=== PATIENT | female | born 1935 | race Caucasian/White ===

== ENCOUNTER → 2017-05-20 14:48 | Outpatient (CLI) | payer MEDICARE, OTHER, SELFPAY ==
--- NOTE | 2017-05-20 14:54 | VDLE_ITS ---
Reason For Study: LEG PAIN AND SWELLING RIGHT LEFT CFV is compressible, spontaneous, phasic, Acute deep vein thrombosis is noted in the competent and demonstrates normal left common femoral vein. augmentation. Acute deep vein thrombosis is noted in the Procedure left femoral vein. Exam performed in department. Acute deep vein thrombosis is noted in the A preliminary report was called and/or faxed left popliteal vein. to Esteban Potter. Acute deep vein thrombosis is noted in the left peroneal vein. Acute deep vein thrombosis is noted in the left posterior tibial vein. Acute deep vein thrombosis noted in the Gastroc veins GSV is dilated and non-compressible from SFJ to prox thigh. Interpretation Summary Acute deep vein thrombosis is noted in the left common femoral vein. Acute deep vein thrombosis is noted in the left femoral vein. Acute deep vein thrombosis is noted in the left popliteal vein. Acute deep vein thrombosis is noted in the left tibio-peroneal trunk. Acute deep vein thrombosis is noted in the left peroneal vein. Acute deep vein thrombosis is noted in the left posterior tibial vein. Acute deep vein thrombosis is noted in the left gastrocnemius vein. Acute superficial thrombophlebitis is noted in the left great saphenous vein from the left sapheno-femoral junction to the left proximal thigh. Ordering Physician: Willy Potter Referring Physician: MD Mercedes Kranthi Performed By: Denise Albarran RVT
[2017-05-20 17:00] LABS: Absolute Lymphocyte Count 1.21 X10^3/ul (0.83-4.51); Absolute Neutrophil Count 6.8 X10^3/uL (2.0-7.7); Basophil# 0.02 X10^3/uL; Basophil% 0.2 % (0-1); Eosinophil# 0.01 X10^3/uL; Eosinophils% 0.1 % (0-5); Hemoglobin 12.8 g/dl (12.0-15.0); Lymphocyte # 1.21 X10^3/ul (4.0); Lymphocyte % 13.8 % (19-41); Mean Corpuscular Hgb 29.8 pg (27.0-32.0); Mean Platelet Vol. 11.6 fl (6.2-12.0); Monocyte# 0.73 X10^3/uL; Monocyte% 8.3 % (0-10); Neutrophil # 6.77 X10^3/uL (2.7-7.7); Neutrophil % 77.5 % (47-70); Platelet Count 153 K/mm3 (150-450); RBC Distribution Width CV 13.2 % (11.6-14.6); White Blood Count 8.8 K/mm3 (4.4-11.0)
[2017-05-20 17:08] LABS: POSITIVE COUNT NO; POSITIVE DIFFERENTIAL NO; POSITIVE MORPHOLOGY NO
[2017-05-20 17:18] LABS: Erythrocyte Sedimentation Rate 16 mm/hr (0-30)
== END ==
PROVIDERS: Family Provider Family Medicine; PCP Family Medicine; Visit Provider Physician Assistant Surgical
DX: M79.662 Pain in left lower leg (principal)
CPT/HCPCS: 36415; 85025; 85652; 86140; 93971

== ENCOUNTER 2017-05-20 18:13 | Emergency (ER) | payer MEDICARE, OTHER, SELFPAY ==
[2017-05-20 18:15] VITALS: BP 157/76; PULSE 60; RESP 16; TEMP 37; O2SAT 98; BMI 28.3
[2017-05-20 20:36] LABS: International Normalized Ratio 1.2; Prothrombin Time (Protime)PT. 15.1 SECONDS (11.7-14.9)
[2017-05-20 20:51] LABS: Anion Gap 8 (5-15); BUN 48 mg/dL (7-18); Chloride 99 mmol/L (98-107); EST Glomerular Filtration Rate 46 mL/min (>60); Est Glom Filt Rate - Afr Amer 55 mL/min (>60); Estimated Creatinine Clearance 35.15 ml/min; Glucose 105 mg/dL (74-106); Potassium 4.3 mmol/L (3.5-5.1); Sodium Level 135 mmol/L (136-145)
--- NOTE | 2017-05-20 21:20 | ED.VISSUMM ---
- ER Visit Summary Date of Service: 05/20/17 Chief Complaint: DVT History of Present Illness: The patient is a 82 F who presents with extensive DVT. She has been having left leg pain and swelling for the past 4 days. She states it has become very difficult to ambulate due to pain in her thigh. She has a history of prior left total hip arthroplasty and left total knee arthroplasty so thought this may be related to her orthopedic surgeries and schedule follow-up with orthopedics. She had an ultrasound today which showed extensive DVT. She has acute DVT in the left common femoral, femoral, popliteal, peroneal, posterior tibial, gastroc veins. The GSV is also dilated and noncompressible from the SFJ to proximal thigh. She denies any chest pain or shortness of breath. No recent travel recent surgery known coagulopathies or recent hospitalization. No prior DVT or pulmonary embolism. Physical Examination: Afebrile vitals are stable Heart regular rate and rhythm Lungs are clear Abdomen soft Patient is a 2+ left dorsalis pedis pulse I was unable to palpate the right dorsalis pedis pulse but she has brisk capillary refill on the right and a strong right posterior tibial Doppler signal and brisk capillary refill in the right, patient has cyanosis of the toes on the left and discoloration of the foot there is slight discoloration of the left leg compared to the right and significant edema Test Results: CBC earlier today was normal. Chemistry notable for BUN 48 creatinine 1.20. INR 1.2. Emergency Department Course and Treatment: Patient's presentation is concerning for early signs of phlegmasia cerulea dolens. Patient was started on a heparin infusion and discussed with the [facility] transfer line and was accepted by Dr. Hernandez, vascular surgery. Treatment Plan: [] Disposition: Transfer Impression: Phlegmasia cerulea dolens This note was generated with [employer] dictation software. It may contain incorrect words, spelling, and punctuation that were not noted in review of the chart prior to signing ED Disposition - Plan for ED Patient: Chief Complaint: Lower Extremity Injury Referrals: Kranthi Long MD [Primary Care Provider] -
--- NOTE | 2017-05-20 21:24 | ED.DCSUM_ITS ---
- ER Visit Summary Date of Service: 05/20/17 Chief Complaint: DVT History of Present Illness: The patient is a 82 F who presents with extensive DVT. She has been having left leg pain and swelling for the past 4 days. She states it has become very difficult to ambulate due to pain in her thigh. She has a history of prior left total hip arthroplasty and left total knee arthroplasty so thought this may be related to her orthopedic surgeries and schedule follow-up with orthopedics. She had an ultrasound today which showed extensive DVT. She has acute DVT in the left common femoral, femoral, popliteal , peroneal, posterior tibial, gastroc veins. The GSV is also dilated and noncompressible from the SFJ to proximal thigh. She denies any chest pain or shortness of breath. No recent travel recent surgery known coagulopathies or recent hospitalization. No prior DVT or pulmonary embolism. Physical Examination: Afebrile vitals are stable Heart regular rate and rhythm Lungs are clear Abdomen soft Patient is a 2+ left dorsalis pedis pulse I was unable to palpate the right dorsalis pedis pulse but she has brisk capillary refill on the right and a strong right posterior tibial Doppler signal and brisk capillary refill in the right, patient has cyanosis of the toes on the left and discoloration of the foot there is slight discoloration of the left leg compared to the right and significant edema Test Results: CBC earlier today was normal. Chemistry notable for BUN 48 creatinine 1.20. INR 1.2. Emergency Department Course and Treatment: Patient's presentation is concerning for early signs of phlegmasia cerulea dolens. Patient was started on a heparin infusion and discussed with the [facility] transfer line and was accepted by Dr. Hernandez, vascular surgery. Treatment Plan: [] Disposition: Transfer Impression: Phlegmasia cerulea dolens This note was generated with [employer] dictation software. It may contain incorrect words, spelling, and punctuation that were not noted in review of the chart prior to signing ED Disposition - Plan for ED Patient: Chief Complaint: Lower Extremity Injury Referrals: Kranthi Long MD [Primary Care Provider] -
[2017-05-20 21:26] VITALS: BMI 28.4
[2017-05-20] MEDS: HEPARIN/D5w 25,000 UNITS 25,000 UNITS/250 ML IV.SOLN. 12 UNITS IV (21:29)
[2017-05-20 21:39] LABS: Partial Thromboplast Time 31.2 Seconds (24.1-36.2)
[2017-05-20 21:44] VITALS: BP 114/58; PULSE 76; PULSE 79; RESP 16; RESP 18; TEMP 36.9; O2SAT 100; O2SAT 99
== END 2017-05-20 21:46 | disposition short-term general hospital (02) ==
LOC: ED 21:01
PROVIDERS: Emergency Provider Emergency Medicine; Family Provider Family Medicine; PCP Family Medicine
DX: I82.412 Acute embolism and thrombosis of left femoral vein (principal); I82.432 Acute embolism and thrombosis of left popliteal vein; I82.442 Acute embolism and thrombosis of left tibial vein; I82.4Z2 Acute embolism and thrombosis of unspecified deep veins of left distal lower extremity; I10 Essential (primary) hypertension; K21.9 Gastro-esophageal reflux disease without esophagitis; Z79.899 Other long term (current) drug therapy; Z86.718 Personal history of other venous thrombosis and embolism; Z86.711 Personal history of pulmonary embolism
CPT/HCPCS: 36415; 80048; 85025; 85610; 85652; 85730; 86140; 93971; 96374; 99285; A4216

== ENCOUNTER → 2019-08-20 09:30 | Outpatient (CLI) | payer MEDICARE, OTHER, SELFPAY ==
--- NOTE | 2019-08-20 09:50 | RAD_ITS ---
STUDY: X-RAY CHEST REASON FOR EXAM: Female, 84 years old. PRE OP, NO CHEST COMPLAINTS TECHNIQUE: Frontal and lateral views of the chest COMPARISON: None. FINDINGS: The lungs are clear and expanded. There is no demonstrated pleural abnormality. Normal size heart. Normal mediastinum and jessica. Normal visualized pulmonary arteries. Normal visualized aortic arch and descending thoracic aorta. There are degenerative changes in the spine and shoulders. Mineralization is diffusely decreased. There is no demonstrated abnormality of the visualized soft tissue structures of the upper abdomen. There are cholecystectomy clips. RAD/Chest PA and Lateral IMPRESSION: Normal x-ray examination of the chest. Osteoporosis. Electronically Signed: Lauryn Hoskins, at 16:48 EDT Tel , Service support ,
--- NOTE | 2019-08-20 09:52 | EKG12_ITS ---
Test Reason : Blood Pressure : / mmHG Vent. Rate : 058 BPM Atrial Rate : 058 BPM P-R Int : 144 ms QRS Dur : 078 ms QT Int : 582 ms P-R-T Axes : 113 031 -33 degrees QTc Int : 571 ms Sinus bradycardia Nonspecific ST and T wave abnormality Abnormal ECG Confirmed by MUNA MORRIS, CESAR ([id number]), editor producer LORI NAVARRO ([id number]) on 08/24/2019 1:47:53 PM Referred By: LANDNO Confirmed By:CODY TORO MD
== END ==
PROVIDERS: PCP Family Medicine; Visit Provider Physician Assistant
DX: Z01.810 Encounter for preprocedural cardiovascular examination (principal); Z01.811 Encounter for preprocedural respiratory examination
CPT/HCPCS: 71046; 93005

== ENCOUNTER → 2019-09-23 14:16 | Outpatient (CLI) | payer MEDICARE, OTHER, SELFPAY ==
--- NOTE | 2019-09-23 14:23 | CT_ITS ---
CT of the right knee INDICATION: Pain TECHNIQUE: CT of the right knee was performed in the axial plane without contrast followed by sagittal and coronal reconstructions. FINDINGS: There is no evidence for acute fracture or dislocation. There is narrowing of the medial compartment of the joint with spurring of the medial femoral and tibial condyles. There is narrowing of the lateral compartment of the patellofemoral joint space with mild patellar spurring. There is a suprapatellar bursal effusion. There is also fluid within the pes anserine bursa. If concern for ligamentous or tendinous injury MRI recommended CT/Extremity Lower without Contra IMPRESSION: Moderate osteoarthritic changes. No evidence for acute fracture or other significant bony pathology. If concern for ligamentous or tendinous injury MRI recommended Electronically Signed: Jaime Ibanez MD at 20:19 EDT , Service support ,
== END ==
PROVIDERS: PCP Family Medicine; Referring Provider Orthopaedic Surgery; Visit Provider Orthopaedic Surgery
DX: M17.11 Unilateral primary osteoarthritis, right knee (principal); M25.561 Pain in right knee
CPT/HCPCS: 73700

== ENCOUNTER 2019-10-20 15:57 | Emergency (ER) | payer MEDICARE, OTHER, SELFPAY ==
[2019-10-20 15:59] VITALS: BP 132/84; PULSE 52; PULSE 62; RESP 17; RESP 18; TEMP 36.6; O2SAT 97; O2SAT 98; BMI 25.3
--- NOTE | 2019-10-20 16:23 | ED.DCSUM_ITS ---
History of Present Illness Chief Complaint: Lower Extremity Injury Informant: Patient, Family Narrative: Patient is an 84-year-old female with a past medical history of DVT on Eliquis, hypertension who presents to emerge department for bruise over the left lateral thigh. She fell 10 days ago. She was not seen at that time because she thought it was a minor fall. She denies any significant pain. Have minor pain whenever she is ambulating. She was concerned as she is supposed to have a right knee replacement at the end of this month. Her bruise has been getting larger so she wanted to get checked out as she did not want to miss the surgery. Bruise is on the left side. Initially started around her left buttock going down the left thigh. Now extended down not past the knee. She has been using cold and warm compresses over the area. She denies any easy bleeding or bruising elsewhere. No limited range of motion of the leg. No joint swelling. No back pain, neck pain. Denies hitting her head or losing consciousness. Past Medical History - Allergies and Home Meds Allergies/Adverse Reactions: Allergies lisinopril Allergy (Verified 10/20/19 15:58) Shortness of breath metoclopramide [From Reglan] Allergy (Verified 10/20/19 15:58) Shortness of breath etodolac Adverse Reaction (Verified 10/20/19 15:58) Diarrhea Primary Care Physician: Kranthi Long MD [Primary Care Provider] - 3-5 Days Prior records reviewed: Yes Past Medical History: - - DVT, hypertension Surgical History: hysterectomy, total hip arthroplasty Smoking Status: Former smoker Review of Systems All systems negative except as indicated General: Denies: Chills, Fever, Sweats Eyes: Denies: Visual changes - bilaterally, Diplopia ENT: Denies: Rhinorrhea, Sore throat Cardiovascular: Denies: Chest pain, Palpitations Respiratory: Denies: Dyspnea, Cough, Dyspnea on exertion Gastrointestinal: Denies: Abdominal pain, Nausea, Vomiting, Diarrhea, Melena, Hematochezia Genitourinary: Denies: Dysuria, Hematuria Musculoskeletal: Denies: Back pain, Extremity Pain Skin: Reports: - - Ecchymosis. Denies: Rash, Wounds Neurological: Denies: Headache, Weakness, Numbness Hematologic: Denies: Easy bruising, Easy bleeding Physical Exam Vital Signs/Narrative: Vital Signs Temp Pulse Resp BP Pulse Ox 08/11/20 15:59 97.8 F 62 17 132/84 H 97 Inital Vital Signs reviewed: Yes General: Well nourished, Well developed, No Acute Distress Head: Normocephalic, Atraumatic Eyes: Perrl, EOMI ENT: Moist mucous membranes, No rhinorrhea Neck: Supple, Nontender Cardiovascular: Regular rate, Regular rhythm, No murmurs Respiratory: No distress, CTA bilaterally, Chest nontender Abdomen: Soft, Nontender, Nondistended Back: Nontender, Normal Inspection Extremities: Nontender, - - Lower extremities are neurovascularly intact. No significant edema or swelling Skin: No rash, - - Patient has ecchymosis extending from left buttock down to the left knee. Does appear superficial. No underlying hematoma palpable. This is not tender to palpation. No calf tenderness. Has full range of motion of the lower extremity. Neurological: Alert, Oriented x3, Normal Strength, Normal Sensation Psychological: Normal affect, Normal Mood Diagnostic/Tx/Re-eval - Medical Decision Making Patient presents to the emergency department for concern over a left lower ex tremity ecchymosis as she is supposed to have surgery on the right leg at the end of this month. No other bleeding or bruising elsewhere. Upon arrival vital signs within normal limits. Besides the lower extremity bruising no significant abnormality on physical exam. She is nontoxic-appearing. She states that she is already had preoperative lab testing and this was a follow-up with her surgeon in the next week. Did not let her know of any significant acute abnormality. I do not feel that this bruise warrants any lab testing at this time. She is going to hold the Eliquis just prior to the surgery. I believe that if she follows up with her surgeon as scheduled for the preop meeting this would be appropriate follow-up. Patient is explained all this and she feels comfortable with this plan. Will discharge home in stable condition. Warning signs and symptoms for which to return to the emerge department are reviewed. She understands and is agreeable with this plan. ED Disposition - Plan for ED Patient: Disposition: Home or Assisted Living Diagnosis: Traumatic ecchymosis of left lower leg Instructions: ED EXTREMITY CONTUSION Lower Referrals: Kranthi Long MD [Primary Care Provider] - 3-5 Days
== END 2019-10-20 16:59 | disposition home or self-care (01) ==
LOC: ED 16:32
PROVIDERS: Emergency Provider Emergency Medicine; PCP Family Medicine
DX: S70.12XA Contusion of left thigh, initial encounter (principal); W19.XXXA Unspecified fall, initial encounter; Y93.9 Activity, unspecified; Y92.9 Unspecified place or not applicable; Z86.718 Personal history of other venous thrombosis and embolism; I10 Essential (primary) hypertension; Z79.01 Long term (current) use of anticoagulants; Z87.891 Personal history of nicotine dependence
CPT/HCPCS: 99282

== ENCOUNTER → 2019-11-04 09:40 | Outpatient (CLI) | payer MEDICARE, OTHER, SELFPAY ==
[2019-10-20 15:59] VITALS: BMI 25.3
== END ==
PROVIDERS: PCP Family Medicine; Referring Provider Physician Assistant; Visit Provider Physician Assistant
DX: Z11.59 Encounter for screening for other viral diseases (principal)
CPT/HCPCS: 87635; 94799; U0003

== ENCOUNTER 2019-11-17 17:57 | Inpatient (IN) | payer MEDICARE, OTHER, SELFPAY ==
[2019-11-17] VITALS (19 sets, daily range): BP systolic 85–138; BP diastolic 54–98; PULSE 101–167; RESP 13–26; TEMP 36.3–36.7; O2SAT 94–100; BMI 24.5; BMI 24.3; BMI 24.4
[2019-11-17] MEDS: dilTIAZem 25 MG/5 ML Vial 10 MG IV BOLUS ×2 (18:08→18:42)
--- NOTE | 2019-11-17 18:10 | EKG12_ITS ---
Test Reason : CP Blood Pressure : / mmHG Vent. Rate : 167 BPM Atrial Rate : 153 BPM P-R Int : 000 ms QRS Dur : 082 ms QT Int : 216 ms P-R-T Axes : 000 012 231 degrees QTc Int : 360 ms Atrial fibrillation with rapid ventricular response Marked ST abnormality, possible Myocardial ischemia/ injury Abnormal ECG Confirmed by GALI MORRIS, CLARA ([id number]), order editor LESLEY PEÑA ([id number]) on 11/19/2019 9:48:42 AM Referred By: JASMIN Confirmed By:CLARA TALBERT MD
[2019-11-17] MEDS: 0.9% Normal Saline 1,000 ML 1000 ML IV (18:14)
[2019-11-17 18:18] LABS: Absolute Neutrophil Count 5.7 X10^3/uL (2.0-7.7); Basophil# 0.04 X10^3/uL; Basophil% 0.5 % (0-1); Eosinophil# 0.05 X10^3/uL; Eosinophils% 0.6 % (0-5); Hematocrit 39.4 % (37-47); Hemoglobin 12.6 g/dL (12.0-15.0); Lymphocyte % 22.5 % (19-41); Mean Corpuscular Volume 93.8 fL (81-99); Mean Platelet Vol. 10.3 fl (6.2-12.0); Monocyte# 0.66 X10^3/uL; Monocyte% 7.8 % (0-10); NRBC Flagged by Analyzer 0 % (0-5); Neutrophil # 5.74 X10^3/uL (2.7-7.7); Neutrophil % 67.8 % (47-70); Platelet Count 415 K/mm3 (150-450); RBC Distribution Width CV 14.3 % (11.6-14.6); White Blood Count 8.5 K/mm3 (4.4-11.0)
--- NOTE | 2019-11-17 18:34 | ED.VISSUMM ---
- ER Visit Summary Date of Service: 11/17/19 Chief Complaint: Lightheadedness History of Present Illness: The patient is a 84 F presenting with lightheadedness and shortness of breath. She states this started around 4 PM. She denies chest pain. She has dizziness with no syncope. She had knee surgery November 08 at [facility]. She is on Eliquis. She states this was stopped prior to the surgery but she has been back on Eliquis for the past week. Physical Examination: Vitals are stable. Heart rate 160. Patient is afebrile. Alert no acute distress. HEENT exam is unremarkable. Neck is supple. Lungs are clear and equal bilaterally. Heart is irregularly irregular and tachycardic Abdomen is soft nontender nondistended. Extremities right knee incision clean dry and intact. No calf tenderness Skin is warm and dry. No focal neurologic deficit. Remainder of exam is unremarkable. Emergency Department Course and Treatment: EKG is A. fib with RVR rate of 167. Patient was given Cardizem IV x2. Repeat heart rate 105. CBC unremarkable. Patient show glucose 141, creatinine 1.32. Troponin 0.045. CTA chest was obtained and shows there are a few primarily subsegmental pulmonary emboli in both lower lobes. COPD. Probable liver mass, needs further evaluation. Patient's heart rate increased to 150s after walking to the bathroom. She was started on Cardizem drip. Discussed with the hospitalist. She was given Lovenox. Disposition: Admission Impression: A. fib with RVR, bilateral pulmonary embolism This note was generated with [employer] dictation software. It may contain incorrect words, spelling, and punctuation that were not noted in review of the chart prior to signing ED Disposition - Plan for ED Patient: Disposition: Acute Care [facility]
[2019-11-17 19:04] LABS: Anion Gap 13 (5-15); BUN 12 mg/dL (7-18); BUN/Creat Ratio 9.1 RATIO (10-20); Calcium,Total 10.1 mg/dL (8.5-10.1); Chloride 102 mmol/L (98-107); Creatinine, Serum 1.32 mg/dL (0.55-1.02); EST Glomerular Filtration Rate 41 mL/min (>60); Est Glom Filt Rate - Afr Amer 49 mL/min (>60); Glucose 141 mg/dL (74-106); Potassium 4.2 mmol/L (3.5-5.1); Sodium Level 138 mmol/L (136-145)
--- NOTE | 2019-11-17 19:20 | CT_ITS ---
We are attempting to reach an attending provider to discuss findings. An addendum with communication details will be sent when the communication is complete. STUDY: CTA CHEST REASON FOR EXAM: Female, 84 years old. PT WITH DIZZINESS, SOB, AND GENERALIZED WEAKNESS AFTER PT TODAY RADIATION DOSAGE (If Supplied By Facility): CTDIvol = ( 12.44 ) mGy, DLP = ( 384.39 ) mGycm TECHNIQUE: The examination was performed with the intravenous administration of IV 100mL Isovue-370. Post-processing of the angiographic images was performed, with multiplanar reformation and 3D reconstruction. Individualized dose optimization techniques were used for this CT. COMPARISON: None. FINDINGS: Normal enhancement of the main pulmonary artery and right and left pulmonary arteries. A few tiny filling defects consistent with pulmonary emboli are seen to bilateral segmental branches in both lower lobes. Normal thoracic aorta and visualized great vessels. There is no demonstrated aortic dissection. There is mild cardiac cardiomegaly. There are calcifications of the coronary arteries. Normal mediastinum. Normal hilar regions. Normal visualized trachea and bronchi. The lungs are hyper expanded, with flattening of the hemidiaphragms. No infiltrates. No suspicious nodules. Trace right pleural effusion versus thickening of the posterior costophrenic angle. There are degenerative changes of thoracic spine. Partial compression fracture of T12 which appears old. Limited views through the upper abdomen suggest a loculated 4 cm mass posterior segment of the right hepatic lobe, with contrast is recommended. CT/CTA Chest W/WO Contrast IMPRESSION: There are a few primarily subsegmental pulmonary emboli in both lower lobes. COPD. Probable liver mass, needs further evaluation. Electronically Signed: Gopal Shane MD at 19:46 EDT , Service support ,
--- NOTE | 2019-11-17 20:04 | HP.PCM_ITS ---
Problem List (1) Atrial fibrillation with RVR Status: Acute (2) Bilateral pulmonary embolism Status: Acute (3) Liver mass Status: Acute (4) History of venous thromboembolism Status: Chronic (5) HTN (hypertension) Status: Chronic Qualifiers: Hypertension type: essential hypertension Qualified Code(s): I10 - Essential (primary) hypertension History of Present Illness Date of Admission: 11/17/19 Chief Complaint: Dizziness, weakness, shortness of breath after PT The patient is a 84 y/o F w/ PMHx: Hx VTE on Eliquis, HTN, Chronic Back Pain, OA, CKD stage III who presents to the [facility] ED on 11/17/19 with history of TKR on 11/09/19 at [facility] with d/c of her home eliquis but noted restarting her regimen on 11/11/19 with onset of dyspnea and lightheadedness/dizziness starting at ~ 4 pm with no LOC with denied palpitations or chest pain prompting family to bring her into the ED. patient denied any palpitations or chest discomfort. She notes history of prior left lower extremity DVT approximately 2 to 3 years prior to current presentation with necessity for tertiary facility transfer at that time and from discussion intervention with ongoing treatment following. She denies ever having had hypercoagulable work-up. She notes she had been recuperating well prior to this incident onset. Work-up in the ED included T 97.3, heart rate 167, BP 112/94, respiratory rate 15, 98% on room air, CBC with WC 8.5, hemoglobin 12.6, platelet 415 without market shift, BMP with BUN/creatinine 12/1.32, glucose 141 otherwise unremarkable, troponin 0.045, recent 11/04/2019 COVID testing negative, EKG with atrial fibrillation with RVR, CTPA with few primarily subsegmental pulmonary emboli in bilateral lower lobes with chronic COPD changes and possibly a liver mass. In the ED patient administered normal saline, Cardizem bolus 20 mg IV x1 as well as initiation of Cardizem drip. Past Medical History Past Medical History (Chronic Problems): Chronic Problems (Last Updated 10/04/17 @ 16:01 by Lashon Ford) History of venous thromboembolism (Chronic) HTN (hypertension) (Chronic) Benign essential hypertension (Chronic) Medical History: Medical History (Last Updated 10/04/17 @ 16:01 by Lashon Ford) Back pain M54.9 Hemorrhoids K64.9 Hx of blood clots Z86.718 Knee pain M25.569 HTN (hypertension) I10 Allergies lisinopril Allergy (Verified 11/17/19 17:57) Shortness of breath metoclopramide [From Reglan] Allergy (Verified 11/17/19 17:57) Shortness of breath etodolac Adverse Reaction (Verified 11/17/19 17:57) Diarrhea Home Medications: Ambulatory Orders Medication Instructions Recorded AMILoride/Hydrochlorothiazide 1 tab PO DAILY 05/20/17 [MODURETIC 5-50 MG Tab] Metoprolol Succinate [Toprol Xl] 200 mg PO DAILY 05/20/17 apixaban 2.5 mg tablet 2.5 mg PO BID 10/04/17 Hydrocodone/Acetaminophen 1 - 2 tab PO Q4H PRN PRN 11/17/19 [Hydrocodon-Acetaminophen 5-325] Surgical History: Surgical History (Last Updated 10/04/17 @ 16:01 by Lashon Ford) History of hip replacement Z96.649 History of knee replacement Z96.659 Surgical History: hysterectomy, total hip arthroplasty, - - Recent right total knee replacement 11/09/2019, history of prior left total knee replacement, left total hip replacement, partial hysterectomy, cholecystectomy. Psychiatric History: No pertinent psych hx [employer]ER History: No pertinent [employer] history Lives: Spouse/ Significant Other Smoking Status: Former smoker - Patient notes smoking for approximately 3 years in her youth less than 1/2 pack/day at that time. Tobacco Use: Non-smoker Alcohol: None Drugs: None - *Family History Maternal History Items: Cancer, - - Patient notes a maternal family history of lung cancer with heavy tobacco use history. Paternal History Items: - - Patient notes a history of father with secondary to spinal meningitis with a history of TB. Review of Systems Constitutional: Reports: Malaise, Weakness, Fatigue. Denies: Anorexia, Chills, Fever, Weight Change HEENT: Reports: - - Lightheadedness, dizziness.. Denies: Head Aches, Sinus Congestion, Sinus Drainage Cardiovascular: Reports: Light Headedness. Denies: Chest Pain, Chest Pressure, Chest Tightness, Orthopnea, Palpitations, Syncope Respiratory: Reports: Shortness of Breath, Shortness of breath at rest, Shortness of breath upon exertion. Denies: Cough, Sputum production Gastrointestinal: Denies: Abdominal Pain, Nausea, Vomiting Genitourinary: Denies: Dysuria Musculoskeletal: Reports: Joint Pain, Joint stiffness, Joint swelling, Joint Tenderness Skin: Denies: Rash, Wounds Neurological: Denies: Numbness, Tingling, Focal weakness Psychiatric: Denies: Anxiety, Depression, Homicidal Ideations, Suicidal Ideations Hematologic/ Lymphatic: Reports: Easy Bruising, Easy Bleeding VTE Information - Inpt Only VTE Present on Admission: Yes VTE Mechan Device Prophylaxis: SCD's VTE Pharm Prophylaxis ordered?: Yes Patient Problems: Active and Suspected Problems (Last Updated 10/04/17 @ 16:01 by Lashon Ford) Atrial fibrillation with RVR (Acute) Bilateral pulmonary embolism (Acute) Liver mass (Acute) Subjective: Seated upright in the ED bed, mildly fatigued otherwise no acute distress. Objective: Physical Examination: General: awake, alert, oriented x 3 and cooperative, seated upright in the ED bed, fatigued otherwise no acute distress. Skin: normal color, turgor, no icterus, cyanosis, right knee dressing still in place, no recent discharge noted. HEENT: AT/NC, EOMI, PERRLA, MMM, no carotid bruits or JVD noted. Lungs: Mildly diminished breath sounds bilaterally, greater bilateral bases, no evidence of any distress, no rales, ronchi or wheezing. Heart: Irregular irregular; no gallop, rub audible. Abdomen: soft, NTTP, ND, normal BS, no HSM. Extremities: no cyanosis, clubbing, status post right total knee replacement, mild ankle edema, no tenderness to palpation of the calf region, dressing in place is noted to the right knee. Neurological: patient awake, alert, oriented x 3; cognitive function intact; pupils equally reactive to light and accomodation; cranial nerves II-XII grossly normal, moving all 4 extremities although some expected limitation right knee status post recent right total knee replacement, no focal deficits, strength moderately to severely will decrease secondary to recent surgery and acute presentation. Psychiatric: affect appears fatigued otherwise normal, no acute evidence of depressive or anxiety feelings. - Physical Exam Vitals/I&O's: Vital Signs Temp Pulse Resp BP Pulse Ox 97.3 F L 115 H 14 108/70 99 11/17/19 17:59 11/17/19 19:01 11/17/19 19:01 11/17/19 19:01 11/17/19 19:01 Oxygen Flow Rate (L/min) 2 Oxygen Delivery Method Nasal Cannula Weight: 161 lb 6.4 oz Body Mass Index (BMI) 24.5 Intake and Output for Last 24 Hours 11/15/19 11/16/19 11/17/19 23:59 23:59 23:59 Intake Total 1000 / 1000 Balance 1000 / 1000 Laboratory Results 11/17/19 18:05: WBC 8.5, RBC 4.20, Hgb 12.6, Hct 39.4, MCV 93.8, MCH 30.0, MCHC 32.0, RDW Std Deviation 47.0 H, RDW Coeff of Kin 14.3, Plt Count 415, MPV 10.3, Immature Gran % (Auto) 0.800, Neut % (Auto) 67.8, Lymph % (Auto) 22.5, Petroleum % (Auto) 7.8, Eos % (Auto) 0.6, Baso % (Auto) 0.5, Absolute Neuts (auto) 5.7, Absolute Lymphs (auto) 1.90, Nucleated RBC % 0 11/17/19 18:05: Sodium 138, Potassium 4.2, Chloride 102, Carbon Dioxide 23.0, Anion Gap 13, BUN 12, Creatinine 1.32 H, Estim Creat Clear Calc 32.00, Est GFR (MDRD) Af Amer 49 L, Est GFR (MDRD) Non-Af 41 L, BUN/Creatinine Ratio 9.1 L, Glucose 141 H, Calcium 10.1, Troponin I 0.045 Current Medications Diltiazem HCl 125 mg/ Dextrose 125 mls @ 5 mls/hr IV .Q25H DEVAN; Protocol Assessment/Plan All Active Problems (Last Updated 10/04/17 @ 16:01 by Lashon Ford) Atrial fibrillation with RVR (Acute) Bilateral pulmonary embolism (Acute) Liver mass (Acute) Acute myofascial strain of lumbosacral region (Acute) The patient is a 84 y/o F w/ PMHx: Hx VTE on Eliquis, HTN, Chronic Back Pain, OA, CKD stage III who presents to the [facility] ED on 11/17/19 with history of TKR on 11/09/19 at [facility] with d/c of her home eliquis but noted restarting her regimen on 11/11/19 with onset of dyspnea and lightheadedness/dizziness starting at ~ 4 pm with no LOC with denied palpitations or chest pain. 1. New onset, Paroxsymal atrial fibrillation suspected secondary to Acute BL PE with VTE Hx with recent transient hold on her anticoagulant therapy: EKG in ED w/ atrial fibrillation w/ RVR. Patient administered cardizem bolus and drip in ED. Will admit to PCU, maintain on telemetry, obtain cardiac enzyme serial set, obtain magnesium level, obtain ECHO, obtain TSH level. We will hold Eliquis regimen given possible mass/CA and transition pending further evaluation to therapeutic lovenox given new BL subsegmental PEs. Will continue on cardizem drip with resumption in a.m. if appropriate of patient home metoprolol regimen she noted taking dose on day of presentation. Do suspect possible necessity to increase Cardizem drip as heart rate did increase again with activity in the ED despite initial improvement with bolus. ED obtaining PT, PTT. 2. Hyperglycemia: Admission glucose 141, to be cautious will obtain hemoglobin A1c. 3. Incidental questionable liver mass: We will obtain liver ultrasound to further assess, obtain liver function studies, coag studies pending per discussion with ED, transition to therapeutic Lovenox pending further evaluation. 4. Chronic Kidney Disease Stage III: Admission BUN/Cr 12/1.32, baseline renal function appears similar, 1.2-1.3, repeat BMP in AM. 5. Hypertension: Continue home regimen including amiloride, hydrochlorothiazide, metoprolol with overlap with Cardizem drip pending response, PRN hydralazine. 6. History of VTE: Recent transient hold given right total knee replacement, resumed on her Eliquis therapy, last dose day of admission a.m. only, transition to therapeutic Lovenox as noted. 7. Recent right total knee replacement, severe OA: Encourage fall precautions, continue PT and OT assessments as well as case management intervention, PRN pain regimen. Dr. Birmingham was updated on patient's current status. Current dressing in place to the right knee supposed to remain in place for at least additional 1 week. 8. DVT prophylaxis: SCDs, transitioning to therapeutic Lovenox as noted. 9. CODE status: Patient HCPOA is her and living will is currently in place. Discussed CODE status at length including difference between FULL code, DNR-CCA and DNR-CC status. Following discussions about the differences in these status, requested DNR CCA, no intubation status. Advanced Care Planning Face to Face Time: 16 minutes. Inpatient E&M: 42714 Init Hosp L3 Procedures: 07620 Advncd Care Plan 30 Min
[2019-11-17] MEDS: Enoxaparin 80 MG/0.8 ML Syringe 70 MG SC (20:34)
[2019-11-17 20:48] LABS: International Normalized Ratio 1.3; Prothrombin Time (Protime)PT. 15.5 SECONDS (11.7-14.9)
[2019-11-17 20:49] LABS: Partial Thromboplast Time 30.3 Seconds (24.1-36.2)
--- NOTE | 2019-11-17 21:41 | ECHOD_ITS ---
Reason For Study: ARRHYTHMIA Procedure This was a 2D Doppler, Color Flow transthoracic echocardiogram. The study was technically difficult. Exam performed portable in patient room. Left Ventricle Normal LV size. Left ventricular systolic function is normal. The estimated ejection fraction is 65 %. Unable to assess diastolic dysfunction. No regional wall motion abnormalities noted. Right Ventricle Normal RV size. Normal systolic function. Atria The left atrium is moderately enlarged. Normal right atrium. No doppler evidence for ASD. Mitral Valve There is no mitral annular calcification. Normal mitral valve. Mild-Moderate (1-2+) mitral valve insufficiency. Tricuspid Valve Normal tricuspid valve. Mild to moderate (1-2+) tricuspid valve insufficiency. Right ventricular systolic pressure estimated to be 38 mmHg. Aortic Valve Trisinus/trileaflet aortic valve. Normal aortic valve. Trivial aortic valve insufficiency. Pulmonic Valve The pulmonic valve is not well visualized. Trivial pulmonic valve insufficiency. Great Vessels Normal sized aortic root. Pericardium/Pleural No pericardial effusion. MMode/2D Measurements & Calculations LVIDd: 4.2 cm IVSd: 0.90 cm LAV(MOD-bp): 115.9 ml LVIDs: 3.0 cm LVPWd: 0.95 cm LAV(MOD-bp) Indexed: 62.3 ml/m2 RVDd: 3.4 cm FS: 27.8 % LAV(MOD-sp2): 101.6 ml LAV(MOD-sp4): 103.4 ml LA dimension(2D): 4.2 cm LA A4 area: 30.8 cm2 RA A4 area: 17.6 cm2 Doppler Measurements & Calculations Ao V2 max: 106.8 cm/sec AI max marcial: 446.2 cm/sec LV V1 max: 70.1 cm/sec Ao max P.6 mmHg AI max P.6 mmHg LV V1 max P.0 mmHg AI dec slope: 319.3 cm/sec2 AI P1/2t: 409.3 msec PA V2 max: 73.6 cm/sec PI end-d marcial: 110.4 cm/sec TR max marcial: 296.2 cm/sec TR max P.1 mmHg Interpretation Summary The study was technically difficult. Left ventricular systolic function is normal. The estimated ejection fraction is 65 %. The left atrium is moderately enlarged. Mild-Moderate (1-2+) mitral valve insufficiency. Mild to moderate (1-2+) tricuspid valve insufficiency. Trivial aortic valve insufficiency. Trivial pulmonic valve insufficiency. Right ventricular systolic pressure estimated to be 38 mmHg. Unable to assess diastolic dysfunction. Ordering Physician: Cherrie العلي Referring Physician: VITOR VELASQUEZ Performed By: Alana Chandler, ELMER, RVT
[2019-11-17 22:46] LABS: AST(SGOT) 26 U/L (15-37); Alanine Aminotransfer ALT/SGPT 17 U/L (13-56); Albumin, Serum 3.7 g/dL (3.2-5.0); Alkaline Phosphatase 72 U/L (45-117); Bilirubin, Direct 0.42 mg/dL (0.00-0.30); Globulin 2.8 g/dL (2.2-4.2); Magnesium 1.5 mg/dL (1.6-2.6); Protein, Total 6.5 g/dL (6.4-8.2); Thyroid Stim Hormone (TSH) 6.51 uIU/mL (0.358-3.74)
[2019-11-17 22:50] LABS: Hemoglobin A1c 5.1 % (3.8-5.6)
[2019-11-18] VITALS (42 sets, daily range): BP systolic 84–136; BP diastolic 50–94; PULSE 75–130; RESP 11–27; TEMP 36.3–37.1; O2SAT 94–100
[2019-11-18] MEDS: Amiodarone 360 MG in Dextrose 5% Viaflo Bag 192.8 ML 33.3 MG CONT INF (02:21)
[2019-11-18] MEDS: Enoxaparin 80 MG/0.8 ML Syringe 70 MG SC ×2 (05:39→17:09)
--- NOTE | 2019-11-18 05:55 | US_ITS ---
STUDY: ABDOMINAL ULTRASOUND - RIGHT UPPER QUADRANT REASON FOR VISIT: Female, 84 years old LIVER MASS SEEN ON CT TECHNIQUE: Ultrasound evaluation of the right upper quadrant was performed with real-time and static lujan-scale imaging. TECHNICAL QUALITY: Adequate. COMPARISON: CT of the chest from yesterday.. FINDINGS: Liver: The liver measures 13.9 cm. There is normal echogenicity of the liver. The bile ducts are within normal limits. There is hepatic color flow. The direction of portal flow is hepatopetal. Confirmation of a complex multi density mass in the posterior right lobe measuring 4.4 x 3.9 x 4.0 cm. Neoplasm is a possibility. At this point, further management could be performed with biopsy or contrast CT of the liver. Gallbladder: The patient is status post cholecystectomy. Common Bile Duct (C.B.D.): The common bile duct measures 4 mm. Pancreas: Normal size of the head, body and tail of the pancreas. There is normal echogenicity of the pancreas. There is no demonstrated pancreatic mass or cyst. Right Kidney: Normal size of the right kidney. The right kidney measures 9.8 cm. Normal renal cortex. The right cortex measures 1.2 cm. There is a 1.9 cm septated cyst. There is no right hydronephrosis. US/Abdomen Limited IMPRESSION: Confirmation of 4.4 cm right hepatic lobe mass which could be neoplastic. Either biopsy or CT of the abdomen with contrast recommended. Electronically Signed: Gopal Shane MD at 16:12 EDT , Service support ,
[2019-11-18 06:37] LABS: Absolute Lymphocyte Count 1.64 X10^3/uL (0.83-4.51); Absolute Neutrophil Count 4.4 X10^3/uL (2.0-7.7); Basophil# 0.05 X10^3/uL; Basophil% 0.7 % (0-1); Eosinophil# 0.09 X10^3/uL; Eosinophils% 1.3 % (0-5); Hematocrit 34.6 % (37-47); Hemoglobin 11.1 g/dL (12.0-15.0); Lymphocyte # 1.64 X10^3/ul (4.0); Mean Corp Hgb Conc 32.1 g/dL (32-36); Mean Corpuscular Hgb 29.8 pg (27.0-32.0); Mean Platelet Vol. 9.8 fl (6.2-12.0); Monocyte# 0.63 X10^3/uL; Monocyte% 9.2 % (0-10); NRBC Flagged by Analyzer 0 % (0-5); Neutrophil # 4.39 X10^3/uL (2.7-7.7); Neutrophil % 64.2 % (47-70); Platelet Count 327 K/mm3 (150-450); RBC Distribution Width CV 14.2 % (11.6-14.6); RBC Distribution Width SD 46.2 fl (35.1-43.9); Red Blood Count 3.72 M/mm3 (4.2-5.4); White Blood Count 6.8 K/mm3 (4.4-11.0)
[2019-11-18 07:07] LABS: ALB/GLOB Ratio 1.1 RATIO (0.9-2.4); AST(SGOT) 20 U/L (15-37); Alanine Aminotransfer ALT/SGPT 14 U/L (13-56); Alkaline Phosphatase 57 U/L (45-117); Anion Gap 7 (5-15); BUN 9 mg/dL (7-18); BUN/Creat Ratio 10.8 RATIO (10-20); Calcium,Total 8.8 mg/dL (8.5-10.1); Chloride 106 mmol/L (98-107); Cholesterol 111 mg/dL (200); Creatinine, Serum 0.83 mg/dL (0.55-1.02); EST Glomerular Filtration Rate 69 mL/min (>60); Est Glom Filt Rate - Afr Amer 84 mL/min (>60); Globulin 2.8 g/dL (2.2-4.2); Glucose 101 mg/dL (74-106); High Density Lipoprotein 44 mg/dL; Potassium 3.4 mmol/L (3.5-5.1); Protein, Total 5.8 g/dL (6.4-8.2); Sodium Level 139 mmol/L (136-145); Triglycerides 102 mg/dL; Very Low Density Lipoprotein 20 mg/dL (5-40)
[2019-11-18] MEDS: Amiodarone 360 MG in Dextrose 5% Viaflo Bag 192.8 ML 16.7 MG CONT INF (09:07)
--- NOTE | 2019-11-18 09:21 | CON.PCM_ITS ---
Problem List (1) Atrial fibrillation with RVR Status: Acute (2) Bilateral pulmonary embolism Status: Acute (3) History of venous thromboembolism Status: Chronic (4) HTN (hypertension) Status: Chronic Qualifiers: Hypertension type: essential hypertension Qualified Code(s): I10 - Essential (primary) hypertension (5) Liver mass Status: Acute Reason for Consult Date of Consultation: 11/18/19 History of Present Illness: The patient is a 84 year old white female who presents for evaluation of atrial fibrillation with RVR thought secondary to pulmonary emboli superimposed upon a history of DVT-on chronic anticoagulant therapy-temporarily interrupted for recent right knee surgery, hypertension, and subsequent findings of a liver mass . She states that she has been on chronic anticoagulant therapy for history of DVT. This was temporarily interrupted for a right knee surgery. She presented to the hospital because of concerns of the sensation of increased heart rate and feeling more short of breath and dyspneic. She was found to be in atrial fibrillation with RVR and was noted to have a chest CT scan demonstrating pulmonary emboli. She was subsequently placed in the PCU for further evaluation and care. She was treated for her atrial fibrillation with RVR with IV diltiazem and IV amiodarone. Her rate has slowed. She states overall she is feeling better. She also notes her breathing has improved. During this time she does not recall any chest discomfort. There was no report of acute orthopnea or PND. There was no report of near syncope or syncope. To the best of her knowledge she does not recall ever undergoing any type of cardiovascular evaluation in the past. [] Past Medical History Allergies/Adverse Reactions: Allergies lisinopril Allergy (Verified 11/17/19 17:57) Shortness of breath metoclopramide [From Reglan] Allergy (Verified 11/17/19 17:57) Shortness of breath etodolac Adverse Reaction (Verified 11/17/19 17:57) Diarrhea Home Medications: Ambulatory Orders Medication Instructions Recorded AMILoride/Hydrochlorothiazide 1 tab PO DAILY 05/20/17 [MODURETIC 5-50 MG Tab] Metoprolol Succinate [Toprol Xl] 200 mg PO DAILY 05/20/17 apixaban 2.5 mg tablet 2.5 mg PO BID 10/04/17 Hydrocodone/Acetaminophen 1 - 2 tab PO Q4H PRN PRN 11/17/19 [Hydrocodon-Acetaminophen 5-325] Past Medical History (Chronic Problems): Chronic Problems (Last Updated 10/04/17 @ 16:01 by Lashon Ford) History of venous thromboembolism (Chronic) HTN (hypertension) (Chronic) Benign essential hypertension (Chronic) Surgical History: hysterectomy, total hip arthroplasty, - - Recent right total knee replacement 11/09/2019, history of prior left total knee replacement, left total hip replacement, partial hysterectomy, cholecystectomy. 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 Paternal History Items: - - Patient notes a history of father with secondary to spinal meningitis with a history of TB. Lives: Spouse/ Significant Other Smoking Status: Former smoker Tobacco Use: Non-smoker Alcohol: None Drugs: None Review of Systems - Review of Systems General: Denies: Fever, Night Sweats, Fatigue Cardiovascular: Reports: Shortness of Breath, Palpitations. Denies: Chest Discomfort, Orthopnea, PND, Peripheral Edema, Lightheadedness, Dizziness, Near Syncope, Syncope Respiratory: Reports: Shortness of Breath. Denies: Cough, Sputum Production, Hemoptysis Gastrointestinal: Denies: Hematemesis, Hematochezia, Melena Genitourinary: Denies: Dysuria, Hematuria Skin: Denies: Rash Subjectve: This is an 84-year-old white female appears to be resting recently comfortably at the moment in no acute distress. Objective: Vital Signs Temp Pulse Resp BP Pulse Ox 97.4 F L 118 H 27 H 107/68 100 11/18/19 07:30 11/18/19 09:07 11/18/19 09:07 11/18/19 09:07 11/18/19 09:07 Oxygen Flow Rate (L/min) 2 Oxygen Delivery Method Room Air Weight: 160 lb 4.417 oz Body Mass Index (BMI) 24.3 Intake and Output for Last 24 Hours 11/16/19 11/17/19 11/18/19 23:59 23:59 23:59 Intake Total 1266.0 / 1266.0 791.56 / 791.56 Balance 1266.0 / 1266.0 791.56 / 791.56 General: Awake, Alert, Oriented x 3, Cooperative, No Acute Distress HEENT: Atraumatic, Normocephalic, PERRL, EOMI, Sclera Non Icteric Neck: Supple, Good ROM Lungs: Clear to auscultation Cardiovascular: Irregular Rhythm, Normal S1, Normal S2 Abdomen: Bowel Sounds Present, Soft Extremities: Trace RLE Edema, Trace LLE Edema Psych/Mental Status: Appropriate 11/17/19 18:05: WBC 8.5, RBC 4.20, Hgb 12.6, Hct 39.4, MCV 93.8, MCH 30.0, MCHC 32.0, Plt Count 415, MPV 10.3, Immature Gran % (Auto) 0.800, Neut % (Auto) 67.8, Lymph % (Auto) 22.5, [place] % (Auto) 7.8, Eos % (Auto) 0.6, Baso % (Auto) 0.5, Absolute Neuts (auto) 5.7, Nucleated RBC % 0 11/17/19 18:05: Sodium 138, Potassium 4.2, Chloride 102, Carbon Dioxide 23.0, Anion Gap 13, BUN 12, Creatinine 1.32 H, Est GFR (MDRD) Af Amer 49 L, Est GFR (MDRD) Non-Af 41 L, BUN/Creatinine Ratio 9.1 L, Glucose 141 H, Calcium 10.1, Troponin I 0.045 11/17/19 18:05: PT 15.5 H, INR 1.3, APTT 30.3 11/17/19 18:05: Magnesium 1.5 L, Total Bilirubin 1.70 H, Direct Bilirubin 0.42 H 11/17/19 18:05: Hemoglobin A1c 5.1 11/17/19 22:19: Troponin I 0.049 H 11/18/19 00:07: Troponin I 0.047 H 11/18/19 05:50: WBC 6.8, RBC 3.72 L, Hgb 11.1 L, Hct 34.6 L, MCV 93.0, MCH 29.8, MCHC 32.1, Plt Count 327, MPV 9.8, Immature Gran % (Auto) 0.600, Neut % (Auto) 64.2, Lymph % (Auto) 24.0, [place] % (Auto) 9.2, Eos % (Auto) 1.3, Baso % (Auto) 0.7, Absolute Neuts (auto) 4.4, Nucleated RBC % 0 11/18/19 05:50: Sodium 139, Potassium 3.4 L, Chloride 106, Carbon Dioxide 26.0, Anion Gap 7, BUN 9, Creatinine 0.83, Est GFR (MDRD) Af Amer 84, Est GFR (MDRD) Non-Af 69, BUN/Creatinine Ratio 10.8, Glucose 101, Calcium 8.8, Total Bilirubin 1.20 H, Triglycerides 102, Cholesterol 111, LDL Cholesterol 47, VLDL Cholesterol 20, HDL Cholesterol 44 Rhythm: Atrial fibrillation EKG: Atrial fibrillation with RVR; nonspecific ST/T wave abnormality Chest CT Scan: FINDINGS: Normal enhancement of the main pulmonary artery and right and left pulmonary arteries. A few tiny filling defects consistent with pulmonary emboli are seen to bilateral segmental branches in both lower lobes. Normal thoracic aorta and visualized great vessels. There is no demonstrated aortic dissection. There is mild cardiac cardiomegaly. There are calcifications of the coronary arteries. Normal mediastinum. Normal hilar regions. Normal visualized trachea and bronchi. The lungs are hyper expanded, with flattening of the hemidiaphragms. No infiltrates. No suspicious nodules. Trace right pleural effusion versus thickening of the posterior costophrenic angle. There are degenerative changes of thoracic spine. Partial compression fracture of T12 which appears old. Limited views through the upper abdomen suggest a loculated 4 cm mass posterior segment of the right hepatic lobe, with contrast is recommended. 11/17/191945 Date cc: Dr. India Calderon MD; Dr. Kranthi Long MD ~* Signed ADDENDUM by Dr. Gopal Shane MD on 11/17/[address]/CTA Chest W/WO Contrast IMPRESSION: There are a few primarily subsegmental pulmonary emboli in both lower lobes. COPD. Probable liver mass, needs further evaluation. Assessment/Plan 1. Atrial fibrillation The patient remains in atrial fibrillation. The etiology may be multifactorial although it may be brought on by her more recent clinical course including her postoperative pulmonary emboli superimposed upon her chronic history of hypertension. She is being monitored. Her cardiac enzymes have been indeterminant which may be secondary to her atrial fibrillation with RVR as well as potentially her thromboembolic event with her pulmonary emboli. She is being treated with IV diltiazem and IV amiodarone as well as oral anticoagulant therapy. An attempt will be made to change her IV medications to oral medications. She is going to undergo further evaluation with a transthoracic echocardiogram to evaluate her atrial size as well as her left ventricular wall motion and systolic function. Over time she may need further evaluation of her cardiovascular status, based upon her atrial dysrhythmia, her troponin I levels, etc. with additional noninvasive or invasive cardiovascular testing to evaluate for any obvious evidence of underlying CAD. However, this may have to be on temporary hold, pending overall improvement in her current condition and findings. 2. Pulmonary emboli She was found to have pulmonary emboli. This may be a contributing factor her for her atrial dysrhythmia. She will continue evaluation care which is included anticoagulant therapy. 3. History of DVT She states she has a history of a DVT. She has been on anticoagulant therapy for this. It was temporarily interrupted for her recent right knee surgery. She has resumed anticoagulant therapy. 4. Hypertension She has a history of hypertension. Her blood pressures can be monitored and her medications can be adjusted as needed. 5. Liver mass She is undergoing evaluation care for a possible liver mass noted on her CT scan. Comment: The patient's case has been previously discussed with the patient as well as with Dr. العلي from the [facility] staff. This note was generated using a voice recognition system and there may be incorrect words, spelling or punctuation that were not noted when reviewing the office note prior to saving.
--- NOTE | 2019-11-18 11:00 | CASEMGMT ---
SIMON KRAMER assessment: Face to Face with patient for initial transition planning/care coordination assessment. SIMON KRAMER introduced self and role at [facility], pt voices understanding and consents to assessment at this time. Pt is lying in bed in no distress at this time. Pt is A/Ox4 at this time and answers all questions appropriately at this time. Care providers, pharmacy, and demographics verified at this time. Presentation: Pt w/ dizziness, SOB, and general weakness after physical therapy today Admitting dx: PAF w/ RVR, liver mass, bilat PE-pt had been off her Eliquis for TKR PCP: Mercedes Specialists: [facility] [place] Preferred Pharmacy: [facility] [place] Insurance: MCR A/B, [employer] Prescription Benefit: Yes Living Will/HPOA: Pt states has LW/HPOA and is aware that they are not on file at [facility] at this time. Pt states her , Dav Finley, is HPOA. LNOK: Dav Finley, Living Arrangements: Pt states lives with on main level of two story home and states no concerns at home at this time. Pt states is independent with ADL's. Transportation: Pt states drives self and states no transportation concerns at this time. DME/HHC: Pt states has the following DME: cane x3, walker, grab bars, and shower chair. Pt declines need for any further DME at this time. Pt states is current with OP therapy at [facility]. Pt states no hx of HHC or SNF in the past. Pt states no concerns with going home at time of discharge. Pt is retired. Pt states does not smoke cigarettes or drink ETOH. Pt states no further concerns/needs at this time. CM to follow for any further discharge planning/needs. Advised pt to ask for CM if any further questions/concerns/needs arise, voices understanding. Pt Goal: Home Plan[place] SIMON KRAMER
[2019-11-18] MEDS: AMILORIDE HCL 5 MG TABLET PO (12:14)
[2019-11-18] MEDS: hydroCHLOROthiazide 25 MG Tablet 50 MG PO (12:14)
[2019-11-18] MEDS: Metoprolol Tartrate 25 MG Tablet PO (12:20)
--- NOTE | 2019-11-18 12:56 | PCM.PN.HOSP ---
Patient Problems: Active and Suspected Problems (Last Updated 10/04/17 @ 16:01 by Lashon Ford) Atrial fibrillation with RVR (Acute) Bilateral pulmonary embolism (Acute) Liver mass (Acute) Reason for Visit: New onset A. fib Acute pulmonary embolism Liver mass Hypokalemia Subjective: Patient is an 84-year-old lady admitted with lightheadedness shortness of breath and generalized weakness after participating in physical therapy on the day of her admission. EKG on admission was consistent with A. fib with RVR admitted to a monitored bed for further management CT of the chest obtained demonstrated subsegmental pulmonary emboli in both lower lobes patient was also found to have a liver mass Objective: GENERAL: cooperative HEENT: Atraumatic; EYES; Anicteric, Normal Conjunctiva NECK; supple, normal thyroid, RESPIRATORY: Diminished to auscultation CARDIOVASCULAR: Irregular S1 S2, GI: soft, normoactive bowel sounds, : No Renal angle tenderness; EXTREMITIES: No edema, no clubbing, MUSCULOSKELETAL: no muscle waisting NEURO: Awake; no lateralizing signs. SKIN: No Rash PSYCH; Flat affect Vitals/I&O's: Vital Signs Temp Pulse Resp BP Pulse Ox 98.1 F 121 H 20 H 126/94 H 98 11/18/19 11:30 11/18/19 12:20 11/18/19 12:00 11/18/19 12:20 11/18/19 12:00 Oxygen Flow Rate (L/min) 2 Oxygen Delivery Method Room Air Weight: 72.7 kg Body Mass Index (BMI) 24.3 Intake and Output for Last 24 Hours 11/16/19 11/17/19 11/18/19 23:59 23:59 23:59 Intake Total 1266.0 / 1266.0 823.06 / 823.06 Balance 1266.0 / 1266.0 823.06 / 823.06 Laboratory Results 11/17/19 18:05: WBC 8.5, RBC 4.20, Hgb 12.6, Hct 39.4, MCV 93.8, MCH 30.0, MCHC 32.0, RDW Std Deviation 47.0 H, RDW Coeff of Kin 14.3, Plt Count 415, MPV 10.3, Immature Gran % (Auto) 0.800, Neut % (Auto) 67.8, Lymph % (Auto) 22.5, [place] % (Auto) 7.8, Eos % (Auto) 0.6, Baso % (Auto) 0.5, Absolute Neuts (auto) 5.7, Absolute Lymphs (auto) 1.90, Nucleated RBC % 0 11/17/19 18:05: Sodium 138, Potassium 4.2, Chloride 102, Carbon Dioxide 23.0, Anion Gap 13, BUN 12, Creatinine 1.32 H, Estim Creat Clear Calc 32.00, Est GFR (MDRD) Af Amer 49 L, Est GFR (MDRD) Non-Af 41 L, BUN/Creatinine Ratio 9.1 L, Glucose 141 H, Calcium 10.1, Troponin I 0.045 11/17/19 18:05: PT 15.5 H, INR 1.3, APTT 30.3 11/17/19 18:05: Magnesium 1.5 L, Total Bilirubin 1.70 H, Direct Bilirubin 0.42 H, AST 26, ALT 17, Alkaline Phosphatase 72, Total Protein 6.5, Albumin 3.7, Globulin 2.8, TSH 6.51 H 11/17/19 18:05: Hemoglobin A1c 5.1 11/17/19 22:19: Troponin I 0.049 H 11/18/19 00:07: Troponin I 0.047 H 11/18/19 05:50: WBC 6.8, RBC 3.72 L, Hgb 11.1 L, Hct 34.6 L, MCV 93.0, MCH 29.8, MCHC 32.1, RDW Std Deviation 46.2 H, RDW Coeff of Kin 14.2, Plt Count 327, MPV 9.8, Immature Gran % (Auto) 0.600, Neut % (Auto) 64.2, Lymph % (Auto) 24.0, [place] % (Auto) 9.2, Eos % (Auto) 1.3, Baso % (Auto) 0.7, Absolute Neuts (auto) 4.4, Absolute Lymphs (auto) 1.64, Nucleated RBC % 0 11/18/19 05:50: Sodium 139, Potassium 3.4 L, Chloride 106, Carbon Dioxide 26.0, Anion Gap 7, BUN 9, Creatinine 0.83, Estim Creat Clear Calc 50.90, Est GFR (MDRD) Af Amer 84, Est GFR (MDRD) Non-Af 69, BUN/Creatinine Ratio 10.8, Glucose 101, Calcium 8.8, Total Bilirubin 1.20 H, AST 20, ALT 14, Alkaline Phosphatase 57, Total Protein 5.8 L, Albumin 3.0 L, Globulin 2.8, Albumin/Globulin Ratio 1.1, Triglycerides 102, Cholesterol 111, LDL Cholesterol 47, VLDL Cholesterol 20, HDL Cholesterol 44 Current Medications Acetaminophen (Tylenol) 650 mg PO Q6H PRN PRN PRN Reason: Pain Score 1-10/Temp > 100.7 F Al Hydroxide/Mg Hydroxide (Mylanta Ii) 30 ml PO Q6H PRN PRN PRN Reason: Gastric Burning Albuterol Sulfate (Ventolin Aerosols) 2.5 mg INHALATION Q2H PRN PRN PRN Reason: Dyspnea, wheezing Amiloride HCl (Amiloride Hcl) 5 mg PO DAILY [facility] Last Admin: 11/18/19 12:14 Dose: 5 mg Documented by: Amiodarone HCl (Cordarone) 200 mg PO TID [facility] Enoxaparin Sodium (Lovenox) 70 mg SC Q12@0600,1800 [facility] Last Admin: 11/18/19 05:39 Dose: 70 mg Documented by: Guaifenesin (Robitussin) 20 ml PO Q4H PRN PRN PRN Reason: COUGH Hydralazine HCl (Apresoline Iv) 10 mg IV Q4H PRN PRN PRN Reason: SBP > 160 Hydrochlorothiazide (Hctz) 50 mg PO DAILY [facility] Last Admin: 11/18/19 12:14 Dose: 50 mg Documented by: Amiodarone HCl 360 mg/ (Dextrose) 200 mls @ 16.667 mls/hr CONT INF .Q12H [facility] Stop: 11/19/19 01:58 Last Admin: 11/18/19 09:07 Dose: 0.5 mg/min, 16.7 mls/hr Documented by: Magnesium Hydroxide (Milk Of Magnesia) 30 ml PO DAILY PRN PRN PRN Reason: Constipation Melatonin (Melatonin) 3 mg PO QHS PRN PRN PRN Reason: INSOMNIA Metoprolol Tartrate (Lopressor (Beta Anthony)) 25 mg PO BID [facility] Last Admin: 11/18/19 12:20 Dose: 25 mg Documented by: Morphine Sulfate () 2 mg IV Q3H PRN PRN PRN Reason: Pain Score 6-10/10 Nitroglycerin (Nitrostat) 0.4 mg SUBLINGUAL Q5M PRN PRN Reason: CARDIAC/CHEST PAIN Ondansetron HCl (Zofran) 4 mg IV Q8H PRN PRN PRN Reason: NAUSEA/VOMITING Oxycodone HCl (Oxyir) 5 mg PO Q4H PRN PRN PRN Reason: Pain Score 4-5/10 Prochlorperazine Edisylate (Compazine Iv) 5 mg IV Q4H PRN PRN PRN Reason: Breakthrough Nausea/Vomiting Psyllium Hydrophilic Mucilloid (Metamucil) 1 packet PO DAILY PRN PRN PRN Reason: Constipation Senna/Docusate Sodium (Senokot-S, Nadine-Colace) 2 tablet PO BID PRN PRN PRN Reason: Constipation Sodium Chloride () 10 - 40 ml IV UD PRN PRN Reason: SALINE FLUSH Throat Lozenges (Cepacol Sore Throat Lozenge) 1 lozenge MUCOUS MEM Q2H PRN PRN PRN Reason: SORE THROAT STROKE Vital Signs/Narrative: Vital Signs Temp Pulse Resp BP BP Pulse Ox 11/18/19 12:20 121 H 126/94 H 11/18/19 12:00 118 H 20 H 126/94 H 126/94 H 98 11/18/19 11:30 98.1 F 99 13 122/89 H 98 11/18/19 11:00 120 H 11/18/19 10:00 97 11 L 125/82 H 97 11/18/19 09:07 118 H 27 H 107/68 100 11/18/19 09:00 103 H 17 107/68 98 Medical Necessity - Tobacco Use Smoking Status: Former smoker Tobacco Use: Non-smoker Assessment/Plan All Active Problems (Last Updated 10/04/17 @ 16:01 by Lashon Ford) Atrial fibrillation with RVR (Acute) Bilateral pulmonary embolism (Acute) Liver mass (Acute) Acute myofascial strain of lumbosacral region (Acute) Patient is an 84-year-old lady admitted with lightheadedness shortness of breath and generalized weakness after participating in physical therapy on the day of her admission. EKG on admission was consistent with A. fib with RVR admitted to a monitored bed for further management CT of the chest obtained demonstrated subsegmental pulmonary emboli in both lower lobes patient was also found to have a liver mass 1. New onset A. fib with RVR ?Admitted to a monitored bed started on Cardizem drip titrated to keep heart rate less than 100. As part of patient's evaluation 2D echo TSH and cardiology consultation obtained 2. Acute pulmonary embolism ?Patient has history of previous VTE. CT obtained demonstrated subsegmental pulmonary emboli in both lower lungs. Plan is to resume patient systemic anticoagulation after biopsy 3. Lung mass ?Consult placed to interventional radiology for CT-guided biopsy 4. Elevated troponin ?Due to suspect non-STEMI type II as a result of demand ischemia 5. Recent right TKA ?PT OT as tolerated 6. Abnormal TSH ?Given her age her elevated TSH is within accepted range for her age 7. Hypertension - Blood pressure controlled, home medications continued with dose adjustment as needed 8. Chronic kidney disease stage III ruled out 9. Acute renal insufficiency ?Possibly from dehydration managed with IV fluids kidney function back to normal 10. Hypokalemia - Repleted as needed Clinical Impression(s) from Imaging Studies Chest CTA 11/17/19 19:20 IMPRESSION: There are a few primarily subsegmental pulmonary emboli in both lower lobes. COPD. Probable liver mass, needs further evaluation. Electronically Signed: Gopal Shane MD at 19:46 EDT , Service support , ADDENDUM: 11/17/192001 IMPRESSION: There are a few primarily subsegmental pulmonary emboli in both lower lobes. COPD. Probable liver mass, needs further evaluation. N.B. : The above information has been verbally conveyed by Gopal Shane MD to India Calderon MD, , on 11/17/2019 19:55:34 (ET). Electronically Signed: Gopal Shane MD at 19:46 EDT , Service support , Inpatient E&M: [id number] [facility] L[facility]
[2019-11-18] MEDS: 0.9% Saline Lock 10 ML Syringe IV ×2 (20:15→22:50)
[2019-11-18] MEDS: Amiodarone 200 MG Tablet PO (20:51)
--- NOTE | 2019-11-18 20:55 | NURSING ---
During 20:13 IV assessment, Amiodarone gtt noted to have infiltrated. Amiodarone immediately stopped attached to other IV site. Pt arm at infiltration site is reddened, warm, tender, and edematous. This RN contacted pharmacy for guidance in managing the amiodarone IV infiltration. This RN aspirated from IV loop, removed IV, outlined the affected area, elevated LUE, and applied a warm compress. Physician notified of amiodarone infiltration. Pharmacy recommends notifying physician if area is painful or if affected area begins to spread. Will continue to monitor.
[2019-11-18] MEDS: Metoprolol Tartrate 50 MG Tablet PO (21:07)
--- NOTE | 2019-11-18 22:46 | PCM.HOSP.N ---
Hospitalist Note Patient with noted possible extravasation initially found ~ 20:13 pm. Monitored redness, elevated RUE, warm compresses. Increased region, noted primarily to the forearm region, not circumferential and distal to antecubital fossa only, no increased warmth, no induration noted. Patient without complaint upon evaluation, no marked warmth to region. Discussed with pharmacy and hyaluronidate intradermal usage for pain otherwise recommendation continued RUE elevation above heart and continued warm compresses, circumferential.
--- NOTE | 2019-11-18 23:22 | NURSING ---
Hyaluronidase injections given per orders. Gave 5 injections of 0.2ml each. Pt tolerated well. CMast, RN
[2019-11-19] VITALS (17 sets, daily range): BP systolic 96–131; BP diastolic 66–81; PULSE 73–130; RESP 15–18; TEMP 36.3–37.2; O2SAT 97–100; BMI 24.3
[2019-11-19] MEDS: Metoprolol Tartrate 25 MG Tablet PO (00:39)
[2019-11-19] MEDS: Amiodarone 200 MG Tablet PO ×3 (04:32→21:06)
--- NOTE | 2019-11-19 05:55 | EKG12_ITS ---
Test Reason : AM EKG Blood Pressure : / mmHG Vent. Rate : 122 BPM Atrial Rate : 300 BPM P-R Int : 000 ms QRS Dur : 086 ms QT Int : 292 ms P-R-T Axes : 000 003 227 degrees QTc Int : 416 ms Atrial flutter with variable A-V block Abnormal ECG When compared with ECG of 17-NOV-2019 18:00, MANUAL COMPARISON REQUIRED, DATA IS UNCONFIRMED Confirmed by MUNA MORRIS, CESAR ([id number]), editor & co founder LESLEY PEÑA ([id number]) on 11/23/2019 1:29:26 PM Referred By: BIRDIE Confirmed By:CODY TORO MD
--- NOTE | 2019-11-19 07:27 | PN_ITS ---
Patient Problems: Active and Suspected Problems (Last Updated 10/04/17 @ 16:01 by Lashon Ford) Atrial fibrillation with RVR (Acute) Bilateral pulmonary embolism (Acute) Liver mass (Acute) Reason for Visit: Kenn. fib with RVR Subjective: Patient IV amiodarone infusion infiltrated during the night. Amiodarone subsequently switched from IV to p.o. Her liver biopsy has been scheduled for 11/20/2019. Potassium this morning is 3.4. Objective: GENERAL: cooperative HEENT: Atraumatic; EYES; Anicteric, Normal Conjunctiva NECK; supple, normal thyroid, RESPIRATORY: Diminished to auscultation CARDIOVASCULAR: Irregular S1 S2, GI: soft, normoactive bowel sounds, : No Renal angle tenderness; EXTREMITIES: No edema, no clubbing, MUSCULOSKELETAL: no muscle waisting NEURO: Awake; no lateralizing signs. SKIN: No Rash PSYCH; Flat affect Vitals/I&O's: Vital Signs Temp Pulse Resp BP Pulse Ox 98.1 F 114 H 18 131/81 H 99 11/19/19 03:00 11/19/19 06:50 11/19/19 03:00 11/19/19 06:50 11/19/19 03:00 Oxygen Flow Rate (L/min) 2 Oxygen Delivery Method Room Air Weight: 72.7 kg Body Mass Index (BMI) 24.3 Intake and Output for Last 24 Hours 11/17/19 11/18/19 11/19/19 23:59 23:59 23:59 Intake Total 1266.0 / 1266.0 1571.50 / 1571.50 200 / 200 Output Total 1275 / 1275 225 / 225 Balance 1266.0 / 1266.0 296.50 / 296.50 -25 / -25 Current Medications Acetaminophen (Tylenol) 650 mg PO Q6H PRN PRN PRN Reason: Pain Score 1-10/Temp > 100.7 F Al Hydroxide/Mg Hydroxide (Mylanta Ii) 30 ml PO Q6H PRN PRN PRN Reason: Gastric Burning Albuterol Sulfate (Ventolin Aerosols) 2.5 mg INHALATION Q2H PRN PRN PRN Reason: Dyspnea, wheezing Amiloride HCl (Amiloride Hcl) 5 mg PO DAILY [facility] Last Admin: 11/18/19 12:14 Dose: 5 mg Documented by: Amiodarone HCl (Cordarone) 200 mg PO TID ON LICENSE OF [facility] Last Admin: 11/19/19 04:32 Dose: 200 mg Documented by: Enoxaparin Sodium (Lovenox) 70 mg SC Q12@0600,1800 ON LICENSE OF [facility] Last Admin: 11/18/19 17:09 Dose: 70 mg Documented by: Guaifenesin (Robitussin) 20 ml PO Q4H PRN PRN PRN Reason: COUGH Hydralazine HCl (Apresoline Iv) 10 mg IV Q4H PRN PRN PRN Reason: SBP > 160 Hydrochlorothiazide (Hctz) 50 mg PO DAILY ON LICENSE OF [facility] Last Admin: 11/18/19 12:14 Dose: 50 mg Documented by: Magnesium Hydroxide (Milk Of Magnesia) 30 ml PO DAILY PRN PRN PRN Reason: Constipation Melatonin (Melatonin) 3 mg PO QHS PRN PRN PRN Reason: INSOMNIA Metoprolol Tartrate (Lopressor (Beta Anthony)) 50 mg PO BID ON LICENSE OF [facility] Last Admin: 11/18/19 21:07 Dose: 50 mg Documented by: Morphine Sulfate () 2 mg IV Q3H PRN PRN PRN Reason: Pain Score 6-10/10 Nitroglycerin (Nitrostat) 0.4 mg SUBLINGUAL Q5M PRN PRN Reason: CARDIAC/CHEST PAIN Ondansetron HCl (Zofran) 4 mg IV Q8H PRN PRN PRN Reason: NAUSEA/VOMITING Oxycodone HCl (Oxyir) 5 mg PO Q4H PRN PRN PRN Reason: Pain Score 4-5/10 Prochlorperazine Edisylate (Compazine Iv) 5 mg IV Q4H PRN PRN PRN Reason: Breakthrough Nausea/Vomiting Psyllium Hydrophilic Mucilloid (Metamucil) 1 packet PO DAILY PRN PRN PRN Reason: Constipation Senna/Docusate Sodium (Senokot-S, Nadine-Colace) 2 tablet PO BID PRN PRN PRN Reason: Constipation Sodium Chloride () 10 - 40 ml IV UD PRN PRN Reason: SALINE FLUSH Last Admin: 11/18/19 22:50 Dose: 10 ml Documented by: Throat Lozenges (Cepacol Sore Throat Lozenge) 1 lozenge MUCOUS MEM Q2H PRN PRN PRN Reason: SORE THROAT STROKE Vital Signs/Narrative: Vital Signs Pulse BP 11/19/19 06:50 114 H 131/81 H 11/19/19 04:16 128 H Medical Necessity - Tobacco Use Smoking Status: Former smoker Tobacco Use: Non-smoker Assessment/Plan All Active Problems (Last Updated 10/04/17 @ 16:01 by Lashon Ford) Atrial fibrillation with RVR (Acute) Bilateral pulmonary embolism (Acute) Liver mass (Acute) Acute myofascial strain of lumbosacral region (Acute) Patient is an 84-year-old lady admitted with lightheadedness shortness of breath and generalized weakness after participating in physical therapy on the day of her admission. EKG on admission was consistent with A. fib with RVR admitted to a monitored bed for further management CT of the chest obtained demonstrated subsegmental pulmonary emboli in both lower lobes patient was also found to have a liver mass 1. New onset A. fib with RVR ?Admitted to a monitored bed started on Cardizem drip titrated to keep heart rate less than 100. As part of patient's evaluation 2D echo TSH and cardiology consultation obtained 11/19/2019; sent will switch from IV amiodarone to p.o. amiodarone. 2D echo demonstrated: Left ventricular systolic function is normal. The estimated ejection fraction is 65 %. The left atrium is moderately enlarged. Mild-Moderate (1-2+) mitral valve insufficiency. Mild to moderate (1-2+) tricuspid valve insufficiency. Trivial aortic valve insufficiency. Trivial pulmonic valve insufficiency. Right ventricular systolic pressure estimated to be 38 mmHg. Unable to assess diastolic dysfunction. 2. Acute pulmonary embolism ?Patient has history of previous VTE. CT obtained demonstrated subsegmental pulmonary emboli in both lower lungs. Plan is to resume patient systemic anticoagulation after biopsy 3. Lung mass ?Consult placed to interventional radiology for CT-guided biopsy -11/19/2019. Procedure scheduled for tomorrow (11/20/2019). 4. Elevated troponin ?Due to suspect non-STEMI type II as a result of demand ischemia 5. Recent right TKA ?PT OT as tolerated 6. Abnormal TSH ?Given her age her elevated TSH is within accepted range for her age 7. Hypertension - Blood pressure controlled, home medications continued with dose adjustment as needed 8. Chronic kidney disease stage III ruled out 9. Acute renal insufficiency ?Possibly from dehydration managed with IV fluids kidney function back to normal 10. Hypokalemia -Corrected per protocol Inpatient E&M: 88726 Subs Hosp L2
[2019-11-19] MEDS: Metoprolol Tartrate 100 MG Tablet PO ×2 (08:16→21:06)
[2019-11-19] MEDS: AMILORIDE HCL 5 MG TABLET PO (08:17)
[2019-11-19] MEDS: hydroCHLOROthiazide 25 MG Tablet 50 MG PO (08:17)
--- NOTE | 2019-11-19 08:17 | CT_ITS ---
STUDY: CT ABDOMEN AND PELVIS WITH CONTRAST REASON FOR EXAM: Female, 84 years old. LIVER MASS F/U RADIATION DOSAGE (If Supplied By Facility): CTDIvol = ( 19.29 ) mGy, DLP = ( 583.95 ) mGycm TECHNIQUE: Transaxial images were obtained from the dome of the diaphragm to the symphysis pubis with oral contrast. Oral and amp; IV GASTROGRAFIN and amp; 100ML ISOVUE 300 was administered. Sagittal and coronal images were reconstructed. Individualized dose optimization techniques were used for this CT. COMPARISON: None. FINDINGS: 3 mm calcified granuloma in the anterior lateral aspect of the right middle lobe. The visualized portions of the heart are within normal limits. 2 cysts are seen in the dome of the right lobe of the liver. The larger cyst measures 1 cm. Minimally dilated central intrahepatic biliary ducts. There is evidence of a 3.5 cm x 3.4 cm peripherally enhancing mass along the posterior inferior aspect of the liver. This is not a typical hemangioma. There are surgical clips in the gallbladder fossa consistent with a prior cholecystectomy. Normal spleen. Normal pancreas. There is a 1.3 cm x 2.9 cm nodule in the left adrenal gland. This is not a typical adenoma. 1.60 m cyst in the lateral aspect of the midportion of the right kidney. Normal left kidney. Normal visualized stomach. Normal small intestine. There are multiple colonic diverticula consistent with diverticulosis. The appendix is visualized and appears normal. There is diffuse atherosclerotic calcification of the abdominal aorta, without a demonstrated aneurysm. Normal inferior vena cava. Normal retroperitoneum. Normal urinary bladder. There is absence of the uterus consistent with a prior hysterectomy. Normal abdominal wall. There are diffuse degenerative changes of the visualized lumbar spine. Mild anterior listhesis of L4 on L5 without chondrolysis. Status post left hip replacement. CT/Abdomen/Pelvis WITH Contrast IMPRESSION: Suspicious 3.5 cm x 3.4 cm mass in the peripheral inferior aspect of the right lobe of the liver. Hepatic cysts. 1.2 cm x 0.9 cm solid nodule in the left adrenal gland. Electronically Signed: Jamie Hunter, at 12:24 EDT , Service support ,
--- NOTE | 2019-11-19 08:48 | PCM.PN.CARD ---
Subjectve: The patient is awake and alert. She denies ongoing chest discomfort, palpitations, or worsening shortness of breath/dyspnea. Objective: Vital Signs Temp Pulse Resp BP Pulse Ox 97.8 F 130 H 15 127/81 H 98 11/19/19 08:05 11/19/19 08:16 11/19/19 08:05 11/19/19 08:16 11/19/19 08:05 Oxygen Flow Rate (L/min) 2 Oxygen Delivery Method Room Air Weight: 160 lb 4.417 oz Body Mass Index (BMI) 24.3 Intake and Output for Last 24 Hours 11/17/19 11/18/19 11/19/19 23:59 23:59 23:59 Intake Total 1266.0 / 1266.0 1571.50 / 1571.50 200 / 200 Output Total 1275 / 1275 225 / 225 Balance 1266.0 / 1266.0 296.50 / 296.50 -25 / -25 General: Awake, Alert, Oriented x 3, Cooperative, No Acute Distress HEENT: Atraumatic, Normocephalic, PERRL, EOMI, Sclera Non Icteric Neck: Supple, Good ROM, No JVD Lungs: Clear to auscultation Cardiovascular: Irregular Rhythm, Normal S1, Normal S2 Abdomen: Bowel Sounds Present, Soft Extremities: Trace RLE Edema, Trace LLE Edema Psych/Mental Status: Appropriate Rhythm: Atrial fibrillation EKG: Atrial fibrillation; nonspecific ST/T wave abnormality ECHO: Interpretation Summary The study was technically difficult. Left ventricular systolic function is normal. The estimated ejection fraction is 65 %. The left atrium is moderately enlarged. Mild-Moderate (1-2+) mitral valve insufficiency. Mild to moderate (1-2+) tricuspid valve insufficiency. Trivial aortic valve insufficiency. Trivial pulmonic valve insufficiency. Right ventricular systolic pressure estimated to be 38 mmHg. Unable to assess diastolic dysfunction. Medical Necessity - Tobacco Use Smoking Status: Former smoker Tobacco Use: Non-smoker Assessment/Plan 1. Atrial fibrillation The patient remains in atrial fibrillation. The etiology may be multifactorial although it may be brought on by her more recent clinical course including her postoperative pulmonary emboli superimposed upon her chronic history of hypertension. She is being monitored. Her cardiac enzymes have been indeterminant which may be secondary to her atrial fibrillation with RVR as well as potentially her thromboembolic event with her pulmonary emboli. Her IV medications have now been changed to oral medications. This includes oral beta-yan therapy, which she had been on in the past, and oral amiodarone therapy. The dosages are being adjusted in attempt to assist with heart rate control. She remains on anticoagulant therapy. Over time she may need further evaluation of her cardiovascular status, based upon her atrial dysrhythmia, her troponin I levels, etc. with additional noninvasive or invasive cardiovascular testing to evaluate for any obvious evidence of underlying CAD. However, this may have to be on temporary hold, pending overall improvement in her current condition and findings. 2. Pulmonary emboli She was found to have pulmonary emboli. This may be a contributing factor her for her atrial dysrhythmia. She will continue evaluation care which is included anticoagulant therapy. 3. History of DVT She states she has a history of a DVT. She has been on anticoagulant therapy for this. It was temporarily interrupted for her recent right knee surgery. She has resumed anticoagulant therapy. 4. Hypertension She has a history of hypertension. Her blood pressures can be monitored and her medications can be adjusted as needed. 5. Liver mass She is undergoing evaluation care for a possible liver mass noted on her CT scan. This has included an abdominal ultrasound which redemonstrated her liver mass. If she does need a biopsy then her anticoagulation will most likely need to be interrupted for such a procedure. That is the case then consideration will have to be given based upon her thromboembolic history as to whether or not she requires an IVC filter. She will continue evaluation care per internal medicine. This note was generated using a voice recognition system and there may be incorrect words, spelling or punctuation that were not noted when reviewing the office note prior to saving.
[2019-11-19 09:16] LABS: Anion Gap 7 (5-15); BUN 9 mg/dL (7-18); BUN/Creat Ratio 10.9 RATIO (10-20); Calcium,Total 9.2 mg/dL (8.5-10.1); Chloride 102 mmol/L (98-107); Creatinine, Serum 0.82 mg/dL (0.55-1.02); EST Glomerular Filtration Rate 70 mL/min (>60); Est Glom Filt Rate - Afr Amer 85 mL/min (>60); Estimated Creatinine Clearance 51.52 ml/min; Glucose 103 mg/dL (74-106); Magnesium 1.6 mg/dL (1.6-2.6); Potassium 3.5 mmol/L (3.5-5.1); Sodium Level 137 mmol/L (136-145)
--- NOTE | 2019-11-19 10:11 | CASEMGMT ---
Patient has a Healthcare Living Will and a Healthcare Power of Lip Reading Teacher. She is aware they are not on file at [facility]. Her , Dav is her Healthcare Power of Lip Reading Teacher. Divine XIONG
[2019-11-19] MEDS: Enoxaparin 80 MG/0.8 ML Syringe 70 MG SC (10:41)
[2019-11-19] MEDS: 0.9% Saline Lock 10 ML Syringe IV ×2 (13:35→17:54)
--- NOTE | 2019-11-19 13:58 | PCM.NTREPORT ---
Nutrition Therapy Report - History Current diet / nutrition support order:: cardiac-heart healthy - Anthropometric Measurements Height:: 5 ft 8 in Weight:: 72.7 kg Body Mass Index (BMI):: 24.3 - Relevant Labs Relevant Labs:: RBC 3.72 M/mm3 (4.2-5.4) L 11/18/19 05:50 Hgb 11.1 g/dL (12.0-15.0) L 11/18/19 05:50 Hct 34.6 % (37-47) L 11/18/19 05:50 RDW Std Deviation 46.2 fl (35.1-43.9) H 11/18/19 05:50 PT 15.5 SECONDS (11.7-14.9) H 11/17/19 18:05 Potassium 3.4 mmol/L (3.5-5.1) L 11/18/19 05:50 Creatinine 1.32 mg/dL (0.55-1.02) H 11/17/19 18:05 Est GFR (MDRD) Af Amer 49 mL/min (>60) L 11/17/19 18:05 Est GFR (MDRD) Non-Af 41 mL/min (>60) L 11/17/19 18:05 BUN/Creatinine Ratio 9.1 RATIO (10-20) L 11/17/19 18:05 Glucose 141 mg/dL (74-106) H 11/17/19 18:05 Magnesium 1.5 mg/dL (1.6-2.6) L 11/17/19 18:05 Total Bilirubin 1.20 mg/dL (0.20-1.00) H 11/18/19 05:50 Direct Bilirubin 0.42 mg/dL (0.00-0.30) H 11/17/19 18:05 Troponin I 0.047 ng/mL (<0.045) H 11/18/19 00:07 Total Protein 5.8 g/dL (6.4-8.2) L 11/18/19 05:50 Albumin 3.0 g/dL (3.2-5.0) L 11/18/19 05:50 TSH 6.51 uIU/mL (0.358-3.74) H 11/17/19 18:05 - Assessment Food / Nutrition-Related History:: Pt reports decreased appetite and PO intake since knee surgery on 11/09/19. Pt states family told her she was out of it for a few days after surgery. Described fair appetite intake since admission- does not like food at hospital. Says UBW 166# and CBW 160.3#- 5.7#/ 3.4% wt loss <2 weeks, significant for malnutrition. No special diet followed at home. Does not believe she has ever had any oral nutrition supplements. - Nutrition Diagnosis Problem / Etiology / Signs & Symptoms (PES):: Acute, severe malnutrition related to increased energy needs and inadequate energy intake after surgery as evidenced by 5.7#/ 3.4% wt loss <2 weeks, estimated PO intake less than 75% of estimated nutritional needs for 2 weeks. Evidence of Malnutrition Exists:: Yes Severe PCM:: Acute Illness - Nutrition Intervention Nutrition Prescription:: 1392-4938 calories/day, 65-75 g protein/day - Food / Nutrient Delivery Interventions Summary of nutrition intervention:: Pt w/ no questions for RDN. Will add Ensure w/ meals for additional calories/protein if consumed. Consider changing to regular diet if PO at meals remains inadequate. Nutrition support ordered as / adjusted to:: 120mL ensure enlive w/ meals - MNT Monitoring Further MNT monitoring and evaluation required?: Yes MNT Follow-up in:: 3-5 days
[2019-11-20] VITALS (22 sets, daily range): BP systolic 84–129; BP diastolic 42–87; PULSE 88–136; RESP 12–21; TEMP 36.3–36.8; O2SAT 97–100; BMI 24.3
--- NOTE | 2019-11-20 | ASPIGT_PTH ---
PATIENT: CLOVIS ALVAREZ LOC: [facility] U#:[id number] AGE/SX: 84/F ROOM: [facility] RE11/17/[address]: Dr. Peter Perrin DO : 1935 BED: 1 DIS: 11/23/2019 SPEC #: [id number] RECD: 11/20/19 10:40 STATUS: CORA FAM #: [id number] KRISTY: 11/20/19 00:[address]: Berto Hoffman DEPT: SURGICAL PATHOLOGY RECD BY: Cynthia Mcelroy ENTERED: 11/20/19 12:47 SP TYPE: ASP RAD OTHR DR: MD Dr. Kranthi Huitron MD Dr. Paul Moodispaw, MD Tissues: Liver, NOS Procedures: FNA Specimen Adequacy Special Stain Group II Surgery Specimen Level IV Imprint (control) HEADER OPERATION: Liver, CT-guided core biopsy PRE-OP DIAGNOSIS: Liver mass TISSUE SUBMITTED: Liver mass 18 gauge core x6 MICROSCOPIC DIAGNOSIS Liver mass, CT-guided needle core biopsy: Consistent with hemangioma. AM:layton 11/23/19 COMMENT The specimen is evaluated at the time of biopsy by Dr. Clark. Immediate Evaluation = Mostly blood. Negative for malignant cells. Case has been reviewed in consultation with Dr. Clark who concurs with the above diagnosis. IDC:GOPI MICROSCOPIC DESCRIPTION Slides are reviewed. GROSS DESCRIPTION Received in fixative is one container labeled with the patient's name and designated liver. The specimen consists of multiple irregular fragments of saleh soft tissue that in aggregate measure 1 x 0.2 x 0.1 cm. The specimen is totally submitted in one cassette. Two touch imprints are prepared at the time of core biopsy. / GOPI:layton 11/20/19 TC:5 CPT: 59565, 70529, 64830
[2019-11-20] MEDS: Amiodarone 200 MG Tablet PO ×3 (05:46→21:00)
[2019-11-20 06:58] LABS: Anion Gap 8 (5-15); BUN 14 mg/dL (7-18); BUN/Creat Ratio 13.2 RATIO (10-20); Calcium,Total 9.2 mg/dL (8.5-10.1); Chloride 102 mmol/L (98-107); Creatinine, Serum 1.06 mg/dL (0.55-1.02); EST Glomerular Filtration Rate 52 mL/min (>60); Est Glom Filt Rate - Afr Amer 63 mL/min (>60); Estimated Creatinine Clearance 39.85 ml/min; Glucose 93 mg/dL (74-106); Magnesium 2.1 mg/dL (1.6-2.6); Potassium 3.9 mmol/L (3.5-5.1); Sodium Level 137 mmol/L (136-145)
--- NOTE | 2019-11-20 08:26 | PCM.PN.HOSP ---
Patient Problems: Active and Suspected Problems (Last Updated 10/04/17 @ 16:01 by Lashon Ford) Atrial fibrillation with RVR (Acute) Bilateral pulmonary embolism (Acute) Liver mass (Acute) Reason for Visit: Paroxysmal A. fib Acute pulmonary embolism Liver mass Subjective: Patient seen remains relatively stable. Plan is for patient to undergo CT-guided liver biopsy. Objective: GENERAL: cooperative HEENT: Atraumatic; EYES; Anicteric, Normal Conjunctiva NECK; supple, normal thyroid, RESPIRATORY: Diminished to auscultation CARDIOVASCULAR: Irregular S1 S2, GI: soft, normoactive bowel sounds, : No Renal angle tenderness; EXTREMITIES: No edema, no clubbing, MUSCULOSKELETAL: no muscle waisting NEURO: Awake; no lateralizing signs. SKIN: No Rash PSYCH; Flat affect Vitals/I&O's: Vital Signs Temp Pulse Resp BP Pulse Ox 97.4 F L 105 H 18 124/83 H 98 11/20/19 03:00 11/20/19 06:59 11/20/19 03:00 11/20/19 03:00 11/20/19 03:00 Oxygen Flow Rate (L/min) 2 Oxygen Delivery Method Room Air Weight: 72.7 kg Body Mass Index (BMI) 24.3 Intake and Output for Last 24 Hours 11/18/19 11/19/19 11/20/19 23:59 23:59 23:59 Intake Total 1571.50 / 1571.50 1584 / 1584 120 / 120 Output Total 1275 / 1275 875 / 875 Balance 296.50 / 296.50 709 / 709 120 / 120 Laboratory Results 11/19/19 08:45: Sodium 137, Potassium 3.5, Chloride 102, Carbon Dioxide 28.0, Anion Gap 7, BUN 9, Creatinine 0.82, Estim Creat Clear Calc 51.52, Est GFR (MDRD) Af Amer 85, Est GFR (MDRD) Non-Af 70, BUN/Creatinine Ratio 10.9, Glucose 103, Calcium 9.2, Magnesium 1.6 11/20/19 05:30: Sodium 137, Potassium 3.9, Chloride 102, Carbon Dioxide 27.0, Anion Gap 8, BUN 14, Creatinine 1.06 H, Estim Creat Clear Calc 39.85, Est GFR (MDRD) Af Amer 63, Est GFR (MDRD) Non-Af 52 L, BUN/Creatinine Ratio 13.2, Glucose 93, Calcium 9.2, Magnesium 2.1 Current Medications Acetaminophen (Tylenol) 650 mg PO Q6H PRN PRN PRN Reason: Pain Score 1-10/Temp > 100.7 F Al Hydroxide/Mg Hydroxide (Mylanta Ii) 30 ml PO Q6H PRN PRN PRN Reason: Gastric Burning Albuterol Sulfate (Ventolin Aerosols) 2.5 mg INHALATION Q2H PRN PRN PRN Reason: Dyspnea, wheezing Amiloride HCl (Amiloride Hcl) 5 mg PO DAILY [facility] Last Admin: 11/19/19 08:17 Dose: 5 mg Documented by: Amiodarone HCl (Cordarone) 200 mg PO TID [facility] Last Admin: 11/20/19 05:46 Dose: 200 mg Documented by: Fentanyl Citrate (Sublimaze (100mcg Ampule)) 25 - 50 mcg IV UD PRN PRN Reason: Procedural Pain Control Stop: 11/20/19 23:59 Guaifenesin (Robitussin) 20 ml PO Q4H PRN PRN PRN Reason: COUGH Hydralazine HCl (Apresoline Iv) 10 mg IV Q4H PRN PRN PRN Reason: SBP > 160 Hydrochlorothiazide (Hctz) 50 mg PO DAILY [facility] Last Admin: 11/19/19 08:17 Dose: 50 mg Documented by: Sodium Chloride () 500 mls @ 0 mls/hr IV .Q0M [facility] Stop: 11/20/19 23:59 Magnesium Hydroxide (Milk Of Magnesia) 30 ml PO DAILY PRN PRN PRN Reason: Constipation Melatonin (Melatonin) 3 mg PO QHS PRN PRN PRN Reason: INSOMNIA Metoprolol Tartrate (Lopressor (Beta Anthony)) 100 mg PO BID [facility] Last Admin: 11/19/19 21:06 Dose: 100 mg Documented by: Midazolam HCl (Versed) 1 - 2 mg IV UD PRN PRN Reason: Procedural Sedation Stop: 11/20/19 23:59 Morphine Sulfate () 2 mg IV Q3H PRN PRN PRN Reason: Pain Score 6-10/10 Nitroglycerin (Nitrostat) 0.4 mg SUBLINGUAL Q5M PRN PRN Reason: CARDIAC/CHEST PAIN Ondansetron HCl (Zofran) 4 mg IV Q8H PRN PRN PRN Reason: NAUSEA/VOMITING Oxycodone HCl (Oxyir) 5 mg PO Q4H PRN PRN PRN Reason: Pain Score 4-5/10 Prochlorperazine Edisylate (Compazine Iv) 5 mg IV Q4H PRN PRN PRN Reason: Breakthrough Nausea/Vomiting Psyllium Hydrophilic Mucilloid (Metamucil) 1 packet PO DAILY PRN PRN PRN Reason: Constipation Senna/Docusate Sodium (Senokot-S, Nadine-Colace) 2 tablet PO BID PRN PRN PRN Reason: Constipation Sodium Chloride () 10 - 40 ml IV UD PRN PRN Reason: SALINE FLUSH Last Admin: 11/19/19 17:54 Dose: 10 ml Documented by: Throat Lozenges (Cepacol Sore Throat Lozenge) 1 lozenge MUCOUS MEM Q2H PRN PRN PRN Reason: SORE THROAT STROKE Vital Signs/Narrative: Vital Signs Pulse 11/20/19 06:59 105 H Medical Necessity - Tobacco Use Smoking Status: Former smoker Tobacco Use: Non-smoker Assessment/Plan All Active Problems (Last Updated 10/04/17 @ 16:01 by Lashon Ford) Atrial fibrillation with RVR (Acute) Bilateral pulmonary embolism (Acute) Liver mass (Acute) Acute myofascial strain of lumbosacral region (Acute) Patient is an 84-year-old lady admitted with lightheadedness shortness of breath and generalized weakness after participating in physical therapy on the day of her admission. EKG on admission was consistent with A. fib with RVR admitted to a monitored bed for further management CT of the chest obtained demonstrated subsegmental pulmonary emboli in both lower lobes patient was also found to have a liver mass 1. New onset A. fib with RVR ?Admitted to a monitored bed started on Cardizem drip titrated to keep heart rate less than 100. As part of patient's evaluation 2D echo TSH and cardiology consultation obtained 11/19/2019; sent will switch from IV amiodarone to p.o. amiodarone. 2D echo demonstrated: Left ventricular systolic function is normal. The estimated ejection fraction is 65 %. The left atrium is moderately enlarged. Mild-Moderate (1-2+) mitral valve insufficiency. Mild to moderate (1-2+) tricuspid valve insufficiency. Trivial aortic valve insufficiency. Trivial pulmonic valve insufficiency. Right ventricular systolic pressure estimated to be 38 mmHg. Unable to assess diastolic dysfunction. ?11/20/2019; patient heart rate remains relatively controlled. 2. Acute pulmonary embolism ?Patient has history of previous VTE. CT obtained demonstrated subsegmental pulmonary emboli in both lower lungs. Plan is to resume patient systemic anticoagulation after biopsy ?11/20/2019. Eliquis scheduled to start this evening 3. Lung mass ?Consult placed to interventional radiology for CT-guided biopsy -11/19/2019. Procedure scheduled for tomorrow (11/20/2019). ?11/20/2019; patient scheduled to undergo CT-guided biopsy 4. Elevated troponin ?Due to suspect non-STEMI type II as a result of demand ischemia 5. Recent right TKA ?PT OT as tolerated 6. Abnormal TSH ?Given her age her elevated TSH is within accepted range for her age 7. Hypertension - Blood pressure controlled, home medications continued with dose adjustment as needed 8. Chronic kidney disease stage III ruled out 9. Acute renal insufficiency ?Possibly from dehydration managed with IV fluids kidney function back to normal 10. Hypokalemia -Corrected per protocol 11. Adrenal nodule ?CT of the abdomen obtained demonstrated; 1.2 cm x 0.9 cm solid nodule in the left adrenal gland. Plan is for patient to pursue work-up pending results of liver biopsy Clinical Impression(s) from Imaging Studies Abdomen/Pelvis CT 11/19/19 08:17 IMPRESSION: Suspicious 3.5 cm x 3.4 cm mass in the peripheral inferior aspect of the right lobe of the liver. Hepatic cysts. 1.2 cm x 0.9 cm solid nodule in the left adrenal gland. Electronically Signed: Jamie Hunter, at 12:24 EDT , Service support , Inpatient E&M: 87261 [facility] Hosp L2
--- NOTE | 2019-11-20 08:30 | PCM.PN.CARD ---
Subjectve: The patient is awake and alert. She states she has been up in the chair and has been up and ambulating with assistance. She denies any ongoing chest discomfort, difficulty breathing, or palpitations at this time. Objective: Vital Signs Temp Pulse Resp BP Pulse Ox 97.4 F L 105 H 18 124/83 H 98 11/20/19 03:00 11/20/19 06:59 11/20/19 03:00 11/20/19 03:00 11/20/19 03:00 Oxygen Flow Rate (L/min) 2 Oxygen Delivery Method Room Air Weight: 160 lb 4.417 oz Body Mass Index (BMI) 24.3 Intake and Output for Last 24 Hours 11/18/19 11/19/19 11/20/19 23:59 23:59 23:59 Intake Total 1571.50 / 1571.50 1584 / 1584 120 / 120 Output Total 1275 / 1275 875 / 875 Balance 296.50 / 296.50 709 / 709 120 / 120 General: Awake, Alert, Oriented x 3, Cooperative, No Acute Distress HEENT: Atraumatic, Normocephalic, PERRL, EOMI, Sclera Non Icteric Neck: Supple, Good ROM, No JVD Lungs: Clear to auscultation Cardiovascular: Irregular Rhythm, Normal S1, Normal S2 Abdomen: Bowel Sounds Present, Soft Extremities: Trace RLE Edema, Trace LLE Edema Psych/Mental Status: Appropriate 11/19/19 08:45: Sodium 137, Potassium 3.5, Chloride 102, Carbon Dioxide 28.0, Anion Gap 7, BUN 9, Creatinine 0.82, Est GFR (MDRD) Af Amer 85, Est GFR (MDRD) Non-Af 70, BUN/Creatinine Ratio 10.9, Glucose 103, Calcium 9.2, Magnesium 1.6 11/20/19 05:30: Sodium 137, Potassium 3.9, Chloride 102, Carbon Dioxide 27.0, Anion Gap 8, BUN 14, Creatinine 1.06 H, Est GFR (MDRD) Af Amer 63, Est GFR (MDRD) Non-Af 52 L, BUN/Creatinine Ratio 13.2, Glucose 93, Calcium 9.2, Magnesium 2.1 Rhythm: Atrial fibrillation Medical Necessity - Tobacco Use Smoking Status: Former smoker Tobacco Use: Non-smoker Assessment/Plan 1. Atrial fibrillation The patient remains in atrial fibrillation. The etiology may be multifactorial although it may be brought on by her more recent clinical course including her postoperative pulmonary emboli superimposed upon her chronic history of hypertension. She is being monitored. Her cardiac enzymes have been indeterminant which may be secondary to her atrial fibrillation with RVR as well as potentially her thromboembolic event with her pulmonary emboli. Her IV medications have now been changed to oral medications. This includes oral beta-yan therapy, which she had been on in the past, and oral amiodarone therapy. The dosages are being adjusted in attempt to assist with heart rate control. She remains on anticoagulant therapy. Over time she may need further evaluation of her cardiovascular status, based upon her atrial dysrhythmia, her troponin I levels, etc. with additional noninvasive or invasive cardiovascular testing to evaluate for any obvious evidence of underlying CAD. However, this may have to be on temporary hold, pending overall improvement in her current condition and findings. 2. Pulmonary emboli She was found to have pulmonary emboli. This may be a contributing factor her for her atrial dysrhythmia. She will continue evaluation care which is included anticoagulant therapy. 3. History of DVT She states she has a history of a DVT. She has been on anticoagulant therapy for this. It was temporarily interrupted for her recent right knee surgery. She has resumed anticoagulant therapy. 4. Hypertension She has a history of hypertension. Her blood pressures can be monitored and her medications can be adjusted as needed. 5. Liver mass She is undergoing evaluation care for a possible liver mass noted on her CT scan. This has included an abdominal ultrasound which redemonstrated her liver mass. If she does need a biopsy then her anticoagulation will most likely need to be interrupted for such a procedure. That is the case then consideration will have to be given based upon her thromboembolic history as to whether or not she requires an IVC filter. She will continue evaluation care per internal medicine. Comment: Overall, from a cardiovascular standpoint, she will continue with plans for rate control therapy and arrhythmic therapy and anticoagulant therapy. There are no immediate plans for additional cardiovascular diagnostic studies/intervention at this time. Again, her anticoagulant therapy may need to be interrupted temporarily if she undergoes further percutaneous evaluation of concerns of the liver mass. As noted above, in that case, if she does need interruption of her anticoagulant therapy then based upon her history of DVT/PE there is a question as to whether or not she would need IVC filter placement. This note was generated using a voice recognition system and there may be incorrect words, spelling or punctuation that were not noted when reviewing the office note prior to saving.
[2019-11-20] MEDS: hydroCHLOROthiazide 25 MG Tablet 50 MG PO (09:08)
[2019-11-20] MEDS: AMILORIDE HCL 5 MG TABLET PO (09:08)
[2019-11-20] MEDS: Metoprolol Tartrate 100 MG Tablet PO ×2 (09:08→21:01)
--- NOTE | 2019-11-20 10:00 | CT_ITS ---
PROCEDURE: CT DIRECTED CORE LIVER BIOPSY INDICATION: Female, 84 years old. Liver mass biopsy PHYSICIAN: Dr. KARIS Larios CONSENT: Written informed consent was obtained having explained the risks, benefits and alternatives in detail with the patient who accepted the risks and agreed to proceed. Laboratory review and clinical assessment was performed. CONSCIOUS SEDATION PROTOCOL: The Drugs used were: 2 mg Versed, IV., and 50 mcg Fentanyl, IV. The sedation time was: 15 minutes. Conscious sedation was started at 10:30 AM and terminated at 10:45 AM The conscious sedation protocol was independently monitored. RADIATION DOSAGE (If Supplied By Facility): CTDIvol = ( 20 ) mGy, DLP = ( 360.31 ) mGycm Individualized dose optimization techniques were used for this CT. TECHNIQUE: The patient was in the prone position. Using CT image guidance with image documentation, a suitable location in the lower posterior aspect of the right lobe of the liver was identified. Using a posterior approach, puncture of the liver was uneventful with an 18-gauge core needle system. 6, 18-gauge core samples were obtained, and submitted in formalin to the pathologist for further assessment. Followup CT scan revealed no distinct sequelae. CT/Biopsy/Inj or Needle Placement IMPRESSION: 1. CT directed core needle biopsy of the liver, using CT image guidance with image documentation as described. 2. Conscious Sedation protocol utilized with independent monitoring. Electronically Signed: Jamie Hunter, at 11:04 EDT , Service support ,
[2019-11-20] MEDS: fentaNYL 100 MCG/2 ML Ampul IV (10:30)
[2019-11-20] MEDS: Midazolam 2 MG/2 ML Syringe IV (10:30)
[2019-11-20] MEDS: Digoxin 250 MCG/ML Ampul 500 MCG IV (17:01)
[2019-11-20] MEDS: 0.9% Saline Lock 10 ML Syringe IV (17:04)
--- NOTE | 2019-11-20 17:39 | NURSING ---
all documentation and medication administration completed by SN Gerard, done under the supervision of this RN.
[2019-11-20] MEDS: APIXABAN 5 MG TABLET PO (21:01)
[2019-11-21] VITALS (14 sets, daily range): BP systolic 100–122; BP diastolic 49–84; PULSE 61–128; RESP 16–18; TEMP 36.4–36.8; O2SAT 95–98
[2019-11-21] MEDS: Amiodarone 200 MG Tablet PO ×3 (05:21→22:09)
--- NOTE | 2019-11-21 07:37 | PCM.PN.HOSP ---
Patient Problems: Active and Suspected Problems (Last Updated 10/04/17 @ 16:01 by Lashon Ford) Atrial fibrillation with RVR (Acute) Bilateral pulmonary embolism (Acute) Liver mass (Acute) Reason for Visit: Payton padilla with RVR Acute PE Liver mass Subjective: Patient underwent CT-guided biopsy on 11/20/2019. Results still pending Patient was given option of waiting for the results or be discharged home and to call her primary care physician Dr. Long within 3 to 5 days for results of the test she opted for the latter. Objective: GENERAL: cooperative HEENT: Atraumatic; EYES; Anicteric, Normal Conjunctiva NECK; supple, normal thyroid, RESPIRATORY: Diminished to auscultation CARDIOVASCULAR: Irregular S1 S2, GI: soft, normoactive bowel sounds, : No Renal angle tenderness; EXTREMITIES: No edema, no clubbing, MUSCULOSKELETAL: no muscle waisting NEURO: Awake; no lateralizing signs. SKIN: No Rash PSYCH; Flat affect Vitals/I&O's: Vital Signs Temp Pulse Resp BP Pulse Ox 97.6 F L 78 18 121/58 H 98 11/21/19 02:55 11/21/19 06:53 11/21/19 02:55 11/21/19 02:55 11/21/19 02:55 Oxygen Flow Rate (L/min) [4] 2 Oxygen Flow Rate (L/min) [3] 2 Oxygen Flow Rate (L/min) [2] 2 Oxygen Flow Rate (L/min) [1 ( 2 Initial Baseline)] Oxygen Flow Rate (L/min) 2 Oxygen Delivery Method [4] Nasal Cannula Oxygen Delivery Method [3] Room Air Oxygen Delivery Method [2] Nasal Cannula Oxygen Delivery Method [1 ( Room Air Initial Baseline)] Oxygen Delivery Method Room Air Weight: 72.7 kg Body Mass Index (BMI) 24.3 Intake and Output for Last 24 Hours 11/19/19 11/20/19 11/21/19 23:59 23:59 23:59 Intake Total 1584 / 1584 800 / 860 105 / 105 Output Total 875 / 875 Balance 709 / 709 800 / 860 105 / 105 Current Medications Acetaminophen (Tylenol) 650 mg PO Q6H PRN PRN PRN Reason: Pain Score 1-10/Temp > 100.7 F Al Hydroxide/Mg Hydroxide (Mylanta Ii) 30 ml PO Q6H PRN PRN PRN Reason: Gastric Burning Albuterol Sulfate (Ventolin Aerosols) 2.5 mg INHALATION Q2H PRN PRN PRN Reason: Dyspnea, wheezing Amiloride HCl (Amiloride Hcl) 5 mg PO DAILY [facility] Last Admin: 11/20/19 09:08 Dose: 5 mg Documented by: Amiodarone HCl (Cordarone) 200 mg PO TID [facility]; Taper Stop: 12/11/19 13:59 Last Admin: 11/21/19 05:21 Dose: 200 mg Documented by: Amiodarone HCl (Cordarone) 200 mg PO DAILY [facility] Apixaban (Eliquis) 5 mg PO BID [facility] Last Admin: 11/20/19 21:01 Dose: 5 mg Documented by: Guaifenesin (Robitussin) 20 ml PO Q4H PRN PRN PRN Reason: COUGH Hydralazine HCl (Apresoline Iv) 10 mg IV Q4H PRN PRN PRN Reason: SBP > 160 Hydrochlorothiazide (Hctz) 50 mg PO DAILY [facility] Last Admin: 11/20/19 09:08 Dose: 50 mg Documented by: Magnesium Hydroxide (Milk Of Magnesia) 30 ml PO DAILY PRN PRN PRN Reason: Constipation Melatonin (Melatonin) 3 mg PO QHS PRN PRN PRN Reason: INSOMNIA Metoprolol Tartrate (Lopressor (Beta Anthony)) 100 mg PO BID [facility] Last Admin: 11/20/19 21:01 Dose: 100 mg Documented by: Morphine Sulfate () 2 mg IV Q3H PRN PRN PRN Reason: Pain Score 6-10/10 Nitroglycerin (Nitrostat) 0.4 mg SUBLINGUAL Q5M PRN PRN Reason: CARDIAC/CHEST PAIN Ondansetron HCl (Zofran) 4 mg IV Q8H PRN PRN PRN Reason: NAUSEA/VOMITING Oxycodone HCl (Oxyir) 5 mg PO Q4H PRN PRN PRN Reason: Pain Score 4-5/10 Prochlorperazine Edisylate (Compazine Iv) 5 mg IV Q4H PRN PRN PRN Reason: Breakthrough Nausea/Vomiting Psyllium Hydrophilic Mucilloid (Metamucil) 1 packet PO DAILY PRN PRN PRN Reason: Constipation Senna/Docusate Sodium (Senokot-S, Nadine-Colace) 2 tablet PO BID PRN PRN PRN Reason: Constipation Sodium Chloride () 10 - 40 ml IV UD PRN PRN Reason: SALINE FLUSH Last Admin: 11/20/19 17:04 Dose: 10 ml Documented by: Throat Lozenges (Cepacol Sore Throat Lozenge) 1 lozenge MUCOUS MEM Q2H PRN PRN PRN Reason: SORE THROAT STROKE Vital Signs/Narrative: Vital Signs Pulse 11/21/19 06:53 78 Medical Necessity - Tobacco Use Smoking Status: Former smoker Tobacco Use: Non-smoker Assessment/Plan All Active Problems (Last Updated 10/04/17 @ 16:01 by Lashon Ford) Atrial fibrillation with RVR (Acute) Bilateral pulmonary embolism (Acute) Liver mass (Acute) Acute myofascial strain of lumbosacral region (Acute) Patient is an 84-year-old lady admitted with lightheadedness shortness of breath and generalized weakness after participating in physical therapy on the day of her admission. EKG on admission was consistent with A. fib with RVR admitted to a monitored bed for further management CT of the chest obtained demonstrated subsegmental pulmonary emboli in both lower lobes patient was also found to have a liver mass 1. New onset A. fib with RVR ?Admitted to a monitored bed started on Cardizem drip titrated to keep heart rate less than 100. As part of patient's evaluation 2D echo TSH and cardiology consultation obtained 11/19/2019; sent will switch from IV amiodarone to p.o. amiodarone. 2D echo demonstrated: Left ventricular systolic function is normal. The estimated ejection fraction is 65 %. The left atrium is moderately enlarged. Mild-Moderate (1-2+) mitral valve insufficiency. Mild to moderate (1-2+) tricuspid valve insufficiency. Trivial aortic valve insufficiency. Trivial pulmonic valve insufficiency. Right ventricular systolic pressure estimated to be 38 mmHg. Unable to assess diastolic dysfunction. ?11/20/2019; patient heart rate remains relatively controlled. 2. Acute pulmonary embolism ?Patient has history of previous VTE. CT obtained demonstrated subsegmental pulmonary emboli in both lower lungs. Plan is to resume patient systemic anticoagulation after biopsy ?11/20/2019. Eliquis scheduled to start this evening 3. Lung mass ?Consult placed to interventional radiology for CT-guided biopsy -11/19/2019. Procedure scheduled for tomorrow (11/20/2019). ?11/20/2019; patient scheduled to undergo CT-guided biopsy 4. Elevated troponin ?Due to suspect non-STEMI type II as a result of demand ischemia 5. Recent right TKA ?PT OT as tolerated 6. Abnormal TSH ?Given her age her elevated TSH is within accepted range for her age 7. Hypertension - Blood pressure controlled, home medications continued with dose adjustment as needed 8. Chronic kidney disease stage III ruled out 9. Acute renal insufficiency ?Possibly from dehydration managed with IV fluids kidney function back to normal 10. Hypokalemia -Corrected per protocol 11. Adrenal nodule ?CT of the abdomen obtained demonstrated; 1.2 cm x 0.9 cm solid nodule in the left adrenal gland. Plan is for patient to pursue work-up pending results of liver biopsy Clinical Impression(s) from Imaging Studies Abdomen/Pelvis CT 11/19/19 08:17 IMPRESSION: Suspicious 3.5 cm x 3.4 cm mass in the peripheral inferior aspect of the right lobe of the liver. Hepatic cysts. 1.2 cm x 0.9 cm solid nodule in the left adrenal gland. Electronically Signed: Jamie Hunter, at 12:24 EDT , Service support , Inpatient E&M: [id number] Subs Hosp L2
[2019-11-21] MEDS: hydroCHLOROthiazide 25 MG Tablet 50 MG PO (08:18)
[2019-11-21] MEDS: AMILORIDE HCL 5 MG TABLET PO (08:18)
[2019-11-21] MEDS: Metoprolol Tartrate 100 MG Tablet PO ×2 (08:18→22:09)
[2019-11-21] MEDS: APIXABAN 5 MG TABLET PO ×2 (08:19→22:09)
[2019-11-21] MEDS: 0.9% Saline Lock 10 ML Syringe IV (09:42)
[2019-11-21] MEDS: Digoxin 250 MCG/ML Ampul 500 MCG IV (09:43)
--- NOTE | 2019-11-21 10:21 | DCINST_ITS ---
- Discharge Diagnoses Current Active Problems: Current Active and Chronic Problems (Last Updated 10/04/17 @ 16:01 by Lashon Ford) Atrial fibrillation with RVR (Acute) Bilateral pulmonary embolism (Acute) History of venous thromboembolism (Chronic) HTN (hypertension) (Chronic) Liver mass (Acute) You will use the following diet at home:: No restrictions Discharge Activity: Return to Normal Activity Allergies/Adverse Reactions: Allergies lisinopril Allergy (Verified 11/17/19 17:57) Shortness of breath metoclopramide [From Reglan] Allergy (Verified 11/17/19 17:57) Shortness of breath etodolac Adverse Reaction (Verified 11/17/19 17:57) Diarrhea Medications to take at Discharge AMILoride/Hydrochlorothiazide [MODURETIC 5-50 MG Tab] 1 tab PO DAILY 05/20/17 Hydrocodone/Acetaminophen [Hydrocodone-Acetamin 5-325 mg] 1 - 2 tab PO Q4H PRN PRN 11/17/19 Amiodarone HCl [Cordarone] 200 mg PO UD #120 tab 11/21/19 Apixaban [Eliquis] 5 mg PO BID #120 tab 11/21/19 Metoprolol Tartrate [Lopressor (beta yan)] 100 mg PO BID #120 tab 11/21/19 The following prescriptions were given: Amiodarone HCl [Cordarone] 200 mg PO UD #120 tab Transmission Status: Pending to [address] Apixaban [Eliquis] 5 mg PO BID #120 tab Transmission Status: Pending to [address] Metoprolol Tartrate [Lopressor (beta yan)] 100 mg PO BID #120 tab Transmission Status: Pending to [address] Primary Care Physician: Kranthi Long MD [Primary Care Provider] - Please follow up with your Primary Care Physician in: Call Dr. Long within 3 to 5 days for results of liver biopsy Test Results: Test results from this visit will be discussed in further detail at your follow- up appointment, if applicable. Please Follow Up With: Noam Jc MD When: In 2 to 3 weeks Proposed Discharge Date: 11/21/19
--- NOTE | 2019-11-21 10:25 | PCM.DC.SUM ---
Discharge Date and Diagnosis - Problem List Patient Problems: Active and Suspected Problems (Last Updated 10/04/17 @ 16:01 by Lashon Ford) Atrial fibrillation with RVR (Acute) Bilateral pulmonary embolism (Acute) Liver mass (Acute) Date of Admission: 11/17/19 Date of Discharge: 11/21/19 - Primary Discharge Diagnosis Acute Problems: Active Problems (Last Updated 10/04/17 @ 16:01 by Lashon Ford) Atrial fibrillation with RVR (Acute) Bilateral pulmonary embolism (Acute) Liver mass (Acute) - Secondary Discharge Diagnosis Chronic Problems: Chronic Problems (Last Updated 10/04/17 @ 16:01 by Lashon Ford) History of venous thromboembolism (Chronic) HTN (hypertension) (Chronic) Benign essential hypertension (Chronic) Hospital Course and Treatment Imaging Results: Clinical Impression(s) from Imaging Studies Chest CTA 11/17/19 19:20 IMPRESSION: There are a few primarily subsegmental pulmonary emboli in both lower lobes. COPD. Probable liver mass, needs further evaluation. Electronically Signed: Gopal Shane MD at 19:46 EDT , Service support , ADDENDUM: 11/17/192001 IMPRESSION: There are a few primarily subsegmental pulmonary emboli in both lower lobes. COPD. Probable liver mass, needs further evaluation. N.B. : The above information has been verbally conveyed by Gopal Shane MD to India Calderon MD, MD, on 11/17/2019 19:55:34 (ET). Electronically Signed: Gopal Shane MD at 19:46 EDT , Service support , Abdomen Ultrasound 11/18/19 05:55 IMPRESSION: Confirmation of 4.4 cm right hepatic lobe mass which could be neoplastic. Either biopsy or CT of the abdomen with contrast recommended. Electronically Signed: Gopal Shane MD at 16:12 EDT , Service support , Abdomen/Pelvis CT 11/19/19 08:17 IMPRESSION: Suspicious 3.5 cm x 3.4 cm mass in the peripheral inferior aspect of the right lobe of the liver. Hepatic cysts. 1.2 cm x 0.9 cm solid nodule in the left adrenal gland. Electronically Signed: Jamie Moralezsarabjit, at 12:24 EDT , Service support , Biopsy CT 11/20/19 10:00 IMPRESSION: 1. CT directed core needle biopsy of the liver, using CT image guidance with image documentation as described. 2. Conscious Sedation protocol utilized with independent monitoring. Electronically Signed: Jamie Dale, at 11:04 EDT , Service support , Summary of Care Provided: The patient is a 84 year old F [] 1. New onset A. fib with RVR ?Admitted to a monitored bed started on Cardizem drip titrated to keep heart rate less than 100. As part of patient's evaluation 2D echo TSH and cardiology consultation obtained 11/19/2019; sent will switch from IV amiodarone to p.o. amiodarone. 2D echo demonstrated: Left ventricular systolic function is normal. The estimated ejection fraction is 65 %. The left atrium is moderately enlarged. Mild-Moderate (1-2+) mitral valve insufficiency. Mild to moderate (1-2+) tricuspid valve insufficiency. Trivial aortic valve insufficiency. Trivial pulmonic valve insufficiency. Right ventricular systolic pressure estimated to be 38 mmHg. Unable to assess diastolic dysfunction. ?11/20/2019; patient heart rate remains relatively controlled. -11/21/2019 patient was discharged home on amiodarone 200 mg p.o. 3 times daily for 1 week, 20 mg p.o. twice daily for 1 week then 20 mg daily. Patient was also discharged on Eliquis 2. Acute pulmonary embolism ?Patient has history of previous VTE. CT obtained demonstrated subsegmental pulmonary emboli in both lower lungs. Plan is to resume patient systemic anticoagulation after biopsy ?11/20/2019. Eliquis scheduled to start this evening ?Patient discharged on Eliquis 3. Liver mass ?Consult placed to interventional radiology for CT-guided biopsy -11/19/2019. Procedure scheduled for tomorrow (11/20/2019). ?11/20/2019; patient scheduled to undergo CT-guided biopsy - Patient was given option of waiting for the results or be discharged home and to call her primary care physician Dr. Long within 3 to 5 days for results of the test she opted for the latter. 4. Elevated troponin ?Due to suspect non-STEMI type II as a result of demand ischemia 5. Recent right TKA ?PT OT as tolerated 6. Abnormal TSH ?Given her age her elevated TSH is within accepted range for her age 7. Hypertension - Blood pressure controlled, home medications continued with dose adjustment as needed 8. Chronic kidney disease stage III ruled out 9. Acute renal insufficiency ?Possibly from dehydration managed with IV fluids kidney function back to normal 10. Hypokalemia -Corrected per protocol 11. Adrenal nodule ?CT of the abdomen obtained demonstrated; 1.2 cm x 0.9 cm solid nodule in the left adrenal gland. Plan is for patient to pursue work-up pending results of liver biopsy -Patient informed of the results of follow-up with Dr. Long for subsequent care Patient Problems: Active and Suspected Problems (Last Updated 10/04/17 @ 16:01 by Lashon Ford) Atrial fibrillation with RVR (Acute) Bilateral pulmonary embolism (Acute) Liver mass (Acute) - Physical Exam Vitals/I&O's: Vital Signs Temp Pulse Resp BP Pulse Ox 97.8 F 107 H 18 104/84 H 97 11/21/19 08:15 11/21/19 09:43 11/21/19 08:15 11/21/19 08:15 11/21/19 08:15 Oxygen Flow Rate (L/min) [4] 2 Oxygen Flow Rate (L/min) [3] 2 Oxygen Flow Rate (L/min) [2] 2 Oxygen Flow Rate (L/min) [1 ( 2 Initial Baseline)] Oxygen Flow Rate (L/min) 2 Oxygen Delivery Method [4] Nasal Cannula Oxygen Delivery Method [3] Room Air Oxygen Delivery Method [2] Nasal Cannula Oxygen Delivery Method [1 ( Room Air Initial Baseline)] Oxygen Delivery Method Room Air Weight: 72.7 kg Body Mass Index (BMI) 24.3 Intake and Output for Last 24 Hours 0911/20/19 11/21/19 23:59 23:59 23:59 Intake Total 1584 / 1584 800 / 860 105 / 105 Output Total 875 / 875 Balance 709 / 709 800 / 860 105 / 105 General: Alert HEENT: Atraumatic Lungs: Diminished Neurological: Neuro grossly intact Psych/Mental Status: Normal Affect Current Medications Acetaminophen (Tylenol) 650 mg PO Q6H PRN PRN PRN Reason: Pain Score 1-10/Temp > 100.7 F Al Hydroxide/Mg Hydroxide (Mylanta Ii) 30 ml PO Q6H PRN PRN PRN Reason: Gastric Burning Albuterol Sulfate (Ventolin Aerosols) 2.5 mg INHALATION Q2H PRN PRN PRN Reason: Dyspnea, wheezing Amiloride HCl (Amiloride Hcl) 5 mg PO DAILY [facility] Last Admin: 11/21/19 08:18 Dose: 5 mg Documented by: Amiodarone HCl (Cordarone) 200 mg PO TID [facility]; Taper Stop: 12/11/19 13:59 Last Admin: 11/21/19 05:21 Dose: 200 mg Documented by: Amiodarone HCl (Cordarone) 200 mg PO DAILY [facility] Apixaban (Eliquis) 5 mg PO BID [facility] Last Admin: 11/21/19 08:19 Dose: 5 mg Documented by: Guaifenesin (Robitussin) 20 ml PO Q4H PRN PRN PRN Reason: COUGH Hydralazine HCl (Apresoline Iv) 10 mg IV Q4H PRN PRN PRN Reason: SBP > 160 Hydrochlorothiazide (Hctz) 50 mg PO DAILY [facility] Last Admin: 11/21/19 08:18 Dose: 50 mg Documented by: Magnesium Hydroxide (Milk Of Magnesia) 30 ml PO DAILY PRN PRN PRN Reason: Constipation Melatonin (Melatonin) 3 mg PO QHS PRN PRN PRN Reason: INSOMNIA Metoprolol Tartrate (Lopressor (Beta Anthony)) 100 mg PO BID [facility] Last Admin: 11/21/19 08:18 Dose: 100 mg Documented by: Morphine Sulfate () 2 mg IV Q3H PRN PRN PRN Reason: Pain Score 6-10/10 Nitroglycerin (Nitrostat) 0.4 mg SUBLINGUAL Q5M PRN PRN Reason: CARDIAC/CHEST PAIN Ondansetron HCl (Zofran) 4 mg IV Q8H PRN PRN PRN Reason: NAUSEA/VOMITING Oxycodone HCl (Oxyir) 5 mg PO Q4H PRN PRN PRN Reason: Pain Score 4-5/10 Prochlorperazine Edisylate (Compazine Iv) 5 mg IV Q4H PRN PRN PRN Reason: Breakthrough Nausea/Vomiting Psyllium Hydrophilic Mucilloid (Metamucil) 1 packet PO DAILY PRN PRN PRN Reason: Constipation Senna/Docusate Sodium (Senokot-S, Nadine-Colace) 2 tablet PO BID PRN PRN PRN Reason: Constipation Sodium Chloride () 10 - 40 ml IV UD PRN PRN Reason: SALINE FLUSH Last Admin: 11/21/19 09:42 Dose: 10 ml Documented by: Throat Lozenges (Cepacol Sore Throat Lozenge) 1 lozenge MUCOUS MEM Q2H PRN PRN PRN Reason: SORE THROAT Discharge Diet: No Restrictions Discharge Activity: Return to Normal Activity, May not drive while taking narcotic pain medications. Home Medications: Medications to take at Discharge AMILoride/Hydrochlorothiazide [MODURETIC 5-50 MG Tab] 1 tab PO DAILY 05/20/17 Hydrocodone/Acetaminophen [Hydrocodone-Acetamin 5-325 mg] 1 - 2 tab PO Q4H PRN PRN 11/17/19 Amiodarone HCl [Cordarone] 200 mg PO UD #120 tab 11/21/19 Apixaban [Eliquis] 5 mg PO BID #120 tab 11/21/19 Metoprolol Tartrate [Lopressor (beta anthony)] 100 mg PO BID #120 tab 11/21/19 Following Prescriptions Were Given to Patient: Amiodarone HCl [Cordarone] 200 mg PO UD #120 tab Transmission Status: Received by [id number] Apixaban [Eliquis] 5 mg PO BID #120 tab Transmission Status: Received by [id number] Metoprolol Tartrate [Lopressor (beta anthony)] 100 mg PO BID #120 tab Transmission Status: Received by [id number] Primary Care Physician: Kranthi Long MD [Primary Care Provider] - Please follow up with your Primary Care Physician in: Call Dr. Long within 3 to 5 days for results of liver biopsy Please Follow Up With: Noam Jc MD When: In 2 to 3 weeks Disposition: Home Minutes spent on discharge:: 45 Patient Condition:: Stable Medical Necessity - Tobacco Use Smoking Status: Former smoker Tobacco Use: Non-smoker Meaningful Use Info Meaningful Use Diagnoses (Choose all that apply): VTE - VTE Anticoag overlap given w/in hospital stay or rx'd at dc?: No Pt receive overlap for 5 days?: No Reason overlap not ordered, prescribed, or given for 5 days: Treatment Not Indicated Inpatient E&M: 89113 Disch Hosp
--- NOTE | 2019-11-21 10:36 | CASEMGMT ---
Pt states no concerns with going home at time of discharge. Pt declines need for HHC at this time and states will f/u with ortho and continue with OP therapy as needed. Pt voices no further questions/concerns/needs at this time. Lupis MONTES CM
--- NOTE | 2019-11-21 11:19 | PCM.PN.CARD ---
Subjectve: Patient had recurrence of pulmonary embolism after knee surgery. Anticoagulation was withheld for the knee surgery. At the moment patient is back on Eliquis. Atrial fibrillation still with fast ventricular rate despite amiodarone 200 mg 3 times a day, metoprolol 200 mg daily and IV digoxin. Patient however is asymptomatic. Blood pressure on the low side of normal Objective: Vital Signs Temp Pulse Resp BP Pulse Ox 97.6 F L 81 16 100/49 L 98 11/21/19 11:18 11/21/19 11:18 11/21/19 11:18 11/21/19 11:18 11/21/19 11:18 Oxygen Flow Rate (L/min) [4] 2 Oxygen Flow Rate (L/min) [3] 2 Oxygen Flow Rate (L/min) [2] 2 Oxygen Flow Rate (L/min) [1 ( 2 Initial Baseline)] Oxygen Flow Rate (L/min) 2 Oxygen Delivery Method [4] Nasal Cannula Oxygen Delivery Method [3] Room Air Oxygen Delivery Method [2] Nasal Cannula Oxygen Delivery Method [1 ( Room Air Initial Baseline)] Oxygen Delivery Method Room Air Weight: 160 lb 4.417 oz Body Mass Index (BMI) 24.3 Intake and Output for Last 24 Hours 11/19/19 11/20/19 11/21/19 23:59 23:59 23:59 Intake Total 1584 / 1584 800 / 860 105 / 105 Output Total 875 / 875 Balance 709 / 709 800 / 860 105 / 105 General: Healthy Appearing, Alert, Oriented x 3, No Acute Distress HEENT: Atraumatic Neck: Supple Lungs: Clear to auscultation Cardiovascular: Irregular Rhythm, No Murmurs Abdomen: Bowel Sounds Present, Soft, Non Tender, No HSM, No Organomegaly Musculoskeletal: - - Recent knee surgery Neurological: No Focal Motor or Sensory Deficit Psych/Mental Status: Appropriate, Normal Affect Rhythm: EKG: ECHO: Stress Test: Cardiac Cath: PCI: CT Surgery: Holter monitor: EPS: PPM: CXR: Chest CT Scan: Medical Necessity - Tobacco Use Smoking Status: Former smoker Tobacco Use: Non-smoker Assessment/Plan Atrial fibrillation still with fast ventricular rate. We will continue loading with digoxin IV. Diuretic will be withheld to give more room for calcium yan. Cardizem low-dose 30 mg every 6 will be initiated.
--- NOTE | 2019-11-21 11:50 | PCM.DC ---
- Discharge Diagnoses Current Active Problems: Current Active and Chronic Problems (Last Updated 10/04/17 @ 16:01 by Lashon Ford) Atrial fibrillation with RVR (Acute) Bilateral pulmonary embolism (Acute) History of venous thromboembolism (Chronic) HTN (hypertension) (Chronic) Liver mass (Acute) Discharge Activity: Return to Normal Activity, May not drive while taking narcotic pain medications. Allergies/Adverse Reactions: Allergies lisinopril Allergy (Verified 11/17/19 17:57) Shortness of breath metoclopramide [From Reglan] Allergy (Verified 11/17/19 17:57) Shortness of breath etodolac Adverse Reaction (Verified 11/17/19 17:57) Diarrhea Medications to take at Discharge Hydrocodone/Acetaminophen [Hydrocodone-Acetamin 5-325 mg] 1 - 2 tab PO Q4H PRN PRN 11/17/19 Amiodarone HCl [Cordarone] 200 mg PO UD #120 tab 11/21/19 Apixaban [Eliquis] 5 mg PO BID #120 tab 11/21/19 Diltiazem [Cardizem] 30 mg PO Q6 #120 tab 11/21/19 Metoprolol Tartrate [Lopressor (beta yan)] 100 mg PO BID #120 tab 11/21/19 The following prescriptions were given: Diltiazem [Cardizem] 30 mg PO Q6 #120 tab Transmission Status: Pending to [address] Amiodarone HCl [Cordarone] 200 mg PO UD #120 tab Transmission Status: Received by [address] Apixaban [Eliquis] 5 mg PO BID #120 tab Transmission Status: Received by [address] Metoprolol Tartrate [Lopressor (beta yan)] 100 mg PO BID #120 tab Transmission Status: Received by [address] Primary Care Physician: Kranthi Long MD [Primary Care Provider] - Please follow up with your Primary Care Physician in: Call Dr. Long within 3 to 5 days for results of liver biopsy Test Results: Test results from this visit will be discussed in further detail at your follow-up appointment, if applicable. Please Follow Up With: Noam Jc MD When: In 2 to 3 weeks Proposed Discharge Date: 11/21/19
[2019-11-21] MEDS: dilTIAZem 30 MG Tablet PO ×3 (13:02→23:51)
[2019-11-22] VITALS (12 sets, daily range): BP systolic 105–120; BP diastolic 47–74; PULSE 53–74; RESP 16–18; TEMP 36.4–36.8; O2SAT 95–98
[2019-11-22] MEDS: dilTIAZem 30 MG Tablet PO (06:48)
[2019-11-22] MEDS: Amiodarone 200 MG Tablet PO (07:55)
--- NOTE | 2019-11-22 09:19 | PN_ITS ---
Patient Problems: Active and Suspected Problems (Last Updated 10/04/17 @ 16:01 by Lashon Ford) Atrial fibrillation with RVR (Acute) Bilateral pulmonary embolism (Acute) Liver mass (Acute) Reason for Visit: Kenn. fib Liver mass Subjective: Plan was of patient having discharge the day before however cardiology recommended keeping patient through the weekend. Patient diuretics discontinued following initiation of Cardizem for additional rate control. Results of patient liver biopsy still pending Objective: GENERAL: cooperative HEENT: Atraumatic; EYES; Anicteric, Normal Conjunctiva NECK; supple, normal thyroid, RESPIRATORY: Diminished to auscultation CARDIOVASCULAR: Irregular S1 S2, GI: soft, normoactive bowel sounds, : No Renal angle tenderness; EXTREMITIES: No edema, no clubbing, MUSCULOSKELETAL: no muscle waisting NEURO: Awake; no lateralizing signs. SKIN: No Rash PSYCH; Flat affect Vitals/I&O's: Vital Signs Temp Pulse Resp BP Pulse Ox 97.5 F L 70 18 120/68 97 11/22/19 07:50 11/22/19 07:50 11/22/19 07:50 11/22/19 07:50 11/22/19 07:50 Oxygen Flow Rate (L/min) [4] 2 Oxygen Flow Rate (L/min) [3] 2 Oxygen Flow Rate (L/min) [2] 2 Oxygen Flow Rate (L/min) [1 ( 2 Initial Baseline)] Oxygen Flow Rate (L/min) 2 Oxygen Delivery Method [4] Nasal Cannula Oxygen Delivery Method [3] Room Air Oxygen Delivery Method [2] Nasal Cannula Oxygen Delivery Method [1 ( Room Air Initial Baseline)] Oxygen Delivery Method Room Air Weight: 72.7 kg Body Mass Index (BMI) 24.3 Intake and Output for Last 24 Hours 11/20/19 11/21/19 11/22/19 23:59 23:59 23:59 Intake Total 800 / 860 705 / 905 250 / 250 Balance 800 / 860 705 / 905 250 / 250 Current Medications Acetaminophen (Tylenol) 650 mg PO Q6H PRN PRN PRN Reason: Pain Score 1-10/Temp > 100.7 F Al Hydroxide/Mg Hydroxide (Mylanta Ii) 30 ml PO Q6H PRN PRN PRN Reason: Gastric Burning Albuterol Sulfate (Ventolin Aerosols) 2.5 mg INHALATION Q2H PRN PRN PRN Reason: Dyspnea, wheezing Amiodarone HCl (Cordarone) 200 mg PO TID [facility]; Taper Stop: 12/11/19 13:59 Last Admin: 11/22/19 07:55 Dose: 200 mg Documented by: Amiodarone HCl (Cordarone) 200 mg PO DAILY [facility] Apixaban (Eliquis) 5 mg PO BID [facility] Last Admin: 11/21/19 22:09 Dose: 5 mg Documented by: Diltiazem HCl (Cardizem) 30 mg PO Q6 [facility] Last Admin: 11/22/19 06:48 Dose: 30 mg Documented by: Guaifenesin (Robitussin) 20 ml PO Q4H PRN PRN PRN Reason: COUGH Hydralazine HCl (Apresoline Iv) 10 mg IV Q4H PRN PRN PRN Reason: SBP > 160 Magnesium Hydroxide (Milk Of Magnesia) 30 ml PO DAILY PRN PRN PRN Reason: Constipation Melatonin (Melatonin) 3 mg PO QHS PRN PRN PRN Reason: INSOMNIA Metoprolol Tartrate (Lopressor (Beta Anthony)) 100 mg PO BID [facility] Last Admin: 11/21/19 22:09 Dose: 100 mg Documented by: Morphine Sulfate () 2 mg IV Q3H PRN PRN PRN Reason: Pain Score 6-10/10 Nitroglycerin (Nitrostat) 0.4 mg SUBLINGUAL Q5M PRN PRN Reason: CARDIAC/CHEST PAIN Ondansetron HCl (Zofran) 4 mg IV Q8H PRN PRN PRN Reason: NAUSEA/VOMITING Oxycodone HCl (Oxyir) 5 mg PO Q4H PRN PRN PRN Reason: Pain Score 4-5/10 Prochlorperazine Edisylate (Compazine Iv) 5 mg IV Q4H PRN PRN PRN Reason: Breakthrough Nausea/Vomiting Psyllium Hydrophilic Mucilloid (Metamucil) 1 packet PO DAILY PRN PRN PRN Reason: Constipation Senna/Docusate Sodium (Senokot-S, Nadine-Colace) 2 tablet PO BID PRN PRN PRN Reason: Constipation Sodium Chloride () 10 - 40 ml IV UD PRN PRN Reason: SALINE FLUSH Last Admin: 11/21/19 09:42 Dose: 10 ml Documented by: Throat Lozenges (Cepacol Sore Throat Lozenge) 1 lozenge MUCOUS MEM Q2H PRN PRN PRN Reason: SORE THROAT STROKE Vital Signs/Narrative: Vital Signs Temp Pulse Resp BP Pulse Ox 11/22/19 07:50 97.5 F L 70 18 120/68 97 11/22/19 07:00 55 L Medical Necessity - Tobacco Use Smoking Status: Former smoker Tobacco Use: Non-smoker Assessment/Plan All Active Problems (Last Updated 10/04/17 @ 16:01 by Lashon Ford) Atrial fibrillation with RVR (Acute) Bilateral pulmonary embolism (Acute) Liver mass (Acute) Acute myofascial strain of lumbosacral region (Acute) Patient is an 84-year-old lady admitted with lightheadedness shortness of breath and generalized weakness after participating in physical therapy on the day of her admission. EKG on admission was consistent with A. fib with RVR admitted to a monitored bed for further management CT of the chest obtained demonstrated subsegmental pulmonary emboli in both lower lobes patient was also found to have a liver mass 1. New onset A. fib with RVR ?Admitted to a monitored bed started on Cardizem drip titrated to keep heart rate less than 100. As part of patient's evaluation 2D echo TSH and cardiology consultation obtained 11/19/2019; sent will switch from IV amiodarone to p.o. amiodarone. 2D echo demonstrated: Left ventricular systolic function is normal. The estimated ejection fraction is 65 %. The left atrium is moderately enlarged. Mild-Moderate (1-2+) mitral valve insufficiency. Mild to moderate (1-2+) tricuspid valve insufficiency. Trivial aortic valve insufficiency. Trivial pulmonic valve insufficiency. Right ventricular systolic pressure estimated to be 38 mmHg. Unable to assess diastolic dysfunction. ?11/20/2019; patient heart rate remains relatively controlled. -11/22/2019; Cardizem added to patient treatment regimen: Patient heart rate is relatively controlled 2. Acute pulmonary embolism ?Patient has history of previous VTE. CT obtained demonstrated subsegmental pulmonary emboli in both lower lungs. Plan is to resume patient systemic anticoagulation after biopsy ?11/20/2019. Eliquis scheduled to start this evening 11/22/2019; Eliquis was started on 11/20/2019 3. Lung mass ?Consult placed to interventional radiology for CT-guided biopsy -11/19/2019. Procedure scheduled for tomorrow (11/20/2019). ?11/20/2019; patient scheduled to undergo CT-guided biopsy -11/22/2019: Patient underwent liver biopsy on 11/20/2019 results still pending as of today. 4. Elevated troponin ?Due to suspect non-STEMI type II as a result of demand ischemia 5. Recent right TKA ?PT OT as tolerated 6. Abnormal TSH ?her elevated TSH is within accepted range for her age 7. Hypertension - Blood pressure controlled, home medications continued with dose adjustment as needed 8. Chronic kidney disease stage III ruled out 9. Acute renal insufficiency ?Possibly from dehydration managed with IV fluids kidney function back to normal 10. Hypokalemia -Corrected per protocol 11. Adrenal nodule ?CT of the abdomen obtained demonstrated; 1.2 cm x 0.9 cm solid nodule in the left adrenal gland. Plan is for patient to pursue work-up pending results of liver biopsy Inpatient E&M: [id number] [facility] Hosp L2
[2019-11-22 10:00] LABS: Mean Corp Hgb Conc 32.5 g/dL (32-36); Mean Corpuscular Hgb 30.1 pg (27.0-32.0); Mean Corpuscular Volume 92.6 fL (81-99); Platelet Count 320 K/mm3 (150-450); RBC Distribution Width CV 14.6 % (11.6-14.6); RBC Distribution Width SD 47.8 fl (35.1-43.9); Red Blood Count 4.32 M/mm3 (4.2-5.4); White Blood Count 6.9 K/mm3 (4.4-11.0)
[2019-11-22] MEDS: APIXABAN 5 MG TABLET PO ×2 (10:02→20:58)
[2019-11-22 10:18] LABS: Anion Gap 7 (5-15); BUN 21 mg/dL (7-18); BUN/Creat Ratio 24.4 RATIO (10-20); Calcium,Total 9.3 mg/dL (8.5-10.1); Chloride 101 mmol/L (98-107); Creatinine, Serum 0.86 mg/dL (0.55-1.02); EST Glomerular Filtration Rate 67 mL/min (>60); Est Glom Filt Rate - Afr Amer 81 mL/min (>60); Estimated Creatinine Clearance 49.12 ml/min; Glucose 102 mg/dL (74-106); Magnesium 1.9 mg/dL (1.6-2.6); Potassium 3.8 mmol/L (3.5-5.1); Sodium Level 136 mmol/L (136-145)
[2019-11-22] MEDS: Metoprolol Tartrate 100 MG Tablet PO (20:58)
[2019-11-23 02:50] VITALS: PULSE 72
[2019-11-23 03:00] VITALS: BP 133/68; PULSE 83; RESP 16; TEMP 36.6; O2SAT 95
[2019-11-23 06:28] LABS: Hematocrit 39.3 % (37-47); Hemoglobin 12.7 g/dL (12.0-15.0); Mean Corp Hgb Conc 32.3 g/dL (32-36); Mean Corpuscular Hgb 29.9 pg (27.0-32.0); Mean Corpuscular Volume 92.5 fL (81-99); Mean Platelet Vol. 10.2 fl (6.2-12.0); Platelet Count 321 K/mm3 (150-450); RBC Distribution Width CV 14.6 % (11.6-14.6); Red Blood Count 4.25 M/mm3 (4.2-5.4); White Blood Count 6.5 K/mm3 (4.4-11.0)
[2019-11-23 06:54] VITALS: PULSE 60
[2019-11-23 06:54] LABS: Anion Gap 7 (5-15); BUN 22 mg/dL (7-18); BUN/Creat Ratio 23.7 RATIO (10-20); Calcium,Total 9.5 mg/dL (8.5-10.1); Chloride 98 mmol/L (98-107); Creatinine, Serum 0.93 mg/dL (0.55-1.02); EST Glomerular Filtration Rate 61 mL/min (>60); Est Glom Filt Rate - Afr Amer 74 mL/min (>60); Estimated Creatinine Clearance 45.42 ml/min; Glucose 102 mg/dL (74-106); Magnesium 1.8 mg/dL (1.6-2.6); Potassium 3.6 mmol/L (3.5-5.1); Sodium Level 136 mmol/L (136-145)
[2019-11-23 09:00] VITALS: BP 95/72; PULSE 84; RESP 14; TEMP 36.5; O2SAT 96
--- NOTE | 2019-11-23 09:35 | PN.CARD_ITS ---
Subjectve: The patient is awake and alert. She has been supine in bed with no acute complaints. She has been up in the chair and ambulating with no acute compl aints. Objective: Vital Signs Temp Pulse Resp BP Pulse Ox 97.7 F L 84 14 95/72 96 11/23/19 09:00 11/23/19 09:00 11/23/19 09:00 11/23/19 09:00 11/23/19 09:00 Oxygen Flow Rate (L/min) [4] 2 Oxygen Flow Rate (L/min) [3] 2 Oxygen Flow Rate (L/min) [2] 2 Oxygen Flow Rate (L/min) [1 ( 2 Initial Baseline)] Oxygen Flow Rate (L/min) 2 Oxygen Delivery Method [4] Nasal Cannula Oxygen Delivery Method [3] Room Air Oxygen Delivery Method [2] Nasal Cannula Oxygen Delivery Method [1 ( Room Air Initial Baseline)] Oxygen Delivery Method Room Air Weight: 160 lb 4.417 oz Body Mass Index (BMI) 24.3 Intake and Output for Last 24 Hours 11/21/19 11/22/19 11/23/19 23:59 23:59 23:59 Intake Total 705 / 905 730 / 830 100 / 100 Balance 705 / 905 730 / 830 100 / 100 General: Awake, Alert, Oriented x 3, Cooperative, No Acute Distress HEENT: Atraumatic, Normocephalic, PERRL, EOMI, Sclera Non Icteric Neck: No JVD Lungs: Clear to auscultation Cardiovascular: Irregular Rhythm, Normal S1, Normal S2 Abdomen: Bowel Sounds Present, Soft Extremities: No edema Psych/Mental Status: Appropriate 11/22/19 09:45: WBC 6.9, RBC 4.32, Hgb 13.0, Hct 40.0, MCV 92.6, MCH 30.1, MCHC 32.5, Plt Count 320, MPV 10.0 11/22/19 09:45: Sodium 136, Potassium 3.8, Chloride 101, Carbon Dioxide 28.0, Anion Gap 7, BUN 21 H, Creatinine 0.86, Est GFR (MDRD) Af Amer 81, Est GFR (MDRD) Non-Af 67, BUN/Creatinine Ratio 24.4 H, Glucose 102, Calcium 9.3, Magnesium 1.9 11/23/19 05:30: WBC 6.5, RBC 4.25, Hgb 12.7, Hct 39.3, MCV 92.5, MCH 29.9, MCHC 32.3, Plt Count 321, MPV 10.2 11/23/19 05:30: Sodium 136, Potassium 3.6, Chloride 98, Carbon Dioxide 31.0, Anion Gap 7, BUN 22 H, Creatinine 0.93, Est GFR (MDRD) Af Amer 74, Est GFR (MDRD) Non-Af 61, BUN/Creatinine Ratio 23.7 H, Glucose 102, Calcium 9.5, Magnesium 1.8 Rhythm: Atrial fibrillation Medical Necessity - Tobacco Use Smoking Status: Former smoker Tobacco Use: Non-smoker Assessment/Plan 1. Atrial fibrillation The patient remains in atrial fibrillation. The etiology may be multifactorial although it may be brought on by her more recent clinical course including her postoperative pulmonary emboli superimposed upon her chronic history of hypertension. At the present time she is continuing medical therapy for rate control as well as attempts at antiarrhythmic therapy and her anticoagulation. Over time she will be considered for synchronized biphasic DC cardioversion if she does not regain sinus rhythm. 2. Pulmonary emboli She was found to have pulmonary emboli. This may be a contributing factor her for her atrial dysrhythmia. She will continue evaluation care which is included anticoagulant therapy. 3. History of DVT She states she has a history of a DVT. She has been on anticoagulant therapy for this. It was temporarily interrupted for her recent right knee surgery. She has resumed anticoagulant therapy. 4. Hypertension She has a history of hypertension. Her blood pressures can be monitored and her medications can be adjusted as needed. 5. Liver mass She has is undergone a CT-guided biopsy. The results are pending. She will continue evaluation care per internal medicine. This note was generated using a voice recognition system and there may be incorrect words, spelling or punctuation that were not noted when reviewing the office note prior to saving.
[2019-11-23 10:05] VITALS: BP 152/96; PULSE 90
[2019-11-23] MEDS: Metoprolol Tartrate 100 MG Tablet PO (10:05)
[2019-11-23] MEDS: APIXABAN 5 MG TABLET PO (10:08)
[2019-11-23] MEDS: Amiodarone 200 MG Tablet PO (10:09)
--- NOTE | 2019-11-23 12:38 | DS.PCM_ITS ---
Discharge Date and Diagnosis - Problem List Patient Problems: Active and Suspected Problems (Last Updated 10/04/17 @ 16:01 by Lashon Ford) Atrial fibrillation with RVR (Acute) Bilateral pulmonary embolism (Acute) Liver mass (Acute) Date of Admission: 11/17/19 Date of Discharge: 11/23/19 - Primary Discharge Diagnosis Acute Problems: Active Problems (Last Updated 10/04/17 @ 16:01 by Lashon Ford) Atrial fibrillation with RVR (Acute) Bilateral pulmonary embolism (Acute) Liver mass (Acute) - Secondary Discharge Diagnosis Chronic Problems: Chronic Problems (Last Updated 10/04/17 @ 16:01 by Lashon Ford) History of venous thromboembolism (Chronic) HTN (hypertension) (Chronic) Benign essential hypertension (Chronic) Hospital Course and Treatment Imaging Results: Clinical Impression(s) from Imaging Studies Chest CTA 11/17/19 19:20 IMPRESSION: There are a few primarily subsegmental pulmonary emboli in both lower lobes. COPD. Probable liver mass, needs further evaluation. Electronically Signed: Gopal Shane MD at 19:46 EDT , Service support , ADDENDUM: 11/17/192001 IMPRESSION: There are a few primarily subsegmental pulmonary emboli in both lower lobes. COPD. Probable liver mass, needs further evaluation. N.B. : The above information has been verbally conveyed by Gopal Shane MD to India Calderon MD, MD, on 11/17/2019 19:55:34 (ET). Electronically Signed: Gopal Shane MD at 19:46 EDT , Service support , Abdomen Ultrasound 11/18/19 05:55 IMPRESSION: Confirmation of 4.4 cm right hepatic lobe mass which could be neoplastic. Either biopsy or CT of the abdomen with contrast recommended. Electronically Signed: Gopal Shane MD at 16:12 EDT , Service support , Abdomen/Pelvis CT 11/19/19 08:17 IMPRESSION: Suspicious 3.5 cm x 3.4 cm mass in the peripheral inferior aspect of the right lobe of the liver. Hepatic cysts. 1.2 cm x 0.9 cm solid nodule in the left adrenal gland. Electronically Signed: Jamie Moralezjjlincoln, at 12:24 EDT , Service support , Biopsy CT 11/20/19 10:00 IMPRESSION: 1. CT directed core needle biopsy of the liver, using CT image guidance with image documentation as described. 2. Conscious Sedation protocol utilized with independent monitoring. Electronically Signed: Jamie Dale, at 11:04 EDT , Service support , [place], cardiology Operations: None Procedures: 2-D Echocardiogram - Left ventricular systolic function is normal. The estimated ejection fraction is 65 %. The left atrium is moderately enlarged. Mild-Moderate (1-2+) mitral valve insufficiency. Mild to moderate (1-2+) tricuspid valve insufficiency. Trivial aortic valve insufficiency. Trivial pulmonic valve insufficiency. Right ventricular systolic pressure estimated to be 38 mmHg. Unable to assess diastolic dysfunction., - - 1. CT directed core needle biopsy of the liver, using CT image guidance with image documentation as described. 2. Conscious Sedation protocol utilized with independent monitoring. Summary of Care Provided: The patient is a 84 year old F presents with dizziness, weakness and shortness of breath after physical therapy. Patient was found to be in atrial fibrillation with RVR. 1. New onset A. fib with RVR ?Admitted to a monitored bed started on Cardizem drip titrated to keep heart rate less than 100. As part of patient's evaluation 2D echo TSH and cardiology consultation obtained 11/19/2019; sent will switch from IV amiodarone to p.o. amiodarone. 2D echo demonstrated: Left ventricular systolic function is normal. The estimated ejection fraction is 65 %. The left atrium is moderately enlarged. Mild-Moderate (1-2+) mitral valve insufficiency. Mild to moderate (1-2+) tricuspid valve insufficiency. Trivial aortic valve insufficiency. Trivial pulmonic valve insufficiency. Right ventricular systolic pressure estimated to be 38 mmHg. Unable to assess diastolic dysfunction. ?11/20/2019; patient heart rate remains relatively controlled. -11/23/2019 patient was discharged home on amiodarone 200 mg p.o. 3 times daily for 1 week, 20 mg p.o. twice daily for 1 week then 20 mg daily. Patient was also discharged on Eliquis 2. Acute pulmonary embolism ?Patient has history of previous VTE. -Resumed on apixaban 3. Liver mass CT-guided liver biopsy performed on 11/19, pathology still pending on 11/22. Will need eventual referral to oncology. 4. Elevated troponin ?Doubt NSTEMI and likely due to Afib with RVR -Trivial elevation of 0.049 5. Recent right TKA ?PT OT as tolerated 6. Abnormal TSH ?Given her age her elevated TSH is within accepted range for her age 7. Hypertension - Blood pressure controlled, home medications continued with dose adjustment as needed 8. Chronic kidney disease stage III ruled out 9. Acute renal insufficiency ?Possibly from dehydration managed with IV fluids kidney function back to normal 10. Hypokalemia -Corrected per protocol 11. Adrenal nodule ?CT of the abdomen obtained demonstrated; 1.2 cm x 0.9 cm solid nodule in the left adrenal gland. Plan is for patient to pursue work-up pending results of liver biopsy -Patient informed of the results of follow-up with Dr. Long for subsequent care [] Patient Problems: Active and Suspected Problems (Last Updated 10/04/17 @ 16:01 by Lashon Ford) Atrial fibrillation with RVR (Acute) Bilateral pulmonary embolism (Acute) Liver mass (Acute) - Physical Exam Vitals/I&O's: Vital Signs Temp Pulse Resp BP Pulse Ox 36.5 C L 90 14 152/96 H 96 11/23/19 09:00 11/23/19 10:05 11/23/19 09:00 11/23/19 10:05 11/23/19 09:00 Oxygen Flow Rate (L/min) [4] 2 Oxygen Flow Rate (L/min) [3] 2 Oxygen Flow Rate (L/min) [2] 2 Oxygen Flow Rate (L/min) [1 ( 2 Initial Baseline)] Oxygen Flow Rate (L/min) 2 Oxygen Delivery Method [4] Nasal Cannula Oxygen Delivery Method [3] Room Air Oxygen Delivery Method [2] Nasal Cannula Oxygen Delivery Method [1 ( Room Air Initial Baseline)] Oxygen Delivery Method Room Air Weight: 72.7 kg Body Mass Index (BMI) 24.3 Intake and Output for Last 24 Hours 11/21/19 11/22/19 11/23/19 23:59 23:59 23:59 Intake Total 705 / 905 730 / 830 100 / 100 Balance 705 / 905 730 / 830 100 / 100 General: Alert, No apparent distress HEENT: Atraumatic, Normocephalic Oral: Moist Mucosa, No Gingival or Mucosal Lesions/ Ulcerations Neck: No Nodes, Thyroid Normal Size and Texture Lungs: Clear to auscultation, Normal air movement, No rhonchi, No wheeze, No rales Cardiovascular: Regular rate, Regular Rhythm, Normal S1, Normal S2, No murmurs Abdomen: Bowel Sounds Present, Soft, Non Tender, Non-Distended, No Hepato- splenomegaly Extremities: No edema, No Calf Tenderness Psych/Mental Status: Normal Affect, Appropriate Laboratory Results 11/23/19 05:30: WBC 6.5, RBC 4.25, Hgb 12.7, Hct 39.3, MCV 92.5, MCH 29.9, MCHC 32.3, RDW Std Deviation 49.0 H, RDW Coeff of Kin 14.6, Plt Count 321, MPV 10.2 11/23/19 05:30: Sodium 136, Potassium 3.6, Chloride 98, Carbon Dioxide 31.0, Anion Gap 7, BUN 22 H, Creatinine 0.93, Estim Creat Clear Calc 45.42, Est GFR (MDRD) Af Amer 74, Est GFR (MDRD) Non-Af 61, BUN/Creatinine Ratio 23.7 H, Glucose 102, Calcium 9.5, Magnesium 1.8 Current Medications Acetaminophen (Tylenol) 650 mg PO Q6H PRN PRN PRN Reason: Pain Score 1-10/Temp > 100.7 F Al Hydroxide/Mg Hydroxide (Mylanta Ii) 30 ml PO Q6H PRN PRN PRN Reason: Gastric Burning Albuterol Sulfate (Ventolin Aerosols) 2.5 mg INHALATION Q2H PRN PRN PRN Reason: Dyspnea, wheezing Amiodarone HCl (Cordarone) 200 mg PO DAILY DEVAN Last Admin: 11/23/19 10:09 Dose: 200 mg Documented by: Apixaban (Eliquis) 5 mg PO BID [facility] Last Admin: 11/23/19 10:08 Dose: 5 mg Documented by: Guaifenesin (Robitussin) 20 ml PO Q4H PRN PRN PRN Reason: COUGH Hydralazine HCl (Apresoline Iv) 10 mg IV Q4H PRN PRN PRN Reason: SBP > 160 Magnesium Hydroxide (Milk Of Magnesia) 30 ml PO DAILY PRN PRN PRN Reason: Constipation Melatonin (Melatonin) 3 mg PO QHS PRN PRN PRN Reason: INSOMNIA Metoprolol Tartrate (Lopressor (Beta Anthony)) 100 mg PO BID [facility] Last Admin: 11/23/19 10:05 Dose: 100 mg Documented by: Morphine Sulfate () 2 mg IV Q3H PRN PRN PRN Reason: Pain Score 6-10/10 Nitroglycerin (Nitrostat) 0.4 mg SUBLINGUAL Q5M PRN PRN Reason: CARDIAC/CHEST PAIN Ondansetron HCl (Zofran) 4 mg IV Q8H PRN PRN PRN Reason: NAUSEA/VOMITING Oxycodone HCl (Oxyir) 5 mg PO Q4H PRN PRN PRN Reason: Pain Score 4-5/10 Prochlorperazine Edisylate (Compazine Iv) 5 mg IV Q4H PRN PRN PRN Reason: Breakthrough Nausea/Vomiting Psyllium Hydrophilic Mucilloid (Metamucil) 1 packet PO DAILY PRN PRN PRN Reason: Constipation Senna/Docusate Sodium (Senokot-S, Nadine-Colace) 2 tablet PO BID PRN PRN PRN Reason: Constipation Sodium Chloride () 10 - 40 ml IV UD PRN PRN Reason: SALINE FLUSH Last Admin: 11/21/19 09:42 Dose: 10 ml Documented by: Throat Lozenges (Cepacol Sore Throat Lozenge) 1 lozenge MUCOUS MEM Q2H PRN PRN PRN Reason: SORE THROAT Discharge Diet: No Restrictions Discharge Activity: Return to Normal Activity, May not drive while taking narcotic pain medications. Call your doctor if you observe: Shortness of breath, Chest pain, Increased palpitations (irregular heartbeat) Home Medications: Medications to take at Discharge Hydrocodone/Acetaminophen [Hydrocodone-Acetamin 5-325 mg] 1 - 2 tab PO Q4H PRN PRN 11/17/19 Amiodarone HCl [Cordarone] 200 mg PO UD #120 tab 11/21/19 Apixaban [Eliquis] 5 mg PO BID #120 tab 11/21/19 Diltiazem [Cardizem] 30 mg PO Q6 #120 tab 11/21/19 Metoprolol Tartrate [Lopressor (beta anthony)] 100 mg PO BID #120 tab 11/21/19 Following Prescriptions Were Given to Patient: Diltiazem [Cardizem] 30 mg PO Q6 #120 tab Transmission Status: Received by [address] Amiodarone HCl [Cordarone] 200 mg PO UD #120 tab Transmission Status: Received by [address] Apixaban [Eliquis] 5 mg PO BID #120 tab Transmission Status: Received by [address] Metoprolol Tartrate [Lopressor (beta anthony)] 100 mg PO BID #120 tab Transmission Status: Received by [address] Primary Care Physician: Kranthi Long MD [Primary Care Provider] - Please follow up with your Primary Care Physician in: Call Dr. Long within 3 to 5 days for results of liver biopsy Please Follow Up With: Noam Jc MD When: In 2 to 3 weeks Disposition: Home Minutes spent on discharge:: 32 Patient Condition:: Good Medical Necessity - Tobacco Use Smoking Status: Former smoker Tobacco Use: Non-smoker Meaningful Use Info Meaningful Use Diagnoses (Choose all that apply): None applicable Inpatient E&M: Disch Hosp Multi Select Codes - Visit Charges Visit Charges: Disch Hosp
[2019-11-23 13:41] VITALS: BP 104/58; PULSE 72; RESP 16; TEMP 36.7; O2SAT 97
--- NOTE | 2019-11-23 14:37 | PHA.DC.MC ---
Pharmacy Service has performed discharge medication reconciliation and counseling for this patient. The patient was counseled on the following discharge medications and changes in medications for homegoing were reviewed. 1. AMIODARONE 2. ELIQUIS 3. METOPROLOL The Reason for Use, instructions for use, and potential side effects were reviewed for all new medications. The patient's questions regarding all of their medications were answered. The patient demonstrated some understanding but would benefit from further education and reinforcement. Per patient, her daughter will be in to pick her up. Will try and speak with the daughter when she arrives to go over medications. Home Medications Hydrocodone/Acetaminophen [Hydrocodone-Acetamin 5-325 mg] 1 - 2 tab PO Q4H PRN PRN 11/17/19 Apixaban [Eliquis] 5 mg PO BID #120 tab 11/21/19 Metoprolol Tartrate [Lopressor (beta yan)] 100 mg PO BID #120 tab 11/21/19 Amiodarone HCl [Cordarone] 200 mg PO DAILY #30 tab 11/23/19
== END 2019-11-23 15:07 | disposition home or self-care (01) | DRG 308 ==
LOC: ED 18:57 → PCU 20:59
PROVIDERS: Internal Medicine; Internal Medicine Cardiovascular Disease; Admitting Provider Family Medicine; Emergency Provider Emergency Medicine; PCP Family Medicine
DX: I48.0 Paroxysmal atrial fibrillation (principal); I26.99 Other pulmonary embolism without acute cor pulmonale; D18.03 Hemangioma of intra-abdominal structures; E86.0 Dehydration; N28.9 Disorder of kidney and ureter, unspecified; E87.6 Hypokalemia; R73.9 Hyperglycemia, unspecified; J44.9 Chronic obstructive pulmonary disease, unspecified; M54.9 Dorsalgia, unspecified; G89.29 Other chronic pain; Z79.01 Long term (current) use of anticoagulants; Z79.899 Other long term (current) drug therapy; Z86.718 Personal history of other venous thrombosis and embolism; Z87.891 Personal history of nicotine dependence; Z96.653 Presence of artificial knee joint, bilateral; Z96.642 Presence of left artificial hip joint
CPT/HCPCS: 36415; 71275; 74177; 76705; 77012; 80048; 80053; 80061; 80076; 83036; 83735; 84443; 84484; 85025; 85027; 85610; 85730; 88172; 88305; 88307; 88313; 93005; 93306; 97110; 97116; 97162; 97166; 97530; 97535; 99155; 99156; 99251; 99285; J7030; J7040; Q9967; A4216; G0463; J3470

== ENCOUNTER → 2019-12-22 10:19 | Day surgery (SDC) | payer MEDICARE, OTHER, SELFPAY ==
[2019-12-09 14:08] VITALS: BMI 23.8
[2019-12-21 08:26] VITALS: BMI 23.8
== END ==
PROVIDERS: PCP Family Medicine; Referring Provider Internal Medicine Cardiovascular Disease; Visit Provider Internal Medicine Cardiovascular Disease
DX: I48.91 Unspecified atrial fibrillation (principal); Z53.8 Procedure and treatment not carried out for other reasons
CPT/HCPCS: 92960; 93005

== ENCOUNTER → 2020-01-05 11:10 | Outpatient (CLI) | payer MEDICARE, OTHER, SELFPAY ==
[2020-01-05 10:14] VITALS: BMI 24.3
[2020-01-05 12:11] LABS: BNP,B-Type NATRIURETIC PEPTIDE 458.6 pg/mL (0-100)
[2020-01-05 12:50] LABS: ALB/GLOB Ratio 1.1 RATIO (0.9-2.4); AST(SGOT) 16 U/L (15-37); Alanine Aminotransfer ALT/SGPT 13 U/L (13-56); Albumin, Serum 3.3 g/dL (3.2-5.0); Alkaline Phosphatase 53 U/L (45-117); Anion Gap 7 (5-15); BUN 12 mg/dL (7-18); BUN/Creat Ratio 13.2 RATIO (10-20); Calcium,Total 8.8 mg/dL (8.5-10.1); Chloride 104 mmol/L (98-107); Creatinine, Serum 0.91 mg/dL (0.55-1.02); EST Glomerular Filtration Rate 63 mL/min (>60); Est Glom Filt Rate - Afr Amer 76 mL/min (>60); Free T3 2.4 pg/mL (2.18-3.98); Globulin 2.9 g/dL (2.2-4.2); Glucose 79 mg/dL (74-106); Potassium 2.7 mmol/L (3.5-5.1); Protein, Total 6.2 g/dL (6.4-8.2); Sodium Level 142 mmol/L (136-145); T4 Free Direct 1.35 ng/dL (0.76-1.46)
== END ==
PROVIDERS: PCP Family Medicine; Referring Provider Physician Assistant Medical; Visit Provider Physician Assistant Medical
DX: I48.0 Paroxysmal atrial fibrillation (principal); I26.99 Other pulmonary embolism without acute cor pulmonale; I10 Essential (primary) hypertension; R06.00 Dyspnea, unspecified
CPT/HCPCS: 36415; 80053; 83880; 84439; 84443; 84481

== ENCOUNTER → 2020-01-08 14:52 | Outpatient (CLI) | payer MEDICARE, OTHER, SELFPAY ==
[2020-01-05 10:14] VITALS: BMI 24.3
[2020-01-08 17:45] LABS: Hematocrit 42.5 % (37-47); Hemoglobin 12.9 g/dL (12.0-15.0)
[2020-01-08 18:04] LABS: Anion Gap 9 (5-15); BUN 10 mg/dL (7-18); BUN/Creat Ratio 9.3 RATIO (10-20); Chloride 98 mmol/L (98-107); Creatinine, Serum 1.08 mg/dL (0.55-1.02); EST Glomerular Filtration Rate 51 mL/min (>60); Est Glom Filt Rate - Afr Amer 62 mL/min (>60); Glucose 83 mg/dL (74-106); Potassium 3.3 mmol/L (3.5-5.1); Sodium Level 141 mmol/L (136-145)
== END ==
PROVIDERS: PCP Family Medicine; Referring Provider Physician Assistant Medical; Visit Provider Physician Assistant Medical
DX: I48.0 Paroxysmal atrial fibrillation (principal); I10 Essential (primary) hypertension
CPT/HCPCS: 36415; 80048; 85014; 85018

== ENCOUNTER → 2020-02-10 16:10 | Outpatient (CLI) | payer MEDICARE, OTHER, SELFPAY ==
[2020-01-05 10:14] VITALS: BMI 24.3
[2020-02-10 18:51] LABS: Anion Gap 5 (5-15); BUN 14 mg/dL (7-18); BUN/Creat Ratio 13.6 RATIO (10-20); Calcium,Total 9.5 mg/dL (8.5-10.1); Chloride 104 mmol/L (98-107); Creatinine, Serum 1.03 mg/dL (0.55-1.02); EST Glomerular Filtration Rate 54 mL/min (>60); Est Glom Filt Rate - Afr Amer 66 mL/min (>60); Glucose 90 mg/dL (74-106); Potassium 3.6 mmol/L (3.5-5.1); Sodium Level 139 mmol/L (136-145); Thyroid Stim Hormone (TSH) 9.92 uIU/mL (0.358-3.74)
== END ==
PROVIDERS: PCP Family Medicine; Referring Provider Physician Assistant Medical; Visit Provider Physician Assistant Medical
DX: I48.91 Unspecified atrial fibrillation (principal)
CPT/HCPCS: 36415; 80048; 84443

== ENCOUNTER → 2021-02-23 10:34 | Outpatient (CLI) | payer MEDICARE, OTHER, SELFPAY ==
[2021-02-23 12:33] LABS: Free T3 1.9 pg/mL (2.18-3.98); T4 Total, Thyroxin 14.7 ug/dL (4.8-13.9); Thyroid Stim Hormone (TSH) 5.08 uIU/mL (0.358-3.74)
== END ==
PROVIDERS: PCP Family Medicine; Referring Provider Physician Assistant Medical; Visit Provider Physician Assistant Medical
DX: E03.9 Hypothyroidism, unspecified (principal); I10 Essential (primary) hypertension; I48.91 Unspecified atrial fibrillation
CPT/HCPCS: 36415; 84436; 84443; 84481

== ENCOUNTER 2021-03-14 11:01 | Outpatient (CLI) | payer MEDICARE, OTHER, SELFPAY | END 2021-03-14 23:59 | disposition short-term general hospital (02) | LOC: PSN 11:12 | PROVIDERS: PCP Family Medicine; Referring Provider Physician Assistant Medical; Visit Provider Physician Assistant Medical | DX: I48.91 Unspecified atrial fibrillation (principal) | CPT/HCPCS: 93225; 93226 ==

== ENCOUNTER 2021-12-06 11:31 | Emergency (ER) | payer MEDICARE, OTHER, SELFPAY ==
[2021-12-06 11:34] VITALS: BP 140/59; PULSE 65; RESP 13; TEMP 36.7; O2SAT 98; BMI 23.9
--- NOTE | 2021-12-06 11:37 | EX.ED.DYSGE1 ---
HPI History of Present Illness Chief Complaint: Lower Extremity Injury Informant: patient Narrative Narrative: 86-year-old female presenting to the emergency department with left hip pain. Patient states that before 2200 hrs. last night she fell injuring her left hip. She states that sometimes her legs just get weak and she falls. She states that she did not hit her head. She is on Eliquis for atrial fibrillation as well as pulmonary embolism. She states that she was unable to get up off the floor due to leg weakness so she chose to sleep rather than accessing the phone and medic alert bracelet that she had access to. She states she really hates coming to the hospital. Her son came over and found her on the ground was able to help her up. She was able to ambulate into the bathroom prior to getting on the ambulance cot. She notes the pain is not in the hip at all times she notes the left hip has been replaced which is the one that is currently hurting her. [facility] Medical History (Updated 12/06/21 @ 12:[address] Harrison Bull, DO) Back pain Hemorrhoids HTN (hypertension) Hx of blood clots Knee pain PAF (paroxysmal atrial fibrillation) Home Medications apixaban 5 mg tablet 5 mg PO BID #120 tabs 11/21/19 [Rx Last Taken 12/22/19] amiloride 5 mg-hydrochlorothiazide 50 mg tablet 1 tablet PO DAILY 06/17/20 [History Last Taken Unknown] levothyroxine 50 mcg tablet 50 mcg PO DAILY #30 tabs 02/20/21 [Rx Last Taken Unknown] metoprolol tartrate 50 mg tablet 50 mg PO Q12H #180 tabs 02/22/21 [Rx Last Taken Unknown] potassium chloride 20 mEq tablet,extended release 20 meq PO DAILY #90 tabs 08/01/21 [Rx Last Taken Unknown] amlodipine 2.5 mg tablet 2.5 mg PO DAILY #90 tabs 08/14/21 [Rx Last Taken Unknown] Allergy/AdvReac Type Severity Reaction Status Date / Time lisinopril Allergy Shortness Verified 09/25/21 15:50 of breath metoclopramide [From Reglan] Allergy Shortness Verified 09/25/21 15:50 of breath etodolac AdvReac Diarrhea Verified 09/25/21 15:50 Family History Mother Cancer Father Tuberculosis Brother History of pancreatitis Son Diabetes Aneurysm Legs and stomach Hyperlipidemia Surgical History History of hip replacement History of knee replacement Social History Smoking Status: Former smoker how long ago did patient quit smokin years ago alcohol intake: never substance use type: does not use caffeine: Yes Type: coffee Number of servings: 2 ROS ROS ED Constitutional Constitutional ED: Denies chills or weight loss Eyes Eyes: Denies change in vision or diplopia ENT ENT ED: Denies ear pain, rhinorrhea or sore throat Cardiovascular Cardiovascular: Denies chest pain, orthopnea, palpitations or racing heartbeat Respiratory/Chest Respiratory/Chest: Denies cough, dyspnea or orthopnea Gastrointestinal Gastrointestinal: Denies abdominal pain, diarrhea, nausea or vomiting Genitourinary Genitourinary ED: Denies dysuria, hematuria or urinary frequency Musculoskeletal Musculoskeletal: Reports other Details: Left hip pain ; Denies arthralgias, back pain, myalgias or neck pain Integumentary Denies abscess or rash Neurologic Neurologic: Denies headache(s) or weakness Psychiatric Psychiatric: Denies anxiety, depression, suicidal ideation or suicidal thoughts Endocrine Endocrinology: Denies polydipsia, polyphagia or polyuria Allergic/Immunologic Allergic/Immunologic ED: Denies mouth swelling, tongue swelling or urticaria EXAM Physical Exam Const Vital Signs: 12/06/21 11:34 Temperature 98.1 F Temperature Source Oral Pulse Rate 65 Respiratory Rate 13 Blood Pressure 140/59 H Blood Pressure Mean 86 Pulse Ox 98 Oxygen Delivery Method Room Air Positive well nourished and well developed General Appearance ED: well developed HEENT Reports normocephalic, head/scalp atraumatic and moist mucous membranes Eyes PERRL and EOMs intact bilaterally Neck no lymphadenopathy, supple and no JVD Resp normal respiratory effort and clear to auscultation bilaterally Cardio regular rate, regular rhythm and no murmurs GI normal to inspection, nondistended, normoactive bowel sounds and non-tender Palpation: soft Back/Spine no CVA tenderness and normal ROM Extremity Extremity Narrative: Left hip is tender to palpation over the greater trochanter. There is no pain with logroll. No shortening of the leg. Neurovascular intact distal. General Extremety ED: Negative for edema General Extremity: Negative for edema Neuro oriented x3 and CN's II-XII intact bilaterally Sensorium / Orientation: alert Motor Exam: strength 5/5 throughout Psych mental status grossly normal Mood & Affect: Negative for depressed or tearful Skin no rashes or lesions noted and no wounds MDM MDM MDM Narrative Medical decision making narrative: Basic blood work was obtained and negative. The son now recounts a episode 2 nights ago that she fell and struck the back of her head. She is on Eliquis. Therefore we obtained a head CT which was negative. My interpretation of the plain films of the left hip is no acute process. Status post ORIF/hip replacement. Her CK is slightly elevated at 254 but I do not believe we need to do any treatment other than oral hydration. Patient was advised that she should be walking with her walker. She states it is hard for her to get on it and by this she means it is hard for her to get up out of a chair using a walker. She has no problems getting out of a chair on her own so I advised her to do that and then grab the walker. Lab Data Attestation: I reviewed the patient's lab results. Labs: Laboratory Results - last 24 hr 12/06/21 12/06/21 11:45 11:45 WBC 12.8 H RBC 4.45 Hgb 13.4 Hct 41.7 MCV 93.7 MCH 30.1 MCHC 32.1 RDW Std Deviation 46.6 H RDW Coeff of Kin 13.7 Plt Count 162 MPV 11.6 Immature Gran % (Auto) 0.300 Neut % (Auto) 84.2 H Lymph % (Auto) 8.0 L [place] % (Auto) 7.0 Eos % (Auto) 0.1 Baso % (Auto) 0.4 Absolute Neuts (auto) 10.8 H Absolute Lymphs (auto) 1.02 Nucleated RBC % 0 Sodium 141 Potassium 4.1 Chloride 104 Carbon Dioxide 27.0 Anion Gap 10 BUN 25 H Creatinine 1.44 H Estim Creat Clear Calc 28.29 Est GFR (MDRD) Af Amer 44 L Est GFR (MDRD) Non-Af 37 L BUN/Creatinine Ratio 17.4 Glucose 98 Calcium 9.9 Total Creatine Kinase 254 H Radiography Diagnostic Testing: Clinical Impression(s) from Imaging Studies Hip/Pelvis X-Ray 12/06/21 11:55 IMPRESSION: Status post left total hip replacement. No acute abnormality is seen. Electronically Signed: Jamie Hunter MD at 12:20 EDT , Brain CT 12/06/21 12:03 IMPRESSION: Chronic involutional changes of the brain. Electronically Signed: Jamie Hunter MD at 12:22 EDT , EKG Initial EKG: Attestation: I personally reviewed and interpreted this EKG as follows: Comments: Sinus rhythm with a ventricular rate of 66 bpm. Noted PACs. Discharge Plan Triage Chief Complaint: Lower Extremity Injury ED Provider: Harrison Bull Dx/Rx/DC Orders Clinical Impression: PAF (paroxysmal atrial fibrillation), Anticoagulated, Fall, Contusion of hip, left, Head injury Instructions: ED Hip Contusion Prescriptions: No Action apixaban 5 MG tablet 5 mg PO BID Qty: 120 0RF amiloride-hydrochlorothiazide 5-50 mg tablet 1 tablet PO DAILY levothyroxine 50 mcg tablet 50 mcg PO DAILY Qty: 30 3RF metoprolol tartrate 50 mg tablet 50 mg PO Q12H Qty: 180 3RF potassium chloride 20 mEq tablet extended release 20 meq PO DAILY Qty: 90 3RF amlodipine 2.5 mg tablet 2.5 mg PO DAILY Qty: 90 3RF Primary Care Provider: Kranthi Long Referrals: Kranthi Long MD [Primary Care Provider] - 1 Week Activity Restrictions/Additional Instructions: As discussed I think you may benefit you to walk with a walker. If you continue to have falls he may need some physical therapy. It is advised not to lay on the floor all night. If you fall or unable to get up please use your life alert button Disposition Disposition: Home, Self Care
[2021-12-06 11:52] LABS: Absolute Lymphocyte Count 1.02 X10^3/uL (0.83-4.51); Absolute Neutrophil Count 10.8 X10^3/uL (2.0-7.7); Basophil# 0.05 X10^3/uL; Basophil% 0.4 % (0-1); Eosinophil# 0.01 X10^3/uL; Eosinophils% 0.1 % (0-5); Hematocrit 41.7 % (37-47); Hemoglobin 13.4 g/dL (12.0-15.0); Lymphocyte # 1.02 X10^3/ul (0.83-4.51); Mean Corp Hgb Conc 32.1 g/dL (32-36); Mean Corpuscular Hgb 30.1 pg (27.0-32.0); Mean Corpuscular Volume 93.7 fL (81-99); Mean Platelet Vol. 11.6 fl (6.2-12.0); NRBC Flagged by Analyzer 0 % (0-5); Neutrophil # 10.76 X10^3/uL (2.7-7.7); Neutrophil % 84.2 % (47-70); Platelet Count 162 K/mm3 (150-450); RBC Distribution Width CV 13.7 % (11.6-14.6); RBC Distribution Width SD 46.6 fl (35.1-43.9); Red Blood Count 4.45 M/mm3 (4.2-5.4); White Blood Count 12.8 K/mm3 (4.4-11.0)
--- NOTE | 2021-12-06 11:52 | EKG12_ITS ---
Test Reason : FALL Blood Pressure : / mmHG Vent. Rate : 066 BPM Atrial Rate : 066 BPM P-R Int : 144 ms QRS Dur : 082 ms QT Int : 448 ms P-R-T Axes : 074 001 -86 degrees QTc Int : 469 ms Sinus rhythm with Premature atrial complexes Nonspecific ST-T Changes Abnormal ECG Confirmed by MUNA MORRIS, CESAR ([id number]), business editor LORI NAVARRO ([id number]) on 12/07/2021 12:58:30 P M Referred By: Confirmed By:CODY TORO MD
--- NOTE | 2021-12-06 11:55 | RAD_ITS ---
STUDY: X-RAY - PELVIS AND LEFT HIP REASON FOR EXAM: Female, 86 years old. Hip pain following a fall. TECHNIQUE: 3 views of the pelvis and hip. COMPARISON: None. FINDINGS: There is a non-specific bowel gas pattern. Normal visualized soft tissue structures. There is narrowing with cortical sclerosis and osteophyte formation of the sacroiliac joint consistent with degenerative osteoarthritic changes. Normal bilateral superior and inferior pubic rami. There are degenerative changes of the pubic symphysis with articular narrowing and sclerosis. Normal bilateral ischial tuberosities. The patient is status post left total hip preplacement with a long femoral stem. There is good alignment. No fracture is seen. RAD/HIP, UNI W/ Pelvis 2-3 Views IMPRESSION: Status post left total hip replacement. No acute abnormality is seen. Electronically Signed: Jamie Hunter MD at 12:20 EDT ,
--- NOTE | 2021-12-06 12:03 | CT_ITS ---
STUDY: CT BRAIN WITHOUT CONTRAST REASON FOR EXAM: Female, 86 years old. Head injury. RADIATION DOSAGE (If Supplied By Facility): CTDIvol = ( 44.99 ) mGy, DLP = ( 812.98 ) mGycm TECHNIQUE: Transaxial CT imaging of the brain was performed without administration of intravenous contrast material. Individualized dose optimization techniques were used for this CT. COMPARISON: No relevant priors. FINDINGS: Normal soft tissue structures. Normal calvarium. There is mild cerebral atrophy with widening of the extra-axial spaces and ventricular dilatation. There are areas of decreased attenuation within the white matter tracts of the supratentorial brain, consistent with microvascular disease changes. Tiny lacuna in the left thalamus. This most likely is old. Normal brainstem. Normal cerebellum. There is no intracranial hemorrhage. There are no findings of an acute ischemic infarction. Atherosclerotic plaque formation of the cavernous portions of the internal carotid arteries bilaterally. Normal visualized paranasal sinuses. CT/Brain/Head without Contrast IMPRESSION: Chronic involutional changes of the brain. Electronically Signed: Jamie Hunter MD at 12:22 EDT ,
[2021-12-06 12:10] LABS: Anion Gap 10 (5-15); BUN 25 mg/dL (7-18); BUN/Creat Ratio 17.4 RATIO (10-20); CPK Total, Creatine Kinase 254 U/L (26-192); Calcium,Total 9.9 mg/dL (8.5-10.1); Chloride 104 mmol/L (98-107); Creatinine, Serum 1.44 mg/dL (0.55-1.02); EST Glomerular Filtration Rate 37 mL/min (>60); Est Glom Filt Rate - Afr Amer 44 mL/min (>60); Estimated Creatinine Clearance 28.29 ml/min; Glucose 98 mg/dL (74-106); Potassium 4.1 mmol/L (3.5-5.1); Sodium Level 141 mmol/L (136-145)
--- NOTE | 2021-12-06 13:01 | NURSING ---
pt up to wc. sore and stiff when up. instructed that needed to use walker and not cane and to take tylenol or motrin for pain and to keep moving at home.
== END 2021-12-06 13:03 | disposition home or self-care (01) ==
PROVIDERS: Emergency Provider Emergency Medicine; PCP Family Medicine; Visit Provider Emergency Medicine
DX: S70.02XA Contusion of left hip, initial encounter (principal); I48.0 Paroxysmal atrial fibrillation; M25.552 Pain in left hip; I10 Essential (primary) hypertension; S09.90XA Unspecified injury of head, initial encounter; Z96.642 Presence of left artificial hip joint; Z87.891 Personal history of nicotine dependence; Z79.01 Long term (current) use of anticoagulants; Z79.899 Other long term (current) drug therapy; W19.XXXA Unspecified fall, initial encounter
CPT/HCPCS: 70450; 73502; 80048; 82550; 85025; 93005; 99285

== ENCOUNTER → 2022-01-30 | Outpatient (CLI) | payer MEDICARE, OTHER, SELFPAY ==
--- NOTE | 2022-01-30 15:25 | RAD_ITS ---
STUDY: XR Chest 2 Views 01/30/2022 3:25 PM REASON FOR EXAM: Female, 86 years old. CHEST PAIN Shortness of breath COMPARISON: 08/20/2019 TECHNIQUE: XR Chest 2 Views FINDINGS: There is a right pleural effusion. Normal heart size. Normal mediastinum. Normal jessica. Prominent appearing increased interstitial lung markings. Normal visualized pulmonary arteries. There is atherosclerotic calcification of the aortic arch with tortuosity. There are diffuse degenerative changes of the visualized thoracic spine. There is degenerative osteoarthritis of the bilateral shoulders. There is no demonstrated abnormality of the visualized soft tissue structures of the upper abdomen. RAD/Chest PA and Lateral IMPRESSION: There is a right pleural effusion. Electronically Signed: Kirk iHnes MD at 15:50 EST ,
[2022-01-30 15:39] LABS: Hematocrit 41.6 % (37-47); Hemoglobin 13.4 g/dL (12.0-15.0); Mean Corp Hgb Conc 32.2 g/dL (32-36); Mean Corpuscular Hgb 31.2 pg (27.0-32.0); Mean Corpuscular Volume 96.7 fL (81-99); Mean Platelet Vol. 11.9 fl (6.2-12.0); Platelet Count 247 K/mm3 (150-450); RBC Distribution Width CV 14.1 % (11.6-14.6); RBC Distribution Width SD 50.2 fl (35.1-43.9); White Blood Count 6.5 K/mm3 (4.4-11.0)
[2022-01-30 16:01] LABS: BNP,B-Type NATRIURETIC PEPTIDE 756.3 pg/mL (0-100)
[2022-01-30 16:17] LABS: Anion Gap 9 (5-15); BUN 30 mg/dL (7-18); BUN/Creat Ratio 22.4 RATIO (10-20); Calcium,Total 9.4 mg/dL (8.5-10.1); Chloride 103 mmol/L (98-107); Creatinine, Serum 1.34 mg/dL (0.55-1.02); EST Glomerular Filtration Rate 40 mL/min (>60); Est Glom Filt Rate - Afr Amer 48 mL/min (>60); Glucose 129 mg/dL (74-106); Potassium 4.1 mmol/L (3.5-5.1); Sodium Level 136 mmol/L (136-145); Thyroid Stim Hormone (TSH) 1.31 uIU/mL (0.358-3.74)
== END | disposition home or self-care (01) ==
LOC: LAB 14:39
PROVIDERS: PCP Family Medicine; Visit Provider Physician Assistant Medical
DX: R06.02 Shortness of breath (principal); I48.0 Paroxysmal atrial fibrillation; D72.829 Elevated white blood cell count, unspecified; R53.83 Other fatigue
CPT/HCPCS: 36415; 71046; 80048; 83880; 84436; 84443; 85027

== ENCOUNTER 2022-02-06 10:17 | Inpatient (IN) | payer MEDICARE, OTHER, SELFPAY ==
[2022-02-06] VITALS (31 sets, daily range): BP systolic 80–132; BP diastolic 53–109; PULSE 107–170; RESP 14–23; TEMP 36.2–37; O2SAT 92–100; BMI 21.6; BMI 22.6
--- NOTE | 2022-02-06 10:31 | RAD_ITS ---
STUDY: X-RAY CHEST REASON FOR EXAM: Female, 86 years old. SOB TECHNIQUE: Single AP portable view of the chest. COMPARISON: Comparison is made with prior study the 2021. FINDINGS: EKG electrodes are seen. Hyperinflation. Stable blunting of the right costophrenic angle. Minimal increased markings at the right lung base suggests some mild basilar atelectasis although there has been improvement as compared to prior study. The left lung is clear. Normal size heart. Normal mediastinum and jessica. Normal visualized pulmonary arteries. There is atherosclerotic calcification of the aortic arch with tortuosity. There are diffuse degenerative changes of the visualized thoracic spine. Normal visualized ribs, clavicles, and shoulders. There is no demonstrated abnormality of the visualized soft tissue structures of the upper abdomen. RAD/Chest 1 View (Portable) IMPRESSION: Hyperinflation. Mild degree of residual pleural parenchymal changes at the right lung base although there has been improvement as compared to prior study. Electronically Signed: Jamie Hunter MD at 11:10 EST ,
[2022-02-06 10:40] LABS: Absolute Lymphocyte Count 1.94 X10^3/uL (0.83-4.51); Absolute Neutrophil Count 4.5 X10^3/uL (2.0-7.7); Basophil# 0.04 X10^3/uL; Basophil% 0.6 % (0-1); Eosinophil# 0.02 X10^3/uL; Eosinophils% 0.3 % (0-5); Hematocrit 45.2 % (37-47); Hemoglobin 14.3 g/dL (12.0-15.0); Lymphocyte # 1.94 X10^3/ul (0.83-4.51); Lymphocyte % 27.1 % (19-41); Mean Corp Hgb Conc 31.6 g/dL (32-36); Mean Corpuscular Hgb 30.6 pg (27.0-32.0); Mean Corpuscular Volume 96.8 fL (81-99); Mean Platelet Vol. 11.8 fl (6.2-12.0); Monocyte% 8.4 % (0-10); NRBC Flagged by Analyzer 0 % (0-5); Neutrophil # 4.53 X10^3/uL (2.7-7.7); Neutrophil % 63.2 % (47-70); Platelet Count 237 K/mm3 (150-450); RBC Distribution Width CV 14.6 % (11.6-14.6); RBC Distribution Width SD 51.8 fl (35.1-43.9); Red Blood Count 4.67 M/mm3 (4.2-5.4); White Blood Count 7.2 K/mm3 (4.4-11.0)
--- NOTE | 2022-02-06 10:42 | EX.ED.DYSGE1 ---
HPI History of Present Illness Chief Complaint: Shortness of Breath Informant: patient and family Narrative Narrative: It is somewhat difficult to get details and timing out of patient. It sounds like she has been more short of breath for at least a week if not a fair amount longer. She is evidently on chronic Lasix. She is on chronic apixaban for history of paroxysmal A. fib. She saw her forensic psychiatrist about a week ago. I believe she was then prescribed amiloride hydrochlorothiazide tablet. But she may have been given Bumex or similar med in the office. Family and patient are not sure. I cannot get if she has been urinating more. Her BNP was elevated at that time. Patient states she just still feels kind of tired and a little short of breath. But she does not feel her fast heart rate. She does not know when she started back in the atrial fibrillation or when her rate went up. Office did call over. Patient had problems with bradycardia and medicines including amiodarone were stopped back in the summer 2020 and she has done well since. [facility] Medical History (Updated 02/06/22 @ 15:[address] Dequan Yañez MD) Back pain Hemorrhoids HTN (hypertension) Hx of blood clots Knee pain PAF (paroxysmal atrial fibrillation) Home Medications amiloride 5 mg-hydrochlorothiazide 50 mg tablet 1 tablet PO DAILY blood pressure 06/17/20 [History Last Taken 02/05/22] amlodipine 2.5 mg tablet 2.5 mg PO DAILY blood pressure 02/06/22 [History Last Taken 02/05/22] apixaban 5 mg tablet 5 mg PO BID blood thinner 02/06/22 [History Last Taken 02/05/22] furosemide 40 mg tablet 40 mg PO DAILY fluid 02/06/22 [History Last Taken 02/05/22] levothyroxine 50 mcg tablet 50 mcg PO DAILY thyroid 02/06/22 [History Last Taken 02/06/22] metoprolol tartrate 50 mg tablet 50 mg PO BID blood pressure 02/06/22 [History Last Taken 02/05/22] potassium chloride 20 mEq tablet,extended release 20 meq PO DAILY supplement 02/06/22 [History Last Taken 02/05/22] Allergy/AdvReac Type Severity Reaction Status Date / Time lisinopril Allergy Shortness Verified 02/06/22 10:18 of breath metoclopramide [From Reglan] Allergy Shortness Verified 02/06/22 10:18 of breath etodolac AdvReac Diarrhea Verified 02/06/22 10:18 Family History Mother Cancer Father Tuberculosis Brother History of pancreatitis Son Diabetes Aneurysm Legs and stomach Hyperlipidemia Surgical History History of hip replacement History of knee replacement Social History Smoking Status: Former smoker how long ago did patient quit smokin years ago alcohol intake: never substance use type: does not use caffeine: Yes Type: coffee Number of servings: 2 ROS ROS ED Constitutional Constitutional ED: Denies fever(s) or subjective Eyes Eyes: Denies blurry vision ENT ENT ED: Denies rhinorrhea or sore throat Cardiovascular Cardiovascular: Denies chest pain, palpitations or racing heartbeat Respiratory/Chest Respiratory/Chest: Reports dyspnea; Denies cough Gastrointestinal Gastrointestinal: Denies abdominal pain, nausea or vomiting Genitourinary Genitourinary ED: Denies urinary frequency Musculoskeletal Musculoskeletal: Denies myalgias Integumentary Denies rash Neurologic Neurologic: Denies headache(s) Hematologic/Lymphatic Hematologic/Lymphatic: Reports easy bleeding and easy bruising Allergic/Immunologic Allergic/Immunologic ED: Denies urticaria EXAM Physical Exam Const Vital Signs: 02/06/22 10:18 02/06/22 10:20 02/06/22 10:21 Temperature 97.2 F L Temperature Source Temporal Pulse Rate 160 H Respiratory Rate 18 18 Respiratory Effort Short of Breath Respiratory Depth Normal Respiratory Pattern Normal Blood Pressure 95/61 Blood Pressure Mean 72 Pulse Ox 99 Oxygen Delivery Method Room Air Room Air 02/06/22 10:21 02/06/22 10:37 02/06/22 11:00 Temperature Temperature Source Pulse Rate 170 H 163 H Respiratory Rate 16 16 Respiratory Effort Short of Breath Respiratory Depth Respiratory Pattern Blood Pressure 119/76 102/71 Blood Pressure Mean 90 81 Pulse Ox 98 92 Oxygen Delivery Method Room Air 02/06/22 12:07 02/06/22 13:19 02/06/22 14:20 Temperature Temperature Source Pulse Rate 137 H 135 H 125 H Respiratory Rate 18 18 Respiratory Effort Respiratory Depth Respiratory Pattern Blood Pressure 106/76 101/64 111/63 Blood Pressure Mean 86 76 79 Pulse Ox 98 99 Oxygen Delivery Method 02/06/22 14:32 02/06/22 14:00 02/06/22 15:00 Temperature 98.6 F Temperature Source Temporal Pulse Rate 127 H 138 H 146 H Respiratory Rate 21 H 18 23 H Respiratory Effort Respiratory Depth Respiratory Pattern Blood Pressure 109/65 110/77 110/72 Blood Pressure Mean 79 88 84 Pulse Ox 97 97 95 Oxygen Delivery Method Room Air Room Air 02/06/22 15:13 Temperature Temperature Source Pulse Rate 133 H Respiratory Rate Respiratory Effort Respiratory Depth Respiratory Pattern Blood Pressure Blood Pressure Mean Pulse Ox Oxygen Delivery Method Positive well nourished and well developed Constitutional Narrative: Despite her very high heart rate, patient sitting quietly in bed. Her initial blood pressure was a little lower but repeat is much better. General Appearance ED: well developed and NAD HEENT Reports moist mucous membranes Eyes General Eye ED: Negative for scleral icterus Neck no JVD Resp normal respiratory effort and clear to auscultation bilaterally Resp Narrative: Despite her history, I hear no basilar rales at all. Her oxygen level is normal at 98% on room air. Auscultation: Negative for rales, rhonchi or wheezes Cardio no murmurs; Negative for regular rate or regular rhythm Rate: tachycardic Rhythm: abnormal rhythm GI normal to inspection, nondistended, normoactive bowel sounds and non-tender Back/Spine no CVA tenderness Extremity normal to inspection General Extremety ED: Negative for edema General Extremity: Negative for edema Neuro Sensorium / Orientation: alert Psych mental status grossly normal Skin no rashes or lesions noted MDM MDM MDM Narrative Medical decision making narrative: X-ray shows slight improvement. CBC is overall normal.Electrolytes show slight worsening creatinine with acute kidney injury likely from diuresis. Troponins negative. TSH is normal. BNP is still up but her x-ray looks good and she is not desaturating. Patient's blood pressure has been ranging at about 105 here. She feels well other than mild dyspnea. The dyspnea however is about a week or more old. Its not an acute issue. She looks comfortable. Her heart rate was originally about 170-180 when she came in here. Her EKG caught her at a lower point. But her heart rate is now down to about 1 20-1 40. Occasionally have seen some in the mid 1-teens. I discussed the case with cardiology, Dr. Jc.With her BRENT, age still having heart rate we will bring her in.We did give her a small amount of fluids gently. We have been slowly giving meds. I did start amiodarone because she evidently did well on this before. We have added apixaban dose as she had missed her morning dose. Lab Data Attestation: I reviewed the patient's lab results. Labs: Laboratory Results - last 24 hr 02/06/22 02/06/22 02/06/22 10:35 10:35 10:35 WBC 7.2 RBC 4.67 Hgb 14.3 Hct 45.2 MCV 96.8 MCH 30.6 MCHC 31.6 L RDW Std Deviation 51.8 H RDW Coeff of Kin 14.6 Plt Count 237 MPV 11.8 Immature Gran % (Auto) 0.400 Neut % (Auto) 63.2 Lymph % (Auto) 27.1 King % (Auto) 8.4 Eos % (Auto) 0.3 Baso % (Auto) 0.6 Absolute Neuts (auto) 4.5 Absolute Lymphs (auto) 1.94 Nucleated RBC % 0 Sodium 137 Potassium 4.2 Chloride 95 L Carbon Dioxide 29.0 Anion Gap 13 BUN 38 H Creatinine 1.97 H Estim Creat Clear Calc 20.68 Est GFR (MDRD) Af Amer 31 L Est GFR (MDRD) Non-Af 26 L BUN/Creatinine Ratio 19.3 Glucose 118 H Calcium 9.8 Troponin I High Sens 15 B-Natriuretic Peptide 734.1 H TSH 1.01 Radiography Diagnostic Testing: Clinical Impression(s) from Imaging Studies Chest X-Ray 02/06/22 10:31 IMPRESSION: Hyperinflation. Mild degree of residual pleural parenchymal changes at the right lung base although there has been improvement as compared to prior study. Electronically Signed: Jamie Hunter MD at 11:10 EST , X-rays show mild changes and slight effusion at the right. Although overall improved. EKG Initial EKG: Comments: EKG done for tachycardia read by me shows atrial fibrillation with a rapid rate at 149. There is a PVC. There are diffuse nonspecific ST and T wave changes likely related to rate. QRS duration and QTc normal. Critical Care Time Critical Care Time: Yes Critical care time (excluding procedures): - (32 minutes, Recheck of patient, repeat dosing, changing meds, IV fluids, admission) Discharge Plan Triage Chief Complaint: Shortness of Breath Other Complaint: Palpitations ED Provider: Dequan Yañez Dx/Rx/DC Orders Clinical Impression: Atrial fibrillation with RVR, Acute kidney injury, Congestive heart failure Prescriptions: No Action metoprolol tartrate 50 mg tablet 50 mg PO BID furosemide 40 mg tablet 40 mg PO DAILY amlodipine 2.5 mg tablet 2.5 mg PO DAILY levothyroxine 50 mcg tablet 50 mcg PO DAILY apixaban 5 MG tablet 5 mg PO BID potassium chloride 20 mEq tablet extended release 20 meq PO DAILY amiloride-hydrochlorothiazide 5-50 mg tablet 1 tablet PO DAILY Primary Care Provider: Kranthi Long Referrals: Kranthi Long MD [Primary Care Provider] - Disposition Disposition: Acute Care Hospital [facility] [place]
[2022-02-06 10:58] LABS: BNP,B-Type NATRIURETIC PEPTIDE 734.1 pg/mL (0-100)
[2022-02-06 11:05] LABS: Anion Gap 13 (5-15); BUN 38 mg/dL (7-18); BUN/Creat Ratio 19.3 RATIO (10-20); Calcium,Total 9.8 mg/dL (8.5-10.1); Chloride 95 mmol/L (98-107); Creatinine, Serum 1.97 mg/dL (0.55-1.02); EST Glomerular Filtration Rate 26 mL/min (>60); Est Glom Filt Rate - Afr Amer 31 mL/min (>60); Estimated Creatinine Clearance 20.68 ml/min; Glucose 118 mg/dL (74-106); Potassium 4.2 mmol/L (3.5-5.1); Sodium Level 137 mmol/L (136-145); Thyroid Stim Hormone (TSH) 1.01 uIU/mL (0.358-3.74); Troponin-I HS 15 pg/mL (3.0-54.0)
[2022-02-06] MEDS: Metoprolol Tartrate 5 MG/5 ML Vial IV ×3 (12:28→14:56)
--- NOTE | 2022-02-06 15:07 | PCM.HP.STD ---
HPI - General General Date of Admission: 02/06/22 Date of Service: 02/06/22 Chief Complaint: Lightheadedness, dizziness, elevated HR. HPI Narrative The patient is a 86 y/o F w/ PMHx: Hx VTE on Eliquis, HTN, Hypothyroidism, CKD stage III unclear subtype, PAF, Former tobacco use who presents to the [facility] ED on 02/06/22 referred from the Cardiology office where she was seen on day of ED presentation with history of significant dyspnea and fatigue recently transitioning off of her amiodarone as well as started on recent Lasix 40 mg daily the week prior with chest x-ray at that time demonstrating a small right pleural effusion with EKG demonstrating recurrent atrial fibrillation with RVR prompting ED transition for evaluation. He does not report any significant palpitations nor was she aware of when she went back into atrial fibrillation but does report lightheadedness and occasionally dizziness. Patient does report in the past she had issues with bradycardia and this is why her amiodarone had been discontinued. Work-up in the ED included T98.6, heart rate 146, BP 110/72, respiratory rate 23, 95% on room air, CBC with WC 7.2, hemoglobin 14.3, platelet 237 without marked shift, BMP with chloride 95, BUN/creatinine 38/1.97, glucose 118, troponin 15, BNP 734.1, TSH 1.01, chest x-ray with hyperinflation with mild degree of residual pleural-parenchymal changes at the right lung base although some improvement compared to prior study, EKG with atrial fibrillation with RVR. In the ED patient dosed with 3 rounds of metoprolol 5 mg IV x1 eventually administered amiodarone 150 mg IV bolus and Eliquis 5 mg p.o. x1 with a 500 cc normal saline bolus. [facility], [facility] Medical History (Updated 02/06/22 @ 16:[address] Cherrie العلي MD) Bilateral pulmonary embolism Former tobacco use History of venous thromboembolism HTN (hypertension) Hypothyroidism PAF (paroxysmal atrial fibrillation) Home Medications amiloride 5 mg-hydrochlorothiazide 50 mg tablet 1 tablet PO DAILY blood pressure 06/17/20 [History Last Taken 02/05/22] amlodipine 2.5 mg tablet 2.5 mg PO DAILY blood pressure 02/06/22 [History Last Taken 02/05/22] apixaban 5 mg tablet 5 mg PO BID blood thinner 02/06/22 [History Last Taken 02/05/22] furosemide 40 mg tablet 40 mg PO DAILY fluid 02/06/22 [History Last Taken 02/05/22] levothyroxine 50 mcg tablet 50 mcg PO DAILY thyroid 02/06/22 [History Last Taken 02/06/22] metoprolol tartrate 50 mg tablet 50 mg PO BID blood pressure 02/06/22 [History Last Taken 02/05/22] potassium chloride 20 mEq tablet,extended release 20 meq PO DAILY supplement 02/06/22 [History Last Taken 02/05/22] Allergy/AdvReac Type Severity Reaction Status Date / Time lisinopril Allergy Shortness Verified 02/06/22 10:18 of breath metoclopramide [From Reglan] Allergy Shortness Verified 02/06/22 10:18 of breath etodolac AdvReac Diarrhea Verified 02/06/22 10:18 Family History Mother Cancer Father Tuberculosis Brother History of pancreatitis Son Diabetes Aneurysm Legs and stomach Hyperlipidemia Surgical History (Updated 02/06/22 @ 16:[address] Cherrie العلي MD) History of hip replacement History of hysterectomy History of knee replacement Social History (Updated 02/06/22 @ 16:[address] Cherrie العلي MD) household members: significant other Smoking Status: Former smoker how long ago did patient quit smokin years ago, smoked <1/2 ppd x 3 years. alcohol intake: never substance use type: does not use caffeine: Yes Type: coffee Number of servings: 2 ROS ROS Narrative Admission Review of Systems: CONSTITUTIONAL: No weight loss, fever, chills, + weakness or fatigue. HEENT: Eyes: No visual loss, blurred vision, double vision or yellow sclerae. Ears, Nose, Throat: No hearing loss, sneezing, congestion, runny nose or sore throat. SKIN: No rash or itching, lesions, wounds. CARDIOVASCULAR: No chest pain, chest pressure or chest discomfort, palpitations, edema, orthopnea, syncopal events. RESPIRATORY: + shortness of breath, No cough or sputum, wheezing, hemoptysis. GASTROINTESTINAL: + anorexia, nausea, No vomiting or diarrhea, abdominal pain, melena, BRBPR. GENITOURINARY: No dysuria, frequency, urgency or retention. NEUROLOGICAL: No headache, dizziness, syncope, paralysis, ataxia, numbness or tingling in the extremities, focal weakness, change in bowel or bladder control, seizure. MUSCULOSKELETAL: + muscle, back pain, joint pain or stiffness. HEMATOLOGIC: + Easy bleeding or bruising. LYMPHATICS: No enlarged nodes. No history of splenectomy. PSYCHIATRIC: No history of depression or anxiety. ENDOCRINOLOGIC: No reports of sweating, cold or heat intolerance. No polyuria or polydipsia. ALLERGIES: No history of asthma, hives, eczema or rhinitis. Vital Signs Vital Signs Vital Signs: 02/06/22 10:18 02/06/22 10:20 02/06/22 10:21 Temperature 97.2 F L Temperature Source Temporal Pulse Rate 160 H Respiratory Rate 18 18 Respiratory Effort Short of Breath Respiratory Depth Normal Respiratory Pattern Normal Blood Pressure 95/61 Blood Pressure Mean 72 Pulse Ox 99 Oxygen Delivery Method Room Air Room Air 02/06/22 10:21 02/06/22 10:37 02/06/22 11:00 Temperature Temperature Source Pulse Rate 170 H 163 H Respiratory Rate 16 16 Respiratory Effort Short of Breath Respiratory Depth Respiratory Pattern Blood Pressure 119/76 102/71 Blood Pressure Mean 90 81 Pulse Ox 98 92 Oxygen Delivery Method Room Air 02/06/22 12:07 02/06/22 13:19 02/06/22 14:20 Temperature Temperature Source Pulse Rate 137 H 135 H 125 H Respiratory Rate 18 18 Respiratory Effort Respiratory Depth Respiratory Pattern Blood Pressure 106/76 101/64 111/63 Blood Pressure Mean 86 76 79 Pulse Ox 98 99 Oxygen Delivery Method 02/06/22 14:32 02/06/22 14:00 Temperature Temperature Source Pulse Rate 127 H 138 H Respiratory Rate 21 H 18 Respiratory Effort Respiratory Depth Respiratory Pattern Blood Pressure 109/65 110/77 Blood Pressure Mean 79 88 Pulse Ox 97 97 Oxygen Delivery Method Room Air Weight Weight: 142 lb 6.698 oz Body Mass Index (BMI) 21.6 Physical Exam Narrative Physical Examination: General: Awake, alert, oriented x 3 and cooperative, seated upright in the ED bed, fatigued but notes she is feeling improved since initial presentation. Skin: Normal color, normal turgor, no icterus, no cyanosis except occasional staged ecchymoses. HEENT: AT/NC, EOMI, PERRLA, dry MM, no carotid bruits or JVD noted. Lungs: Mildly diminished, greater bases, appropriate effort, no rales, ronchi or wheezing. Heart: Irregular irregular; no gallop, rub audible. Abdomen: Soft, NTTP, ND, mildly hyperactive BS, no HSM. Extremities: No cyanosis, clubbing, or edema. Neurological: Patient awake, alert, oriented as noted, cognitive function intact; pupils equally reactive to light and accommodation, cranial nerves II-XII grossly normal, moving all 4 extremities, no focal deficits, strength moderately to severely globally decreased secondary to acute presentation. Psychiatric: Affect appears fatigued, no acute evidence of depressive or anxiety feelings. Results Lab / Micro Data Result Diagrams: 02/06/22 10:35 02/06/22 10:35 Labs: Laboratory Results - last 24 hr 02/06/22 10:35: WBC 7.2, RBC 4.67, Hgb 14.3, Hct 45.2, MCV 96.8, MCH 30.6, MCHC 31.6 L, RDW Std Deviation 51.8 H, RDW Coeff of Kin 14.6, Plt Count 237, MPV 11.8, Immature Gran % (Auto) 0.400, Neut % (Auto) 63.2, Lymph % (Auto) 27.1, [place] % (Auto) 8.4, Eos % (Auto) 0.3, Baso % (Auto) 0.6, Absolute Neuts (auto) 4.5, Absolute Lymphs (auto) 1.94, Nucleated RBC % 0 02/06/22 10:35: Sodium 137, Potassium 4.2, Chloride 95 L, Carbon Dioxide 29.0, Anion Gap 13, BUN 38 H, Creatinine 1.97 H, Estim Creat Clear Calc 20.68, Est GFR (MDRD) Af Amer 31 L, Est GFR (MDRD) Non-Af 26 L, BUN/Creatinine Ratio 19.3, Glucose 118 H, Calcium 9.8, Troponin I High Sens 15, TSH 1.01 02/06/22 10:35: B-Natriuretic Peptide 734.1 H Radiology Impression Chest X-Ray 02/06/22 10:31 IMPRESSION: Hyperinflation. Mild degree of residual pleural parenchymal changes at the right lung base although there has been improvement as compared to prior study. Electronically Signed: Jamie Hunter MD at 11:10 EST , Assessment & Plan Assessment/Plan (1) Atrial fibrillation with RVR: PLAN: Plan The patient is a 86 y/o F w/ PMHx: Hx VTE on Eliquis, HTN, Hypothyroidism, CKD stage III unclear subtype, PAF, Former tobacco use who presents to the [facility] ED on 02/06/22 referred from the Cardiology office where she was seen on day of ED presentation with history of significant dyspnea and fatigue recently transitioning off of her amiodarone as well as started on recent Lasix 40 mg daily the week prior with chest x-ray at that time demonstrating a small right pleural effusion with EKG demonstrating recurrent atrial fibrillation with RVR prompting ED transition for evaluation. #1. Paroxsymal atrial fibrillation with RVR: EKG in ED w/ atrial fibrillation w/ RVR. Patient administered lopressor 5 mg IV x 3 and eventually amiodarone 150 mg bolus x 1 in ED. Will admit to PCU, maintain on telemetry, obtain cardiac enzyme serial set, obtain magnesium level, obtain ECHO, TSH normal level. Continue home eliquis regimen. Will request continued cardiology evaluation. Will continue amiodarone drip. Depending on re-evaluation per Cardiology they note potential cardioversion consideration as she has been compliant with her anticoagulation. #2. Acute kidney injury on CKD stage III unclear subtype: Secondary to likely ongoing #1. Admission BUN/Cr 38/1.97, prior baseline creatinine noted to be 1.0-1.3 primarily. BNP is mildly elevated but suspect likely #1, given her renal function will judiciously hydrate temporarily hold nephrotoxic regimen and repeat chemistry in AM. #3. Hypertension: Given soft blood pressure with acute presentation as noted we will temporally hold regimen in addition to the fact that we are holding nephrotoxic regimen, resume once appropriate. #4. Hypothyroidism: Continue home synthroid regimen, TSH level per ED normal. #5. History of VTE: We will continue patient home Eliquis therapy as noted. #6. CODE status: Patient HCPOA is her and living will is currently in place and present for these discussions. Discussed CODE status at length including difference between FULL code, DNR-CCA and DNR-CC status. Following discussions about the differences in these status, requested DNR CCA, no intubation status. Advanced Care Planning Face to Face Time: 16 minutes. Charges/Coding Visit Charges Inpatient E&M: 39955 Init Hosp L3 Procedures Hospitalists Procedures: 90111 Advncd Care Plan 30 Min
--- NOTE | 2022-02-06 15:14 | NURSING ---
DR PACKER FOR DR GEORGE
[2022-02-06] MEDS: APIXABAN 5 MG TABLET PO ×2 (15:19→21:10)
--- NOTE | 2022-02-06 15:21 | NURSING ---
PCU WHITE AFIB, RAPID VENTRICULAR RATE, ACUTE KIDNEY INJURY
[2022-02-06 15:57] LABS: Magnesium 2.3 mg/dL (1.6-2.6)
--- NOTE | 2022-02-06 16:08 | ECHOD_ITS ---
Reason For Study: ATRIAL FIB/FLUTTER Procedure This was a 2D Doppler, Color Flow transthoracic echocardiogram. The study was technically difficult. Exam performed portable in patient room. Left Ventricle Normal LV size. Mild global left ventricular systolic dysfunction. The estimated ejection fraction is 45 %. Unable to assess diastolic dysfunction. Right Ventricle Normal RV size. Normal systolic function. Atria The left atrium is severely enlarged. The right atrium is moderately enlarged. No doppler evidence for ASD. Mitral Valve There is no mitral annular calcification. Normal mitral valve. Moderately severe (3+) mitral valve insufficiency. Tricuspid Valve Normal tricuspid valve. Moderate (2+) tricuspid valve insufficiency. Right ventricular systolic pressure estimated to be 33 mmHg. Aortic Valve Trisinus/trileaflet aortic valve. Normal aortic valve. Trivial aortic valve insufficiency. Pulmonic Valve The pulmonic valve is not well visualized. Trivial pulmonic valve insufficiency. Great Vessels Normal sized aortic root. Pericardium/Pleural No pericardial effusion. MMode/2D Measurements & Calculations LVIDd: 4.8 cm IVSd: 0.95 cm Ao root diam: 3.3 cm LVIDs: 3.8 cm LVPWd: 1.0 cm RVDd: 2.6 cm FS: 19.9 % LAV(MOD-bp): 153.4 ml LA A4 area: 37.2 cm2 LA dimension(2D): 4.6 cm LAV(MOD-bp) Indexed: 89.5 ml/m2 LAV(MOD-sp2): 122.9 ml LAV(MOD-sp4): 151.9 ml RA A4 area: 21.3 cm2 Doppler Measurements & Calculations Ao V2 max: 71.4 cm/sec LV V1 max: 61.8 cm/sec MR max marcial: 473.8 cm/sec Ao max P.0 mmHg LV V1 max P.5 mmHg MR max P.8 mmHg Ao V2 mean: 52.9 cm/sec LV V1 mean P.81 mmHg MR mean marcial: 362.6 cm/sec Ao mean P.2 mmHg LV V1 mean: 42.9 cm/sec MR mean P.1 mmHg Ao V2 VTI: 11.5 cm LV V1 VTI: 10.4 cm MR VTI: 152.7 cm AV (velocity ratio): 0.91 PA V2 max: 46.1 cm/sec TR max marcial: 274.9 cm/sec TR max P.2 mmHg ECHO/Echo Complete Interpretation Summary The study was technically difficult. Mild global left ventricular systolic dysfunction. The estimated ejection fraction is 45 %. The left atrium is severely enlarged. The right atrium is moderately enlarged. Moderately severe (3+) mitral valve insufficiency. Moderate (2+) tricuspid valve insufficiency. Trivial aortic valve insufficiency. Trivial pulmonic valve insufficiency. Right ventricular systolic pressure estimated to be 33 mmHg. Unable to assess diastolic dysfunction. Ordering Physician: Cherrie العلي Referring Physician: Kranthi Long Performed By: Kriss Hong, ELMER, RVT
[2022-02-06] MEDS: Amiodarone 360 MG in Dextrose 5% Viaflo Bag 192.8 ML 33.3 MG CONT INF (16:40)
[2022-02-06] MEDS: 0.9% Normal Saline 1,000 ML 75 ML IV (16:40)
[2022-02-06 17:44] LABS: Troponin-I HS 18 pg/mL (3.0-54.0)
--- NOTE | 2022-02-06 17:57 | CON.PCM.CA_ITS ---
Assessment & Plan Assessment/Plan (1) Atrial fibrillation with RVR: PLAN: The patient has a history of atrial fibrillation with RVR. She had been treated medically which included rate control therapy and antiarrhythmic therapy with amiodarone as well as anticoagulant therapy. Over time her rate limiting therapy was decreased and her amiodarone was discontinued secondary to concerns of bradycardia. At the present time it appears she is now returned to atrial fibrillation with RVR. This may be the etiology for her shortness of breath and her sensation of dizziness/lightheadedness. With the patient's shortness of breath she did recently have a chest x-ray which suggested a small right pleural effusion. This led to adjustment of medical management. This was repeated this day. The right-sided pleural effusion appears to be somewhat less prominent. At the present time she will continue to be monitored. She will continue rate control therapy and reinitiation of antiarrhythmic therapy as noted. She will need to be monitored for any evidence of progressive bradycardia. She continues her anticoagulant therapy. If she does not have improvement in her rate and rhythm, as she has been anticoagulated, she will be considered for synchronized biphasic DC cardioversion. Over time if she does demonstrate concerns of bradycardia then she may be demonstrating findings compatible with an underlying sick sinus syndrome/br adycardia-tachycardia syndrome that would require both therapy with permanent pacemaker support and medical therapy support. (2) Benign essential hypertension: PLAN: The patient's blood pressure will need to be monitored. Her medicines will need to be adjusted accordingly. (3) Shortness of breath: PLAN: Again the patient's shortness of breath may be related to her atrial dysrhythmia and her findings of a small right-sided pleural effusion. She will continue to be monitored. She will continue evaluation care of her atrial dysrhythmia. Her other medications with respect to diuretic therapy will be adjusted accordingly. (4) Dizziness: PLAN: She has had dizziness in the past which may have correlated with her previous episode of atrial fibrillation. It may be related to her recurrent atrial fibrillation. At the moment she will continue to be monitored and proceed with evaluation as noted above. If she does return to sinus rhythm then she will need to be monitored for any evidence of ongoing dizziness that would then require additional evaluation and care. (5) Acute kidney injury: PLAN: Her creatinine level is increased. This may be secondary to recent adjustment of her medical therapy based upon her shortness of breath and pleural effusion. She will continue readjustment of her volume status and her medication. Her renal function will be followed. Addt'l Comments The patient's case has been discussed and reviewed with the patient and previously with YONNY Monterroso,Dequan Yañez MD of the [facility] emergency department staff and Cherrie العلي MD of the [facility] hospital staff. This note was generated using a voice recognition system and there may be incorrect words, spelling or punctuation that were not noted when reviewing the office note prior to saving. HPI Consult Data Date of Consult: 02/06/22 HPI Narrative Reason for Consultation: Atrial Fibrillation with RVR HPI Narrative: CLOVIS ALVAREZ, is a 86 white female who presents cardiovascular consultation based upon findings of atrial fibrillation with rapid ventricular response superimposed upon hypertension with concerns of an element of shortness of breath/dyspnea and lightheadedness. She had presented to the office earlier this day for outpatient cardiovascular follow-up and was found to have the aforementioned concerns. She was subsequent referred to the [facility] emergency department for further evaluation and care. There she underwent laboratory studies which demonstrated her troponin I levels to be neg ative. Her potassium was within normal range. Her creatinine level was somewhat elevated. Her cardiac rate was elevated. Her blood pressure was reported as low . She received IV fluids and subsequently IV metoprolol 5 mg x 3 and then IV amiodarone. She was then referred to the PCU for further inpatient evaluation and care. She has denied any chest discomfort. She does admit that she may feel somewhat short of breath and dyspneic. She has not had acute orthopnea or PND or peripheral pitting edema. She states that she cannot tell her heart rate is elevated. She does admit to feeling dizzy and lightheaded but has not any syncopal events. In the Emergency Department her ECG demonstrated atrial fibrillation with rapid ventricular response with occasional PVCs and nonspecific ST and T wave changes. She has undergone previous noninvasive valuation in the past which has included a transthoracic echocardiogram and a Holter monitor. The results of the studies are noted below. She also has a history of thromboembolic disease with pulmonary emboli which was thought to be an etiology for initial atrial dysrhythmia. She has remained anticoagulated based upon her cardiovascular history and her history of thromboembolic disease. [facility] Medical History (Updated 02/06/22 @ 18:[address] Noam Jc MD) Bilateral pulmonary embolism Former tobacco use History of venous thromboembolism HTN (hypertension) Hypothyroidism PAF (paroxysmal atrial fibrillation) Home Medications amiloride 5 mg-hydrochlorothiazide 50 mg tablet 1 tablet PO DAILY blood pressure 06/17/20 [History Last Taken 02/05/22] amlodipine 2.5 mg tablet 2.5 mg PO DAILY blood pressure 02/06/22 [History Last Taken 02/05/22] apixaban 5 mg tablet 5 mg PO BID blood thinner 02/06/22 [History Last Taken 02/05/22] furosemide 40 mg tablet 40 mg PO DAILY fluid 02/06/22 [History Last Taken 02/05/22] levothyroxine 50 mcg tablet 50 mcg PO DAILY thyroid 02/06/22 [History Last Taken 02/06/22] metoprolol tartrate 50 mg tablet 50 mg PO BID blood pressure 02/06/22 [History Last Taken 02/05/22] potassium chloride 20 mEq tablet,extended release 20 meq PO DAILY supplement 02/06/22 [History Last Taken 02/05/22] Allergy/AdvReac Type Severity Reaction Status Date / Time lisinopril Allergy Shortness Verified 02/06/22 10:18 of breath metoclopramide [From Reglan] Allergy Shortness Verified 02/06/22 10:18 of breath etodolac AdvReac Diarrhea Verified 02/06/22 10:18 Family History Mother Cancer Father Tuberculosis Brother History of pancreatitis Son Diabetes Aneurysm Legs and stomach Hyperlipidemia Surgical History (Updated 02/06/22 @ 16:[address] Cherrie العلي MD) History of hip replacement History of hysterectomy History of knee replacement Social History (Updated 02/06/22 @ 16:[address] Cherrie العلي MD) household members: significant other Smoking Status: Former smoker how long ago did patient quit smokin years ago, smoked <1/2 ppd x 3 years. alcohol intake: never substance use type: does not use caffeine: Yes Type: coffee Number of servings: 2 ROS Constitutional Constitutional: Reports as per HPI Eyes Eyes: Reports as per HPI ENT HEENT: Reports as per HPI Cardiovascular Cardiovascular: Reports dizziness, dyspnea and lightheadedness Respiratory/Chest Respiratory/Chest: Reports dyspnea Gastrointestinal Gastrointestinal: Reports as per HPI Genitourinary Genitourinary: Reports as per HPI Musculoskeletal Musculoskeletal: Reports as per HPI Integumentary Integumentary: Reports as per HPI Neurologic Neurologic: Reports dizziness Psychiatric Psychiatric: Reports as per HPI Physical Exam Const alert, oriented x3 and no apparent distress Orientation / Consciousness: awake HEENT normocephalic, head/scalp atraumatic and hearing grossly normal bilaterally Eyes PERRL, EOMs intact bilaterally and conjunctivae normal Neck full ROM, supple and no JVD Resp normal respiratory effort Auscultation: diminished lung sounds bilateral lower (Right greater than left) Cardio Rhythm: abnormal rhythm irregularly irregular Heart Sounds: S1 normal and S2 normal GI normal to inspection, nondistended, normoactive bowel sounds Extremity no pedal edema Skin no rashes or lesions noted Psych mental status grossly normal Risk Stratification Risk Stratification Applicable: No Procedure Criteria Type of Procedure Procedure Type: Elective Elective Risks - COVID COVID Risk Discussion: The surgeon/proceduralist and patient have discussed in detail the risk of exposure to and/or potential harm posed by the COVID-19 virus with having a surgery/procedure at this time versus the risk of delaying the surgery/procedure. It is not possible to know either the risk of delaying the surgery or procedure or chance of getting an infection with perfect accuracy, but a joint decision was made between the patient and the surgeon/proceduralist to proceed at this time with the scheduled surgery/procedure as indicated on the consent form. Objective Data Vital Signs: Vital Signs Temp Pulse Resp BP Pulse Ox O2 Del Method 97.6 F L 120 H 17 117/78 97 Room Air 02/06/22 16:40 02/06/22 17:45 02/06/22 17:45 02/06/22 17:45 02/06/22 17:45 02/06/22 17:45 Oxygen Delivery Method Room Air Weight: 139 lb 15.896 oz Body Mass Index (BMI) 22.6 Intake & Output: Intake and Output for Last 24 Hours 02/04/22 02/05/22 02/06/22 23:59 23:59 23:59 Intake Total 639.09 / 639.09 Balance 639.09 / 639.09 Lab / Micro Data Result Diagrams: 02/06/22 10:35 02/06/22 10:35 Labs: Laboratory Results - last 24 hr 02/06/22 10:35: WBC 7.2, RBC 4.67, Hgb 14.3, Hct 45.2, MCV 96.8, MCH 30.6, MCHC 31.6 L, RDW Std Deviation 51.8 H, RDW Coeff of Kin 14.6, Plt Count 237, MPV 11 .8, Immature Gran % (Auto) 0.400, Neut % (Auto) 63.2, Lymph % (Auto) 27.1, [place] % (Auto) 8.4, Eos % (Auto) 0.3, Baso % (Auto) 0.6, Absolute Neuts (auto) 4.5, Absolute Lymphs (auto) 1.94, Nucleated RBC % 0 02/06/22 10:35: Sodium 137, Potassium 4.2, Chloride 95 L, Carbon Dioxide 29.0, Anion Gap 13, BUN 38 H, Creatinine 1.97 H, Estim Creat Clear Calc 20.68, Est GFR (MDRD) Af Amer 31 L, Est GFR (MDRD) Non-Af 26 L, BUN/Creatinine Ratio 19.3, Glucose 118 H, Calcium 9.8, Troponin I High Sens 15, TSH 1.01 02/06/22 10:35: B-Natriuretic Peptide 734.1 H 02/06/22 10:35: Magnesium 2.3 02/06/22 17:07: Troponin I High Sens 18 Cardiology Labs/Tests 02/06/22 10:35: WBC 7.2, RBC 4.67, Hgb 14.3, Hct 45.2, MCV 96.8, MCH 30.6, MCHC 31.6 L, Plt Count 237, MPV 11.8, Immature Gran % (Auto) 0.400, Neut % (Auto) 63.2, Lymph % (Auto) 27.1, [place] % (Auto) 8.4, Eos % (Auto) 0.3, Baso % (Auto) 0.6, Absolute Neuts (auto) 4.5, Nucleated RBC % 0 02/06/22 10:35: Sodium 137, Potassium 4.2, Chloride 95 L, Carbon Dioxide 29.0, A nion Gap 13, BUN 38 H, Creatinine 1.97 H, Est GFR (MDRD) Af Amer 31 L, Est GFR (MDRD) Non-Af 26 L, BUN/Creatinine Ratio 19.3, Glucose 118 H, Calcium 9.8 02/06/22 10:35: B-Natriuretic Peptide 734.1 H 02/06/22 10:35: Magnesium 2.3 Rhythm: Atrial fibrillation with RVR EKG: Atrial fibrillation with RVR; occasional PVC; nonspecific ST and T wave abnormality ECHO: 11-17-2019 Echocardiogram from 11/17/2019: Interpretation Summary The study was technically difficult. Left ventricular systolic function is normal. The estimated ejection fraction is 65 %. The left atrium is moderately enlarged. Mild-Moderate (1-2+) mitral valve insufficiency. Mild to moderate (1-2+) tricuspid valve insufficiency. Trivial aortic valve insufficiency. Trivial pulmonic valve insufficiency. Right ventricular systolic pressure estimated to be 38 mmHg. Unable to assess diastolic dysfunction. Holter monitor: 03-14-2021 Sinus rhythm; PACs; PVCs; no atrial fibrillation reported; no wide-complex runs reported Chest CTA from 11/17/2019: IMPRESSION: There are a few primarily subsegmental pulmonary emboli in both lower lobes. COPD. Probable liver mass, needs further evaluation. Radiography Diagnostic Testing: Radiology Impression Chest X-Ray 02/06/22 10:31 IMPRESSION: Hyperinflation. Mild degree of residual pleural parenchymal changes at the right lung base although there has been improvement as compared to prior study. Electronically Signed: Jamie Hunter MD at 11:10 EST ,
[2022-02-06 19:54] LABS: Troponin-I HS 16 pg/mL (3.0-54.0)
[2022-02-06] MEDS: Amiodarone 360 MG in Dextrose 5% Viaflo Bag 192.8 ML 16.7 MG CONT INF (22:41)
[2022-02-06 23:42] LABS: Troponin-I HS 17 pg/mL (3.0-54.0)
[2022-02-07] VITALS (36 sets, daily range): BP systolic 85–119; BP diastolic 50–87; PULSE 57–154; RESP 12–21; TEMP 36.1–36.6; O2SAT 92–100
[2022-02-07] MEDS: 0.9% Normal Saline 1,000 ML 75 ML IV (05:05)
[2022-02-07 06:04] LABS: Absolute Neutrophil Count 2.3 X10^3/uL (2.0-7.7); Basophil# 0.05 X10^3/uL; Eosinophil# 0.06 X10^3/uL; Eosinophils% 1.2 % (0-5); Hemoglobin 13.4 g/dL (12.0-15.0); Lymphocyte % 43.3 % (19-41); Mean Corp Hgb Conc 32.7 g/dL (32-36); Mean Corpuscular Hgb 31.2 pg (27.0-32.0); Mean Corpuscular Volume 95.6 fL (81-99); Mean Platelet Vol. 11.7 fl (6.2-12.0); Monocyte# 0.38 X10^3/uL; Monocyte% 7.8 % (0-10); NRBC Flagged by Analyzer 0 % (0-5); Neutrophil # 2.25 X10^3/uL (2.7-7.7); Neutrophil % 46.5 % (47-70); Platelet Count 176 K/mm3 (150-450); RBC Distribution Width CV 14.5 % (11.6-14.6); RBC Distribution Width SD 50.5 fl (35.1-43.9); Red Blood Count 4.29 M/mm3 (4.2-5.4); White Blood Count 4.9 K/mm3 (4.4-11.0)
[2022-02-07 06:37] LABS: ALB/GLOB Ratio 1.3 RATIO (0.9-2.4); AST(SGOT) 14 U/L (15-37); Alanine Aminotransfer ALT/SGPT 16 U/L (13-56); Alkaline Phosphatase 89 U/L (45-117); Anion Gap 11 (5-15); BUN 30 mg/dL (7-18); Calcium,Total 8.6 mg/dL (8.5-10.1); Chloride 97 mmol/L (98-107); Cholesterol 97 mg/dL (200); EST Glomerular Filtration Rate 45 mL/min (>60); Est Glom Filt Rate - Afr Amer 55 mL/min (>60); Globulin 2.3 g/dL (2.2-4.2); Glucose 96 mg/dL (74-106); High Density Lipoprotein 43 mg/dL; Potassium 2.8 mmol/L (3.5-5.1); Protein, Total 5.3 g/dL (6.4-8.2); Sodium Level 138 mmol/L (136-145); Triglycerides 81 mg/dL; Very Low Density Lipoprotein 16 mg/dL (5-40)
[2022-02-07] MEDS: Potassium Chloride 10mEq/100mL 10 MEQ/100 ML IV.SOLN. 100 MEQ IV BOLUS ×4 (07:31→13:08)
[2022-02-07 08:00] LABS: Magnesium 1.9 mg/dL (1.6-2.6)
--- NOTE | 2022-02-07 08:01 | PN.HOSP_ITS ---
Subjective Subjective Follow-up for A. fib with RVR. Patient was sent from cardiology office for evaluation of A. fib with RVR with dizziness and shortness of breath. Objective Data Objective Data Vital Signs: Vital Signs Temp Pulse Resp BP Pulse Ox O2 Del Method O2 Flow Rate 97.6 F L 112 H 16 96/67 99 Room Air 2 02/07/22 04:00 02/07/22 07:00 02/07/22 07:00 02/07/22 07:00 02/07/22 07:00 02/07/22 07:49 02/07/22 07:00 Oxygen Flow Rate (L/min) 2 Oxygen Delivery Method Room Air Weight: 141 lb 12.116 oz Body Mass Index (BMI) 22.6 Intake & Output: Intake and Output for Last 24 Hours 02/05/22 02/06/22 02/07/22 23:59 23:59 23:59 Intake Total 928.29 / 1064.99 1184.85 / 1184.85 Output Total 600 / 900 550 / 550 Balance 328.29 / 164.99 634.85 / 634.85 Lab / Micro Data Result Diagrams: 02/07/22 05:45 02/07/22 05:45 Labs: Laboratory Results - last 24 hr 02/06/22 10:35: WBC 7.2, RBC 4.67, Hgb 14.3, Hct 45.2, MCV 96.8, MCH 30.6, MCHC 31.6 L, RDW Std Deviation 51.8 H, RDW Coeff of Kin 14.6, Plt Count 237, MPV 11.8, Immature Gran % (Auto) 0.400, Neut % (Auto) 63.2, Lymph % (Auto) 27.1, [place] % (Auto) 8.4, Eos % (Auto) 0.3, Baso % (Auto) 0.6, Absolute Neuts (auto) 4.5, Absolute Lymphs (auto) 1.94, Nucleated RBC % 0 02/06/22 10:35: Sodium 137, Potassium 4.2, Chloride 95 L, Carbon Dioxide 29.0, Anion Gap 13, BUN 38 H, Creatinine 1.97 H, Estim Creat Clear Calc 20.68, Est GFR (MDRD) Af Amer 31 L, Est GFR (MDRD) Non-Af 26 L, BUN/Creatinine Ratio 19.3, Glucose 118 H, Calcium 9.8, Troponin I High Sens 15, TSH 1.01 02/06/22 10:35: B-Natriuretic Peptide 734.1 H 02/06/22 10:35: Magnesium 2.3 02/06/22 17:07: Troponin I High Sens 18 02/06/22 19:18: Troponin I High Sens 16 02/06/22 23:00: Troponin I High Sens 17 02/07/22 05:45: WBC 4.9, RBC 4.29, Hgb 13.4, Hct 41.0, MCV 95.6, MCH 31.2, MCHC 32.7, RDW Std Deviation 50.5 H, RDW Coeff of Kin 14.5, Plt Count 176, MPV 11.7, Immature Gran % (Auto) 0.200, Neut % (Auto) 46.5 L, Lymph % (Auto) 43.3 H, [place] % (Auto) 7.8, Eos % (Auto) 1.2, Baso % (Auto) 1.0, Absolute Neuts (auto) 2.3, Absolute Lymphs (auto) 2.10, Nucleated RBC % 0 02/07/22 05:45: Sodium 138, Potassium 2.8 L, Chloride 97 L, Carbon Dioxide 30.0, Anion Gap 11, BUN 30 H, Creatinine 1.20 H, Estim Creat Clear Calc 31.50, Est GFR (MDRD) Af Amer 55 L, Est GFR (MDRD) Non-Af 45 L, BUN/Creatinine Ratio 25.0 H, Glucose 96, Calcium 8.6, Total Bilirubin 1.80 H, AST 14 L, ALT 16, Alkaline Phosphatase 89, Total Protein 5.3 L, Albumin 3.0 L, Globulin 2.3, Albumin/Globulin Ratio 1.3, Triglycerides 81, Cholesterol 97, LDL Cholesterol 38, VLDL Cholesterol 16, HDL Cholesterol 43 02/07/22 05:45: Magnesium 1.9 Radiography Diagnostic Testing: Radiology Impression Chest X-Ray 02/06/22 10:31 IMPRESSION: Hyperinflation. Mild degree of residual pleural parenchymal changes at the right lung base although there has been improvement as compared to prior study. Electronically Signed: Jamie Hunter MD at 11:10 EST , Physical Exam Narrative Patient is states she did not feel palpitation, racing heartbeat or pounding sensation. She denies any chest pain or pressure. On IV amiodarone drip. Physical exam General: Alert, Oriented x3, Cooperative HEENT: Atraumatic, PERRLA, EOMI, Normocephalic Oral: Oral mucosa moist. No Gingival or Mucosal Lesions/ Ulcerations Neck: Supple, No JVD, Negative Carotid Bruits Lungs: Air entry diminished in bilateral lung bases. No crepitation/rhonchi Cardiovascular: A. fib RVR, Normal S1, Normal S2, subtle systolic murmur over cardiac apex. Abdomen: Bowel Sounds Present, Soft, Non Tender, Non-Distended : No renal angle tenderness. No suprapubic tenderness. Extremities: No edema, Capillary Refill Less than 3 Seconds Skin: Mild redness and tenderness over left forearm due to infiltration of IV KCl. Nursing protocol was done. Musculoskeletal: No Tenderness to Palpation of Joints or Extremities Neurological: Cranial nerves II-XII grossly intact, DTR 2+/4 and Symmetrical, Neuro grossly intact Psych/Mental Status: Normal Affect, Appropriate. Assessment & Plan Assessment/Plan (1) Atrial fibrillation with RVR: PLAN: Plan The patient is a 86 y/o F admitted with shortness of breath and lightheadedness for about 1 week and was sent to ED from cardiology office. She was found to gregory ve A. fib with RVR. She was started on amiodarone and Lasix 40 mg a week prior to admission. At that time, chest x-ray showed small right pleural effusion. EKG in ED showed A. fib with RVR with occasional PVC and nonspecific ST-T changes. #1. Paroxsymal atrial fibrillation with RVR: EKG in ED showed A. fib with RVR . Patient administered lopressor 5 mg IV x 3 and eventually amiodarone 150 mg bolus x 1 in ED. patient was then admitted in PCU on IV amiodarone drip as per protocol. Serial troponin enzymes are negative. Stock Speculator is consulted. Fasting profile reported LDL 38 within normal limit. Cardiology consult reviewed. Plan for possible cardioversion. Severe hypokalemia: Potassium 2.8, magnesium 1.9. IV KCl replacement ordered. Patient had IV infiltration on left forearm. It is tender and red. Advised warm compression. #2. Acute kidney injury on CKD stage IIIa: Patient baseline creatinine clearance around 45-50 mill per minute. BRENT most likely prerenal or possible cardiorenal disease. Admission BUN/Cr 38/1.97, prior baseline creatinine noted to be 1.0-1.3. Creatinine is improving. #3. Hypertension: BP is on lower side high 90s to 102/63. Avoid antihype rtensive medication #4. Hypothyroidism: Continue home synthroid regimen, TSH 1.01 normal. #5. History of VTE: Patient has a history of thromboembolic disease with PE. Continue home Eliquis therapy. #6. CODE status: Patient VERA is her and living will is currently in place and present for these discussions. Discussed CODE status at length including difference between FULL code, DNR-CCA and DNR-CC status. Following discussions about the differences in these status, requested DNR CCA, no intubation status. Total time of the visit including total time spent in counseling or coordination of care, (more than 50% of the total time, spent in obtaining medical information from nurses and other ancillary care providers,explaining to the patient about labs, imaging, diagnosis and management of active complex medical conditions discussion with cardiology), , review of labs and imaging is 40 minutes. Laboratory Results 02/06/22 17:07: Troponin I High Sens 18 02/06/22 19:18: Troponin I High Sens 16 02/06/22 23:00: Troponin I High Sens 17 02/07/22 05:45: WBC 4.9, RBC 4.29, Hgb 13.4, Hct 41.0, MCV 95.6, MCH 31.2, MCHC 32.7, RDW Std Deviation 50.5 H, RDW Coeff of Kin 14.5, Plt Count 176, MPV 11.7, Immature Gran % (Auto) 0.200, Neut % (Auto) 46.5 L, Lymph % (Auto) 43.3 H, [place] % (Auto) 7.8, Eos % (Auto) 1.2, Baso % (Auto) 1.0, Absolute Neuts (auto) 2.3, Absolute Lymphs (auto) 2.10, Nucleated RBC % 0 02/07/22 05:45: Sodium 138, Potassium 2.8 L, Chloride 97 L, Carbon Dioxide 30.0, Anion Gap 11, BUN 30 H, Creatinine 1.20 H, Estim Creat Clear Calc 31.50, Est GFR (MDRD) Af Amer 55 L, Est GFR (MDRD) Non-Af 45 L, BUN/Creatinine Ratio 25.0 H, Glucose 96, Calcium 8.6, Total Bilirubin 1.80 H, AST 14 L, ALT 16, Alkaline Phosphatase 89, Total Protein 5.3 L, Albumin 3.0 L, Globulin 2.3, Albumin/Glob ulin Ratio 1.3, Triglycerides 81, Cholesterol 97, LDL Cholesterol 38, VLDL Cholesterol 16, HDL Cholesterol 43 02/07/22 05:45: Magnesium 1.9 Charges/Coding Visit Charges Inpatient E&M: 76001 Subs Hosp L3
--- NOTE | 2022-02-07 08:41 | PN.CARD_ITS ---
Subjective Subjective The patient remains awake and alert. She has no new acute complaints. Objective Data Vital Signs: Vital Signs Temp Pulse Resp BP Pulse Ox O2 Del Method O2 Flow Rate 97.6 F L 125 H 18 112/61 96 Room Air 2 02/07/22 08:00 02/07/22 08:34 02/07/22 08:00 02/07/22 08:00 02/07/22 08:34 02/07/22 08:34 02/07/22 07:00 Oxygen Flow Rate (L/min) 2 Oxygen Delivery Method Room Air Weight: 141 lb 12.116 oz Body Mass Index (BMI) 22.6 Intake & Output: Intake and Output for Last 24 Hours 02/05/22 02/06/22 02/07/22 23:59 23:59 23:59 Intake Total 928.29 / 1064.99 1184.85 / 1184.85 Output Total 600 / 900 550 / 550 Balance 328.29 / 164.99 634.85 / 634.85 Lab / Micro Data Result Diagrams: 02/07/22 05:45 02/07/22 05:45 Labs: Laboratory Results - last 24 hr 02/06/22 10:35: WBC 7.2, RBC 4.67, Hgb 14.3, Hct 45.2, MCV 96.8, MCH 30.6, MCHC 31.6 L, RDW Std Deviation 51.8 H, RDW Coeff of Kin 14.6, Plt Count 237, MPV 11.8, Immature Gran % (Auto) 0.400, Neut % (Auto) 63.2, Lymph % (Auto) 27.1, [place] % (Auto) 8.4, Eos % (Auto) 0.3, Baso % (Auto) 0.6, Absolute Neuts (auto) 4.5, Absolute Lymphs (auto) 1.94, Nucleated RBC % 0 02/06/22 10:35: Sodium 137, Potassium 4.2, Chloride 95 L, Carbon Dioxide 29.0, Anion Gap 13, BUN 38 H, Creatinine 1.97 H, Estim Creat Clear Calc 20.68, Est GFR (MDRD) Af Amer 31 L, Est GFR (MDRD) Non-Af 26 L, BUN/Creatinine Ratio 19.3, Glucose 118 H, Calcium 9.8, Troponin I High Sens 15, TSH 1.01 02/06/22 10:35: B-Natriuretic Peptide 734.1 H 02/06/22 10:35: Magnesium 2.3 02/06/22 17:07: Troponin I High Sens 18 02/06/22 19:18: Troponin I High Sens 16 02/06/22 23:00: Troponin I High Sens 17 02/07/22 05:45: WBC 4.9, RBC 4.29, Hgb 13.4, Hct 41.0, MCV 95.6, MCH 31.2, MCHC 32.7, RDW Std Deviation 50.5 H, RDW Coeff of Kin 14.5, Plt Count 176, MPV 11.7, Immature Gran % (Auto) 0.200, Neut % (Auto) 46.5 L, Lymph % (Auto) 43.3 H, [place] % (Auto) 7.8, Eos % (Auto) 1.2, Baso % (Auto) 1.0, Absolute Neuts (auto) 2.3, Absolute Lymphs (auto) 2.10, Nucleated RBC % 0 02/07/22 05:45: Sodium 138, Potassium 2.8 L, Chloride 97 L, Carbon Dioxide 30.0, Anion Gap 11, BUN 30 H, Creatinine 1.20 H, Estim Creat Clear Calc 31.50, Est GFR (MDRD) Af Amer 55 L, Est GFR (MDRD) Non-Af 45 L, BUN/Creatinine Ratio 25.0 H, Glucose 96, Calcium 8.6, Total Bilirubin 1.80 H, AST 14 L, ALT 16, Alkaline Phosphatase 89, Total Protein 5.3 L, Albumin 3.0 L, Globulin 2.3, Albumin/Globulin Ratio 1.3, Triglycerides 81, Cholesterol 97, LDL Cholesterol 38, VLDL Cholesterol 16, HDL Cholesterol 43 02/07/22 05:45: Magnesium 1.9 Cardiology Labs/Tests 02/06/22 10:35: WBC 7.2, RBC 4.67, Hgb 14.3, Hct 45.2, MCV 96.8, MCH 30.6, MCHC 31.6 L, Plt Count 237, MPV 11.8, Immature Gran % (Auto) 0.400, Neut % (Auto) 63.2, Lymph % (Auto) 27.1, [place] % (Auto) 8.4, Eos % (Auto) 0.3, Baso % (Auto) 0.6, Absolute Neuts (auto) 4.5, Nucleated RBC % 0 02/06/22 10:35: Sodium 137, Potassium 4.2, Chloride 95 L, Carbon Dioxide 29.0, Anion Gap 13, BUN 38 H, Creatinine 1.97 H, Est GFR (MDRD) Af Amer 31 L, Est GFR (MDRD) Non-Af 26 L, BUN/Creatinine Ratio 19.3, Glucose 118 H, Calcium 9.8 02/06/22 10:35: B-Natriuretic Peptide 734.1 H 02/06/22 10:35: Magnesium 2.3 02/07/22 05:45: WBC 4.9, RBC 4.29, Hgb 13.4, Hct 41.0, MCV 95.6, MCH 31.2, MCHC 32.7, Plt Count 176, MPV 11.7, Immature Gran % (Auto) 0.200, Neut % (Auto) 46.5 L, Lymph % (Auto) 43.3 H, [place] % (Auto) 7.8, Eos % (Auto) 1.2, Baso % (Auto) 1.0, Absolute Neuts (auto) 2.3, Nucleated RBC % 0 02/07/22 05:45: Sodium 138, Potassium 2.8 L, Chloride 97 L, Carbon Dioxide 30.0, Anion Gap 11, BUN 30 H, Creatinine 1.20 H, Est GFR (MDRD) Af Amer 55 L, Est GFR (MDRD) Non-Af 45 L, BUN/Creatinine Ratio 25.0 H, Glucose 96, Calcium 8.6, Total Bilirubin 1.80 H, Triglycerides 81, Cholesterol 97, LDL Cholesterol 38, VLDL Cholesterol 16, HDL Cholesterol 43 02/07/22 05:45: Magnesium 1.9 Rhythm: atrial fibrillation EKG: atrial fibrillation; nonspecific ST/T wave abnormality Radiography Diagnostic Testing: Radiology Impression Chest X-Ray 02/06/22 10:31 IMPRESSION: Hyperinflation. Mild degree of residual pleural parenchymal changes at the right lung base although there has been improvement as compared to prior study. Electronically Signed: Jamie Hunter MD at 11:10 EST , Physical Exam Const alert, oriented x3 and no apparent distress Orientation / Consciousness: awake HEENT normocephalic, head/scalp atraumatic and hearing grossly normal bilaterally Eyes PERRL, EOMs intact bilaterally and conjunctivae normal Neck full ROM, supple and no JVD Resp normal respiratory effort Auscultation: diminished lung sounds bilateral lower (Right greater than left) Cardio Rhythm: abnormal rhythm irregularly irregular Heart Sounds: S1 normal and S2 normal GI normal to inspection, nondistended, normoactive bowel sounds Extremity no pedal edema Skin no rashes or lesions noted Psych mental status grossly normal Assessment & Plan Assessment/Plan (1) Atrial fibrillation with RVR: PLAN: The patient has a history of atrial fibrillation with RVR. She had been treated medically which included rate control therapy and antiarrhythmic therapy with amiodarone as well as anticoagulant therapy. Over time her rate limiting therapy was decreased and her amiodarone was discontinued secondary to concerns of bradycardia. At the present time it appears she is now returned to atrial fibrillation with RVR. This may be the etiology for her shortness of breath and her sensation of dizziness/lightheadedness. With the patient's shortness of breath she did recently have a chest x-ray which suggested a small right pleural effusion. This led to adjustment of medical management. This was repeated this day. The right-sided pleural effusion appears to be somewhat less prominent. At the present time she will continue to be monitored. She will continue rate control therapy and reinitiation of antiarrhythmic therapy as noted. She will need to be monitored for any evidence of progressive bradycardia. She continues her anticoagulant therapy. As her cardiac dysrhythmia persist despite her ongoing medical therapy she will be asked undergo further evaluation and care with synchronized biphasic DC cardioversion. This will be coordinated with the pulmonology/critical care medicine staff. Over time if she does demonstrate concerns of bradycardia then she may be demonstrating findings compatible with an underlying sick sinus syn drome/bradycardia-tachycardia syndrome that would require both therapy with permanent pacemaker support and medical therapy support. (2) Benign essential hypertension: PLAN: The patient's blood pressure will need to be monitored. Her medicines will need to be adjusted accordingly. (3) Shortness of breath: PLAN: Again the patient's shortness of breath may be related to her atrial dysrhythmia and her findings of a small right-sided pleural effusion. She will continue to be monitored. She will continue evaluation care of her atrial dysrhythmia. Her other medications with respect to diuretic therapy will be adjusted accordingly. (4) Dizziness: PLAN: She has had dizziness in the past which may have correlated with her previous episode of atrial fibrillation. It may be related to her recurrent atrial fibrillation. At the moment she will continue to be monitored and proceed with evaluation as noted above. If she does return to sinus rhythm then she will need to be monitored for any evidence of ongoing dizziness that would then require additional evaluation and care. (5) Acute kidney injury: PLAN: Her creatinine level is increased. This may be secondary to recent adjustment of her medical therapy based upon her shortness of breath and pleural effusion. Her creatinine has improved. Addt'l Comments The above was discussed and reviewed with the patient. She was agreeable to the aforementioned evaluation and care plan. This note was generated using a voice recognition system and there may be incorrect words, spelling or punctuation that were not noted when reviewing the office note prior to saving. Procedure Criteria Type of Procedure Procedure Type: Elective Elective Risks - COVID COVID Risk Discussion: The surgeon/proceduralist and patient have discussed in detail the risk of expos ure to and/or potential harm posed by the COVID-19 virus with having a surgery/procedure at this time versus the risk of delaying the surgery/procedure. It is not possible to know either the risk of delaying the surgery or procedure or chance of getting an infection with perfect accuracy, but a joint decision was made between the patient and the surgeon/proceduralist to proceed at this time with the scheduled surgery/procedure as indicated on the consent form.
[2022-02-07] MEDS: FLU VACC QS2022-23(6MOS UP)/PF 60 MCG/0.5 ML SYRINGE IM (08:47)
[2022-02-07] MEDS: APIXABAN 5 MG TABLET PO ×2 (08:47→21:05)
[2022-02-07] MEDS: Metoprolol Tartrate 25 MG Tablet PO (08:47)
[2022-02-07] MEDS: Acetaminophen 325 MG Tablet 650 MG PO (09:27)
--- NOTE | 2022-02-07 10:30 | CASEMGMT ---
SIMON KRAMER Face to Face with patient for initial transition planning/care coordination assessment. RN NIA introduced self and role at [facility]. Patient lying in bed, alert and oriented. Patient willing to participate in assessment and is able to answer all questions appropriately. Care providers, pharmacy, and demographics verified. Patient wishes to discharge home, will monitor progress with therapy for possible HHC. Patient states she has no further needs or concerns at this time. CM to follow for discharge planning needs that may arise. PCP: Mercedes Specialists: none Preferred Pharmacy: [facility] Insurance: [employer]ree [employer]IN[employer]IR Prescription Benefit: yes Living Will/HPOA: patient is not sure LNOK: son and daugther in law Living Arrangements: Patient lives in alone in a 2 story home with bed and bath on the first floor. Ramp to enter the home. Patient states she is independent at home. Patient states that son live just down the road from her. Transportation: self, DIL DME/HHC: Patient states she has shower chair, raised toilet, cane, and walker at home. No previous HHC or SNF. Will monitor for HHC Disposition Plan: Patient to discharge home with family support and follow-up plans in place. Dolores NEW, RN, CM
[2022-02-07] MEDS: Amiodarone 360 MG in Dextrose 5% Viaflo Bag 192.8 ML 16.7 MG CONT INF ×2 (10:42→22:40)
--- NOTE | 2022-02-07 12:30 | NURSING ---
Successful cardioversion at bedside with Dr. Jc and Dr. Obrien. x1 shock at 200J. NSR obtained.
--- NOTE | 2022-02-07 12:47 | CARDIOVERS_ITS ---
Cardioversion Cardioversion: Date: 02-07-2022 Procedure: Synchronized Biphasic DC Cardioversion Indications: Atrial fibrillation with RVR Consent: Per the Patient Anesthesia: per Dr. Obrien of pulmonology and critical care medicine with propofol 40 mg IV push total Procedure: Synchronized Biphasic DC Cardioversion: 200 J x 1: Result: Sinus rhythm; PACs Complications: no apparent complications This note was generated with [employer] software. It may contain incorrect words, spelling, and punctuation that were not noted in checking the note before signing.
--- NOTE | 2022-02-07 12:50 | EKG12_ITS ---
Test Reason : AM EKG Blood Pressure : / mmHG Vent. Rate : 110 BPM Atrial Rate : 000 BPM P-R Int : 000 ms QRS Dur : 088 ms QT Int : 348 ms P-R-T Axes : 000 -01 239 degrees QTc Int : 470 ms Atrial fibrillation with rapid ventricular response Nonspecific ST and T wave abnormality Abnormal ECG Confirmed by GALI MORRIS, CLARA ([id number]), newspaper editor managing LORI NAVARRO ([id number]) on 02/14/2022 8:59:04 AM Referred By: Confirmed By:CLARA TALBERT MD
--- NOTE | 2022-02-07 12:59 | PRO.PCM_ITS ---
Procedure Report Date of Procedure: 02/07/22 CONSCIOUS SEDATION REPORT DATE OF SERVICE: February 07, 2022 BRIEF HISTORY OF PRESENT ILLNESS: The patient is an 86-year-old female who was admitted at [facility] February 06 with dizziness and lightheadedness in the setting of atrial fibrillation with RVR. Cardiology has been following to assist with medical management. The patient's last surface echocardiogram demonstrated a normal ejection fraction. She is systemically anticoagulated on Eliquis. She denies any prior anesthetic complications. PHYSICAL EXAMINATION: VITAL SIGNS: Reviewed and were acceptable. GENERAL: The patient is a female, in no apparent distress, speaking in full sentences. HEENT: Normocephalic, atraumatic. Mucous membranes are moist and pink. Good mouth opening noted. Trachea is midline. Good neck mobility. CHEST: S1, S2 irregularly irregular. No murmurs, rubs or gallops were noted. LUNGS: Clear to auscultation bilaterally without appreciable wheezes, rales or rhonchi. ABDOMEN: Soft, nontender, nondistended. Positive bowel sounds. EXTREMITIES: There is no clubbing, cyanosis or edema. ASA Class: II DESCRIPTION OF PROCEDURE: After confirmation of informed consent, the patient's anesthesia plan was reviewed in detail. Propofol was chosen. Risks and benefits were reviewed and the patient agreed to proceed. At 1230, the patient was given 40 mg of propofol. The patient achieved an appropriate level of sedation and was given a 200 joule synchronized cardioversion by Dr. Jc at the bedside. This was successful in achieving normal sinus rhythm. The patient was monitored until 1243, at which time she reached her baseline mental status and function. The patient tolerated the procedure well. COMPLICATIONS: None ESTIMATED BLOOD LOSS: None RECOMMENDATIONS: Okay to recover in usual fashion. Procedures Pulmonary 9xxxx: [id number] Con Sedation
[2022-02-07] MEDS: Levothyroxine 50 MCG Tablet PO (14:09)
[2022-02-07] MEDS: Lactated Ringers 1,000 ML 100 ML IV (14:10)
[2022-02-08] VITALS (16 sets, daily range): BP systolic 86–106; BP diastolic 51–91; PULSE 52–74; RESP 13–18; TEMP 36.2–36.7; O2SAT 94–100
[2022-02-08] MEDS: Levothyroxine 50 MCG Tablet PO (06:16)
[2022-02-08 06:49] LABS: Absolute Lymphocyte Count 1.92 X10^3/uL (0.83-4.51); Absolute Neutrophil Count 3.6 X10^3/uL (2.0-7.7); Basophil# 0.04 X10^3/uL; Basophil% 0.7 % (0-1); Eosinophil# 0.07 X10^3/uL; Eosinophils% 1.2 % (0-5); Hematocrit 41.3 % (37-47); Hemoglobin 13.1 g/dL (12.0-15.0); Lymphocyte # 1.92 X10^3/ul (0.83-4.51); Lymphocyte % 31.8 % (19-41); Mean Corp Hgb Conc 31.7 g/dL (32-36); Mean Corpuscular Hgb 30.5 pg (27.0-32.0); Mean Platelet Vol. 11.7 fl (6.2-12.0); Monocyte# 0.41 X10^3/uL; Monocyte% 6.8 % (0-10); NRBC Flagged by Analyzer 0 % (0-5); Neutrophil # 3.57 X10^3/uL (2.7-7.7); Neutrophil % 59.2 % (47-70); Platelet Count 158 K/mm3 (150-450); RBC Distribution Width CV 14.3 % (11.6-14.6); RBC Distribution Width SD 50.1 fl (35.1-43.9)
[2022-02-08 07:05] LABS: Anion Gap 7 (5-15); BUN 23 mg/dL (7-18); BUN/Creat Ratio 21.9 RATIO (10-20); Calcium,Total 9.2 mg/dL (8.5-10.1); Chloride 100 mmol/L (98-107); Creatinine, Serum 1.05 mg/dL (0.55-1.02); EST Glomerular Filtration Rate 53 mL/min (>60); Est Glom Filt Rate - Afr Amer 64 mL/min (>60); Glucose 96 mg/dL (74-106); Potassium 3.2 mmol/L (3.5-5.1); Sodium Level 138 mmol/L (136-145)
--- NOTE | 2022-02-08 08:14 | PCM.PN.CARD ---
Subjective Subjective The patient is awake and alert. She denies any ongoing chest discomfort, difficulty breathing, or palpitations. Objective Data Vital Signs: Vital Signs Temp Pulse Resp BP Pulse Ox O2 Del Method O2 Flow Rate 97.1 F L 52 L 17 104/71 96 Room Air 2 02/08/22 00:00 02/08/22 07:00 02/08/22 06:00 02/08/22 06:00 02/08/22 07:05 02/08/22 07:05 02/07/22 12:45 Oxygen Flow Rate (L/min) 2 Oxygen Delivery Method Room Air Weight: 145 lb 15.136 oz Body Mass Index (BMI) 22.6 Intake & Output: Intake and Output for Last 24 Hours 02/06/22 02/07/22 02/08/22 23:59 23:59 23:59 Intake Total 928.29 / 1064.99 2399.03 / 2415.73 1116.9 / 1116.9 Output Total 600 / 900 1150 / 1150 500 / 500 Balance 328.29 / 164.99 1249.03 / 1265.73 616.9 / 616.9 Lab / Micro Data Result Diagrams: 02/08/22 06:12 02/08/22 06:12 Labs: Laboratory Results - last 24 hr 02/08/22 06:12: WBC 6.0, RBC 4.30, Hgb 13.1, Hct 41.3, MCV 96.0, MCH 30.5, MCHC 31.7 L, RDW Std Deviation 50.1 H, RDW Coeff of Kin 14.3, Plt Count 158, MPV 11.7, Immature Gran % (Auto) 0.300, Neut % (Auto) 59.2, Lymph % (Auto) 31.8, [place] % (Auto) 6.8, Eos % (Auto) 1.2, Baso % (Auto) 0.7, Absolute Neuts (auto) 3.6, Absolute Lymphs (auto) 1.92, Nucleated RBC % 0 02/08/22 06:12: Sodium 138, Potassium 3.2 L, Chloride 100, Carbon Dioxide 31.0, Anion Gap 7, BUN 23 H, Creatinine 1.05 H, Estim Creat Clear Calc 36.00, Est GFR (MDRD) Af Amer 64, Est GFR (MDRD) Non-Af 53 L, BUN/Creatinine Ratio 21.9 H, Glucose 96, Calcium 9.2 Cardiology Labs/Tests 02/08/22 06:12: WBC 6.0, RBC 4.30, Hgb 13.1, Hct 41.3, MCV 96.0, MCH 30.5, MCHC 31.7 L, Plt Count 158, MPV 11.7, Immature Gran % (Auto) 0.300, Neut % (Auto) 59.2, Lymph % (Auto) 31.8, [place] % (Auto) 6.8, Eos % (Auto) 1.2, Baso % (Auto) 0.7, Absolute Neuts (auto) 3.6, Nucleated RBC % 0 02/08/22 06:12: Sodium 138, Potassium 3.2 L, Chloride 100, Carbon Dioxide 31.0, Anion Gap 7, BUN 23 H, Creatinine 1.05 H, Est GFR (MDRD) Af Amer 64, Est GFR (MDRD) Non-Af 53 L, BUN/Creatinine Ratio 21.9 H, Glucose 96, Calcium 9.2 Rhythm: Sinus rhythm; PACs Radiography Diagnostic Testing: Radiology Impression Echocardiogram 02/06/22 16:08 Interpretation Summary The study was technically difficult. Mild global left ventricular systolic dysfunction. The estimated ejection fraction is 45 %. The left atrium is severely enlarged. The right atrium is moderately enlarged. Moderately severe (3+) mitral valve insufficiency. Moderate (2+) tricuspid valve insufficiency. Trivial aortic valve insufficiency. Trivial pulmonic valve insufficiency. Right ventricular systolic pressure estimated to be 33 mmHg. Unable to assess diastolic dysfunction. Ordering Physician: Cherrie العلي Referring Physician: Kranthi Long Performed By: Kriss Hong, RDCS, RVT Physical Exam Const alert, oriented x3 and no apparent distress Orientation / Consciousness: awake HEENT normocephalic, head/scalp atraumatic and hearing grossly normal bilaterally Eyes PERRL, EOMs intact bilaterally and conjunctivae normal Neck full ROM, supple and no JVD Resp normal respiratory effort Auscultation: diminished lung sounds bilateral lower (Right greater than left) Cardio Rhythm: abnormal rhythm irregularly irregular Heart Sounds: S1 normal and S2 normal GI normal to inspection, nondistended, normoactive bowel sounds Extremity no pedal edema Skin no rashes or lesions noted Psych mental status grossly normal Assessment & Plan Assessment/Plan (1) Atrial fibrillation with RVR: PLAN: The patient has a history of atrial fibrillation with RVR. She had been treated medically which included rate control therapy and antiarrhythmic therapy with amiodarone as well as anticoagulant therapy. Over time her rate limiting therapy was decreased and her amiodarone was discontinued secondary to concerns of bradycardia. She did return to atrial fibrillation. She has been treated once again with low-dose beta-blockers and IV amiodarone. She has continued anticoagulant therapy. She is undergone synchronized biphasic DC cardioversion and regain sinus rhythm. At the present time she will continue low-dose rate control therapy and low-dose antiarrhythmic therapy and her anticoagulant therapy. If she has concerns of recurrent atrial fibrillation with RVR then she will need to be considered, especially if she still demonstrates concerns of bradycardia in the interim, for a sick sinus syndrome and the need for medical therapy and support and permanent pacemaker therapy and support versus being considered for an AV node ablation and permanent pacemaker support. (2) Benign essential hypertension: PLAN: The patient's blood pressure will need to be monitored. As her blood pressures have been low her medications will be adjusted. This will include placing her antihypertensive therapy such as amlodipine on hold. Also as her volume status appears to have stabilized this may include placing her diuretic therapy on hold. (3) Shortness of breath: PLAN: Again the patient's shortness of breath may be related to her atrial dysrhythmia and her findings of a small right-sided pleural effusion. At the moment the patient has no acute symptoms of shortness of breath or dyspnea and she has not demonstrated ongoing orthopnea or PND. Hopefully her breathing will improve as she has returned to sinus rhythm. (4) Dizziness: PLAN: She has had dizziness in the past which may have correlated with her previous episode of atrial fibrillation. It may be related to her recurrent atrial fibrillation. As she is back in sinus rhythm she will continue to be monitored for her symptoms. Separate from her cardiac rhythm there is concerned about her lower blood pressure. This may also be a contributing factor to her dizziness. Thus her antihypertensive therapy will be adjusted as well. (5) Acute kidney injury: PLAN: Her creatinine level is increased. This may be secondary to recent adjustment of her medical therapy based upon her shortness of breath and pleural effusion. Her creatinine has improved. Addt'l Comments Overall, at the present time, the patient will continue low-dose rate control therapy, low-dose antiarrhythmic therapy, and her anticoagulant therapy. Her other antihypertensive agents and diuretic agents will be placed on hold. She will need continued outpatient follow-up of her cardiovascular status, her rhythm, and over time her left ventricular wall motion and systolic function which based upon her echocardiogram performed yesterday (while in atrial fibrillation) appeared to demonstrate a somewhat lower LVEF than before. Hopefully this will improve as she is back in sinus rhythm. The above has been discussed and reviewed with her. This note was generated using a voice recognition system and there may be incorrect words, spelling or punctuation that were not noted when reviewing the office note prior to saving. Procedure Criteria Type of Procedure Procedure Type: Elective Elective Risks - COVID COVID Risk Discussion: The surgeon/proceduralist and patient have discussed in detail the risk of exposure to and/or potential harm posed by the COVID-19 virus with having a surgery/procedure at this time versus the risk of delaying the surgery/procedure. It is not possible to know either the risk of delaying the surgery or procedure or chance of getting an infection with perfect accuracy, but a joint decision was made between the patient and the surgeon/proceduralist to proceed at this time with the scheduled surgery/procedure as indicated on the consent form.
[2022-02-08] MEDS: APIXABAN 5 MG TABLET PO (09:06)
[2022-02-08] MEDS: Metoprolol Tartrate 25 MG Tablet 12.5 MG PO (09:06)
[2022-02-08] MEDS: Amiodarone 200 MG Tablet 100 MG PO (09:06)
--- NOTE | 2022-02-08 10:05 | PCM.DC ---
Discharge Instructions Diet Discharge Diet: 2000 mg Sodium Diet Activity Discharge Activity: Return to Normal Activity Dressing / Incision Call your doctor if you observe: Fever of 101 or Higher, Coldness, Increased Pain, Numbness or Tingling, Change in Color, Inability to urinate, Inability to have a bowel movement, Shortness of breath, Dizziness, Fainting spells, Swelling in the ankles, Chest pain, Prolonged hiccupping, Increased palpitations (irregular heartbeat), Calf discomfort and Uncontrolled pain Follow Up Care Test Results: Test results from this visit will be discussed in further detail at your follow-up appointment, if applicable. Discharge Plan Admission Admit Date/Time: 02/06/22 15:18 Primary Reason for Your Visit: Chronic A. fib with RVR Attending Provider: Ashish Mullen Primary Care Provider: Kranthi Long Consulting Providers: Noam Jc ; Cherrie العلي Discharge Orders/Prescriptions Prescriptions: New amiodarone 200 mg Tablet 100 mg PO DAILY Qty: 30 2RF sennosides-docusate sodium [Stool Softener-Stimulant Laxat] 8.6-50 mg Tablet 2 tab PO BID PRN PRN (Reason: Constipation) Qty: 0 0RF metoprolol tartrate 25 mg Tablet 12.5 mg PO BID Qty: 60 0RF Continued levothyroxine 50 mcg tablet 50 mcg PO DAILY apixaban 5 MG tablet 5 mg PO BID potassium chloride 20 mEq tablet extended release 20 meq PO DAILY amiloride-hydrochlorothiazide 5-50 mg tablet 1 tablet PO DAILY Discontinued metoprolol tartrate 50 mg tablet 50 mg PO BID furosemide 40 mg tablet 40 mg PO DAILY Hold Instructions: Hold it until seen by PCP or cardiology. amlodipine 2.5 mg tablet 2.5 mg PO DAILY Referrals / Follow Up: Kranthi Long MD [Primary Care Provider] - Zachary Escudero COLLISION TECHNICIAN, COLLISION TECHNICIAN-C [Med Staff - [facility] Practice Prof] - 02/21/22 1:30 pm Disposition Disposition (needs filled in before D/C Order can be placed): Home, Self Care
[2022-02-08] MEDS: Potassium Chloride Oral Tablet 20 MEQ 40 MEQ PO ×2 (10:54→12:58)
[2022-02-08 11:17] LABS: Magnesium 1.6 mg/dL (1.6-2.6)
[2022-02-08 11:28] LABS: Phosphorus 2.2 mg/dL (2.5-4.9)
--- NOTE | 2022-02-08 11:52 | CASEMGMT ---
This RN CM to room to discuss d/c planning and therapy notes with pt, voices understanding. Pt declines need for any further therapy at discharge. Pt states no concerns with going home at discharge. Pt states her [id number] will be home from a trip in the next couple days and she plans on taking pt to OP therapy. This RN NIA offered order for OP therapy and pt declines, states 'she will take care of it.' Pt aware to call PCP if she feels she needs HHC once home, voices understanding. Pt voices no further questions/concerns/needs. [place] SIMON KRAMER
--- NOTE | 2022-02-08 12:18 | PCM.DC.SUM ---
Providers Date of Admission: 02/06/22 Date of Discharge: 02/08/22 Primary Care Physician: Dr. Kranthi Long MD Consultations 02/06/22 16:08 Consult: Cardiology Routine Consulting Provider: Noam Jc Reason for Consult: Atrial fibrillation with RVR EMERGENT Consult: No MD Notified: Yes Date Notified: 02/06/22 Time Notified: 15:19 Method of Notification: ED Physician Initiated Reason For Visit: ATRIAL FIBRILLATION WITH RVR Diagnosis Discharge Diagnosis (1) Atrial fibrillation with RVR: Status: Chronic Code(s): I48.91 - Unspecified atrial fibrillation (2) Benign essential hypertension: Status: Chronic Code(s): I10 - Essential (primary) hypertension (3) Shortness of breath: Status: Acute Code(s): R06.02 - Shortness of breath (4) Dizziness: Status: Acute Code(s): R42 - Dizziness and giddiness (5) Acute kidney injury: Status: Acute Code(s): N17.9 - Acute kidney failure, unspecified Medications at Discharge Home Medications amiloride 5 mg-hydrochlorothiazide 50 mg tablet 1 tablet PO DAILY blood pressure 06/17/20 apixaban 5 mg tablet 5 mg PO BID blood thinner 02/06/22 levothyroxine 50 mcg tablet 50 mcg PO DAILY thyroid 02/06/22 amiodarone 200 mg tablet 100 mg PO DAILY #30 tabs 02/08/22 metoprolol tartrate 25 mg tablet 12.5 mg PO BID #60 tabs 02/08/22 potassium, sodium phosphates 280 mg-160 mg-250 mg oral powder packet 1 packet PO TID 2 days #6 ea 02/08/22 sennosides 8.6 mg-docusate sodium 50 mg tablet (Stool Softener-Stimulant Laxative) 2 tab PO BID PRN PRN Constipation #0 tabs 02/08/22 Hospital Course Summary of Care Provided Hospital Course: The patient is a 86 y/o F admitted with shortness of breath and lightheadedness for about 1 week and was sent to ED from cardiology office. She was found to have A. fib with RVR. She was started on amiodarone and Lasix 40 mg a week prior to admission. At that time, chest x-ray showed small right pleural effusion. EKG in ED showed A. fib with RVR with occasional PVC and nonspecific ST-T changes. #1. Paroxsymal atrial fibrillation with RVR: EKG in ED showed A. fib with RVR . Patient administered lopressor 5 mg IV x 3 and eventually amiodarone 150 mg bolus x 1 in ED. patient was then admitted in PCU on IV amiodarone drip as per protocol. Serial troponin enzymes are negative. Coat Maker is consulted. Fasting profile reported LDL 38 within normal limit. Cardiology consult reviewed. Plan for possible cardioversion. 02/08: Patient was cardioverted with 200 J under conscious sedation on 02/07. On cardiac nurse practitioner patient is sinus rhythm. Patient is being discharged on amiodarone 100 mg daily, low-dose metoprolol 12.5 mg twice daily and Eliquis continued. Follow-up in cardiology office. 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 Patient does not have leg swelling, shortness of breath or pulmonary edema therefore furosemide along with amlodipine discontinued after cardiology office. Patient has follow-up with cardiology office as mentioned in discharge instruction. Severe hypokalemia: Potassium 2.8, magnesium 1.9. IV KCl replacement ordered. Patient had IV infiltration on left forearm. It is tender and red. Advised warm compression. 02/08: Mild hypokalemia and hypophosphatemia. Potassium and phosphate getting replaced. Prescription is given for Neutra-Phos. Magnesium 1.6 on low normal range therefore magnesium sulfate 2 g IV 1 dose ordered. #2. Acute kidney injury on CKD stage IIIa: Patient baseline creatinine clearance around 45-50 mill per minute. BRENT most likely prerenal or possible cardiorenal disease. Admission BUN/Cr 38/1.97, prior baseline creatinine noted to be 1.0-1.3. Creatinine is improving. 02/08: BRENT resolved. Creatinine 1.05, BUN 23. Home medication of furosemide along with potassium supplement discontinued. Discussed with retail wireless sales consultant. #3. Hypertension: BP is on lower side high 90s to 102/63. Avoid antihypertensive medication #4. Hypothyroidism: Continue home synthroid regimen, TSH 1.01 normal. #5. History of VTE: Patient has a history of thromboembolic disease with PE. Continue home Eliquis therapy. #6. CODE status: Patient VERA is her and living will is currently in place and present for these discussions. Discussed CODE status at length including difference between FULL code, DNR-CCA and DNR-CC status. Following discussions about the differences in these status, requested DNR CCA, no intubation status. Discharge medication reconciliation done. Discharge follow-up instructions completed. Discharge process discussed with the patient and all questions were answered to patient's satisfaction. Total time spent, exact 35 minutes on discharge meds reconciliation, examination, coordination of care with nurses and ancillary staff, review of imaging and blood test and discussion with the patient on follow-up instructions. Clinical Impression(s) from Imaging Studies Chest X-Ray 02/06/22 10:31 IMPRESSION: Hyperinflation. Mild degree of residual pleural parenchymal changes at the right lung base although there has been improvement as compared to prior study. Electronically Signed: Jamie Hunter MD at 11:10 EST , Echocardiogram 02/06/22 16:08 Interpretation Summary The study was technically difficult. Mild global left ventricular systolic dysfunction. The estimated ejection fraction is 45 %. The left atrium is severely enlarged. The right atrium is moderately enlarged. Moderately severe (3+) mitral valve insufficiency. Moderate (2+) tricuspid valve insufficiency. Trivial aortic valve insufficiency. Trivial pulmonic valve insufficiency. Right ventricular systolic pressure estimated to be 33 mmHg. Unable to assess diastolic dysfunction. Laboratory Results 02/08/22 06:12: WBC 6.0, RBC 4.30, Hgb 13.1, Hct 41.3, MCV 96.0, MCH 30.5, MCHC 31.7 L, RDW Std Deviation 50.1 H, RDW Coeff of Kin 14.3, Plt Count 158, MPV 11.7, Immature Gran % (Auto) 0.300, Neut % (Auto) 59.2, Lymph % (Auto) 31.8, [place] % (Auto) 6.8, Eos % (Auto) 1.2, Baso % (Auto) 0.7, Absolute Neuts (auto) 3.6, Absolute Lymphs (auto) 1.92, Nucleated RBC % 0 02/08/22 06:12: Sodium 138, Potassium 3.2 L, Chloride 100, Carbon Dioxide 31.0, Anion Gap 7, BUN 23 H, Creatinine 1.05 H, Estim Creat Clear Calc 36.00, Est GFR (MDRD) Af Amer 64, Est GFR (MDRD) Non-Af 53 L, BUN/Creatinine Ratio 21.9 H, Glucose 96, Calcium 9.2 02/08/22 06:12: Magnesium 1.6 02/08/22 06:12: Phosphorus 2.2 L Weight / BMI Weight Weight: 145 lb 15.136 oz Body Mass Index (BMI) 22.6 ABG / Lab / Microbiology Data Result Diagrams: 02/08/22 06:12 02/08/22 06:12 Laboratory: Laboratory Results - last 24 hr 02/08/22 06:12: WBC 6.0, RBC 4.30, Hgb 13.1, Hct 41.3, MCV 96.0, MCH 30.5, MCHC 31.7 L, RDW Std Deviation 50.1 H, RDW Coeff of Kin 14.3, Plt Count 158, MPV 11.7, Immature Gran % (Auto) 0.300, Neut % (Auto) 59.2, Lymph % (Auto) 31.8, Berg[place] % (Auto) 6.8, Eos % (Auto) 1.2, Baso % (Auto) 0.7, Absolute Neuts (auto) 3.6, Absolute Lymphs (auto) 1.92, Nucleated RBC % 0 02/08/22 06:12: Sodium 138, Potassium 3.2 L, Chloride 100, Carbon Dioxide 31.0, Anion Gap 7, BUN 23 H, Creatinine 1.05 H, Estim Creat Clear Calc 36.00, Est GFR (MDRD) Af Amer 64, Est GFR (MDRD) Non-Af 53 L, BUN/Creatinine Ratio 21.9 H, Glucose 96, Calcium 9.2 02/08/22 06:12: Magnesium 1.6 02/08/22 06:12: Phosphorus 2.2 L Radiography Diagnostic Testing: Radiology Impression Echocardiogram 02/06/22 16:08 Interpretation Summary The study was technically difficult. Mild global left ventricular systolic dysfunction. The estimated ejection fraction is 45 %. The left atrium is severely enlarged. The right atrium is moderately enlarged. Moderately severe (3+) mitral valve insufficiency. Moderate (2+) tricuspid valve insufficiency. Trivial aortic valve insufficiency. Trivial pulmonic valve insufficiency. Right ventricular systolic pressure estimated to be 33 mmHg. Unable to assess diastolic dysfunction. Ordering Physician: Cherrie العلي Referring Physician: Kranthi Long Performed By: Kriss Hong, ELMER, RVT D/C Instructions Discharge Diet: 2000 mg Sodium Diet Call your doctor if you observe: Fever of 101 or Higher, Coldness, Increased Pain, Numbness or Tingling, Change in Color, Inability to urinate, Inability to have a bowel movement, Shortness of breath, Dizziness, Fainting spells, Swelling in the ankles, Chest pain, Prolonged hiccupping, Increased palpitations (irregular heartbeat), Calf discomfort and Uncontrolled pain Meaningful Use Info Meaningful Use Diagnoses (Choose all that apply): None applicable Discharge Plan Admission Admit Date/Time: 02/06/22 15:18 Primary Reason for Your Visit: Chronic A. fib with RVR Attending Provider: Ashish Mullen Primary Care Provider: Kranthi Long Consulting Providers: Noam Jc ; Cherrie العلي Discharge Orders/Prescriptions Prescriptions: New amiodarone 200 mg Tablet 100 mg PO DAILY Qty: 30 2RF sennosides-docusate sodium [Stool Softener-Stimulant Laxat] 8.6-50 mg Tablet 2 tab PO BID PRN PRN (Reason: Constipation) Qty: 0 0RF metoprolol tartrate 25 mg Tablet 12.5 mg PO BID Qty: 60 0RF potassium, sodium phosphates 280-160-250 mg Powder In Packet 1 packet PO TID 2 Days Qty: 6 0RF Continued levothyroxine 50 mcg tablet 50 mcg PO DAILY apixaban 5 MG tablet 5 mg PO BID amiloride-hydrochlorothiazide 5-50 mg tablet 1 tablet PO DAILY Discontinued metoprolol tartrate 50 mg tablet 50 mg PO BID furosemide 40 mg tablet 40 mg PO DAILY Hold Instructions: Hold it until seen by PCP or cardiology. amlodipine 2.5 mg tablet 2.5 mg PO DAILY potassium chloride 20 mEq tablet extended release 20 meq PO DAILY Referrals / Follow Up: Kranthi Long MD [Primary Care Provider] - Zachary Escudero CENTER MACHINE SET UP OPERATOR, CENTER MACHINE SET UP OPERATOR-C [Med Staff - [facility]] - 02/21/22 1:30 pm Disposition Disposition (needs filled in before D/C Order can be placed): Home, Self Care Charges/Coding Visit Charges Inpatient E&M: 19316 Disch Hosp
[2022-02-08] MEDS: 0.9% Saline Lock 10 ML Syringe IV (12:59)
[2022-02-08] MEDS: Na Biphos/Potassium Phosphate PACKET 1 PACKET PO (13:53)
== END 2022-02-08 15:56 | disposition home or self-care (01) | DRG 309 ==
LOC: ED 15:19 → PCU 15:31
PROVIDERS: Hospitalist; Admitting Provider Family Medicine; Emergency Provider Emergency Medicine; PCP Family Medicine; Visit Provider Internal Medicine
DX: I48.0 Paroxysmal atrial fibrillation (principal); N17.9 Acute kidney failure, unspecified; I50.42 Chronic combined systolic (congestive) and diastolic (congestive) heart failure; E83.39 Other disorders of phosphorus metabolism; N18.31 Chronic kidney disease, stage 3a; E03.9 Hypothyroidism, unspecified; I12.9 Hypertensive chronic kidney disease with stage 1 through stage 4 chronic kidney disease, or unspecified chronic kidney disease; E87.6 Hypokalemia; I49.3 Ventricular premature depolarization; Z23 Encounter for immunization; Z66 Do not resuscitate; Z79.01 Long term (current) use of anticoagulants; Z79.890 Hormone replacement therapy; Z79.899 Other long term (current) drug therapy; Z87.891 Personal history of nicotine dependence
CPT/HCPCS: 36415; 71045; 80048; 80053; 80061; 83735; 83880; 84100; 84443; 84484; 85025; 93005; 93306; 94762; 97162; 97166; 99251; 99285; G0008; J7030; J7040; J7120; 90686; A4216; G0463

== ENCOUNTER 2022-02-11 17:57 | Inpatient (IN) | payer MEDICARE, OTHER, SELFPAY ==
[2022-02-11] VITALS (15 sets, daily range): BP systolic 86–109; BP diastolic 50–78; PULSE 126–175; RESP 14–18; TEMP 36.4–36.7; O2SAT 96–100; BMI 24.7; BMI 21.3
--- NOTE | 2022-02-11 18:13 | EKG12_ITS ---
Test Reason : afib,rvr Blood Pressure : / mmHG Vent. Rate : 179 BPM Atrial Rate : 000 BPM P-R Int : 000 ms QRS Dur : 070 ms QT Int : 252 ms P-R-T Axes : 000 -30 192 degrees QTc Int : 435 ms Atrial fibrillation with rapid ventricular response with premature ventricular or aberrantly conducte d complexes Left axis deviation Low voltage QRS Inferior infarct , age undetermined ST & T wave abnormality, consider anterolateral ischemia Abnormal ECG Confirmed by WARD MORRIS, DARRON ([id number]), photo editor LORI NAVARRO ([id number]) on 02/12/2022 10:08:57 AM Referred By: Belen Confirmed By:DARRON HOPPER MD
[2022-02-11 18:24] LABS: Absolute Lymphocyte Count 1.22 X10^3/uL (0.83-4.51); Absolute Neutrophil Count 6.1 X10^3/uL (2.0-7.7); Basophil# 0.03 X10^3/uL; Basophil% 0.4 % (0-1); Eosinophil# 0.01 X10^3/uL; Eosinophils% 0.1 % (0-5); Hematocrit 44.6 % (37-47); Hemoglobin 14.1 g/dL (12.0-15.0); Lymphocyte # 1.22 X10^3/ul (0.83-4.51); Lymphocyte % 15.3 % (19-41); Mean Corp Hgb Conc 31.6 g/dL (32-36); Mean Corpuscular Hgb 30.2 pg (27.0-32.0); Mean Corpuscular Volume 95.5 fL (81-99); Mean Platelet Vol. 11.7 fl (6.2-12.0); Monocyte# 0.56 X10^3/uL; NRBC Flagged by Analyzer 0 % (0-5); Neutrophil # 6.11 X10^3/uL (2.7-7.7); Neutrophil % 76.8 % (47-70); Platelet Count 191 K/mm3 (150-450); RBC Distribution Width CV 14.3 % (11.6-14.6); RBC Distribution Width SD 49.9 fl (35.1-43.9); Red Blood Count 4.67 M/mm3 (4.2-5.4)
[2022-02-11] MEDS: dilTIAZem 25 MG/5 ML Vial 20 MG IV BOLUS (18:31)
[2022-02-11 18:38] LABS: International Normalized Ratio 2.7; Prothrombin Time (Protime)PT. 28.2 SECONDS (11.7-14.9)
[2022-02-11 18:57] LABS: Anion Gap 10 (5-15); BNP,B-Type NATRIURETIC PEPTIDE 1864.7 pg/mL (0-100); BUN 33 mg/dL (7-18); BUN/Creat Ratio 22.1 RATIO (10-20); Calcium,Total 9.7 mg/dL (8.5-10.1); Chloride 98 mmol/L (98-107); Creatinine, Serum 1.49 mg/dL (0.55-1.02); EST Glomerular Filtration Rate 35 mL/min (>60); Est Glom Filt Rate - Afr Amer 43 mL/min (>60); Estimated Creatinine Clearance 25.37 ml/min; Glucose 133 mg/dL (74-106); Potassium 4.1 mmol/L (3.5-5.1); Sodium Level 135 mmol/L (136-145); Troponin-I HS (w/2H Reflex) 28 pg/mL (3.0-54.0)
--- NOTE | 2022-02-11 19:10 | RAD_ITS ---
INDICATION: chest pain EXAMINATION/TECHNIQUE: X-RAY - portable AP upright chest x-ray COMPARISON: 02/06/2022 FINDINGS: LINES/DEVICES: None. LUNGS: Patchy airspace opacity right lower lung field with persistent blunting right costophrenic angle. MEDIASTINUM AND CARDIOVASCULAR STRUCTURES: Cardiac silhouette not enlarged. Central airways and mediastinal contour are unremarkable. BONES AND SOFT TISSUES: No acute changes. Posttraumatic deformity right humeral head. RAD/Chest 1 View (Portable) IMPRESSION: Infiltrate right lower lung field with small pleural effusion. Findings suspicious for pneumonia. Recommend follow-up to complete resolution. Electronically Signed: Kennedy Lewis MD at 19:51 EST ,
--- NOTE | 2022-02-11 19:37 | EDS_ITS ---
HPI <WEI Marlow - Last Filed: 02/11/22 20:57> History of Present Illness Chief Complaint: Palpitations Narrative Narrative: 86-year-old female with history of atrial fibrillation on Eliquis, history of liver mass, hypertension presents to the emergency department with complaining of fatigue, palpitations. Patient was recently discharged on February 08, 2022 which was 3 days ago, patient was placed on amiodarone, there was discussion of a possible pacemaker, ablation if she continues to go into atrial fibrillation. Patient states that she felt tired, dizzy whenever she goes into atrial fibrillation. She denies any chest pain or shortness of breath. Patient has not missed any doses of her medicine. PFS <WEI Marlow - Last Filed: 02/11/22 20:57> [facility] Medical History Bilateral pulmonary embolism Former tobacco use History of cardioversion (~02/07/22) History of venous thromboembolism HTN (hypertension) Hypothyroidism PAF (paroxysmal atrial fibrillation) Home Medications amiloride 5 mg-hydrochlorothiazide 50 mg tablet 1 tablet PO DAILY blood pressure 06/17/20 [History Last Taken 02/05/22] apixaban 5 mg tablet 5 mg PO BID blood thinner 02/06/22 [History Last Taken 02/05/22] levothyroxine 50 mcg tablet 50 mcg PO DAILY thyroid 02/06/22 [History Last Taken 02/06/22] amiodarone 200 mg tablet 100 mg PO DAILY #30 tabs 02/08/22 [Rx Last Taken Unknown] metoprolol tartrate 25 mg tablet 12.5 mg PO BID #60 tabs 02/08/22 [Rx Last Taken Unknown] potassium, sodium phosphates 280 mg-160 mg-250 mg oral powder packet 1 packet PO TID 2 days #6 ea 02/08/22 [Rx Last Taken Unknown] sennosides 8.6 mg-docusate sodium 50 mg tablet (Stool Softener-Stimulant Laxative) 2 tab PO BID PRN PRN Constipation #0 tabs 02/08/22 [Rx Last Taken Unknown] Allergy/AdvReac Type Severity Reaction Status Date / Time lisinopril Allergy Shortness Verified 02/11/22 18:15 of breath metoclopramide [From Reglan] Allergy Shortness Verified 02/11/22 18:15 of breath etodolac AdvReac Diarrhea Verified 02/11/22 18:15 Family History Mother Cancer Father Tuberculosis Brother History of pancreatitis Son Diabetes Aneurysm Legs and stomach Hyperlipidemia Surgical History History of hip replacement History of hysterectomy History of knee replacement Social History household members: significant other Smoking Status: Former smoker how long ago did patient quit smokin years ago, smoked <1/2 ppd x 3 years. alcohol intake: never substance use type: does not use caffeine: Yes Type: coffee Number of servings: 2 ROS <WEI Marlow - Last Filed: 02/11/22 20:57> ROS ED ROS Narrative Constitutional: Negative for fever, chills, weight loss. Positive generalized weakness Eyes: Negative for vision loss, vision change, double vision ENT: Negative for any sore throat, ear pain, congestion Cardiovascular: Negative for any chest pain, tightness. Positive for palpitations Respiratory: Negative for any cough, sputum production, hemoptysis, dyspnea, dyspnea on exertion, orthopnea Gastrointestinal: Negative for any abdominal pain, nausea, vomiting, diarrhea, constipation, blood in stool, blood in vomit : Negative for any urinary frequency, dysuria, retention, blood in urine Muscle skeletal: Negative for any muscle joint pain, stiffness, myalgias, arthralgias, neck pain, back pain Neurological: Negative for any headache, syncope, numbness or tingling, dizziness Skin: Negative for any rashes, lumps, itching, abrasions, lacerations Psychiatric: Negative for any depression, anxiety, stress, suicidal ideation, homicidal ideation Hematologic: Negative for any easy bruising, excessive bruising, easy bleeding Allergies: Negative for any eczema, hives, rash EXAM <WEI Marlow - Last Filed: 02/11/22 20:57> Physical Exam Narrative Exam Narrative: Vital signs reviewed. Patient alert and orient x4. Patient heart rate is 165, patient atrial fibrillation with rapid ventricular response. HEET: Head normocephalic atraumatic, TMs clear bilaterally. Posterior pharynx is clear, moist mucous membranes. Nares clear bilaterally. Neck: Supple with no lymphadenopathy or tenderness. No signs of meningismus, negative jolt sign. Cardiac: Tachycardic rate, atrial fibrillation no murmurs gallops or rubs, equal peripheral pulses bilaterally. Respiratory: Lungs clear to auscultation bilaterally. No chest tenderness. Abdomen: Soft, nontender, nondistended. No abdominal bruit or pulsatile masses. No hepatosplenomegaly Extremities: No peripheral edema, no signs of gross trauma or deformity. Active full range of motion of all extremities. Neuro: Cranial nerves II through XII intact, no focal neurological deficits. Skin: Clean dry and intact with no rash, purpura, petechiae, vesicles or pustules. Backs/flank: No CVA tenderness, no midline spinal tenderness, no deformity. Psych: Normal mood and affect. No SI, HI or acute psychosis. Const Vital Signs: 02/11/22 18:09 02/11/22 18:12 02/11/22 18:15 Temperature 97.8 F Temperature Source Temporal Pulse Rate 175 H Respiratory Rate 18 Respiratory Effort Normal Respiratory Pattern Normal Blood Pressure Blood Pressure Mean Blood Pressure Source Pulse Ox 98 96 Oxygen Delivery Method Room Air Room Air 02/11/22 18:30 02/11/22 18:49 02/11/22 19:17 Temperature 97.6 F L Temperature Source Temporal Pulse Rate 162 H 138 H 134 H Respiratory Rate 16 18 14 Respiratory Effort Respiratory Pattern Blood Pressure 99/69 95/65 86/67 L Blood Pressure Mean 79 75 73 Blood Pressure Source Monitor Pulse Ox 96 98 Oxygen Delivery Method Room Air 02/11/22 19:15 02/11/22 20:00 02/11/22 20:00 Temperature 97.8 F Temperature Source Temporal Pulse Rate 134 H 136 H 136 H Respiratory Rate 16 16 16 Respiratory Effort Respiratory Pattern Blood Pressure 86/67 L 104/73 104/73 Blood Pressure Mean 73 83 83 Blood Pressure Source Monitor Monitor Pulse Ox 98 96 96 Oxygen Delivery Method Room Air 02/11/22 20:30 02/11/22 20:47 Temperature 98.0 F Temperature Source Temporal Pulse Rate 132 H 132 H Respiratory Rate 16 16 Respiratory Effort Respiratory Pattern Blood Pressure 103/50 L 103/50 L Blood Pressure Mean 67 67 Blood Pressure Source Monitor Pulse Ox 97 97 Oxygen Delivery Method Room Air <Dr. Peter Meehan DO - Last Filed: 02/11/22 22:10> Physical Exam Const Vital Signs: 02/11/22 18:09 02/11/22 18:12 02/11/22 18:15 Temperature 97.8 F Temperature Source Temporal Pulse Rate 175 H Respiratory Rate 18 Respiratory Effort Normal Respiratory Pattern Normal Blood Pressure Blood Pressure Mean Blood Pressure Source Pulse Ox 98 96 Oxygen Delivery Method Room Air Room Air 02/11/22 18:30 02/11/22 18:49 02/11/22 19:17 Temperature 97.6 F L Temperature Source Temporal Pulse Rate 162 H 138 H 134 H Respiratory Rate 16 18 14 Respiratory Effort Respiratory Pattern Blood Pressure 99/69 95/65 86/67 L Blood Pressure Mean 79 75 73 Blood Pressure Source Monitor Pulse Ox 96 98 Oxygen Delivery Method Room Air 02/11/22 19:15 02/11/22 20:00 02/11/22 20:00 Temperature 97.8 F Temperature Source Temporal Pulse Rate 134 H 136 H 136 H Respiratory Rate 16 16 16 Respiratory Effort Respiratory Pattern Blood Pressure 86/67 L 104/73 104/73 Blood Pressure Mean 73 83 83 Blood Pressure Source Monitor Monitor Pulse Ox 98 96 96 Oxygen Delivery Method Room Air 02/11/22 20:30 02/11/22 20:47 Temperature 98.0 F Temperature Source Temporal Pulse Rate 132 H 132 H Respiratory Rate 16 16 Respiratory Effort Respiratory Pattern Blood Pressure 103/50 L 103/50 L Blood Pressure Mean 67 67 Blood Pressure Source Monitor Pulse Ox 97 97 Oxygen Delivery Method Room Air [facility] <WEI Marlow - Last Filed: 02/11/22 20:57> [facility] Lab Data Labs: Laboratory Results - last 24 hr 02/11/22 02/11/22 02/11/22 18:10 18:10 18:10 WBC 8.0 RBC 4.67 Hgb 14.1 Hct 44.6 MCV 95.5 MCH 30.2 MCHC 31.6 L RDW Std Deviation 49.9 H RDW Coeff of Kin 14.3 Plt Count 191 MPV 11.7 Immature Gran % (Auto) 0.400 Neut % (Auto) 76.8 H Lymph % (Auto) 15.3 L Becker % (Auto) 7.0 Eos % (Auto) 0.1 Baso % (Auto) 0.4 Absolute Neuts (auto) 6.1 Absolute Lymphs (auto) 1.22 Nucleated RBC % 0 PT 28.2 H INR 2.7 Sodium 135 L Potassium 4.1 Chloride 98 Carbon Dioxide 27.0 Anion Gap 10 BUN 33 H Creatinine 1.49 H Estim Creat Clear Calc 25.37 Est GFR (MDRD) Af Amer 43 L Est GFR (MDRD) Non-Af 35 L BUN/Creatinine Ratio 22.1 H Glucose 133 H Calcium 9.7 Troponin I High Sens 28 B-Natriuretic Peptide 02/11/22 02/11/22 18:10 20:40 WBC RBC Hgb Hct MCV MCH MCHC RDW Std Deviation RDW Coeff of Kin Plt Count MPV Immature Gran % (Auto) Neut % (Auto) Lymph % (Auto) Becker % (Auto) Eos % (Auto) Baso % (Auto) Absolute Neuts (auto) Absolute Lymphs (auto) Nucleated RBC % PT INR Sodium Potassium Chloride Carbon Dioxide Anion Gap BUN Creatinine Estim Creat Clear Calc Est GFR (MDRD) Af Amer Est GFR (MDRD) Non-Af BUN/Creatinine Ratio Glucose Calcium Troponin I High Sens 29 B-Natriuretic Peptide 1864.7 H Radiography Diagnostic Testing: Clinical Impression(s) from Imaging Studies Chest X-Ray 02/11/22 19:10 IMPRESSION: Infiltrate right lower lung field with small pleural effusion. Findings suspicious for pneumonia. Recommend follow-up to complete resolution. Electronically Signed: Kennedy Lewis MD at 19:51 EST Reading Location ID and State: [address] [place] [address] Tel , Service support , EKG Atrial fibrillation with rapid ventricular response: Attestation: I personally reviewed and interpreted this EKG as follows: Interpretation: Atrial Fibrillation Comments: A. fib with rapid ventricular response, rate of 179 bpm QRS duration 70 ms, no acute ST elevation, no acute infarct noted. Treatment and Re-Evaluation Narrative: Patient presents to the emergency department with a feeling of weakness, patient was in atrial fibrillation with RVR. Patient received a full cardiac work-up. I did speak with cardiology, they recommended Cardizem. Patient's laboratory values show a normal CBC, patient's chemistries show slight renal dysfunction with a creatinine of 1.4, proBNP was 1864, this is elevated from late January. Patient was given 20 mg of IV Cardizem bolus, started on IV drip. Patient was given 500 cc of normal saline. Patient's blood pressure did improve, patient's heart rate did decrease to the 120s, patient's chest x-ray showed small pleural effusion to the left lower lung field, this was interpreted by the ER physician the x-ray did show possible infiltrate however patient has no infectious symptoms or cough. Patient was admitted to the hospital. Patient admitted for atrial fibrillation with RVR, pleural effusion <Dr. Peter Meehan, DO - Last Filed: 02/11/22 22:10> [facility] MDM Narrative Medical decision making narrative: I have personally performed a face to face assessment of the patient and have reviewed the FABRIZIO Note. I performed a substantive portion of the visit including all aspects of the following. My stoddard findings include: History: Patient presents with palpitations and tachycardia that began again today. Patient states she was seen here recently for this and was admitted and discharged. Patient has a history of paroxysmal atrial fibrillation. Patient states she feels like her heart is racing. Patient admits to some lightheadedness with this. Patient was recently cardioverted on 02/07/2022. Patient denies any shortness of breath. Patient denies any nausea or vomiting. Exam: Vital signs are stable except for tachycardia of 175. Patient is afebri le. Patient is in no acute distress. Oral mucosa is pink and moist. Neck is supple. Trachea is midline. There is no JVD. Heart was irregularly irregular and tachycardic. Lungs are clear and equal bilaterally. Abdomen is soft. Bowel sounds are normal. There is no tenderness. Cranial nerves II through XII are intact. There are no focal motor or sensory deficits. Medical Decision Making: EKG was obtained. On my interpretation, shows atrial fibrillation with a rate of 179. QRS interval and QTc intervals are within normal limits. There is left axis deviation at -30. There are nonspecific ST-T wave changes that are most likely related to rate. CBC was within normal limits. PT was 28.2 and INR was 2.7. Basic metabolic profile showed a BUN of 33 and creatinine 1.49. These are consistent with prior results. High- sensitivity troponin was normal at 28. BNP was elevated at 1864.7 patient was given a Cardizem bolus and was started on a Cardizem drip. Patient's heart rate improved into the 130s with this. Case was discussed with the hospitalist. He will admit the patient to his service. Patient understood and was agreeable with the plan. All questions were answered. Lab Data Attestation: I reviewed the patient's lab results. Labs: Laboratory Results - last 24 hr 02/11/22 02/11/22 02/11/22 18:10 18:10 18:10 WBC 8.0 RBC 4.67 Hgb 14.1 Hct 44.6 MCV 95.5 MCH 30.2 MCHC 31.6 L RDW Std Deviation 49.9 H RDW Coeff of Kin 14.3 Plt Count 191 MPV 11.7 Immature Gran % (Auto) 0.400 Neut % (Auto) 76.8 H Lymph % (Auto) 15.3 L Becker % (Auto) 7.0 Eos % (Auto) 0.1 Baso % (Auto) 0.4 Absolute Neuts (auto) 6.1 Absolute Lymphs (auto) 1.22 Nucleated RBC % 0 PT 28.2 H INR 2.7 Sodium 135 L Potassium 4.1 Chloride 98 Carbon Dioxide 27.0 Anion Gap 10 BUN 33 H Creatinine 1.49 H Estim Creat Clear Calc 25.37 Est GFR (MDRD) Af Amer 43 L Est GFR (MDRD) Non-Af 35 L BUN/Creatinine Ratio 22.1 H Glucose 133 H Calcium 9.7 Troponin I High Sens 28 B-Natriuretic Peptide 02/11/22 02/11/22 18:10 20:40 WBC RBC Hgb Hct MCV MCH MCHC RDW Std Deviation RDW Coeff of Kin Plt Count MPV Immature Gran % (Auto) Neut % (Auto) Lymph % (Auto) Becker % (Auto) Eos % (Auto) Baso % (Auto) Absolute Neuts (auto) Absolute Lymphs (auto) Nucleated RBC % PT INR Sodium Potassium Chloride Carbon Dioxide Anion Gap BUN Creatinine Estim Creat Clear Calc Est GFR (MDRD) Af Amer Est GFR (MDRD) Non-Af BUN/Creatinine Ratio Glucose Calcium Troponin I High Sens 29 B-Natriuretic Peptide 1864.7 H Radiography Diagnostic Testing: Clinical Impression(s) from Imaging Studies Chest X-Ray 02/11/22 19:10 IMPRESSION: Infiltrate right lower lung field with small pleural effusion. Findings suspicious for pneumonia. Recommend follow-up to complete resolution. Electronically Signed: Kennedy Lewis MD at 19:51 EST , <Dr. 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 Discharge Date/Time: 02/11/22 21:49
[2022-02-11 20:23] LABS: Reflex Troponin-HS? (from REC) Y
--- NOTE | 2022-02-11 21:05 | HP.PCM.HOS_ITS ---
HPI - General General Date of Admission: 02/11/22 Date of Service: 02/11/22 Chief Complaint: presyncope HPI Narrative CLOVIS ALVAREZ, is a 86 F with a significant history of hypothyroidism; congestive heart failure; and A. fib who presents to the emergency department with multiple episodes of presyncope. Associated with her symptoms is fatigue. She denied having any palpitation on the day of presentation. She denied any other symptom. Of note patient was cardioverted on February 07, 2022 with a plan of possible pacemaker or ablation if she continued to be in A. fib. Patient was given Cardizem bolus and drip at the emergency department. She was noted to be hypotensive and was given normal fluid bolus. Her BNP was elevated [facility] Medical History Bilateral pulmonary embolism Former tobacco use History of cardioversion (~02/07/22) History of venous thromboembolism HTN (hypertension) Hypothyroidism PAF (paroxysmal atrial fibrillation) Home Medications amiloride 5 mg-hydrochlorothiazide 50 mg tablet 1 tablet PO DAILY blood pressure 06/17/20 [History Last Taken 02/05/22] apixaban 5 mg tablet 5 mg PO BID blood thinner 02/06/22 [History Last Taken 02/05/22] levothyroxine 50 mcg tablet 50 mcg PO DAILY thyroid 02/06/22 [History Last Taken 02/06/22] amiodarone 200 mg tablet 100 mg PO DAILY #30 tabs 02/08/22 [Rx Last Taken Unknown] metoprolol tartrate 25 mg tablet 12.5 mg PO BID #60 tabs 02/08/22 [Rx Last Taken Unknown] potassium, sodium phosphates 280 mg-160 mg-250 mg oral powder packet 1 packet PO TID 2 days #6 ea 02/08/22 [Rx Last Taken Unknown] sennosides 8.6 mg-docusate sodium 50 mg tablet (Stool Softener-Stimulant Laxative) 2 tab PO BID PRN PRN Constipation #0 tabs 02/08/22 [Rx Last Taken Unknown] Allergy/AdvReac Type Severity Reaction Status Date / Time lisinopril Allergy Shortness Verified 02/11/22 18:15 of breath metoclopramide [From Reglan] Allergy Shortness Verified 02/11/22 18:15 of breath etodolac AdvReac Diarrhea Verified 02/11/22 18:15 Family History Mother Cancer Father Tuberculosis Brother History of pancreatitis Son Diabetes Aneurysm Legs and stomach Hyperlipidemia Surgical History History of hip replacement History of hysterectomy History of knee replacement Social History household members: significant other Smoking Status: Former smoker how long ago did patient quit smokin years ago, smoked <1/2 ppd x 3 years. alcohol intake: never substance use type: does not use caffeine: Yes Type: coffee Number of servings: 2 ROS ROS Narrative Pertinent positives and pertinent negatives as noted in HPI. All other systems were reviewed and are negative Vital Signs Vital Signs Vital Signs: 02/11/22 18:09 02/11/22 18:12 02/11/22 18:15 Temperature 97.8 F Temperature Source Temporal Pulse Rate 175 H Respiratory Rate 18 Respiratory Effort Normal Respiratory Pattern Normal Blood Pressure Blood Pressure Mean Blood Pressure Source Pulse Ox 98 96 Oxygen Delivery Method Room Air Room Air 02/11/22 18:30 02/11/22 18:49 02/11/22 19:17 Temperature 97.6 F L Temperature Source Temporal Pulse Rate 162 H 138 H 134 H Respiratory Rate 16 18 14 Respiratory Effort Respiratory Pattern Blood Pressure 99/69 95/65 86/67 L Blood Pressure Mean 79 75 73 Blood Pressure Source Monitor Pulse Ox 96 98 Oxygen Delivery Method Room Air 02/11/22 19:15 02/11/22 20:00 02/11/22 20:00 Temperature 97.8 F Temperature Source Temporal Pulse Rate 134 H 136 H 136 H Respiratory Rate 16 16 16 Respiratory Effort Respiratory Pattern Blood Pressure 86/67 L 104/73 104/73 Blood Pressure Mean 73 83 83 Blood Pressure Source Monitor Monitor Pulse Ox 98 96 96 Oxygen Delivery Method Room Air 02/11/22 20:30 02/11/22 20:47 Temperature 98.0 F Temperature Source Temporal Pulse Rate 132 H 132 H Respiratory Rate 16 16 Respiratory Effort Respiratory Pattern Blood Pressure 103/50 L 103/50 L Blood Pressure Mean 67 67 Blood Pressure Source Monitor Pulse Ox 97 97 Oxygen Delivery Method Room Air Weight Weight: 69.7 kg Body Mass Index (BMI) 24.7 Physical Exam Narrative Physical exam: General: Well-nourished, well-developed. Head: Normocephalic, atraumatic, no tenderness Eyes: Vision is grossly intact. EOMI ENT, no trauma, moist mucous membranes, no rhinorrhea Neck: Nontender, No thyromegaly. CVS: Irregularly irregular rate and rhythm. No murmur, gallop or rub. Respiratory :Diminished, chest wall nontender, no wheezing Abdomen: Soft, nontender, nondistended, normal bowel sounds, no masses : Deferred Back: Nontender, no CVA tenderness. Extremities: Nontender full range of motion, no trauma Skin: Normal color, no trauma, abrasions Neuro: Alert, oriented, cranial nerves II through XII grossly intact; except that patient is hard of hearing Psychiatry: Normal mood. Normal affect. Not depressed. Not anxious. Results Lab / Micro Data Result Diagrams: 02/11/22 18:10 02/11/22 18:10 Labs: Laboratory Results - last 24 hr 02/11/22 18:10: WBC 8.0, RBC 4.67, Hgb 14.1, Hct 44.6, MCV 95.5, MCH 30.2, MCHC 31.6 L, RDW Std Deviation 49.9 H, RDW Coeff of Kin 14.3, Plt Count 191, MPV 11.7, Immature Gran % (Auto) 0.400, Neut % (Auto) 76.8 H, Lymph % (Auto) 15.3 L, [place] % (Auto) 7.0, Eos % (Auto) 0.1, Baso % (Auto) 0.4, Absolute Neuts (auto) 6.1, Absolute Lymphs (auto) 1.22, Nucleated RBC % 0 02/11/22 18:10: PT 28.2 H, INR 2.7 02/11/22 18:10: Sodium 135 L, Potassium 4.1, Chloride 98, Carbon Dioxide 27.0, Anion Gap 10, BUN 33 H, Creatinine 1.49 H, Estim Creat Clear Calc 25.37, Est GFR (MDRD) Af Amer 43 L, Est GFR (MDRD) Non-Af 35 L, BUN/Creatinine Ratio 22.1 H, Glucose 133 H, Calcium 9.7, Troponin I High Sens 28 02/11/22 18:10: B-Natriuretic Peptide 1864.7 H Radiology Impression Chest X-Ray 02/11/22 19:10 IMPRESSION: Infiltrate right lower lung field with small pleural effusion. Findings suspicious for pneumonia. Recommend follow-up to complete resolution. Electronically Signed: Kennedy Lewis MD at 19:51 EST Reading Location ID and State: [facility] / [place] Tel , Service support , Assessment & Plan Assessment/Plan (1) Atrial fibrillation with RVR: (2) Congestive heart failure: PLAN: Plan Afib with RVR EKG on presentation reviewed showed A. fib with RVR. Telemetric strip strip in room with A. fib with RVR. Place on PCU on telemetry Initial high sensitive troponin x2 was negative. Last echo on file was on 02/06/2022. Home Eliquis continued. Continue Cardizem drip started at the emergency department. Because patient was initially hypotensive and blood pressures are soft digoxin IV ordered. Magnesium level 4.1 Consult [facility] amiodarone continued. Home metoprolol continued with parameters. Since from previous admission there was talk about ablation versus pacemaker will consult cardiology. Acute Exacerbation of heart failure with reduced ejection fraction Weight on admission to the floor; and then daily Strict I&O's Impression of chest x-ray by radiologist:Infiltrate right lower lung field with small pleural effusion.? Findings suspicious for pneumonia.? Recommend follow-up to complete resolution. Check chest x-ray image was visualized and independently interpreted. Right lower base has some mild haziness and there is slight blunting of the costophrenic angle. Patient has no clinical symptoms of pneumonia. CBC showed white count 8. Emergency department labs reviewed showed BNP of 1,864.7 With hypotension patient received normal saline bolus 500 MS in the emergency department. We will avoid diuresis at this time Echocardiogram on 02/06/22: Ejection fraction of 45%. Diastolic function could not be assessed. Left atrium was severely enlarged. Right atrium was moderately enlarged. Moderately severe (3+) mitral valve insufficiency. Trivial pulmonic valve insufficiency. Monitor electrolytes and renal function Fluid restriction of 1500 mls daily 2 g cardiac diet CKD stage IIIa Stable DVT prophylaxis Not indicated as patient is on Eliquis and Eliquis has been continued. Charges/Coding Visit Charges Inpatient E&M: 25612 Init Hosp L3
[2022-02-11 21:30] LABS: Troponin-I HS 29 pg/mL (3.0-54.0)
[2022-02-11 22:10] LABS: Magnesium 1.8 mg/dL (1.6-2.6)
[2022-02-11] MEDS: Digoxin 250 MCG/ML Ampul 375 MCG IV (22:38)
[2022-02-11] MEDS: 0.9% Saline Lock 10 ML Syringe IV (22:43)
[2022-02-12] VITALS (22 sets, daily range): BP systolic 87–111; BP diastolic 54–93; PULSE 78–133; RESP 13–19; TEMP 36.4–36.7; O2SAT 92–98
[2022-02-12] MEDS: APIXABAN 5 MG TABLET PO ×3 (00:41→21:28)
[2022-02-12] MEDS: Metoprolol Tartrate 25 MG Tablet 12.5 MG PO (00:41)
[2022-02-12] MEDS: Digoxin 250 MCG/ML Ampul IV (04:03)
[2022-02-12] MEDS: 0.9% Saline Lock 10 ML Syringe IV ×2 (04:05→09:31)
[2022-02-12 05:11] LABS: Absolute Lymphocyte Count 1.61 X10^3/uL (0.83-4.51); Absolute Neutrophil Count 3.2 X10^3/uL (2.0-7.7); Basophil# 0.03 X10^3/uL; Basophil% 0.6 % (0-1); Eosinophil# 0.02 X10^3/uL; Eosinophils% 0.4 % (0-5); Hematocrit 39.8 % (37-47); Hemoglobin 12.7 g/dL (12.0-15.0); Lymphocyte # 1.61 X10^3/ul (0.83-4.51); Lymphocyte % 30.7 % (19-41); Mean Corp Hgb Conc 31.9 g/dL (32-36); Mean Corpuscular Hgb 30.9 pg (27.0-32.0); Mean Corpuscular Volume 96.8 fL (81-99); Mean Platelet Vol. 11.9 fl (6.2-12.0); Monocyte# 0.37 X10^3/uL; Monocyte% 7.1 % (0-10); NRBC Flagged by Analyzer 0 % (0-5); Neutrophil # 3.21 X10^3/uL (2.7-7.7); Neutrophil % 61.2 % (47-70); Platelet Count 150 K/mm3 (150-450); RBC Distribution Width CV 14.5 % (11.6-14.6); RBC Distribution Width SD 51.2 fl (35.1-43.9); Red Blood Count 4.11 M/mm3 (4.2-5.4); White Blood Count 5.2 K/mm3 (4.4-11.0)
[2022-02-12 05:39] LABS: Anion Gap 8 (5-15); BUN 28 mg/dL (7-18); BUN/Creat Ratio 25.5 RATIO (10-20); Chloride 100 mmol/L (98-107); EST Glomerular Filtration Rate 50 mL/min (>60); Est Glom Filt Rate - Afr Amer 60 mL/min (>60); Estimated Creatinine Clearance 38.02 ml/min; Glucose 82 mg/dL (74-106); Potassium 4.1 mmol/L (3.5-5.1); Sodium Level 137 mmol/L (136-145)
[2022-02-12] MEDS: Levothyroxine 50 MCG Tablet PO (06:35)
--- NOTE | 2022-02-12 07:50 | PCM.CONS.C ---
Assessment & Plan Assessment/Plan (1) Atrial fibrillation with RVR: PLAN: She presents with atrial fibrillation with a rapid ventricular response rate. Her ventricular response rate is controlled at this particular time. 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 It does not appear that she stayed in her sinus rhythm for any particular length of time as she was just cardioverted. My recommendation will be for her to continue on the current medical therapy and assess what her ventricular response rate is. It is not clear to me that she has had significant bradycardia arrhythmias. She may need to be relegated to rate control and anticoagulation. Will discuss with primary assembler mechanical ordnance about further therapeutic options. (2) Benign essential hypertension: PLAN: Her blood pressure appears to be under fair control at this time and I would not recommend any changes other than adjustment of her beta-yan dose. Thank you for allowing me to participate in the care of your patient. Please don't hesitate to call if any issues arise. (3) Cardiomyopathy: PLAN: She does have a mild cardiomyopathy which I suspect is tachycardia related. At this time I would not make any major changes. She does not have any definitive evidence of heart failure. Thank you for allowing me to participate in the care of your patient. Please don't hesitate to call if any issues arise. HPI Consult Data Date of Consult: 02/12/22 HPI Narrative HPI Narrative: CLOVIS ALVAREZ, is a 86 F who presents with mild lightheadedness. She is a patient with known atrial fibrillation with variable rate ventricular response rate who was admitted to the hospital within the last month. She was noted to be in atrial fibrillation with rapid ventricular response. She was evaluated and had an echocardiogram which demonstrated an ejection fraction of approximately 45% with biatrial enlargement and 2+ mitral and tricuspid regurgitation. Her rate was controlled she was anticoagulated and she went DC cardioversion during the last admission. This was performed by her primary assembler mechanical ordnance Dr. Noam Jc. She has been in her usual state of health and she is not definitive about what her symptoms are but she thinks that included some lightheadedness. There was no definite syncope. She was brought to the emergency room was noted to be in atrial fibrillation with a rapid ventricular response rate was started on intravenous diltiazem. According to her she did not feel any palpitations while she was in the atrial fibrillation. Cardiology was called for further evaluation and management. She is currently asymptomatic. [facility] Medical History Bilateral pulmonary embolism Former tobacco use History of cardioversion (~02/07/22) History of venous thromboembolism HTN (hypertension) Hypothyroidism PAF (paroxysmal atrial fibrillation) Home Medications amiloride 5 mg-hydrochlorothiazide 50 mg tablet 1 tablet PO DAILY blood pressure 06/17/20 [History Last Taken 02/05/22] apixaban 5 mg tablet 5 mg PO BID blood thinner 02/06/22 [History Last Taken 02/05/22] levothyroxine 50 mcg tablet 50 mcg PO DAILY thyroid 02/06/22 [History Last Taken 02/06/22] amiodarone 200 mg tablet 100 mg PO DAILY #30 tabs 02/08/22 [Rx Last Taken Unknown] metoprolol tartrate 25 mg tablet 12.5 mg PO BID #60 tabs 02/08/22 [Rx Last Taken Unknown] potassium, sodium phosphates 280 mg-160 mg-250 mg oral powder packet 1 packet PO TID 2 days #6 ea 02/08/22 [Rx Last Taken Unknown] sennosides 8.6 mg-docusate sodium 50 mg tablet (Stool Softener-Stimulant Laxative) 2 tab PO BID PRN PRN Constipation #0 tabs 02/08/22 [Rx Last Taken Unknown] Allergy/AdvReac Type Severity Reaction Status Date / Time lisinopril Allergy Shortness Verified 02/11/22 18:15 of breath metoclopramide [From Reglan] Allergy Shortness Verified 02/11/22 18:15 of breath etodolac AdvReac Diarrhea Verified 02/11/22 18:15 Family History Mother Cancer Father Tuberculosis Brother History of pancreatitis Son Diabetes Aneurysm Legs and stomach Hyperlipidemia Surgical History History of hip replacement History of hysterectomy History of knee replacement Social History household members: significant other Smoking Status: Former smoker how long ago did patient quit smokin years ago, smoked <1/2 ppd x 3 years. alcohol intake: never substance use type: does not use caffeine: Yes Type: coffee Number of servings: 2 ROS Constitutional Constitutional: Denies fever(s) or weight loss Eyes Eyes: Reports systems reviewed and no addt'l complaints, except as documented ENT HEENT: Reports systems reviewed and no addt'l complaints, except as documented Cardiovascular Cardiovascular: Denies chest pain at rest, chest pain with activity, dyspnea at rest, dyspnea on exertion, edema, palpitations or paroxysmal nocturnal dyspnea Respiratory/Chest Respiratory/Chest: Denies dyspnea on exertion, productive cough, shortness of breath at rest or shortness of breath with exertion Gastrointestinal Gastrointestinal: Denies change in bowel habits, nausea, vomiting or weight changes Genitourinary Genitourinary: Denies difficulty urinating Musculoskeletal Musculoskeletal: Denies joint stiffness or muscle weakness Integumentary Integumentary: Denies lesions Neurologic Neurologic: Reports dizziness; Denies syncope Psychiatric Psychiatric: Denies anxiety Endocrine Endocrinology: Denies excessive sweating or fatigue Hematologic/Lymphatic Hematologic/Lymphatic: Denies anemia Allergic/Immunologic Allergic/Immunologic: Denies seasonal rhinorrhea Physical Exam Const alert, oriented x3 and no apparent distress General Appearance: cooperative HEENT hearing grossly normal bilaterally Head and Scalp: atraumatic Eyes EOMs intact bilaterally Neck General: normal visual inspection Chest inspection of chest normal and palpation of chest normal Resp normal respiratory effort Auscultation: clear to auscultation bilaterally Cardio S1 normal heart sound and S2 normal heart sound Jugular Venous Distention: JVD Rhythm: abnormal rhythm irregularly irregular GI normal to inspection, nondistended, normoactive bowel sounds Extremity normal capillary refill and no pedal edema Peripheral Pulses: Yes pulses 2+ throughout and femoral pulses present Skin no rashes or lesions noted Neuro oriented x3 and CN's II-XII intact bilaterally Psych Appearance: grossly normal and appropriate Risk Stratification Risk Stratification Applicable: No Objective Data Vital Signs: Vital Signs Temp Pulse Resp BP Pulse Ox O2 Del Method 97.5 F L 78 19 H 93/58 L 96 Room Air 02/12/22 06:32 02/12/22 07:00 02/12/22 06:32 02/12/22 06:32 02/12/22 06:32 02/12/22 06:32 Oxygen Delivery Method Room Air Weight: 144 lb 13.499 oz Body Mass Index (BMI) 21.3 Intake & Output: Intake and Output for Last 24 Hours 02/10/22 02/11/22 02/12/22 23:59 23:59 23:59 Intake Total 520.92 / 525.92 Output Total 200 / 200 Balance 520.92 / 525.92 -170 / -170 Lab / Micro Data Result Diagrams: 02/12/22 04:00 02/12/22 04:00 Labs: Laboratory Results - last 24 hr 02/11/22 18:10: WBC 8.0, RBC 4.67, Hgb 14.1, Hct 44.6, MCV 95.5, MCH 30.2, MCHC 31.6 L, RDW Std Deviation 49.9 H, RDW Coeff of Kin 14.3, Plt Count 191, MPV 11.7, Immature Gran % (Auto) 0.400, Neut % (Auto) 76.8 H, Lymph % (Auto) 15.3 L, [place] % (Auto) 7.0, Eos % (Auto) 0.1, Baso % (Auto) 0.4, Absolute Neuts (auto) 6.1, Absolute Lymphs (auto) 1.22, Nucleated RBC % 0 02/11/22 18:10: PT 28.2 H, INR 2.7 02/11/22 18:10: Sodium 135 L, Potassium 4.1, Chloride 98, Carbon Dioxide 27.0, Anion Gap 10, BUN 33 H, Creatinine 1.49 H, Estim Creat Clear Calc 25.37, Est GFR (MDRD) Af Amer 43 L, Est GFR (MDRD) Non-Af 35 L, BUN/Creatinine Ratio 22.1 H, Glucose 133 H, Calcium 9.7, Troponin I High Sens 28 02/11/22 18:10: B-Natriuretic Peptide 1864.7 H 02/11/22 18:10: Magnesium 1.8 02/11/22 20:40: Troponin I High Sens 29 02/12/22 04:00: WBC 5.2, RBC 4.11 L, Hgb 12.7, Hct 39.8, MCV 96.8, MCH 30.9, MCHC 31.9 L, RDW Std Deviation 51.2 H, RDW Coeff of Kin 14.5, Plt Count 150, MPV 11.9, Immature Gran % (Auto) 0.000, Neut % (Auto) 61.2, Lymph % (Auto) 30.7, [place] % (Auto) 7.1, Eos % (Auto) 0.4, Baso % (Auto) 0.6, Absolute Neuts (auto) 3.2, Absolute Lymphs (auto) 1.61, Nucleated RBC % 0 02/12/22 04:00: Sodium 137, Potassium 4.1, Chloride 100, Carbon Dioxide 29.0, Anion Gap 8, BUN 28 H, Creatinine 1.10 H, Estim Creat Clear Calc 38.02, Est GFR (MDRD) Af Amer 60, Est GFR (MDRD) Non-Af 50 L, BUN/Creatinine Ratio 25.5 H, Glucose 82, Calcium 9.0 Cardiology Labs/Tests 02/11/22 18:10: WBC 8.0, RBC 4.67, Hgb 14.1, Hct 44.6, MCV 95.5, MCH 30.2, MCHC 31.6 L, Plt Count 191, MPV 11.7, Immature Gran % (Auto) 0.400, Neut % (Auto) 76.8 H, Lymph % (Auto) 15.3 L, [place] % (Auto) 7.0, Eos % (Auto) 0.1, Baso % (Auto) 0.4, Absolute Neuts (auto) 6.1, Nucleated RBC % 0 02/11/22 18:10: PT 28.2 H, INR 2.7 02/11/22 18:10: Sodium 135 L, Potassium 4.1, Chloride 98, Carbon Dioxide 27.0, Anion Gap 10, BUN 33 H, Creatinine 1.49 H, Est GFR (MDRD) Af Amer 43 L, Est GFR (MDRD) Non-Af 35 L, BUN/Creatinine Ratio 22.1 H, Glucose 133 H, Calcium 9.7 02/11/22 18:10: B-Natriuretic Peptide 1864.7 H 02/11/22 18:10: Magnesium 1.8 02/12/22 04:00: WBC 5.2, RBC 4.11 L, Hgb 12.7, Hct 39.8, MCV 96.8, MCH 30.9, MCHC 31.9 L, Plt Count 150, MPV 11.9, Immature Gran % (Auto) 0.000, Neut % (Auto) 61.2, Lymph % (Auto) 30.7, [place] % (Auto) 7.1, Eos % (Auto) 0.4, Baso % (Auto) 0.6, Absolute Neuts (auto) 3.2, Nucleated RBC % 0 02/12/22 04:00: Sodium 137, Potassium 4.1, Chloride 100, Carbon Dioxide 29.0, Anion Gap 8, BUN 28 H, Creatinine 1.10 H, Est GFR (MDRD) Af Amer 60, Est GFR (MDRD) Non-Af 50 L, BUN/Creatinine Ratio 25.5 H, Glucose 82, Calcium 9.0 Rhythm: EKG: ECHO: Stress Test: Cardiac Cath: PCI: CT Surgery: Holter monitor: EPS: PPM: CXR: Chest CT Scan: Radiography Diagnostic Testing: Radiology Impression Chest X-Ray 02/11/22 19:10 IMPRESSION: Infiltrate right lower lung field with small pleural effusion. Findings suspicious for pneumonia. Recommend follow-up to complete resolution. Electronically Signed: Kennedy Lewis MD at 19:51 EST ,
[2022-02-12] MEDS: Amiodarone 200 MG Tablet PO (08:35)
--- NOTE | 2022-02-12 08:51 | PCM.PN.CARD ---
Subjective Subjective The patient is awake and alert. She appears to be resting comfortably with no acute complaints at this time. She states yesterday she had 3 episodes where she felt everything transiently went dark but she does not state that she actually lost consciousness nor did she fall or injure herself. Her son was on the telephone during the conversation with the patient. He states he had encouraged her to come to the hospital earlier in the day but she wanted to wait to see how she was going to feel. She eventually relinquished and allowed herself to be brought back to the hospital based upon the aforementioned concerns. Objective Data Vital Signs: Vital Signs Temp Pulse Resp BP Pulse Ox O2 Del Method 97.5 F L 95 16 90/54 L 96 Room Air 02/12/22 06:32 02/12/22 08:00 02/12/22 08:00 02/12/22 08:00 02/12/22 08:00 02/12/22 08:00 Oxygen Delivery Method Room Air Weight: 144 lb 13.499 oz Body Mass Index (BMI) 21.3 Intake & Output: Intake and Output for Last 24 Hours 02/10/22 02/11/22 02/12/22 23:59 23:59 23:59 Intake Total 520.92 / 525.92 45 / 45 Output Total 200 / 200 Balance 520.92 / 525.92 -155 / -155 Lab / Micro Data Result Diagrams: 02/12/22 04:00 02/12/22 04:00 Labs: Laboratory Results - last 24 hr 02/11/22 18:10: WBC 8.0, RBC 4.67, Hgb 14.1, Hct 44.6, MCV 95.5, MCH 30.2, MCHC 31.6 L, RDW Std Deviation 49.9 H, RDW Coeff of Kin 14.3, Plt Count 191, MPV 11.7, Immature Gran % (Auto) 0.400, Neut % (Auto) 76.8 H, Lymph % (Auto) 15.3 L, [place] % (Auto) 7.0, Eos % (Auto) 0.1, Baso % (Auto) 0.4, Absolute Neuts (auto) 6.1, Absolute Lymphs (auto) 1.22, Nucleated RBC % 0 02/11/22 18:10: PT 28.2 H, INR 2.7 02/11/22 18:10: Sodium 135 L, Potassium 4.1, Chloride 98, Carbon Dioxide 27.0, Anion Gap 10, BUN 33 H, Creatinine 1.49 H, Estim Creat Clear Calc 25.37, Est GFR (MDRD) Af Amer 43 L, Est GFR (MDRD) Non-Af 35 L, BUN/Creatinine Ratio 22.1 H, Glucose 133 H, Calcium 9.7, Troponin I High Sens 28 02/11/22 18:10: B-Natriuretic Peptide 1864.7 H 02/11/22 18:10: Magnesium 1.8 02/11/22 20:40: Troponin I High Sens 29 02/12/22 04:00: WBC 5.2, RBC 4.11 L, Hgb 12.7, Hct 39.8, MCV 96.8, MCH 30.9, MCHC 31.9 L, RDW Std Deviation 51.2 H, RDW Coeff of Kin 14.5, Plt Count 150, MPV 11.9, Immature Gran % (Auto) 0.000, Neut % (Auto) 61.2, Lymph % (Auto) 30.7, [place] % (Auto) 7.1, Eos % (Auto) 0.4, Baso % (Auto) 0.6, Absolute Neuts (auto) 3.2, Absolute Lymphs (auto) 1.61, Nucleated RBC % 0 02/12/22 04:00: Sodium 137, Potassium 4.1, Chloride 100, Carbon Dioxide 29.0, Anion Gap 8, BUN 28 H, Creatinine 1.10 H, Estim Creat Clear Calc 38.02, Est GFR (MDRD) Af Amer 60, Est GFR (MDRD) Non-Af 50 L, BUN/Creatinine Ratio 25.5 H, Glucose 82, Calcium 9.0 Cardiology Labs/Tests 02/11/22 18:10: WBC 8.0, RBC 4.67, Hgb 14.1, Hct 44.6, MCV 95.5, MCH 30.2, MCHC 31.6 L, Plt Count 191, MPV 11.7, Immature Gran % (Auto) 0.400, Neut % (Auto) 76.8 H, Lymph % (Auto) 15.3 L, [place] % (Auto) 7.0, Eos % (Auto) 0.1, Baso % (Auto) 0.4, Absolute Neuts (auto) 6.1, Nucleated RBC % 0 02/11/22 18:10: PT 28.2 H, INR 2.7 02/11/22 18:10: Sodium 135 L, Potassium 4.1, Chloride 98, Carbon Dioxide 27.0, Anion Gap 10, BUN 33 H, Creatinine 1.49 H, Est GFR (MDRD) Af Amer 43 L, Est GFR (MDRD) Non-Af 35 L, BUN/Creatinine Ratio 22.1 H, Glucose 133 H, Calcium 9.7 02/11/22 18:10: B-Natriuretic Peptide 1864.7 H 02/11/22 18:10: Magnesium 1.8 02/12/22 04:00: WBC 5.2, RBC 4.11 L, Hgb 12.7, Hct 39.8, MCV 96.8, MCH 30.9, MCHC 31.9 L, Plt Count 150, MPV 11.9, Immature Gran % (Auto) 0.000, Neut % (Auto) 61.2, Lymph % (Auto) 30.7, [place] % (Auto) 7.1, Eos % (Auto) 0.4, Baso % (Auto) 0.6, Absolute Neuts (auto) 3.2, Nucleated RBC % 0 02/12/22 04:00: Sodium 137, Potassium 4.1, Chloride 100, Carbon Dioxide 29.0, Anion Gap 8, BUN 28 H, Creatinine 1.10 H, Est GFR (MDRD) Af Amer 60, Est GFR (MDRD) Non-Af 50 L, BUN/Creatinine Ratio 25.5 H, Glucose 82, Calcium 9.0 Rhythm: Atrial fibrillation with variable ventricular response Radiography Diagnostic Testing: Radiology Impression Chest X-Ray 02/11/22 19:10 IMPRESSION: Infiltrate right lower lung field with small pleural effusion. Findings suspicious for pneumonia. Recommend follow-up to complete resolution. Electronically Signed: Kennedy Lewis MD at 19:51 EST , Physical Exam Const alert, oriented x3 and no apparent distress Orientation / Consciousness: awake HEENT normocephalic, head/scalp atraumatic and hearing grossly normal bilaterally Eyes PERRL, EOMs intact bilaterally, conjunctivae normal and no scleral icterus Neck full ROM, supple and no JVD Resp normal respiratory effort and clear to auscultation bilaterally Cardio Rhythm: abnormal rhythm irregularly irregular Heart Sounds: S1 normal and S2 normal GI normal to inspection, nondistended, normoactive bowel sounds Extremity no pedal edema Skin no rashes or lesions noted Psych mental status grossly normal Assessment & Plan Assessment/Plan (1) Atrial fibrillation with RVR: PLAN: The patient remains in atrial fibrillation at this time. Her rate has varied. Her case was discussed with Dr. Aramblua who performed her cardiovascular consultation earlier with respect to her rate, rhythm, response to medical therapy, and the potential need for future consideration for medical therapy/pacemaker support versus EP study with AV node ablation and pacemaker support. At the moment he had recommended attempts at adjusting medicine for rate control with continued anticoagulation. Based upon his previous recommendation the patient's IV diltiazem is going to be discontinued. She is going to receive amiodarone at 200 mg. Her rate will be monitored. If the patient can find reasonable rate control then perhaps she will continue with rate control therapy with anticoagulation and be followed. If not then consideration can be given as to how to proceed further. (2) Cardiomyopathy: PLAN: The patient's LV systolic function was somewhat diminished recently based upon her echocardiographic study which was performed while she was in atrial fibrillation. The concern is that her diminished LV systolic function was related to her tachycardia. Hopefully rate control will help her overall LV systolic function improved. In the interim she will be monitored for any obvious evidence of acute CHF/pulmonary edema. (3) Benign essential hypertension: PLAN: Her blood pressures have been somewhat lower. Again this does make it challenging at times with respect to her medications to assist with her rate control and not lower her blood pressure. This will need to be followed during her hospitalization. Addt'l Comments The patient's case was discussed and reviewed with the patient, her son via telephone, and Dr. Arambula. This note was generated using a voice recognition system and there may be incorrect words, spelling or punctuation that were not noted when reviewing the office note prior to saving. Procedure Criteria Type of Procedure Procedure Type: Elective Elective Risks - COVID COVID Risk Discussion: The surgeon/proceduralist and patient have discussed in detail the risk of exposure to and/or potential harm posed by the COVID-19 virus with having a surgery/procedure at this time versus the risk of delaying the surgery/procedure. It is not possible to know either the risk of delaying the surgery or procedure or chance of getting an infection with perfect accuracy, but a joint decision was made between the patient and the surgeon/proceduralist to proceed at this time with the scheduled surgery/procedure as indicated on the consent form.
--- NOTE | 2022-02-12 10:16 | CASEMGMT ---
Readmission chart review: 02/06-02/08/22 Afib RVR 02/11/22-current Afib RVR Pt intially presented to [facility] ED on 02/06/22 for SOB x1 week, sent from [place] [facility] for Afib RVR. Pt admitted to PCU and had cardioversion on 02/07/22. Pt in SR s/p cardioversion and discharged home with some med changes and on amiodarone 100mg daily. Pt was taken off amiodarone and other meds previously d/t bradycardia. Pt declined need for any further therapy/resources. Pt returned to [facility] ED on 02/11/22 for lightheaded and back in Afib RVR with a rate of 175. Cardiology consulted and for now just doing med adjustments and increased amiodarone to 200mg daily. CM to follow for any further discharge planning/needs. Lupis MONTES CM
--- NOTE | 2022-02-12 11:19 | PN.HOSP_ITS ---
Subjective Subjective Doing well, no issues overnight. Heart rate is stable though irregular. She was evaluated by cardiology who wants to continue medical management Objective Data Objective Data Vital Signs: Vital Signs Temp Pulse Resp BP Pulse Ox O2 Del Method 98.0 F 78 14 97/61 98 Room Air 02/12/22 09:30 02/12/22 09:30 02/12/22 09:30 02/12/22 09:30 02/12/22 09:30 02/12/22 09:30 Oxygen Delivery Method Room Air Weight: 144 lb 13.499 oz Body Mass Index (BMI) 21.3 Intake & Output: Intake and Output for Last 24 Hours 02/11/22 02/12/22 02/13/22 03:59 03:59 03:59 Intake Total 540.92 / 545.92 32.5 / 32.5 Output Total 200 / 200 Balance 540.92 / 545.92 -167.5 / -167.5 Lab / Micro Data Result Diagrams: 02/12/22 04:00 02/12/22 04:00 Labs: Laboratory Results - last 24 hr 02/11/22 18:10: WBC 8.0, RBC 4.67, Hgb 14.1, Hct 44.6, MCV 95.5, MCH 30.2, MCHC 31.6 L, RDW Std Deviation 49.9 H, RDW Coeff of Kin 14.3, Plt Count 191, MPV 11.7, Immature Gran % (Auto) 0.400, Neut % (Auto) 76.8 H, Lymph % (Auto) 15.3 L, [place] % (Auto) 7.0, Eos % (Auto) 0.1, Baso % (Auto) 0.4, Absolute Neuts (auto) 6.1, Absolute Lymphs (auto) 1.22, Nucleated RBC % 0 02/11/22 18:10: PT 28.2 H, INR 2.7 02/11/22 18:10: Sodium 135 L, Potassium 4.1, Chloride 98, Carbon Dioxide 27.0, Anion Gap 10, BUN 33 H, Creatinine 1.49 H, Estim Creat Clear Calc 25.37, Est GFR (MDRD) Af Amer 43 L, Est GFR (MDRD) Non-Af 35 L, BUN/Creatinine Ratio 22.1 H, Glucose 133 H, Calcium 9.7, Troponin I High Sens 28 12/04/22 18:10: B-Natriuretic Peptide 1864.7 H 02/11/22 18:10: Magnesium 1.8 02/11/22 20:40: Troponin I High Sens 29 02/12/22 04:00: WBC 5.2, RBC 4.11 L, Hgb 12.7, Hct 39.8, MCV 96.8, MCH 30.9, MCHC 31.9 L, RDW Std Deviation 51.2 H, RDW Coeff of Kin 14.5, Plt Count 150, MPV 11.9, Immature Gran % (Auto) 0.000, Neut % (Auto) 61.2, Lymph % (Auto) 30.7, [place] % (Auto) 7.1, Eos % (Auto) 0.4, Baso % (Auto) 0.6, Absolute Neuts (auto) 3.2, Absolute Lymphs (auto) 1.61, Nucleated RBC % 0 02/12/22 04:00: Sodium 137, Potassium 4.1, Chloride 100, Carbon Dioxide 29.0, Anion Gap 8, BUN 28 H, Creatinine 1.10 H, Estim Creat Clear Calc 38.02, Est GFR (MDRD) Af Amer 60, Est GFR (MDRD) Non-Af 50 L, BUN/Creatinine Ratio 25.5 H, Glucose 82, Calcium 9.0 Radiography Diagnostic Testing: Radiology Impression Chest X-Ray 02/11/22 19:10 IMPRESSION: Infiltrate right lower lung field with small pleural effusion. Findings suspicious for pneumonia. Recommend follow-up to complete resolution. Electronically Signed: Kennedy Lewis MD at 19:51 EST , Physical Exam Narrative General: Alert, Oriented x3, Cooperative, No apparent distress HEENT: Atraumatic, PERRLA, EOMI, Normocephalic Oral: Moist Mucosa Neck: Supple, No JVD Lungs: Diminished, Normal air movement, No rhonchi, No wheeze, No rales Cardiovascular: Regular rate, irregular rhythm, Normal S1, Normal S2, No murmurs Abdomen: Soft, Non Tender, Non-Distended, No Hepato-splenomegaly Extremities: No edema, Capillary Refill Less than 3 Seconds Skin: No rashes, No breakdown Musculoskeletal: No Tenderness to Palpation of Joints or Extremities Neurological: Cranial nerves II-XII grossly intact, Motor Exam 5/5 strength throughout, Sensory exam intact to light touch and pain Psych/Mental Status: Normal Affect, Appropriate Assessment & Plan Assessment/Plan (1) Atrial fibrillation with RVR: (2) Congestive heart failure: PLAN: Plan 1. A. fib with RVR/chronic systolic CHF not in acute exacerbation/HTN ? Appreciate cardiology's assistance, she was cardioverted last week ? We will continue with her rate control medications, transition from metoprolol to Cardizem and now is started on amiodarone ? Her last echo was on 02/06/2022 with an EF of 45% and moderately severe mitral valve insufficiency with an RVSP of 33 mmHg ?Renal function is at baseline, will continue to monitor ? Continue with Eliquis 2. CKD 3 a ? Stable ? We will continue to monitor renal function 3. Hypothyroidism ? TSH on 02/06/2022 was 1.01 ? Continue with Synthroid DVT: Eliquis Charges/Coding Visit Charges Inpatient E&M: 47606 Subs Hosp L2
--- NOTE | 2022-02-12 14:58 | CASEMGMT ---
Pt referred for PT link program and pt declined. Lupis MONTES CM
[2022-02-12] MEDS: Metoprolol Tartrate 25 MG Tablet PO ×2 (16:40→21:27)
[2022-02-13] VITALS (11 sets, daily range): BP systolic 103–115; BP diastolic 72–96; PULSE 76–123; RESP 16–17; TEMP 36.4–36.8; O2SAT 96–99
[2022-02-13] MEDS: Levothyroxine 50 MCG Tablet PO (05:06)
--- NOTE | 2022-02-13 08:41 | PN.CARD_ITS ---
Subjective Subjective The patient is awake and alert. She denies any new acute symptoms. Objective Data Vital Signs: Vital Signs Temp Pulse Resp BP Pulse Ox O2 Del Method 97.5 F L 112 H 17 107/81 H 96 Room Air 02/13/22 03:30 02/13/22 07:00 02/13/22 03:30 02/13/22 03:30 02/13/22 07:14 02/13/22 08:11 Oxygen Delivery Method Room Air Weight: 139 lb 1.787 oz Body Mass Index (BMI) 21.3 Intake & Output: Intake and Output for Last 24 Hours 02/11/22 02/12/22 02/13/22 23:59 23:59 23:59 Intake Total 520.92 / 525.92 1032.5 / 1032.5 Output Total 1150 / 1775 1025 / 1025 Balance 520.92 / 525.92 -117.5 / -742.5 -1025 / -1025 Lab / Micro Data Result Diagrams: 02/12/22 04:00 02/12/22 04:00 Cardiology Labs/Tests Rhythm: Atrial fibrillation with intermittent rapid ventricular response Physical Exam Const alert, oriented x3 and no apparent distress Orientation / Consciousness: awake HEENT normocephalic, head/scalp atraumatic and hearing grossly normal bilaterally Eyes PERRL, EOMs intact bilaterally, conjunctivae normal and no scleral icterus Neck full ROM, supple and no JVD Resp normal respiratory effort and clear to auscultation bilaterally Cardio Rhythm: abnormal rhythm irregularly irregular Heart Sounds: S1 normal and S2 normal GI normal to inspection, nondistended, normoactive bowel sounds Extremity no pedal edema Skin no rashes or lesions noted Psych mental status grossly normal Assessment & Plan Assessment/Plan (1) Atrial fibrillation with RVR: PLAN: The patient remains in atrial fibrillation at this time. She is now without IV diltiazem. She was restarted on low-dose oral beta- yan. She has continued her amiodarone therapy and her anticoagulant t herapy. Her heart rate continues to be intermittently elevated. An attempt will be made to elevate her beta-yan dose to gain improved heart rate control as she continues her other medication. If the patient can find reasonable rate control then perhaps she will continue with rate control therapy with anticoagulation and be followed. If not then consideration can be given as to how to proceed further. (2) Cardiomyopathy: PLAN: The patient's LV systolic function was somewhat diminished recently based upon her echocardiographic study which was performed while she was in atrial fibrillation. The concern is that her diminished LV systolic function was related to her tachycardia. Hopefully rate control will help her overall LV systolic function improved. In the interim she will be monitored for any obvious evidence of acute CHF/pulmonary edema. (3) Benign essential hypertension: PLAN: Her blood pressures have been somewhat lower. Again this does make it challenging at times with respect to her medications to assist with her rate control and not lower her blood pressure. This will need to be followed during her hospitalization. Addt'l Comments The patient's case was discussed and reviewed with the patient and Dr. Estrada. This note was generated using a voice recognition system and there may be incorrect words, spelling or punctuation that were not noted when reviewing the office note prior to saving. Procedure Criteria Type of Procedure Procedure Type: Elective Elective Risks - COVID COVID Risk Discussion: The surgeon/proceduralist and patient have discussed in detail the risk of exposure to and/or potential harm posed by the COVID-19 virus with having a surgery/procedure at this time versus the risk of delaying the surgery/p rocedure. It is not possible to know either the risk of delaying the surgery or procedure or chance of getting an infection with perfect accuracy, but a joint decision was made between the patient and the surgeon/proceduralist to proceed at this time with the scheduled surgery/procedure as indicated on the consent form.
--- NOTE | 2022-02-13 09:19 | PCM.PN.HOSP ---
Subjective Subjective Doing well, she did have an elevation in her heart rate a little bit when she was up in the chair so cardiology is adding metoprolol on top of her amiodarone will need to monitor her for any bradycardic episodes Objective Data Objective Data Vital Signs: Vital Signs Temp Pulse Resp BP Pulse Ox O2 Del Method 97.5 F L 112 H 17 107/81 H 96 Room Air 02/13/22 03:30 02/13/22 07:00 02/13/22 03:30 02/13/22 03:30 02/13/22 07:14 02/13/22 08:11 Oxygen Delivery Method Room Air Weight: 139 lb 1.787 oz Body Mass Index (BMI) 21.3 Intake & Output: Intake and Output for Last 24 Hours 02/12/22 02/13/22 02/14/22 03:59 03:59 03:59 Intake Total 540.92 / 545.92 1012.5 / 1012.5 Output Total 1775 / 1775 400 / 400 Balance 540.92 / 545.92 -762.5 / -762.5 -400 / -400 Lab / Micro Data Result Diagrams: 02/12/22 04:00 02/12/22 04:00 Physical Exam Narrative General: Alert, Oriented x3, Cooperative, No apparent distress HEENT: Atraumatic, PERRLA, EOMI, Normocephalic Oral: Moist Mucosa Neck: Supple, No JVD Lungs: Diminished, Normal air movement, No rhonchi, No wheeze, No rales Cardiovascular: Regular rate, irregular rhythm, Normal S1, Normal S2, No murmurs Abdomen: Soft, Non Tender, Non-Distended, No Hepato-splenomegaly Extremities: No edema, Capillary Refill Less than 3 Seconds Skin: No rashes, No breakdown Musculoskeletal: No Tenderness to Palpation of Joints or Extremities Neurological: Cranial nerves II-XII grossly intact, Motor Exam 5/5 strength throughout, Sensory exam intact to light touch and pain Psych/Mental Status: Normal Affect, Appropriate Assessment & Plan Assessment/Plan (1) Atrial fibrillation with RVR: (2) Congestive heart failure: PLAN: Plan 1. A. fib with RVR/chronic systolic CHF not in acute exacerbation/HTN ? Appreciate cardiology's assistance, she was cardioverted last week ?She is doing okay on the amiodarone however her heart rate did jump a little bit today when she was up in the chair so metoprolol was added back to her regimen we will need to monitor for bradycardia ? Her last echo was on 02/06/2022 with an EF of 45% and moderately severe mitral valve insufficiency with an RVSP of 33 mmHg ?Renal function is at baseline, will continue to monitor ? Continue with Eliquis 2. CKD 3 a ? Stable ? We will continue to monitor renal function 3. Hypothyroidism ? TSH on 02/06/2022 was 1.01 ? Continue with Synthroid DVT: Eliquis Charges/Coding Visit Charges Inpatient E&M: 47171 Subs Hosp L2
[2022-02-13] MEDS: Metoprolol Tartrate 50 MG Tablet PO ×2 (09:28→20:43)
[2022-02-13] MEDS: APIXABAN 5 MG TABLET PO ×2 (09:28→20:44)
[2022-02-13] MEDS: Amiodarone 200 MG Tablet PO (09:28)
--- NOTE | 2022-02-13 15:35 | CASEMGMT ---
Per therapy patient would benefit from home health. Patient's daughter was also asking about the Patient Link Program. SW went to patient's room. Introduced self and role at [facility]. SW let them know that we can have one of the Patient Link [employer]'s come in and talk with them about the program. Patient's daughter has to leave at 4p today and The Nurse Practitioner is not available. SW let patient and her daughter know that someone can come in and talk with them tomorrow. SW also talked with both patient and her daughter about home health. ELIAS explained Medicare coverage for home health. SW then took a list of home health agencies to patient's daughter and let them know they just need to pick a few agencies and SW blood bank laboratory professional CM will take care of making referrals. Someone will check back with them tomorrow. Divine MCGARRY
[2022-02-14] VITALS (10 sets, daily range): BP systolic 107–132; BP diastolic 49–79; PULSE 88–124; RESP 15–18; TEMP 35.8–36.7; O2SAT 95–100
[2022-02-14] MEDS: Levothyroxine 50 MCG Tablet PO (05:12)
[2022-02-14 05:25] LABS: Absolute Neutrophil Count 3.6 X10^3/uL (2.0-7.7); Basophil# 0.04 X10^3/uL; Basophil% 0.7 % (0-1); Eosinophil# 0.07 X10^3/uL; Eosinophils% 1.2 % (0-5); Hemoglobin 14.3 g/dL (12.0-15.0); Lymphocyte % 31.9 % (19-41); Mean Corp Hgb Conc 31.1 g/dL (32-36); Mean Corpuscular Hgb 30.4 pg (27.0-32.0); Mean Corpuscular Volume 97.7 fL (81-99); Mean Platelet Vol. 10.9 fl (6.2-12.0); Monocyte# 0.38 X10^3/uL; Monocyte% 6.4 % (0-10); NRBC Flagged by Analyzer 0 % (0-5); Neutrophil # 3.55 X10^3/uL (2.7-7.7); Neutrophil % 59.5 % (47-70); Platelet Count 191 K/mm3 (150-450); RBC Distribution Width CV 14.2 % (11.6-14.6); RBC Distribution Width SD 51.3 fl (35.1-43.9); Red Blood Count 4.71 M/mm3 (4.2-5.4)
[2022-02-14 05:40] LABS: Anion Gap 9 (5-15); BUN 22 mg/dL (7-18); BUN/Creat Ratio 27.1 RATIO (10-20); Calcium,Total 9.2 mg/dL (8.5-10.1); Chloride 102 mmol/L (98-107); Creatinine, Serum 0.81 mg/dL (0.55-1.02); EST Glomerular Filtration Rate 71 mL/min (>60); Est Glom Filt Rate - Afr Amer 86 mL/min (>60); Estimated Creatinine Clearance 49.66 ml/min; Glucose 85 mg/dL (74-106); Potassium 3.4 mmol/L (3.5-5.1); Sodium Level 137 mmol/L (136-145)
--- NOTE | 2022-02-14 08:22 | PCM.PN.CARD ---
Subjective Subjective The patient remains awake and alert and interactive. She has no acute complaints. Objective Data Vital Signs: Vital Signs Temp Pulse Resp BP Pulse Ox O2 Del Method 98.0 F 95 18 122/78 H 95 Room Air 02/14/22 05:15 02/14/22 07:52 02/14/22 05:15 02/14/22 05:15 02/14/22 07:54 02/14/22 08:02 Oxygen Delivery Method Room Air Weight: 138 lb 0.15 oz Body Mass Index (BMI) 21.3 Intake & Output: Intake and Output for Last 24 Hours 02/12/22 02/13/22 02/14/22 23:59 23:59 23:59 Intake Total 1032.5 / 1032.5 720 / 720 Output Total 1150 / 1775 1500 / 1500 200 / 200 Balance -117.5 / -742.5 -780 / -780 -200 / -200 Lab / Micro Data Result Diagrams: 02/14/22 04:10 02/14/22 04:10 Labs: Laboratory Results - last 24 hr 02/14/22 04:10: WBC 6.0, RBC 4.71, Hgb 14.3, Hct 46.0, MCV 97.7, MCH 30.4, MCHC 31.1 L, RDW Std Deviation 51.3 H, RDW Coeff of Kin 14.2, Plt Count 191, MPV 10.9, Immature Gran % (Auto) 0.300, Neut % (Auto) 59.5, Lymph % (Auto) 31.9, [place] % (Auto) 6.4, Eos % (Auto) 1.2, Baso % (Auto) 0.7, Absolute Neuts (auto) 3.6, Absolute Lymphs (auto) 1.90, Nucleated RBC % 0 02/14/22 04:10: Sodium 137, Potassium 3.4 L, Chloride 102, Carbon Dioxide 26.0, Anion Gap 9, BUN 22 H, Creatinine 0.81, Estim Creat Clear Calc 49.66, Est GFR (MDRD) Af Amer 86, Est GFR (MDRD) Non-Af 71, BUN/Creatinine Ratio 27.1 H, Glucose 85, Calcium 9.2 Cardiology Labs/Tests 02/14/22 04:10: WBC 6.0, RBC 4.71, Hgb 14.3, Hct 46.0, MCV 97.7, MCH 30.4, MCHC 31.1 L, Plt Count 191, MPV 10.9, Immature Gran % (Auto) 0.300, Neut % (Auto) 59.5, Lymph % (Auto) 31.9, [place] % (Auto) 6.4, Eos % (Auto) 1.2, Baso % (Auto) 0.7, Absolute Neuts (auto) 3.6, Nucleated RBC % 0 02/14/22 04:10: Sodium 137, Potassium 3.4 L, Chloride 102, Carbon Dioxide 26.0, Anion Gap 9, BUN 22 H, Creatinine 0.81, Est GFR (MDRD) Af Amer 86, Est GFR (MDRD) Non-Af 71, BUN/Creatinine Ratio 27.1 H, Glucose 85, Calcium 9.2 Rhythm: Atrial fibrillation with variable ventricular response Physical Exam Const alert, oriented x3 and no apparent distress Orientation / Consciousness: awake HEENT normocephalic, head/scalp atraumatic and hearing grossly normal bilaterally Eyes PERRL, EOMs intact bilaterally, conjunctivae normal and no scleral icterus Neck full ROM, supple and no JVD Resp normal respiratory effort and clear to auscultation bilaterally Cardio Rhythm: abnormal rhythm irregularly irregular Heart Sounds: S1 normal and S2 normal GI normal to inspection, nondistended, normoactive bowel sounds Extremity no pedal edema Skin no rashes or lesions noted Psych mental status grossly normal Assessment & Plan Assessment/Plan (1) Atrial fibrillation with RVR: PLAN: The patient remains in atrial fibrillation at this time. The patient's oral beta-yan dose has been adjusted. She has continued her oral amiodarone dose. She has continued anticoagulant therapy. Overall, her cardiac rate appears to be coming under better control. At the present time she will continue conservative medical management with respect to a combination of the aforementioned medications. If over time the patient continues with concerns of tachycardia requiring additional adjustment of her medications/increase and/or develops concerns of bradycardia then she still may need to be considered for further evaluation which may include-potentially consideration for an AV node ablation/permanent pacemaker support. (2) Cardiomyopathy: PLAN: The patient's LV systolic function was somewhat diminished recently based upon her echocardiographic study which was performed while she was in atrial fibrillation. The concern is that her diminished LV systolic function was related to her tachycardia. Hopefully rate control will help her overall LV systolic function improved. In the interim she will be monitored for any obvious evidence of acute CHF/pulmonary edema. She will continue conservative medical therapy. (3) Benign essential hypertension: PLAN: Her blood pressures have been somewhat lower. Again this does make it challenging at times with respect to her medications to assist with her rate control and not lower her blood pressure. This will need to be followed during her hospitalization. Addt'l Comments Overall, the patient does appear to be improved with respect to her atrial dysrhythmia rate control. At the moment she will continue conservative medical management. There are no immediate plans for additional cardiovascular diagnostic studies/intervention at this time. She will need continued future outpatient cardiovascular follow-up to monitor the response of her medication adjustment and help assess the need for additional evaluation care going forward over time. Thank you for allowing me to participate in the care of your patient. Please don't hesitate to call if any issues arise. Procedure Criteria Type of Procedure Procedure Type: Elective Elective Risks - COVID COVID Risk Discussion: The surgeon/proceduralist and patient have discussed in detail the risk of exposure to and/or potential harm posed by the COVID-19 virus with having a surgery/procedure at this time versus the risk of delaying the surgery/procedure. It is not possible to know either the risk of delaying the surgery or procedure or chance of getting an infection with perfect accuracy, but a joint decision was made between the patient and the surgeon/proceduralist to proceed at this time with the scheduled surgery/procedure as indicated on the consent form.
[2022-02-14] MEDS: Potassium Chloride Oral Tablet 20 MEQ 40 MEQ PO (09:50)
[2022-02-14] MEDS: APIXABAN 5 MG TABLET PO (09:51)
[2022-02-14] MEDS: Amiodarone 200 MG Tablet PO (09:51)
[2022-02-14] MEDS: Metoprolol Tartrate 50 MG Tablet PO (09:51)
--- NOTE | 2022-02-14 10:39 | DCINST_ITS ---
Discharge Instructions Diet Discharge Diet: Low fat / Low cholesterol Activity Discharge Activity: Return to Normal Activity Dressing / Incision Call your doctor if you observe: Fever of 101 or Higher, Shortness of breath, Dizziness, Fainting spells, Swelling in the ankles, Chest pain and Increased palpitations (irregular heartbeat) Follow Up Care Test Results: Test results from this visit will be discussed in further detail at your follow- up appointment, if applicable. Discharge Plan Admission Admit Date/Time: 02/11/22 20:54 Attending Provider: Dante Estrada Primary Care Provider: Kranthi Long Consulting Providers: Raulito Gtz ; Lisha Mullen Discharge Orders/Prescriptions Prescriptions: Continued levothyroxine 50 mcg tablet 50 mcg PO DAILY apixaban 5 MG tablet 5 mg PO BID sennosides-docusate sodium [Stool Softener-Stimulant Laxat] 8.6-50 mg Tablet 2 tab PO BID PRN PRN (Reason: Constipation) Qty: 0 0RF potassium, sodium phosphates 280-160-250 mg Powder In Packet 1 packet PO TID 2 Days Qty: 6 0RF Label Comments: pt notes she has one packet left. Changed amiodarone 200 mg Tablet 200 mg PO DAILY Qty: 30 2RF metoprolol tartrate 25 mg Tablet 50 mg PO BID Qty: 60 0RF Held amiloride-hydrochlorothiazide 5-50 mg tablet 1 tablet PO DAILY Hold Instructions: Resume on 02/21/22. Until follow up with your PCP to montior your blood pressure Referrals / Follow Up: Kranthi Long MD [Primary Care Provider] - Within 1 Week Noam Jc MD [Med Staff - Active Staff] - Within 1 Month Disposition Disposition (needs filled in before D/C Order can be placed): Home, Self Care
--- NOTE | 2022-02-14 12:46 | PHA.DC.MR ---
Pharmacy Service has performed discharge medication reconciliation for this patient. The patient's discharge medication list was reviewed for discrepancies and discrepancies were resolved. Home Medications amiloride 5 mg-hydrochlorothiazide 50 mg tablet 1 tablet PO DAILY blood pressure 06/17/20 apixaban 5 mg tablet 5 mg PO BID blood thinner 02/06/22 levothyroxine 50 mcg tablet 50 mcg PO DAILY thyroid 02/06/22 potassium, sodium phosphates 280 mg-160 mg-250 mg oral powder packet 1 packet PO TID 2 days #6 ea 02/08/22 sennosides 8.6 mg-docusate sodium 50 mg tablet (Stool Softener-Stimulant Laxative) 2 tab PO BID PRN PRN Constipation #0 tabs 02/08/22 amiodarone 200 mg tablet 200 mg PO DAILY #30 tabs 02/14/22 metoprolol tartrate 25 mg tablet 50 mg PO BID #60 tabs 02/14/22
--- NOTE | 2022-02-14 13:25 | CASEMGMT ---
ELIAS spoke with patient and her daughter regarding home health. Their 3 choices were [facility], [facility], and [facility]. ELIAS spoke with Kelsey with [facility] and they can take patient. ELIAS let patient and her daughter know that [facility] can take patient and they will be calling to set up an appointment. Patient's daughter was interested in the Patient Link program, but they will not work with patients while they are on home health. ELIAS asked Kelsey at [facility] if someone could call Divine Pulido when patient is done with to make a referral for the Patient Link program. ELIAS let patient's daughter know this information. Plan: d/c home with [facility] Long Term, PT, and OT. Divine MCGARRY
--- NOTE | 2022-02-14 13:42 | DS.PCM_ITS ---
Providers Date of Admission: 02/11/22 Primary Care Physician: Dr. Kranthi Long MD Consultations 02/11/22 23:06 Consult: Cardiology Routine Consulting Provider: Lisha Mullen Reason for Consult: Afib with RVR EMERGENT Consult: No MD Notified: Yes Date Notified: 02/12/22 Time Notified: 06:53 Method of Notification: Text Method of Consult:: In-Person Reason For Visit: AFIB WITH RVR Diagnosis Discharge Diagnosis (1) Atrial fibrillation with RVR: Status: Resolved Code(s): I48.91 - Unspecified atrial fibrillation (2) Cardiomyopathy: Status: Acute Code(s): I42.9 - Cardiomyopathy, unspecified (3) Benign essential hypertension: Status: Inactive Code(s): I10 - Essential (primary) hypertension Plan 1. A. fib with RVR/chronic systolic CHF not in acute exacerbation/HTN ? Appreciate cardiology's assistance, she was cardioverted last week ?She is doing okay on the amiodarone however her heart rate did jump a little bit today when she was up in the chair so metoprolol was added back to her regimen we will need to monitor for bradycardia ? Her last echo was on 02/06/2022 with an EF of 45% and moderately severe mitral valve insufficiency with an RVSP of 33 mmHg ?Renal function is at baseline, will continue to monitor ? Continue with Eliquis 2. CKD 3 a ? Stable ? We will continue to monitor renal function 3. Hypothyroidism ? TSH on 02/06/2022 was 1.01 ? Continue with Synthroid DVT: Eliquis Medications at Discharge Home Medications amiloride 5 mg-hydrochlorothiazide 50 mg tablet 1 tablet PO DAILY blood pressure 06/17/20 apixaban 5 mg tablet 5 mg PO BID blood thinner 02/06/22 levothyroxine 50 mcg tablet 50 mcg PO DAILY thyroid 02/06/22 sennosides 8.6 mg-docusate sodium 50 mg tablet (Stool Softener-Stimulant Laxative) 2 tab PO BID PRN PRN Constipation #0 tabs 02/08/22 amiodarone 200 mg tablet 200 mg PO DAILY #30 tabs 02/14/22 metoprolol tartrate 25 mg tablet 50 mg PO BID #60 tabs 02/14/22 potassium, sodium phosphates 280 mg-160 mg-250 mg oral powder packet 1 packet PO TID supplement 02/14/22 Hospital Course Operations None Procedures None Summary of Care Provided Minutes Spent on Discharge: 40 Hospital Course: Per HPI: CLOVIS ALVAREZ, is a 86 F with a significant history of hypothyroidism; congestive heart failure; and A. fib who presents? to the emergency department with? multiple episodes of presyncope.? Associated with her symptoms is fatigue.? ? She denied having any palpitation on the day of presentation. She denied any other symptom. Of note patient was cardioverted on February 07, 2022 with a plan of possible pacemaker or ablation if she continued to be in A. fib. Patient was given Cardizem bolus and drip at the emergency department.? She was noted to be hypotensive and was given normal fluid bolus.? Her BNP was elevated Hospital Course: 1. A. fib with RVR/chronic systolic CHF not in acute exacerbation/HTN? 86-year-old female presented to the hospital in A. fib with RVR. Cardiology was consulted and medication adjustments were made. Her amiodarone was increased she was having intermittent episodes of bradycardia with Cardizem and there is some concern that a pacemaker would need to be placed however she was able to tolerate the increase in amiodarone as well as an increase in metoprolol without any significant symptomatic bradycardia. In discussion with cardiology today they felt that her rate was controlled well enough and that she was okay for discharge. They would like to see her within a month to evaluate her medication regimen and make possible adjustments versus proceeding with pacemaker placement. Was increased from 100 mg to 200 mg, her metoprolol was increased to 50 mg p.o. twice daily. Because of these changes in her medication I elected to hold her combination pill of amiloride and hydrochlorothiazide until she follows up with her PCP or cardiology to have outpatient blood pressure evaluation as given her age I am concerned with hypotension as an outpatient. I discussed with her the plan for discharge today she expressed understanding of the risk benefits of going home and would like to go home today. 2. CKD 3 A, hypothyroidism are all chronic medical conditions which complicate her care. Her home medications were continued where appropriate Physical Exam Narrative General: Alert, Oriented x3, Cooperative, No apparent distress HEENT: Atraumatic, PERRLA, EOMI, Normocephalic Oral: Moist Mucosa Neck: Supple, No JVD Lungs: Diminished, Normal air movement, No rhonchi, No wheeze, No rales Cardiovascular: Irregular rate and rhythm, Normal S1, Normal S2, No murmurs Abdomen: Soft, Non Tender, Non-Distended, No Hepato-splenomegaly Extremities: No edema, Capillary Refill Less than 3 Seconds Skin: No rashes, No breakdown Musculoskeletal: No Tenderness to Palpation of Joints or Extremities Neurological: Cranial nerves II-XII grossly intact, Motor Exam 5/5 strength throughout, Sensory exam intact to light touch and pain Psych/Mental Status: Normal Affect, Appropriate Weight / BMI Weight Weight: 138 lb 0.15 oz Body Mass Index (BMI) 21.3 ABG / Lab / Microbiology Data Result Diagrams: 02/14/22 04:10 02/14/22 04:10 Laboratory: Laboratory Results - last 24 hr 02/14/22 04:10: WBC 6.0, RBC 4.71, Hgb 14.3, Hct 46.0, MCV 97.7, MCH 30.4, MCHC 31.1 L, RDW Std Deviation 51.3 H, RDW Coeff of Kin 14.2, Plt Count 191, MPV 10.9, Immature Gran % (Auto) 0.300, Neut % (Auto) 59.5, Lymph % (Auto) 31.9, [place] % (Auto) 6.4, Eos % (Auto) 1.2, Baso % (Auto) 0.7, Absolute Neuts (auto) 3.6, Absolute Lymphs (auto) 1.90, Nucleated RBC % 0 02/14/22 04:10: Sodium 137, Potassium 3.4 L, Chloride 102, Carbon Dioxide 26.0, Anion Gap 9, BUN 22 H, Creatinine 0.81, Estim Creat Clear Calc 49.66, Est GFR (MDRD) Af Amer 86, Est GFR (MDRD) Non-Af 71, BUN/Creatinine Ratio 27.1 H, Glucose 85, Calcium 9.2 D/C Instructions Discharge Diet: Low fat / Low cholesterol Call your doctor if you observe: Fever of 101 or Higher, Shortness of breath, Dizziness, Fainting spells, Swelling in the ankles, Chest pain and Increased palpitations (irregular heartbeat) Meaningful Use Info Meaningful Use Diagnoses (Choose all that apply): None applicable Discharge Plan Admission Admit Date/Time: 02/11/22 20:54 Attending Provider: Dante Estrada Primary Care Provider: Kranthi Long Consulting Providers: Raulito Gtz ; Lisha Mullen Discharge Orders/Prescriptions Prescriptions: Continued levothyroxine 50 mcg tablet 50 mcg PO DAILY apixaban 5 MG tablet 5 mg PO BID sennosides-docusate sodium [Stool Softener-Stimulant Laxat] 8.6-50 mg Tablet 2 tab PO BID PRN PRN (Reason: Constipation) Qty: 0 0RF Changed amiodarone 200 mg Tablet 200 mg PO DAILY Qty: 30 2RF metoprolol tartrate 25 mg Tablet 50 mg PO BID Qty: 60 0RF Held amiloride-hydrochlorothiazide 5-50 mg tablet 1 tablet PO DAILY Hold Instructions: Resume on 02/21/22. Until follow up with your PCP to montior your blood pressure No Action potassium, sodium phosphates 280-160-250 mg powder in packet 1 packet PO TID Label Comments: pt notes she has one packet left. Referrals / Follow Up: Gabbi Price NP-C [Non-Staff] - 02/16/22 11:40 am Zachary Escudero NP, NP-C [Med Staff - Adv Practice Prof] - 02/21/22 1:30 pm Disposition Disposition (needs filled in before D/C Order can be placed): Home, Self Care Charges/Coding Visit Charges Inpatient E&M: 98877 Disch Hosp
== END 2022-02-14 13:51 | disposition home or self-care (01) | DRG 309 ==
LOC: ED 20:57 → PCU 21:10
PROVIDERS: Nurse Practitioner; Admitting Provider Hospitalist; Emergency Provider Emergency Medicine; PCP Family Medicine; Visit Provider Family Medicine
DX: I48.91 Unspecified atrial fibrillation (principal); D68.59 Other primary thrombophilia; I13.0 Hypertensive heart and chronic kidney disease with heart failure and stage 1 through stage 4 chronic kidney disease, or unspecified chronic kidney disease; J90 Pleural effusion, not elsewhere classified; I50.22 Chronic systolic (congestive) heart failure; I42.8 Other cardiomyopathies; N18.31 Chronic kidney disease, stage 3a; I34.0 Nonrheumatic mitral (valve) insufficiency; E03.9 Hypothyroidism, unspecified; R00.1 Bradycardia, unspecified; Z79.01 Long term (current) use of anticoagulants; Z87.891 Personal history of nicotine dependence
CPT/HCPCS: 36415; 71045; 80048; 83735; 83880; 84484; 85025; 85610; 93005; 97162; 97166; 97802; 99285; J7040; A4216

== ENCOUNTER 2022-02-21 12:03 | Outpatient (RCR) | payer MEDICARE, OTHER, SELFPAY ==
[2022-02-21 12:39] LABS: Color, Urine Yellow (Yellow); Glucose, Dipstick Normal (Normal); Ketone-Dipstick 5 mg/dl (Negative); Leukocyte Esterase-Dipstick 500 /ul (Negative); Nitrite-Dipstick Positive (Negative); Occult Blood-Urine 150 /ul (Negative); Protein-Dipstick 100 mg/dl (Negative); Urine Bilirubin Dipstick Negative (Negative); Urine Clarity Turbid (Clear); Urine Urobilinogen 1 mg/dl (Normal)
== END 2022-02-21 18:00 ==
LOC: HHLAB 12:03
PROVIDERS: PCP Family Medicine; Visit Provider Family Medicine
DX: R33.9 Retention of urine, unspecified (principal); I13.0 Hypertensive heart and chronic kidney disease with heart failure and stage 1 through stage 4 chronic kidney disease, or unspecified chronic kidney disease; I50.9 Heart failure, unspecified; I48.0 Paroxysmal atrial fibrillation; D68.59 Other primary thrombophilia; R35.0 Frequency of micturition; N18.9 Chronic kidney disease, unspecified
CPT/HCPCS: 81002; 87077; 87086; 87088; 87186

== ENCOUNTER 2022-03-04 17:01 | Emergency (ER) | payer MEDICARE, OTHER, SELFPAY ==
[2022-03-04 17:03] VITALS: PULSE 115; RESP 18; TEMP 36.6; O2SAT 96; BMI 23.1
--- NOTE | 2022-03-04 17:11 | CT_ITS ---
EXAM: CT SPINE - CERVICAL WITHOUT IV REASON FOR EXAM: Female, 86 years old. NECK PAIN polytrauma HISTORY: NECK PAIN polytrauma Individualized dose optimization techniques were used for this CT. TECHNIQUE: Multiplanar images were obtained of the cervical spine. IV contrast was not utilized. COMPARISON: None. FINDINGS: The vertebral bodies do maintain their height. The odontoid process is intact. No pre-vertebral soft tissue swelling is seen. The intravertebral disc height is lost. There are scattered lymph nodes in the neck. There are degenerative changes of the osseous structures. There is bilateral facet arthropathy. There are scattered levels of foraminal stenosis. There are vascular calcifications. There is a right pleural effusion. CT/Spine Cervical without Contras IMPRESSION: Degenerative changes of the cervical spine. There is a right pleural effusion. Electronically Signed: Kirk Hines MD at 17:59 EST Reading Location ID and State: [facility] / [place] , Service support ,
--- NOTE | 2022-03-04 17:11 | CT_ITS ---
STUDY: CT BRAIN WITHOUT CONTRAST REASON FOR EXAM: Female, 86 years old. LEG WEAKNESS X 2 WKS, LEGS GAVE OUT AND FELL, STRIKING HEAD ON WOODEN STOOL, ON THINNERS, HTN, A-FIB, CHF, PE head injury TECHNIQUE: Transaxial CT imaging of the brain was performed without administration of intravenous contrast material. Individualized dose optimization techniques were used for this CT. COMPARISON: 12.06.21 FINDINGS: Normal calvarium. Normal soft tissues. There is mild cerebral atrophy with widening of the extra-axial spaces and ventricular dilatation. There are areas of decreased attenuation within the white matter tracts of the supratentorial brain, consistent with microvascular disease changes. Normal basal ganglia and thalami. Normal brainstem. Normal cerebellum. There is no intracranial hemorrhage. There are no findings of an acute ischemic infarction. Normal visualized paranasal sinuses. ASPECTS 10 CT/Brain/Head without Contrast IMPRESSION: There are no acute intracranial findings. Electronically Signed: Kirk Hines MD at 17:53 EST ,
--- NOTE | 2022-03-04 17:13 | ED.VIS.FALL ---
HPI HPI - Fall History of Present Illness Chief Complaint: Fall Informant: patient and family Narrative Narrative: Brought in by EMS mechanical fall at home prior to arrival. In the kitchen with her walker when her legs gave out. She had a back her head on the stove. Denies loss of consciousness. Denies neck or back pain. Denies extremity pain. She is on Eliquis for history of paroxysmal A. fib. Dressing to the head by EMS prior to arrival. Bleeding controlled with pressure. Tetanus unknown. Tetanus Immunization: Unknown [facility] Medical History Acute kidney injury Benign essential hypertension Bilateral pulmonary embolism Cardiomyopathy Congestive heart failure Dizziness Former tobacco use History of cardioversion (~02/07/22) History of venous thromboembolism HTN (hypertension) Hypothyroidism PAF (paroxysmal atrial fibrillation) Pleural effusion Home Medications apixaban 5 mg tablet 5 mg PO BID blood thinner 02/06/22 [History Last Taken 02/05/22] levothyroxine 50 mcg tablet 50 mcg PO DAILY thyroid 02/06/22 [History Last Taken 02/06/22] sennosides 8.6 mg-docusate sodium 50 mg tablet (Stool Softener-Stimulant Laxative) 2 tab PO BID PRN PRN Constipation #0 tabs 02/08/22 [Rx Last Taken Unknown] potassium chloride 20 mEq tablet,extended release 20 meq PO DAILY #30 tabs 02/21/22 [Rx Last Taken Unknown] metoprolol tartrate 100 mg tablet 100 mg PO BID #180 tabs 02/26/22 [Rx Last Taken Unknown] amiodarone 200 mg tablet 200 mg PO DAILY dose has been increased in hospital #90 tabs 02/28/22 [Rx Last Taken Unknown] Allergy/AdvReac Type Severity Reaction Status Date / Time lisinopril Allergy Shortness Verified 02/21/22 13:27 of breath metoclopramide [From Reglan] Allergy Shortness Verified 02/21/22 13:27 of breath etodolac AdvReac Diarrhea Verified 02/21/22 13:27 Family History Mother Cancer Father Tuberculosis Brother History of pancreatitis Son Diabetes Aneurysm Legs and stomach Hyperlipidemia Surgical History History of hip replacement History of hysterectomy History of knee replacement Social History household members: significant other Smoking Status: Former smoker how long ago did patient quit smokin years ago, smoked <1/2 ppd x 3 years. alcohol intake: never substance use type: does not use caffeine: Yes Type: coffee Number of servings: 2 ROS ROS ED Constitutional Constitutional ED: Denies chills, fever(s) or sweats Eyes Eyes: Denies change in vision ENT ENT ED: Denies dysphagia or sore throat Cardiovascular Cardiovascular: Denies chest pain, leg edema, palpitations or racing heartbeat Respiratory/Chest Respiratory/Chest: Denies cough, dyspnea or dyspnea on exertion Gastrointestinal Gastrointestinal: Denies abdominal pain, diarrhea, nausea or vomiting Genitourinary Genitourinary ED: Denies dysuria, hematuria or urinary frequency Musculoskeletal Musculoskeletal: Denies back pain, extremity pain or neck pain Integumentary Reports wounds; Denies rash Neurologic Neurologic: Denies headache(s), paresthesias or weakness EXAM Physical Exam Const Vital Signs: 03/04/22 17:03 03/04/22 17:07 Temperature 97.8 F Temperature Source Temporal Pulse Rate 115 H Respiratory Rate 18 Respiratory Effort Normal Respiratory Depth Normal Respiratory Pattern Normal Pulse Ox 96 Oxygen Delivery Method Room Air Room Air Positive well nourished and well developed Constitutional Narrative: GCS 15. General Appearance ED: well developed and NAD HEENT Reports moist mucous membranes HEENT Narrative: Occipital hematoma left side with dry blood. There is no active bleeding. No hemotympanums. normocephalic Eyes PERRL, EOMs intact bilaterally and conjunctivae normal General Eye ED: Yes normal appearance of both eyes Neck no lymphadenopathy and supple General: Negative for tenderness Chest Wall inspection of chest normal and palpation of chest normal Chest Narrative: No chest wall tenderness. Chest: Negative for tenderness Resp normal respiratory effort and normal air movement Resp Narrative: Symmetric breath sounds. Effort and Inspection: symmetric chest movement; Negative for respiratory distress Cardio regular rate, regular rhythm and no murmurs Peripheral Pulses: pulses 2+ throughout GI normal to inspection, nondistended, normoactive bowel sounds and non-tender Palpation: Negative for guarding or rebound tenderness present Back/Spine no CVA tenderness and no thoracic nor lumbar tenderness Back/Spine Narrative: No midline step-offs or tenderness. Extremity normal to inspection Extremity Narrative: Active full range of motion x4 extremities. Negative logroll of the lower extremities. Pulses intact x4. General Extremety ED: Negative for edema or tenderness General Extremity: Negative for edema Neuro oriented x3, CN's II-XII intact bilaterally and no sensory deficits noted Sensorium / Orientation: awake and alert Skin Skin Narrative: See above. MDM MDM MDM Narrative Medical decision making narrative: Patient on Eliquis with head injuries no loss of conscious. Trauma scans head and neck shows no acute process. Hematoma posterior scalp was cleansed with peroxide noted laceration 1.5 cm on top of the hematoma. Bleeding on the inferior aspect. Controlled with lidocaine with epinephrine. 2 sutures were placed with good hemostasis. Wound care discussed. Follow-up with her PCP in 10 to 14 days for suture removal. Procedure note. Verbal consent. Laceration repair. Normal sterile conditions. Copiously flushed and peroxide posterior scalp cleaned up to dry blood. Laceration reviewed. Total 2 cc 2% lidocaine with epinephrine used for local analgesia. Total 2, 4-0 nylon simple interrupted sutures were placed to good approximation. Hemostasis achieved patient tolerated procedure well. Of note per radiology noted right pleural effusion CT cervical spine. She is in no respiratory distress. Discussed findings with patient and family. Radiography Diagnostic Testing: Clinical Impression(s) from Imaging Studies Brain CT 03/04/22 17:11 IMPRESSION: There are no acute intracranial findings. Electronically Signed: Kirk Hines MD at 17:53 EST , Cervical Spine CT 03/04/22 17:11 IMPRESSION: Degenerative changes of the cervical spine. There is a right pleural effusion. Electronically Signed: Kirk Hines MD at 17:59 EST , Discharge Plan Triage Chief Complaint: Fall ED Provider: Hunter Yeh Dx/Rx/DC Orders Clinical Impression: CHI (closed head injury), PAF (paroxysmal atrial fibrillation), Hematoma of scalp, Laceration of scalp, Tetanus, Anticoagulant long-term use, Pleural effusion, right Instructions: ED Scalp Contusion, ED Head Injury (Adult), ED Laceration Scalp Stitches or [place] Prescriptions: No Action potassium chloride 20 mEq tablet extended release 20 meq PO DAILY Qty: 30 12RF levothyroxine 50 mcg tablet 50 mcg PO DAILY apixaban 5 MG tablet 5 mg PO BID sennosides-docusate sodium [Stool Softener-Stimulant Laxat] 8.6-50 mg Tablet 2 tab PO BID PRN PRN (Reason: Constipation) Qty: 0 0RF metoprolol tartrate 100 mg tablet 100 mg PO BID Qty: 180 3RF amiodarone 200 mg tablet 200 mg PO DAILY Qty: 90 3RF Primary Care Provider: Kranthi Long Referrals: Kranthi Long MD [Primary Care Provider] - 10-14 Days suture removal Activity Restrictions/Additional Instructions: Trauma scans of your head and neck are negative. Scalp hematoma with laceration 2, 4-0 nylon simple interrupted sutures placed in the posterior scalp. Wound care as discussed. Follow-up with your doctor in 10 to 14 days for suture removal. Disposition Disposition: Home, Self Care
[2022-03-04] MEDS: Diphth,Pertuss(Acell),Tet Vac 0.5 ML Vial IM (17:52)
== END 2022-03-04 18:43 | disposition home or self-care (01) ==
PROVIDERS: Emergency Provider Emergency Medicine; PCP Family Medicine; Visit Provider Emergency Medicine
DX: S01.01XA Laceration without foreign body of scalp, initial encounter (principal); I50.9 Heart failure, unspecified; I42.9 Cardiomyopathy, unspecified; I11.0 Hypertensive heart disease with heart failure; I48.0 Paroxysmal atrial fibrillation; W01.198A Fall on same level from slipping, tripping and stumbling with subsequent striking against other object, initial encounter; Y92.000 Kitchen of unspecified non-institutional (private) residence as the place of occurrence of the external cause; Z23 Encounter for immunization; E03.9 Hypothyroidism, unspecified; Z79.01 Long term (current) use of anticoagulants; Z79.890 Hormone replacement therapy; Z79.899 Other long term (current) drug therapy; Z87.891 Personal history of nicotine dependence; Z86.711 Personal history of pulmonary embolism
CPT/HCPCS: 12001; 70450; 72125; 90471; 90715; 99284

== ENCOUNTER 2022-03-08 13:12 | Inpatient (IN) | payer MEDICARE, OTHER, SELFPAY ==
[2022-03-08 13:32] VITALS: BP 130/85; PULSE 125; RESP 18; TEMP 36.6; O2SAT 95; BMI 22.5
--- NOTE | 2022-03-08 17:22 | RAD_ITS ---
INDICATION: s/p fall EXAMINATION/TECHNIQUE: X-RAY - RIGHT XR Shoulder Min 2 Views 3 VIEWS COMPARISON: None. FINDINGS: SOFT TISSUES: No soft tissue swelling or gas. No radiopaque foreign body. BONES/JOINTS: There is posttraumatic deformity of the humeral neck which has the appearance of an old healed fracture... Normal alignment. Mildly narrowed glenohumeral joint.. No sclerotic or destructive changes observed. RAD/Shoulder min 2 Views IMPRESSION: Old healed humeral neck fracture. No acute fracture or dislocation Electronically Signed: Jaime Ibanez MD at 18:16 EST ,
--- NOTE | 2022-03-08 17:22 | RAD_ITS ---
INDICATION: pain EXAMINATION/TECHNIQUE: X-RAY - XR Pelvis 1 or 2 Views COMPARISON: None. FINDINGS: PELVIC BONES: There is an acute displaced fracture of the left superior pubis and possible nondisplaced fracture of the left inferior pubis. Note that overlapping bowel shadows may however obscure fine detail. Sacroiliac joints are unremarkable. No widening of the pubic symphysis. HIPS: Left hip prosthesis is noted in anatomic alignment and position. There is foreshortened appearance to the right femoral neck and possibility of mildly impacted fracture cannot be excluded. SOFT TISSUES: No soft tissue swelling or gas. RAD/Pelvis 1 or 2 Views IMPRESSION: Acute displaced fractures of the left superior pubis and possibly nondisplaced fracture of the inferior pubis.. Cannot definitively exclude mildly impacted right femoral neck fracture CT recommended for further evaluation Electronically Signed: Jaime Ibanez MD at 18:13 EST ,
--- NOTE | 2022-03-08 17:22 | RAD_ITS ---
INDICATION: s/p fall pain EXAMINATION/TECHNIQUE: X-RAY - RIGHT XR Tibia/Fibula 2 Views 3 VIEWS COMPARISON: None. FINDINGS: SOFT TISSUES: No soft tissue swelling or gas. No radiopaque foreign body. BONES/JOINTS: No acute fracture or subluxation.. Normal alignment. Stable appearance to knee joint prosthesis.. No sclerotic or destructive changes observed. RAD/Tibia & Fibula 2 Views IMPRESSION: No acute fracture or dislocation Electronically Signed: Jaime Ibanez MD at 18:17 EST ,
--- NOTE | 2022-03-08 17:22 | RAD_ITS ---
INDICATION: pain s/p fall EXAMINATION/TECHNIQUE: X-RAY - RIGHT XR Femur Min 2 Views 4 VIEWS COMPARISON: None. FINDINGS: SOFT TISSUES: No soft tissue swelling or gas. No radiopaque foreign body. BONES/JOINTS: No definitive evidence for acute fracture or subluxation however there is foreshortened appearance of the femoral neck and subtle impaction cannot be excluded. Normal alignment. Preservation of the joint space.. No sclerotic or destructive changes observed. RAD/Femur Min 2 Views IMPRESSION: No definitive evidence for acute fracture or dislocation however cannot definitively exclude subtle impaction of femoral neck. CT recommended for more definitive evaluation if indicated Electronically Signed: Jaime Ibanez MD at 17:55 EST ,
--- NOTE | 2022-03-08 17:22 | RAD_ITS ---
INDICATION: Shortness of breath EXAMINATION/TECHNIQUE: X-RAY - XR Chest 2 Views COMPARISON: None. FINDINGS: LINES/DEVICES: None. LUNGS: There are bilateral pleural effusions larger on the right minor basilar atelectasis. No pneumothorax. MEDIASTINUM AND CARDIOVASCULAR STRUCTURES: Cardiac silhouette not enlarged. Central airways and mediastinal contour are unremarkable. BONES AND SOFT TISSUES: Dorsal spine demonstrates degenerative changes.. RAD/Chest PA and Lateral IMPRESSION: Bilateral pleural effusions larger on the right with minor bibasilar atelectasis Electronically Signed: Jaime Ibanez MD at 17:53 EST ,
[2022-03-08] MEDS: Carvedilol 25 MG Tablet PO (18:06)
[2022-03-08] MEDS: Senna/Docusate Sodium 1 Tablet 2 TABLET PO (18:14)
[2022-03-08 18:27] LABS: Absolute Lymphocyte Count 1.38 X10^3/uL (0.83-4.51); Absolute Neutrophil Count 5.2 X10^3/uL (2.0-7.7); Basophil# 0.06 X10^3/uL; Basophil% 0.8 % (0-1); Hematocrit 41.7 % (37-47); Hemoglobin 13.7 g/dL (12.0-15.0); Lymphocyte # 1.38 X10^3/ul (0.83-4.51); Lymphocyte % 19.1 % (19-41); Mean Corp Hgb Conc 32.9 g/dL (32-36); Mean Corpuscular Hgb 31.6 pg (27.0-32.0); Mean Corpuscular Volume 96.1 fL (81-99); Monocyte# 0.53 X10^3/uL; Monocyte% 7.3 % (0-10); NRBC Flagged by Analyzer 0 % (0-5); Neutrophil # 5.24 X10^3/uL (2.7-7.7); Neutrophil % 72.5 % (47-70); Platelet Count 202 K/mm3 (150-450); RBC Distribution Width CV 14.5 % (11.6-14.6); RBC Distribution Width SD 50.7 fl (35.1-43.9); Red Blood Count 4.34 M/mm3 (4.2-5.4); White Blood Count 7.2 K/mm3 (4.4-11.0)
[2022-03-08 18:46] LABS: BNP,B-Type NATRIURETIC PEPTIDE 1658.6 pg/mL (0-100)
[2022-03-08 18:54] LABS: ALB/GLOB Ratio 1.2 RATIO (0.9-2.4); AST(SGOT) 26 U/L (15-37); Alanine Aminotransfer ALT/SGPT 33 U/L (13-56); Albumin, Serum 3.4 g/dL (3.2-5.0); Alkaline Phosphatase 79 U/L (45-117); Anion Gap 7 (5-15); BUN 43 mg/dL (7-18); BUN/Creat Ratio 30.5 RATIO (10-20); Calcium,Total 9.2 mg/dL (8.5-10.1); Chloride 105 mmol/L (98-107); Creatinine, Serum 1.41 mg/dL (0.55-1.02); EST Glomerular Filtration Rate 38 mL/min (>60); Est Glom Filt Rate - Afr Amer 45 mL/min (>60); Estimated Creatinine Clearance 28.89 ml/min; Globulin 2.8 g/dL (2.2-4.2); Glucose 95 mg/dL (74-106); Protein, Total 6.2 g/dL (6.4-8.2); Sodium Level 137 mmol/L (136-145); Thyroid Stim Hormone (TSH) 2.46 uIU/mL (0.358-3.74); Troponin-I HS 17 pg/mL (3.0-54.0)
--- NOTE | 2022-03-08 19:05 | HP.PCM_ITS ---
HPI - General General Date of Admission: 03/08/22 Date of Service: 03/08/22 Chief Complaint: Here for rehabilitation. HPI Narrative CLOVIS ALVAREZ, is a 86 Female who presents with followin02/06/2022 - 02/08/2022 [facility] admission for shortness of breath, lightheadedness, atrial fibrillation with RVR, cardioverted 02/07/2022. 02/11/2022 - 02/14/2022 [facility] admission for atrial fibrillation with RVR, cardiomyopathy EF 45%. 03/04/2022 Presented to [facility] ED with fall. Fall at home in kitchen with walker, legs gave out. Hit back of head on stove. Eliquis 5mg twice daily for atrial fibrillation, bleeding back of head. Trauma scans head, neck negative. 2 sutures placed back of head. Patient discharged home. 03/08/2022 Patient admitted to TCU from home for debility, frequent falls, unable to care for self at home. She lives alone. Evaluation on TCU reveals following so far: Chemistry consistent with acute kidney injury, GFR 38. Labs, Chest X-ray consistent with acute on chronic systolic congestive heart failure. Bilateral pleural effusions right worse than right. 02/21/2022 Urine culture grew > 100,000 Klebsiella Pneumoniae, unclear whether she was treated with ATB's, repeat UA, urine culture. Old healed right humeral neck fracture, resident denies history of right upper arm fracture. Acute left pelvis fracture, order CT pelvis to confirm. ?Right femoral neck fracture, CT right hip to confirm. Resident tachycardic, Apical 140. [facility] Medical History Acute kidney injury Benign essential hypertension Bilateral pulmonary embolism Cardiomyopathy Congestive heart failure Dizziness Former tobacco use History of cardioversion (~02/07/22) History of venous thromboembolism HTN (hypertension) Hypothyroidism PAF (paroxysmal atrial fibrillation) Pleural effusion Home Medications apixaban 5 mg tablet 5 mg PO BID blood thinner 02/06/22 [History Last Taken 02/05/22] levothyroxine 50 mcg tablet 50 mcg PO DAILY thyroid 02/06/22 [History Last Taken 02/06/22] sennosides 8.6 mg-docusate sodium 50 mg tablet (Stool Softener-Stimulant Laxative) 2 tab PO BID PRN PRN Constipation #0 tabs 02/08/22 [Rx Last Taken Unknown] amiodarone 200 mg tablet 200 mg PO DAILY BP 03/08/22 [History Last Taken Unknown] metoprolol tartrate 100 mg tablet 100 mg PO BID BP 03/08/22 [History Last Taken Unknown] potassium chloride 20 mEq tablet,extended release 20 meq PO DAILY Supplement 03/08/22 [History Last Taken Unknown] Allergy/AdvReac Type Severity Reaction Status Date / Time lisinopril Allergy Shortness Verified 02/21/22 13:27 of breath metoclopramide [From Reglan] Allergy Shortness Verified 02/21/22 13:27 of breath etodolac AdvReac Diarrhea Verified 02/21/22 13:27 Family History Mother Cancer Father Tuberculosis Brother History of pancreatitis Son Diabetes Aneurysm Legs and stomach Hyperlipidemia Surgical History History of hip replacement History of hysterectomy History of knee replacement Social History (Updated 03/08/22 @ 19:[address] Howard Cason MD) household members: none Smoking Status: Former smoker how long ago did patient quit smokin years ago, smoked <1/2 ppd x 3 years. alcohol intake: never substance use type: does not use caffeine: Yes Type: coffee Number of servings: 2 ROS Constitutional Constitutional: Denies chills, fever(s) or weight gain ENT HEENT: Denies headache(s), nasal congestion or nasal discharge Cardiovascular Cardiovascular: Denies chest pain or palpitations Respiratory/Chest Respiratory/Chest: Denies cough, excessive phlegm production or shortness of breath with exertion Gastrointestinal Gastrointestinal: Denies abdominal pain, nausea or vomiting Genitourinary Genitourinary: Denies dysuria Musculoskeletal Musculoskeletal: Denies joint pain or joint swelling Integumentary Integumentary: Denies rash or wounds Neurologic Neurologic: Denies focal weakness, numbness or tingling Psychiatric Psychiatric: Denies anxiety, auditory hallucinations, depression, homicidal ideation or suicidal ideation Vital Signs Vital Signs Vital Signs: 03/08/22 13:32 03/08/22 13:32 Temperature 97.8 F Temperature Source Temporal Pulse Rate 125 H 125 H Pulse Rhythm Irregular Respiratory Rate 18 18 Respiratory Effort Normal Respiratory Depth Normal Respiratory Pattern Normal Blood Pressure 130/85 H Blood Pressure Mean 100 Blood Pressure Source Monitor Blood Pressure Position Semi-Fowlers Blood Pressure Location Right Arm Pulse Ox 95 95 Oxygen Delivery Method Room Air Room Air Weight Weight: 67.188 kg Body Mass Index (BMI) 22.5 Physical Exam Const alert General Appearance: cooperative HEENT normocephalic Eyes PERRL and EOMs intact bilaterally Neck supple, no JVD and no carotid bruits Resp normal respiratory effort, normal air movement and clear to auscultation bilaterally Cardio regular rate and regular rhythm GI normal to inspection, nondistended, normoactive bowel sounds, non-tender and non-distended Extremity normal capillary refill General Extremity: Negative for edema Skin no rashes or lesions noted General Skin Exam: no breakdown Psych affect normal Appearance: appropriate Results Lab / Micro Data Result Diagrams: 03/08/22 18:07 03/08/22 18:07 Labs: Laboratory Results - last 24 hr 03/08/22 18:07: WBC 7.2, RBC 4.34, Hgb 13.7, Hct 41.7, MCV 96.1, MCH 31.6, MCHC 32.9, RDW Std Deviation 50.7 H, RDW Coeff of Kin 14.5, Plt Count 202, MPV 12.0, Immature Gran % (Auto) 0.300, Neut % (Auto) 72.5 H, Lymph % (Auto) 19.1, Slope % (Auto) 7.3, Eos % (Auto) 0.0, Baso % (Auto) 0.8, Absolute Neuts (auto) 5.2, Absolute Lymphs (auto) 1.38, Nucleated RBC % 0 03/08/22 18:07: Sodium 137, Potassium 5.0, Chloride 105, Carbon Dioxide 25.0, Anion Gap 7, BUN 43 H, Creatinine 1.41 H, Estim Creat Clear Calc 28.89, Est GFR (MDRD) Af Amer 45 L, Est GFR (MDRD) Non-Af 38 L, BUN/Creatinine Ratio 30.5 H, Glucose 95, Calcium 9.2, Total Bilirubin 0.90, AST 26, ALT 33, Alkaline Phosphatase 79, Troponin I High Sens 17, Total Protein 6.2 L, Albumin 3.4, Globulin 2.8, Albumin/Globulin Ratio 1.2, TSH 2.46 03/08/22 18:07: B-Natriuretic Peptide 1658.6 H Micro: Microbiology 03/08/22 13:45 Nasal Secretion SARS-CoV-2 Antigen (Rapid) - Final Radiology Impression Chest X-Ray 03/08/22 17:22 IMPRESSION: Bilateral pleural effusions larger on the right with minor bibasilar atelectasis Electronically Signed: Jaime Ibanez MD at 17:53 EST , Femur X-Ray 03/08/22 17:22 IMPRESSION: No definitive evidence for acute fracture or dislocation however cannot definitively exclude subtle impaction of femoral neck. CT recommended for more definitive evaluation if indicated Electronically Signed: Jaime Ibanez MD at 17:55 EST , Pelvis X-Ray 03/08/22 17:22 IMPRESSION: Acute displaced fractures of the left superior pubis and possibly nondisplaced fracture of the inferior pubis.. Cannot definitively exclude mildly impacted right femoral neck fracture CT recommended for further evaluation Electronically Signed: Jaime Ibanez MD at 18:13 EST , Shoulder X-Ray 03/08/22 17:22 IMPRESSION: Old healed humeral neck fracture. No acute fracture or dislocation Electronically Signed: Jaime Ibanez MD at 18:16 EST , Tibia/Fibula X-Ray 03/08/22 17:22 IMPRESSION: No acute fracture or dislocation Electronically Signed: Jaime Ibanez MD at 18:17 EST , Assessment & Plan Assessment/Plan (1) Debility: (2) Fall: (3) Acute kidney injury: (4) Acute on chronic systolic congestive heart failure: (5) Bilateral pleural effusion: (6) Fracture of left pelvis: (7) Closed right hip fracture: (8) Urinary tract infection: (9) Atrial fibrillation with rapid ventricular response: (10) Hypertension: (11) Hypothyroidism: (12) BPPV (benign paroxysmal positional vertigo): (13) Hypokalemia: PLAN: Plan 86 year old female with below past medical history significant for fall, encephalopathy, admitted to TCU with debility, here for rehabilitation, strengthening, prior to discharge home alone. * Debility - PT/OT. * Pain - Tylenol 1000mg q6h prn pain (1-3), Tramadol 50mg q6h prn pain (4-5), Oxycodone 2.5mg q4h prn pain (6-10). * Bowel - senna/colace 2 tablets bid. * Adult immunization - Administer pneumonia vaccine, covid19 vaccine, flu vaccine as appropriate. * DVT prophylaxis - Not necessary, on Eliquis. * Atrial fibrillation with rapid ventricular response - Coreg 25mg bid, Amiodarone 200mg daily, Eliquis 5mg bid, if heart rate does not improve, add Diltiazem. * Acute on chronic systolic congestive heart failure - Possibly related to tachycardia, BNP elevated but improved from previous, Chest X-ray shows bilateral pleural effusion, Furosemide 40mg IV x 1 dose, resident does have dypsnea on exertion, if heart failure symptoms persist, consider Entresto, SGLT2i, Spironolactone. * Acute kidney injury - monitor, she maybe dry, consider IV fluids if worsening kidney function with Furosemide. * Urinary tract infection - no symptoms, but confusion, 02/21/2022 Urine culture grew > 100,000 Klebsiella Pneumoniae, unknown if resident treated, repeat UA, C+S. * Healed right humerus fracture - monitor. * Left pelvis fracture - order CT pelvis to confirm. * Right hip fracture - order CT right hip to confirm, if positive, discharge to [facility] ED for admission to hospital for right hip fracture repair. * Hypothyroidism - Levothyroxine 50mcg daily. * Hypokalemia - KCL 20meq daily. * Tinea Corporis - Nystatin powder topical bid. * Skin irritation - Petrolatum topical bid.
[2022-03-08 19:18] VITALS: PULSE 102; O2SAT 93
[2022-03-08] MEDS: Petrolatum 33% Tube 1 APPLIC TOPICAL (19:40)
[2022-03-08] MEDS: Nystatin Powder 15gm Bottle 1 APPLIC TOPICAL (19:40)
--- NOTE | 2022-03-08 20:08 | NURSING ---
PT TO CATSCAN VIA BED
[2022-03-08] MEDS: Furosemide 40 MG/4 ML Vial IV (20:40)
[2022-03-08] MEDS: 0.9% Saline Lock 10 ML Syringe IV (20:50)
--- NOTE | 2022-03-08 21:26 | NURSING ---
Received phone call from Dr. Cason, confirmed that IV Lasix administered per MAY, new order received for IV NS @60cc/hr, CBC/BMP on 03/09/22, if right hip fx send to ED, send urine as soon as possible. All orders repeated back.
[2022-03-08] MEDS: 0.9% Normal Saline 1,000 ML 60 ML IV (21:55)
--- NOTE | 2022-03-08 21:56 | NURSING ---
MARISOL CALLED ABOUT CT OF PELVIS NOT HAVING ANYTHING ABOUT RT HIP. Tam IN CT SAID SHE WOULD CONTACT RAD TO READ THE RT HIP ALSO. SHE SAID THIS IS THE BEST TEST TO EVALUATE THE HIPS. sO SHE WILL HAVE IT READ WITH BOTH HIPS INCLUDED IN REPORT
[2022-03-08 22:01] LABS: Bacteria 0 SEEN /hpf (None Seen); Mucous, Urine 0 SEEN /hpf (<or=2+); Squamous Epithelial Cells - UA 0 SEEN /hpf (5-10); White Blood Cells 0 SEEN /hpf (0-5)
[2022-03-08 22:02] LABS: Color, Urine Straw (Yellow); Glucose, Dipstick Normal (Normal); Ketone-Dipstick Negative (Negative); Leukocyte Esterase-Dipstick Negative /ul (Negative); Nitrite-Dipstick Negative (Negative); Occult Blood-Urine 25 /ul (Negative); Protein-Dipstick Negative (Negative); Urine Bilirubin Dipstick Negative (Negative); Urine Clarity Clear (Clear); Urine Urobilinogen Normal (Normal)
[2022-03-08] MEDS: APIXABAN 5 MG TABLET PO (22:06)
[2022-03-08 22:09] LABS: Red Blood Cells-Urine 0-5 SEEN /hpf (0-5)
[2022-03-09] MEDS: Acetaminophen 500 MG Tablet 1000 MG PO (02:14)
[2022-03-09 05:14] VITALS: BP 101/60; PULSE 96; RESP 17; O2SAT 94
[2022-03-09] MEDS: Senna/Docusate Sodium 1 Tablet 2 TABLET PO (05:16)
[2022-03-09] MEDS: Carvedilol 25 MG Tablet PO ×2 (05:16→17:08)
[2022-03-09] MEDS: Levothyroxine 50 MCG Tablet PO (05:16)
[2022-03-09] MEDS: Potassium Chloride Oral Tablet 20 MEQ PO ×2 (05:17→09:08)
[2022-03-09] MEDS: Amiodarone 200 MG Tablet PO (05:17)
[2022-03-09] MEDS: Petrolatum 33% Tube 1 APPLIC TOPICAL ×2 (05:17→17:09)
[2022-03-09] MEDS: Nystatin Powder 15gm Bottle 1 APPLIC TOPICAL ×2 (05:18→17:09)
[2022-03-09] MEDS: APIXABAN 5 MG TABLET PO ×2 (05:19→17:08)
[2022-03-09 05:36] LABS: Absolute Lymphocyte Count 1.37 X10^3/uL (0.83-4.51); Absolute Neutrophil Count 3.5 X10^3/uL (2.0-7.7); Basophil# 0.07 X10^3/uL; Basophil% 1.3 % (0-1); Eosinophil# 0.04 X10^3/uL; Eosinophils% 0.8 % (0-5); Hematocrit 37.1 % (37-47); Hemoglobin 12.1 g/dL (12.0-15.0); Lymphocyte # 1.37 X10^3/ul (0.83-4.51); Lymphocyte % 25.9 % (19-41); Mean Corp Hgb Conc 32.6 g/dL (32-36); Mean Corpuscular Hgb 31.3 pg (27.0-32.0); Mean Corpuscular Volume 96.1 fL (81-99); Mean Platelet Vol. 11.6 fl (6.2-12.0); Monocyte# 0.32 X10^3/uL; Monocyte% 6.1 % (0-10); NRBC Flagged by Analyzer 0 % (0-5); Neutrophil # 3.46 X10^3/uL (2.7-7.7); Neutrophil % 65.5 % (47-70); Platelet Count 137 K/mm3 (150-450); RBC Distribution Width CV 14.4 % (11.6-14.6); RBC Distribution Width SD 49.4 fl (35.1-43.9); Red Blood Count 3.86 M/mm3 (4.2-5.4); White Blood Count 5.3 K/mm3 (4.4-11.0)
[2022-03-09 05:56] LABS: Anion Gap 6 (5-15); BUN 38 mg/dL (7-18); BUN/Creat Ratio 31.7 RATIO (10-20); Calcium,Total 8.4 mg/dL (8.5-10.1); Chloride 105 mmol/L (98-107); EST Glomerular Filtration Rate 45 mL/min (>60); Est Glom Filt Rate - Afr Amer 55 mL/min (>60); Estimated Creatinine Clearance 33.95 ml/min; Glucose 84 mg/dL (74-106); Potassium 3.3 mmol/L (3.5-5.1); Sodium Level 139 mmol/L (136-145)
[2022-03-09] MEDS: Tuberculin,Purif.prot.deriv. 50 TU/ML Vial 0.1 ML ID (12:00)
--- NOTE | 2022-03-09 14:00 | CASEMGMT ---
Social Work Met with patient to complete initial assessment. Introduced self and role. Verified contacts. Discussed code status and MOLST form. Pt confirms full code. MOLST placed in Dr folder. Pt states children are having advanced directives completed. Educated to Medicare benefit. Pt's goal is to return home alone. SW to continue to follow for DC planning. Genny Lopez, PICK PULLING MACHINE OPERATOR MOTOR TESTER
[2022-03-09 15:20] VITALS: BP 97/54; PULSE 116; RESP 18; TEMP 36.1; O2SAT 97
--- NOTE | 2022-03-09 20:58 | NURSING ---
Notified Dr. Cason of pt having large amount of blood in toilet and brief. Received order to hold Eliquis until Saturday and order a stat H&H.
[2022-03-09 21:28] VITALS: BP 100/57; PULSE 105
[2022-03-09] MEDS: 0.9% Normal Saline 1,000 ML 60 ML IV (21:28)
[2022-03-09 21:50] LABS: Hematocrit 38.2 % (37-47); Hemoglobin 12.1 g/dL (12.0-15.0)
[2022-03-10] MEDS: Levothyroxine 50 MCG Tablet PO (05:54)
[2022-03-10] MEDS: Amiodarone 200 MG Tablet PO (05:55)
[2022-03-10] MEDS: Carvedilol 25 MG Tablet PO (05:56)
[2022-03-10] MEDS: Petrolatum 33% Tube 1 APPLIC TOPICAL ×2 (05:57→17:10)
[2022-03-10] MEDS: Nystatin Powder 15gm Bottle 1 APPLIC TOPICAL ×2 (05:58→17:09)
--- NOTE | 2022-03-10 07:23 | NURSING ---
Pt continues to have moderate amounts of blood noted in brief and toilet when being toileted. Dr. Cason aware. H&H scheduled for this morning. Also potassium on 03/09 noted to be 3.3. Pt has orders for 20 meq K+ at 0600 and 0800 daily[address] Cason. RN aware.
[2022-03-10] MEDS: Potassium Chloride Oral Tablet 20 MEQ PO (08:13)
[2022-03-10] MEDS: traMADol 50 MG Tablet PO (08:16)
[2022-03-10 08:19] LABS: Anion Gap 4 (5-15); BUN 39 mg/dL (7-18); BUN/Creat Ratio 36.4 RATIO (10-20); Calcium,Total 8.6 mg/dL (8.5-10.1); Chloride 107 mmol/L (98-107); Creatinine, Serum 1.07 mg/dL (0.55-1.02); EST Glomerular Filtration Rate 52 mL/min (>60); Est Glom Filt Rate - Afr Amer 62 mL/min (>60); Estimated Creatinine Clearance 38.07 ml/min; Glucose 94 mg/dL (74-106); Potassium 4.3 mmol/L (3.5-5.1); Sodium Level 139 mmol/L (136-145)
[2022-03-10] MEDS: oxyCODONE 5 MG Tablet 2.5 MG PO (10:54)
[2022-03-10] MEDS: dilTIAZem CD 120 MG Capsule PO (11:24)
[2022-03-10 14:00] VITALS: BP 99/58; PULSE 120; RESP 16; TEMP 36.2; O2SAT 96
--- NOTE | 2022-03-10 14:39 | NURSING ---
Son in at this time and turned in POA papers and living will. Verify full code status at this time.
[2022-03-10] MEDS: 0.9% Normal Saline 1,000 ML 60 ML IV (15:14)
[2022-03-10 17:06] VITALS: BP 105/54; PULSE 105
[2022-03-10] MEDS: Senna/Docusate Sodium 1 Tablet 2 TABLET PO (17:06)
[2022-03-10] MEDS: Metoprolol Tartrate 100 MG Tablet PO (17:06)
[2022-03-11] MEDS: Acetaminophen 500 MG Tablet 1000 MG PO (04:48)
[2022-03-11] MEDS: Senna/Docusate Sodium 1 Tablet 2 TABLET PO (04:48)
[2022-03-11 04:49] VITALS: BP 133/67; PULSE 99
[2022-03-11] MEDS: Levothyroxine 50 MCG Tablet PO (04:49)
[2022-03-11] MEDS: Metoprolol Tartrate 100 MG Tablet PO ×2 (04:49→18:33)
[2022-03-11] MEDS: Petrolatum 33% Tube 1 APPLIC TOPICAL ×2 (04:50→18:34)
[2022-03-11] MEDS: dilTIAZem CD 120 MG Capsule PO (04:50)
[2022-03-11] MEDS: Nystatin Powder 15gm Bottle 1 APPLIC TOPICAL ×2 (04:50→18:34)
[2022-03-11 08:08] LABS: Hematocrit 38.1 % (37-47); Hemoglobin 11.6 g/dL (12.0-15.0)
[2022-03-11] MEDS: Potassium Chloride Oral Tablet 20 MEQ PO (08:37)
[2022-03-11] MEDS: Amiodarone 200 MG Tablet PO (08:37)
[2022-03-11] MEDS: 0.9% Normal Saline 1,000 ML 60 ML IV (08:41)
[2022-03-11 14:00] VITALS: BP 110/77; PULSE 90; RESP 20; TEMP 36.6; O2SAT 97
[2022-03-11 18:33] VITALS: PULSE 90
[2022-03-11 20:00] VITALS: O2SAT 94
[2022-03-12] MEDS: 0.9% Normal Saline 1,000 ML 60 ML IV ×2 (03:40→22:36)
[2022-03-12] MEDS: Levothyroxine 50 MCG Tablet PO (05:27)
[2022-03-12] MEDS: Senna/Docusate Sodium 1 Tablet 2 TABLET PO ×2 (05:28→18:57)
[2022-03-12] MEDS: dilTIAZem CD 120 MG Capsule PO (05:28)
[2022-03-12 05:29] VITALS: BP 110/72; PULSE 102
[2022-03-12] MEDS: Metoprolol Tartrate 100 MG Tablet PO ×2 (05:29→18:56)
[2022-03-12] MEDS: Nystatin Powder 15gm Bottle 1 APPLIC TOPICAL ×2 (05:31→18:57)
[2022-03-12] MEDS: Petrolatum 33% Tube 1 APPLIC TOPICAL ×2 (05:31→18:58)
[2022-03-12] MEDS: Potassium Chloride Oral Tablet 20 MEQ PO (08:18)
[2022-03-12] MEDS: traMADol 50 MG Tablet PO (08:18)
[2022-03-12] MEDS: Amiodarone 200 MG Tablet PO (08:19)
[2022-03-12 10:00] VITALS: O2SAT 95
--- NOTE | 2022-03-12 11:29 | NURSING ---
Supervisor Brake Repair Note; Activity Asset: Delano Bean is independent in her daily activities. When not in therapy she watches tv, reads, visit w/family and works on word puzzles. She dis stat when she is feeling better she would like to try bingo.
[2022-03-12 13:52] VITALS: BP 105/66; PULSE 80; RESP 16; TEMP 36.4; O2SAT 98
[2022-03-12 18:56] VITALS: BP 127/67; PULSE 97
[2022-03-13 06:30] VITALS: BP 112/84; PULSE 81; RESP 17; TEMP 36.5; O2SAT 94
[2022-03-13] MEDS: Senna/Docusate Sodium 1 Tablet 2 TABLET PO ×2 (06:46→17:31)
[2022-03-13] MEDS: dilTIAZem CD 120 MG Capsule PO (06:46)
[2022-03-13] MEDS: Petrolatum 33% Tube 1 APPLIC TOPICAL ×2 (06:46→19:51)
[2022-03-13] MEDS: Nystatin Powder 15gm Bottle 1 APPLIC TOPICAL ×2 (06:47→19:52)
[2022-03-13 06:50] VITALS: BP 112/84; PULSE 81
[2022-03-13] MEDS: Metoprolol Tartrate 100 MG Tablet PO ×2 (06:50→17:30)
[2022-03-13] MEDS: Levothyroxine 50 MCG Tablet PO (06:50)
[2022-03-13] MEDS: Amiodarone 200 MG Tablet PO (08:38)
[2022-03-13] MEDS: Potassium Chloride Oral Tablet 20 MEQ PO (08:39)
[2022-03-13 08:41] VITALS: BP 119/69; PULSE 102
--- NOTE | 2022-03-13 11:00 | PCM.PN.DRR ---
TCU RX Drug Regimen Review Subjective: TCU Admission. 86 YOF presented to the ER with a fall. Admitted to TCU with debility for strengthening and rehabilitation. Objective: Allergies lisinopril Allergy (Verified 02/21/22 13:27) Shortness of breath metoclopramide [From Reglan] Allergy (Verified 02/21/22 13:27) Shortness of breath etodolac Adverse Reaction (Verified 02/21/22 13:27) Diarrhea Current Medications Generic Name Dose Route Start Last Admin Trade Name Freq PRN Reason Stop Dose Admin Acetaminophen 1,000 mg 03/08/22 19:34 03/11/22 04:48 Acetaminophen 500 Mg Tablet PO 1,000 mg Q6H PRN PRN Administration Pain Score 1-3 Amiodarone HCl 200 mg 03/12/22 08:00 03/13/22 08:38 Amiodarone 200 Mg Tablet PO 200 mg DAILYCM DEVAN Administration Apixaban 2.5 mg 03/14/22 18:00 Apixaban 2.5 Mg Tablet ([facility]) PO BID DEVAN Diltiazem HCl 120 mg 03/10/22 08:30 03/13/22 06:46 Diltiazem Cd 120 Mg Capsule PO 120 mg DAILY DEVAN Administration Sodium Chloride 1,000 mls @ 60 mls/hr 03/09/22 21:15 03/12/22 22:36 IV 60 mls/hr .[id number] DEVAN Administration Levothyroxine Sodium 50 mcg 03/09/22 06:00 03/13/22 06:50 Levothyroxine 50 Mcg Tablet PO 50 mcg DAILY DEVAN Administration Metoprolol Tartrate 100 mg 03/10/22 18:00 03/13/22 06:50 Metoprolol Tartrate 100 Mg Tablet PO 100 mg BID DEVAN Administration Multi-Ingredient Cream 1 applic 03/08/22 18:00 03/13/22 06:46 Petrolatum 33% Tube TOPICAL 1 applic BID DEVAN Administration Protocol Nutritional Formula (Lactose Free) 118 ml 03/09/22 07:45 03/13/22 08:36 Ensure Compact 118 Ml Liquid PO 118 ml TIDCM DEVAN Administration Nystatin 1 applic 03/08/22 18:00 03/13/22 06:47 Nystatin Powder 15gm Bottle TOPICAL 1 applic BID DEVAN Administration Protocol Oxycodone HCl 2.5 mg 03/08/22 19:34 03/10/22 10:54 Oxycodone 5 Mg Tablet PO 2.5 mg Q4H PRN PRN Administration Pain Score 6-10 Potassium Chloride 20 meq 03/09/22 08:00 03/13/22 08:39 Potassium Chloride Oral Tablet 20 Meq PO 20 meq DAILYCM DEVAN Administration Senna/Docusate Sodium 2 tablet 03/08/22 18:00 03/13/22 06:46 Senna/Docusate Sodium 1 Tablet PO 2 tablet BID DEVAN Administration Sodium Chloride 10 - 40 ml 03/08/22 22:53 0.9% Saline Lock 10 Ml Syringe IV UD PRN SALINE FLUSH Tramadol HCl 50 mg 03/08/22 19:34 03/12/22 08:18 Tramadol 50 Mg Tablet PO 50 mg Q6H PRN PRN Administration Pain Score 4-5 Tuberculin PPD 0.1 ml 03/16/22 10:00 Tuberculin,Purif.Prot.Deriv. 50 Tu/Ml Vial ID 03/16/22 10:01 X1 ONE Problem List (Last Reviewed 03/08/22 @ 19:[address] Howard Cason MD) Hypokalemia (Acute) BPPV (benign paroxysmal positional vertigo) (Acute) Hypothyroidism (Acute) Hypertension (Chronic) Atrial fibrillation with rapid ventricular response (Acute) Urinary tract infection (Acute) Closed right hip fracture (Acute) Fracture of left pelvis (Acute) Bilateral pleural effusion (Acute) Acute on chronic systolic congestive heart failure (Chronic) Acute kidney injury (Acute) Fall (Acute) Debility (Acute) Vital Signs Temp Pulse Resp BP Pulse Ox O2 Del Method 97.7 F L 102 H 17 119/69 94 Room Air 03/13/22 06:30 03/13/22 08:41 03/13/22 06:30 03/13/22 08:41 03/13/22 06:30 03/13/22 06:30 Oxygen Delivery Method Room Air Weight: 67.188 kg Body Mass Index (BMI) 22.5 Sodium 139 mmol/L (136-145) 03/10/22 07:16 Potassium 4.3 mmol/L (3.5-5.1) 03/10/22 07:16 Chloride 107 mmol/L (98-107) 03/10/22 07:16 Carbon Dioxide 28.0 mmol/L (21.0-32.0) 03/10/22 07:16 Anion Gap 4 (5-15) L 03/10/22 07:16 BUN 39 mg/dL (7-18) H 03/10/22 07:16 Creatinine 1.07 mg/dL (0.55-1.02) H 03/10/22 07:16 Est GFR (MDRD) Af Amer 62 mL/min (>60) 03/10/22 07:16 Est GFR (MDRD) Non-Af 52 mL/min (>60) L 03/10/22 07:16 BUN/Creatinine Ratio 36.4 RATIO (10-20) H 03/10/22 07:16 Glucose 94 mg/dL (74-106) 03/10/22 07:16 Assessment/Plan: 1. Pain: acetaminophen 1000mg PO Q6H PRN pain 1-3, tramadol 50mg PO Q6H PRN pain 4-5 and oxycodone 2.5mg PO Q4H PRN pain 6-10. Resident has had 2 doses of acetaminophen, 1 dose of oxycodone and 2 doses of tramadol for pain ranging from 3-7 in hip/back. Please continue to monitor for increased pain, PRN usage, constipation, respiratory depression and renal function. 2. Bowel: senna/docusate 2T PO BID. Please continue to monitor for constipation. Last documented bowel movement 03/11/22. 3. Atrial fibrillation with RVR: amiodarone 200mg PO daily, metoprolol tartrate 100mg PO BID, diltiazem CD 120mg PO daily and apixaban 2.5mg PO BID (on hold). Please consider changing apixaban dose to 5mg PO BID based on SCr <1.5mg/dL and weight >60kg. Resident only meets 1 criteria for decreased dose (age>80). Please continue to monitor for S/S of bleeding, hemoglobin (last 11.6g/dL), BP (last 119/69), HR (last 102), sodium (last 139mmol/l) and potassium (last 4.3mmol/L). 4. Hypothyroidism: levothyroxine 50mcg PO daily. Please continue to monitor for S/S of hypothyroidism and TSH (last 03/08/22). 5. Hypokalemia: potassium chloride 20mEq PO dailycm. Please continue to monitor potassium. Assessment/Plan for indications treated with psychotropic medications: None Medical chart and medication regimen reviewed. The following medication irregularities or issues were identified: *1. Apixaban 2.5mg PO BID (on hold). Please consider changing apixaban dose to 5mg PO BID based on SCr <1.5mg/dL and weight >60kg. Resident only meets 1 criteria for decreased dose (age>80). Thanks. Date of Note:: 03/13/22
--- NOTE | 2022-03-13 12:44 | NURSING ---
Notified Dr. Cason of pt having large amount of rectal bleeding. Received order for stat H&H, Consult Dr. Mallory and hold eliquis until Saturday.
[2022-03-13 13:21] VITALS: BP 110/68; PULSE 78; RESP 16; TEMP 36.2; O2SAT 99
[2022-03-13 13:30] LABS: Hematocrit 42.4 % (37-47); Hemoglobin 12.8 g/dL (12.0-15.0)
[2022-03-13] MEDS: 0.9% Normal Saline 1,000 ML 60 ML IV (15:39)
--- NOTE | 2022-03-13 17:02 | EX.PCM.CON.G ---
HPI Consult Data Date of Consult: 03/13/22 HPI Narrative Reason for Consultation: GI bleed HPI Narrative: CLOVIS ALVAREZ, is a 86 F with a history of atrial fibrillation with RVR thought secondary to pulmonary emboli/DVT superimposed upon history of hypertension.? She was originally brought in by EMS mechanical fall at home prior to arrival.? In the kitchen with her walker when her legs gave out.? She had a back her head on the stove.??Patient admitted to TCU from home for debility, frequent falls, unable to care for self at home.? She lives alone. Labs, Chest X-ray consistent with acute on chronic systolic congestive heart failure.? Bilateral pleural effusions right worse than right. 02/21/2022 Urine culture grew > 100,000 Klebsiella Pneumoniae, unclear whether she was treated with ATB's, repeat UA, urine culture. Old healed right humeral neck fracture, resident denies history of right upper arm fracture. Acute left pelvis fracture, order CT pelvis to confirm. CT/Pelvis without IV Contrast IMPRESSION: ? Acute fractures of the left inferior and superior pubic rami as well as the left sacral wing. There is a relatively lucent appearance to the bones raising question of pathologic fractures possibly neoplastic. Clinical correlation is recommended I was called to see her due to the fact that she has been having ongoing rectal bleeding for the past several days. Her Eliquis has been held. [facility] Medical History Acute kidney injury Benign essential hypertension Bilateral pulmonary embolism Cardiomyopathy Congestive heart failure Dizziness Former tobacco use History of cardioversion (~02/07/22) History of venous thromboembolism HTN (hypertension) Hypothyroidism PAF (paroxysmal atrial fibrillation) Pleural effusion Home Medications apixaban 5 mg tablet 5 mg PO BID blood thinner 02/06/22 [History Last Taken 02/05/22] levothyroxine 50 mcg tablet 50 mcg PO DAILY thyroid 02/06/22 [History Last Taken 02/06/22] sennosides 8.6 mg-docusate sodium 50 mg tablet (Stool Softener-Stimulant Laxative) 2 tab PO BID PRN PRN Constipation #0 tabs 02/08/22 [Rx Last Taken Unknown] amiodarone 200 mg tablet 200 mg PO DAILY BP 03/08/22 [History Last Taken Unknown] metoprolol tartrate 100 mg tablet 100 mg PO BID BP 03/08/22 [History Last Taken Unknown] potassium chloride 20 mEq tablet,extended release 20 meq PO DAILY Supplement 03/08/22 [History Last Taken Unknown] Allergy/AdvReac Type Severity Reaction Status Date / Time lisinopril Allergy Shortness Verified 02/21/22 13:27 of breath metoclopramide [From Reglan] Allergy Shortness Verified 02/21/22 13:27 of breath etodolac AdvReac Diarrhea Verified 02/21/22 13:27 Family History Mother Cancer Father Tuberculosis Brother History of pancreatitis Son Diabetes Aneurysm Legs and stomach Hyperlipidemia Surgical History History of hip replacement History of hysterectomy History of knee replacement Social History (Updated 03/08/22 @ 19:[address] Howard Cason MD) household members: none Smoking Status: Former smoker how long ago did patient quit smokin years ago, smoked <1/2 ppd x 3 years. alcohol intake: never substance use type: does not use caffeine: Yes Type: coffee Number of servings: 2 ROS Constitutional Constitutional: Denies chills, fever(s) or weight gain ENT HEENT: Denies headache(s), nasal congestion or nasal discharge Cardiovascular Cardiovascular: Denies chest pain or palpitations Respiratory/Chest Respiratory/Chest: Denies cough, excessive phlegm production or shortness of breath with exertion Gastrointestinal Gastrointestinal: Denies abdominal pain, nausea or vomiting Genitourinary Genitourinary: Denies dysuria Musculoskeletal Musculoskeletal: Denies joint pain or joint swelling Integumentary Integumentary: Denies rash or wounds Neurologic Neurologic: Denies focal weakness, numbness or tingling Psychiatric Psychiatric: Denies anxiety, auditory hallucinations, depression, homicidal ideation or suicidal ideation Physical Exam Const alert General Appearance: cooperative HEENT normocephalic Eyes PERRL and EOMs intact bilaterally Neck supple, no JVD and no carotid bruits Resp normal respiratory effort, normal air movement and clear to auscultation bilaterally Cardio regular rate and regular rhythm GI normal to inspection, nondistended, normoactive bowel sounds, non-tender and non-distended Extremity normal capillary refill General Extremity: Negative for edema Skin no rashes or lesions noted General Skin Exam: no breakdown Psych affect normal Appearance: appropriate Lab / Micro Data Result Diagrams: 03/13/22 13:23 03/10/22 07:16 Labs: Laboratory Results - last 24 hr 03/13/22 13:23: Hgb 12.8, Hct 42.4 Micro: Microbiology 03/12/22 11:55 Nasal Secretion SARS-CoV-2 Antigen (Rapid) - Final Assessment & Plan Assessment/Plan (1) Lower GI bleeding: PLAN: I do see a lot of stool in her rectum on her CT of the pelvis and some small diverticuli. The differential diagnosis for lower GI bleeding would be internal hemorrhoids secondary to chronic idiopathic constipation due to immobility, stercoral ulcer, diverticular bleed, angiodysplasia, neoplasia. Also wanted of diagnosis could be upper GI bleed with rapid transit in the setting of anticoagulation. She should undergo an upper lower endoscopy in order to evaluate upper lower GI tract to make sure it is safe to go back on anticoagulation. Charges/Coding Visit Charges Inpatient E&M: 95727 SNF Init L2
[2022-03-13 17:30] VITALS: BP 110/68; PULSE 75
--- NOTE | 2022-03-13 17:47 | NURSING ---
UP TO SEE PT. PT ON CLEAR LIQUIDS AT THIS TIME AND THEN NPO AFTER MIDNIGHT. PT WILL HAVE LOWER GI PROCEDURE TOMORROW 03/14/22.
[2022-03-13] MEDS: Bisacodyl 5 MG Tablet 20 MG PO (17:56)
--- NOTE | 2022-03-13 18:06 | NURSING ---
CALLED AND UPDATED EMA/DAUGHTER IN LAW ON PT AND THAT PT WILL BE HAVING A LOWER GI PROCEDURE TOMORROW AND WILL CALL HER TO LET HER KNOW WHAT TIME IT IS. DAUGHTER IN LAW ASKED IF THEY WAS STILL HAVING THERE PLAN OF CARE MEETING AT 1340 TOMORROW. STATED TO HER THAT I WOULD LEAVE STAFF A MESSAGE TO GET A HOLD OF HER IF ANY CHANGES. EMA THANKED THIS NURSE.
[2022-03-13] MEDS: Polyethylene Glycol 3350 BOWEL PREP PO (18:52)
[2022-03-13 19:50] VITALS: BP 114/69; PULSE 90; RESP 16; TEMP 35.9; O2SAT 97
[2022-03-14 06:56] VITALS: BP 132/89; PULSE 102
[2022-03-14] MEDS: dilTIAZem CD 120 MG Capsule PO (06:56)
[2022-03-14] MEDS: Metoprolol Tartrate 100 MG Tablet PO ×2 (06:56→17:48)
[2022-03-14 07:00] VITALS: BP 132/89; PULSE 102; RESP 16; TEMP 36.3; O2SAT 94
--- NOTE | 2022-03-14 08:51 | NURSING ---
CALLED FAMILY AND LEFT THEM KNOW THE TIME OF PROCEDURE FOR THERE MOM TODAY.
[2022-03-14] MEDS: 0.9% Normal Saline 1,000 ML 60 ML IV (09:07)
--- NOTE | 2022-03-14 10:28 | NURSING ---
DR MTZ ORDERED BONE SCAN TO RULE OUT PATHOLOGICAL FRACTURE. FAXED WRITTEN ORDER TO SCHEDULING AND NUCLEAR MED. SEE NURSING COMMUNICATION. SCHEDULED ON Saturday AT 9A INJECTION AND 1P SCAN.
--- NOTE | 2022-03-14 11:59 | NURSING ---
Addendum entered by Aniceto Rivera 03/14/22 14:23: PT RETURNED TO FLOOR FROM PROCEDURE. Original Note: PT LEFT FLOOR BY BED FOR LOWER GI PROCEDURE WITH
[2022-03-14 14:00] VITALS: BP 127/76; PULSE 91; RESP 16; TEMP 36.5; O2SAT 93
--- NOTE | 2022-03-14 14:22 | NURSING ---
pt returned from colonoscopy at this time via bed. alert & oriented. able to return to previous diet. found prolapsed cecum was source of bleed, some polyps removed.
[2022-03-14] MEDS: Levothyroxine 50 MCG Tablet PO (14:37)
[2022-03-14] MEDS: Amiodarone 200 MG Tablet PO (14:38)
[2022-03-14] MEDS: Potassium Chloride Oral Tablet 20 MEQ PO (14:38)
[2022-03-14] MEDS: Nystatin Powder 15gm Bottle 1 APPLIC TOPICAL (14:51)
[2022-03-14 15:29] VITALS: PULSE 91; RESP 18; O2SAT 93
--- NOTE | 2022-03-14 16:25 | CASEMGMT ---
Social Work Pt off unit for scope. Unable to complete MDS on this date. Will attempt tomorrow. Genny Lopez ,POWER SHEAR OPERATOR TELECOMMUNICATIONS LINE MECHANIC
[2022-03-14] MEDS: Senna/Docusate Sodium 1 Tablet 2 TABLET PO (17:46)
[2022-03-14 17:48] VITALS: BP 127/68; PULSE 90
[2022-03-14 17:51] VITALS: BP 127/68; PULSE 90
[2022-03-14] MEDS: Petrolatum 33% Tube 1 APPLIC TOPICAL (20:07)
[2022-03-14] MEDS: 0.9% Saline Lock 10 ML Syringe IV (20:08)
[2022-03-15] MEDS: dilTIAZem CD 120 MG Capsule PO (05:45)
[2022-03-15] MEDS: Petrolatum 33% Tube 1 APPLIC TOPICAL ×2 (05:46→17:10)
[2022-03-15] MEDS: Nystatin Powder 15gm Bottle 1 APPLIC TOPICAL ×2 (05:47→17:08)
[2022-03-15] MEDS: Levothyroxine 50 MCG Tablet PO (05:47)
[2022-03-15 05:49] VITALS: BP 123/79; PULSE 83
[2022-03-15] MEDS: Metoprolol Tartrate 100 MG Tablet PO ×2 (05:49→17:07)
[2022-03-15] MEDS: Amiodarone 200 MG Tablet PO (08:12)
[2022-03-15] MEDS: Potassium Chloride Oral Tablet 20 MEQ PO (08:12)
--- NOTE | 2022-03-15 10:58 | CASEMGMT ---
Social Work BIMS (01/23) and PHQ-9 (01/04) completed for MDS assessment. Explored positive responses. Pt contributes all answers to change in medical and functional changes, lack of energy. Provided emotional support. Offered to speak with Dr about recommendation for medication to assist with mood, sleep, appetite. Pt agreeable. Written communication left for Dr. Genny Lopez ,ELEMENTARY SCHOOL LIBRARIAN TOXICOLOGY SUPERVISOR
--- NOTE | 2022-03-15 13:17 | NURSING ---
removed two sutures from head, pt tolerated well.
[2022-03-15 14:00] VITALS: BP 114/75; PULSE 80; RESP 16; TEMP 36.4
[2022-03-15 17:07] VITALS: BP 117/75; PULSE 80
--- NOTE | 2022-03-15 18:26 | NURSING ---
Called and notified family of positive covid case on the unit.
[2022-03-15] MEDS: Mirtazapine 15 MG Tablet 7.5 MG PO (19:45)
[2022-03-15 20:15] VITALS: O2SAT 94
[2022-03-16 05:02] VITALS: BP 114/65; PULSE 102
[2022-03-16] MEDS: Levothyroxine 50 MCG Tablet PO (05:02)
[2022-03-16] MEDS: Metoprolol Tartrate 100 MG Tablet PO ×2 (05:02→17:00)
[2022-03-16] MEDS: dilTIAZem CD 120 MG Capsule PO (05:02)
[2022-03-16] MEDS: Nystatin Powder 15gm Bottle 1 APPLIC TOPICAL ×2 (05:03→16:57)
[2022-03-16] MEDS: Petrolatum 33% Tube 1 APPLIC TOPICAL ×2 (05:03→16:58)
[2022-03-16 05:15] LABS: Absolute Lymphocyte Count 1.84 X10^3/uL (0.83-4.51); Basophil# 0.05 X10^3/uL; Basophil% 0.9 % (0-1); Eosinophils% 1.8 % (0-5); Hematocrit 35.9 % (37-47); Lymphocyte # 1.84 X10^3/ul (0.83-4.51); Lymphocyte % 33.5 % (19-41); Mean Corp Hgb Conc 30.6 g/dL (32-36); Mean Corpuscular Hgb 30.3 pg (27.0-32.0); Mean Corpuscular Volume 98.9 fL (81-99); Mean Platelet Vol. 10.5 fl (6.2-12.0); Monocyte# 0.47 X10^3/uL; Monocyte% 8.6 % (0-10); NRBC Flagged by Analyzer 0 % (0-5); Neutrophil # 3.01 X10^3/uL (2.7-7.7); Neutrophil % 54.8 % (47-70); Platelet Count 175 K/mm3 (150-450); RBC Distribution Width SD 53.5 fl (35.1-43.9); Red Blood Count 3.63 M/mm3 (4.2-5.4); White Blood Count 5.5 K/mm3 (4.4-11.0)
[2022-03-16 05:42] LABS: Anion Gap 5 (5-15); BUN 18 mg/dL (7-18); BUN/Creat Ratio 26.8 RATIO (10-20); Calcium,Total 8.4 mg/dL (8.5-10.1); Chloride 110 mmol/L (98-107); Creatinine, Serum 0.67 mg/dL (0.55-1.02); EST Glomerular Filtration Rate 88 mL/min (>60); Est Glom Filt Rate - Afr Amer 107 mL/min (>60); Estimated Creatinine Clearance 40.74 ml/min; Glucose 82 mg/dL (74-106); Potassium 3.9 mmol/L (3.5-5.1); Sodium Level 143 mmol/L (136-145)
[2022-03-16] MEDS: Amiodarone 200 MG Tablet PO (08:14)
[2022-03-16] MEDS: Potassium Chloride Oral Tablet 20 MEQ PO (08:14)
--- NOTE | 2022-03-16 08:42 | NURSING ---
Thermostatic Controls Supervisor Note; MDS for 03/15/2022 Complete
[2022-03-16] MEDS: traMADol 50 MG Tablet PO (09:43)
[2022-03-16] MEDS: Tuberculin,Purif.prot.deriv. 50 TU/ML Vial 0.1 ML ID (11:44)
[2022-03-16 13:59] VITALS: BP 126/70; PULSE 82; RESP 16; TEMP 36.3; O2SAT 94
--- NOTE | 2022-03-16 15:27 | CASEMGMT ---
Social Work IDT met with patient, son and dtr for care plan meeting. Discussed patient's progress in PT/OT/ST/SN. Educated to Medicare benefit. Encouraged to contact secondary insurance to ensure copay coverage. Pt's goal is to return home alone. However, broached topic if pt is unable to return home alone d/t physical or cognitive impairments, encouraged family to begin brainstorming other options. SW to assist with provided options and resources. Family expressed understanding. SW to continue to follow. TYRESE RolandW
[2022-03-16] MEDS: 0.9% Saline Lock 10 ML Syringe IV (16:57)
[2022-03-16 17:00] VITALS: BP 126/70; PULSE 82
[2022-03-16] MEDS: APIXABAN 2.5 MG TABLET (WCH) PO (18:07)
[2022-03-16] MEDS: Mirtazapine 15 MG Tablet 7.5 MG PO (19:48)
[2022-03-17] MEDS: Senna/Docusate Sodium 1 Tablet 2 TABLET PO ×2 (05:18→17:55)
[2022-03-17 05:19] VITALS: BP 134/69; PULSE 98
[2022-03-17] MEDS: Metoprolol Tartrate 100 MG Tablet PO ×2 (05:19→17:54)
[2022-03-17] MEDS: APIXABAN 2.5 MG TABLET (WCH) PO ×2 (05:19→17:54)
[2022-03-17] MEDS: Levothyroxine 50 MCG Tablet PO (05:19)
[2022-03-17] MEDS: dilTIAZem CD 120 MG Capsule PO (05:19)
[2022-03-17] MEDS: Nystatin Powder 15gm Bottle 1 APPLIC TOPICAL ×2 (05:20→20:57)
[2022-03-17] MEDS: Petrolatum 33% Tube 1 APPLIC TOPICAL ×2 (05:20→20:56)
[2022-03-17] MEDS: Potassium Chloride Oral Tablet 20 MEQ PO (08:27)
[2022-03-17] MEDS: Amiodarone 200 MG Tablet PO (08:27)
[2022-03-17] MEDS: oxyCODONE 5 MG Tablet 2.5 MG PO (08:33)
[2022-03-17 08:37] VITALS: BP 143/85; PULSE 96
[2022-03-17] MEDS: 0.9% Saline Lock 10 ML Syringe IV (12:58)
[2022-03-17 14:00] VITALS: BP 130/75; PULSE 70; RESP 16; TEMP 36.2; O2SAT 97
[2022-03-17 17:54] VITALS: BP 130/75; PULSE 70
[2022-03-17] MEDS: Mirtazapine 15 MG Tablet 7.5 MG PO (20:53)
[2022-03-17 21:05] VITALS: O2SAT 95
[2022-03-18] MEDS: Acetaminophen 500 MG Tablet 1000 MG PO (01:58)
[2022-03-18] MEDS: oxyCODONE 5 MG Tablet 2.5 MG PO (02:02)
[2022-03-18] MEDS: 0.9% Saline Lock 10 ML Syringe IV (05:32)
[2022-03-18 05:33] VITALS: BP 136/76; PULSE 90
[2022-03-18] MEDS: Levothyroxine 50 MCG Tablet PO (05:33)
[2022-03-18] MEDS: Metoprolol Tartrate 100 MG Tablet PO ×2 (05:33→18:37)
[2022-03-18] MEDS: APIXABAN 2.5 MG TABLET (WCH) PO ×2 (05:34→18:36)
[2022-03-18] MEDS: Senna/Docusate Sodium 1 Tablet 2 TABLET PO ×2 (05:34→18:36)
[2022-03-18] MEDS: Nystatin Powder 15gm Bottle 1 APPLIC TOPICAL ×2 (05:34→21:04)
[2022-03-18] MEDS: dilTIAZem CD 120 MG Capsule PO (05:34)
[2022-03-18] MEDS: Petrolatum 33% Tube 1 APPLIC TOPICAL (08:21)
[2022-03-18] MEDS: Amiodarone 200 MG Tablet PO (08:23)
[2022-03-18] MEDS: Potassium Chloride Oral Tablet 20 MEQ PO (08:24)
[2022-03-18 08:28] VITALS: BP 141/81; PULSE 89
[2022-03-18 09:35] VITALS: PULSE 86; RESP 18; O2SAT 91
[2022-03-18 14:00] VITALS: BP 104/58; PULSE 62; RESP 17; TEMP 36.2; O2SAT 94
--- NOTE | 2022-03-18 16:34 | NURSING ---
PT HAD NOT HAD BM IN 4 DAYS. GAVE PRUNE JUICE AND BUTTER. AFTER 2 HOURS PT STILL HAD NOT GONE AND NOTIFIED AND ORDERED SOAP SUDS ENEMA. THIS NURSE WENT TO ROOM TO GIVE AID CAME AND STATED PT JUST HAD A XTRA LARGE HARD BM. WILL LET KNOW AND RN NOTIFIED.
[2022-03-18] MEDS: Menthol/Lanolin/Calamine/Znox 113 GM Tube 1 APPLIC TOPICAL (18:26)
[2022-03-18 18:37] VITALS: BP 140/82; PULSE 93
[2022-03-18 18:41] VITALS: BP 140/82; PULSE 93
[2022-03-18] MEDS: Mirtazapine 15 MG Tablet 7.5 MG PO (21:03)
--- NOTE | 2022-03-18 21:15 | NURSING ---
Paged Dr. Cason w/ immediate return phone call. Updated that SSE was not administered d/t xlg bm on previous shift. Requesting Miralax daily. Telephone order received and read back.
[2022-03-19 06:42] VITALS: BP 117/74; PULSE 99
[2022-03-19] MEDS: dilTIAZem CD 120 MG Capsule PO (06:42)
[2022-03-19] MEDS: Metoprolol Tartrate 100 MG Tablet PO ×2 (06:42→18:28)
[2022-03-19] MEDS: Levothyroxine 50 MCG Tablet PO (06:42)
[2022-03-19] MEDS: APIXABAN 2.5 MG TABLET (WCH) PO ×2 (06:42→18:27)
[2022-03-19] MEDS: Menthol/Lanolin/Calamine/Znox 113 GM Tube 1 APPLIC TOPICAL ×2 (06:48→18:25)
[2022-03-19] MEDS: Nystatin Powder 15gm Bottle 1 APPLIC TOPICAL ×2 (06:48→18:28)
[2022-03-19] MEDS: Petrolatum 33% Tube 1 APPLIC TOPICAL ×2 (06:49→18:26)
[2022-03-19] MEDS: Amiodarone 200 MG Tablet PO (08:48)
[2022-03-19] MEDS: Potassium Chloride Oral Tablet 20 MEQ PO (08:48)
[2022-03-19 14:00] VITALS: BP 110/66; PULSE 81; RESP 16; TEMP 36.6; O2SAT 93
--- NOTE | 2022-03-19 14:36 | NURSING ---
notified pt that a staff member tested positive for covid
--- NOTE | 2022-03-19 16:25 | NURSING ---
Patient agreed to the moderna booster and ordered.
[2022-03-19 18:28] VITALS: PULSE 72
[2022-03-19 21:00] VITALS: PULSE 96; RESP 16; O2SAT 98
[2022-03-19] MEDS: Mirtazapine 15 MG Tablet 7.5 MG PO (21:14)
[2022-03-20] MEDS: Menthol/Lanolin/Calamine/Znox 113 GM Tube 1 APPLIC TOPICAL ×2 (05:44→16:53)
[2022-03-20] MEDS: Nystatin Powder 15gm Bottle 1 APPLIC TOPICAL ×2 (05:44→16:53)
[2022-03-20 05:45] VITALS: BP 112/80; PULSE 98
[2022-03-20] MEDS: Levothyroxine 50 MCG Tablet PO (05:45)
[2022-03-20] MEDS: Metoprolol Tartrate 100 MG Tablet PO ×2 (05:45→16:54)
[2022-03-20] MEDS: dilTIAZem CD 120 MG Capsule PO (05:45)
[2022-03-20] MEDS: APIXABAN 2.5 MG TABLET (WCH) PO ×2 (05:45→16:53)
[2022-03-20] MEDS: Senna/Docusate Sodium 1 Tablet 2 TABLET PO (05:46)
[2022-03-20] MEDS: Petrolatum 33% Tube 1 APPLIC TOPICAL ×2 (05:48→16:54)
[2022-03-20] MEDS: Amiodarone 200 MG Tablet PO (07:49)
[2022-03-20] MEDS: Potassium Chloride Oral Tablet 20 MEQ PO (07:50)
--- NOTE | 2022-03-20 13:57 | CASEMGMT ---
Social Work Left message with DIL to discuss DC plans. IDT is recommending 24/7 for IADLS, ADLs, and safety with cognition. Genny Lopez, LADLE HANDLER SHRIMPING BOAT CAPTAIN
[2022-03-20 14:00] VITALS: BP 105/79; PULSE 82; RESP 16; TEMP 36.6; O2SAT 94
--- NOTE | 2022-03-20 14:27 | CASEMGMT ---
Social Work Received return call from ABELARDO that she and son were present in room. At the time of this worker's arrival, ABELARDO had left, but son was still present with pt and called ABELARDO for conference call. Discussed with all parties IDT recommendations for 24/7 care d/t assistance with cognition and physical needs. Explained options and financial liability for nonskilled CERTIFIED CORPORATE TRAVEL EXECUTIVE and AL/SNF. Family/pt adamant about pt returning home but agreeable to hiring assistance in the home. SW provided list of resources to son for home delivered meals, automated medication dispenser, [place], nonskilled CERTIFIED CORPORATE TRAVEL EXECUTIVE, [employer]. Pt states she uses [facility] at night. Family will plan to have assistance for patient throughout the day for pt to not be alone or alone more than about an hour. Explained DC timeframe is about two weeks and encouraged for family to begin securing assistance. SW to coordinate skilled HHC and any DME needs. Pt and family appreciative. SW to continue to follow. Genny Lopez, DEPARTMENT ADMINISTRATOR LATH HAND
[2022-03-20] MEDS: Acetaminophen 500 MG Tablet 1000 MG PO (16:52)
[2022-03-20 16:54] VITALS: BP 105/79; PULSE 82
[2022-03-20] MEDS: Mirtazapine 15 MG Tablet 7.5 MG PO (19:54)
[2022-03-21 04:48] VITALS: BP 135/88; PULSE 92
[2022-03-21] MEDS: Levothyroxine 50 MCG Tablet PO (04:48)
[2022-03-21] MEDS: Metoprolol Tartrate 100 MG Tablet PO ×2 (04:48→17:17)
[2022-03-21] MEDS: APIXABAN 2.5 MG TABLET (WCH) PO ×2 (04:48→17:17)
[2022-03-21] MEDS: dilTIAZem CD 120 MG Capsule PO (04:49)
[2022-03-21] MEDS: Petrolatum 33% Tube 1 APPLIC TOPICAL (04:57)
[2022-03-21] MEDS: Menthol/Lanolin/Calamine/Znox 113 GM Tube 1 APPLIC TOPICAL ×2 (05:07→17:16)
[2022-03-21] MEDS: Nystatin Powder 15gm Bottle 1 APPLIC TOPICAL (05:08)
[2022-03-21 07:46] VITALS: BP 123/85; PULSE 93
[2022-03-21] MEDS: Potassium Chloride Oral Tablet 20 MEQ PO (07:46)
[2022-03-21] MEDS: Amiodarone 200 MG Tablet PO (07:46)
--- NOTE | 2022-03-21 08:27 | MDS.RN ---
Information for the mds was obtained from review of the clinical record, interview of resident, staff, and direct observation of resident's care.
--- NOTE | 2022-03-21 11:19 | NURSING ---
PT HAS HAD A 16 LB WEIGHT GAIN SINCE . NOTE LEFT FOR . RN AWARE
[2022-03-21 14:00] VITALS: BP 106/75; PULSE 81; RESP 16; TEMP 36.6; O2SAT 92
[2022-03-21 17:17] VITALS: BP 106/75; PULSE 81
[2022-03-21] MEDS: Senna/Docusate Sodium 1 Tablet 2 TABLET PO (17:18)
[2022-03-21] MEDS: Mirtazapine 15 MG Tablet 7.5 MG PO (19:32)
[2022-03-21] MEDS: Furosemide 40 MG Tablet PO (19:32)
[2022-03-21 19:37] VITALS: O2SAT 96
[2022-03-22] MEDS: dilTIAZem CD 120 MG Capsule PO (05:03)
[2022-03-22] MEDS: Senna/Docusate Sodium 1 Tablet 2 TABLET PO ×2 (05:03→17:20)
[2022-03-22 05:04] VITALS: BP 113/75; PULSE 98
[2022-03-22] MEDS: Levothyroxine 50 MCG Tablet PO (05:04)
[2022-03-22] MEDS: Furosemide 40 MG Tablet PO (05:04)
[2022-03-22] MEDS: APIXABAN 2.5 MG TABLET (WCH) PO ×2 (05:04→17:16)
[2022-03-22] MEDS: Metoprolol Tartrate 100 MG Tablet PO ×2 (05:04→17:17)
[2022-03-22] MEDS: Polyethylene Glycol 3350 17 GM PACKET PO (05:05)
[2022-03-22] MEDS: Petrolatum 33% Tube 1 APPLIC TOPICAL (05:09)
[2022-03-22] MEDS: Menthol/Lanolin/Calamine/Znox 113 GM Tube 1 APPLIC TOPICAL ×2 (05:10→17:16)
[2022-03-22] MEDS: Nystatin Powder 15gm Bottle 1 APPLIC TOPICAL ×2 (05:10→20:03)
[2022-03-22] MEDS: Potassium Chloride Oral Tablet 20 MEQ PO (07:51)
[2022-03-22] MEDS: Amiodarone 200 MG Tablet PO (07:51)
[2022-03-22 07:54] VITALS: BP 121/67; PULSE 88
--- NOTE | 2022-03-22 10:27 | NURSING ---
PT PULLED HER LOOSE TOENAIL ON SMALL TOE/RIGHT FOOT OFF THIS MORNING. PT STATED IT WAS BOTHERING HER. BAND-AID APPLIED. CONSULT FOR DR.DANIEL METCALF CALLED. RN AWARE
--- NOTE | 2022-03-22 12:43 | PN_ITS ---
Subjective Subjective Patient had a loose toenail to her right fifth digit this toenail became very loose when her sock caught and pulled it up. This now started develop pain for her and she notes that she remove the talar toenail herself and since that time the pain has resolved slightly. She denies any constitutional symptoms has no other complaints at this time. Objective Data Objective Data Vital Signs: Vital Signs Temp Pulse Resp BP Pulse Ox O2 Del Method 97.9 F 88 16 121/67 H 96 Room Air 03/21/22 14:00 03/22/22 07:54 03/21/22 14:00 03/22/22 07:54 03/21/22 19:37 03/21/22 19:37 Oxygen Delivery Method Room Air Weight: 74.928 kg Body Mass Index (BMI) 22.5 Intake & Output: Intake and Output for Last 24 Hours 03/20/22 03/21/22 03/22/22 23:59 23:59 23:59 Intake Total 598 / 598 540 / 540 120 / 120 Balance 598 / 598 540 / 540 120 / 120 Lab / Micro Data Result Diagrams: 03/16/22 04:30 03/16/22 04:30 Micro: Microbiology 03/21/22 06:38 Nasal Secretion SARS-CoV-2 Antigen (Rapid) - Final 03/19/22 13:55 Nasal Secretion SARS-CoV-2 Antigen (Rapid) - Final 03/12/22 11:55 Nasal Secretion SARS-CoV-2 Antigen (Rapid) - Final 03/08/22 21:50 Urine, Catheterized Urine Culture - Final Culture exhibits no growth. 03/10/22 06:00 Nasal Secretion SARS-CoV-2 Antigen (Rapid) - Final 03/08/22 13:45 Nasal Secretion SARS-CoV-2 Antigen (Rapid) - Final Physical Exam Narrative Patient is AAOx3. Neurovascular status intact bilateral feet. Toenails 1 through 5 on the left and 1 through 4 on the right are elongated and thickened with subungual debris. These cause some tenderness to palpation. There is absent toenail to the right fifth digit with a clean nail bed. No residual nail noted. Some erythema and tenderness to the site no other signs of infection. Assessment & Plan Assessment/Plan (1) Pain in right toe(s): PLAN: Exam performed. Able to toe noted to the right fifth digit. The site appears to be clean there is some erythema and tenderness to the site but this should resolve after avulsion of the nail. I recommend daily application of bacitracin ointment and Band-Aid. Toenails 1 through 5 on the left and 1 through 4 on the right were debrided in length and thickness without incident. This was performed using sterile nail ni ppers We will plan to follow-up with the patient in 1 week to ensure resolution of erythema and pain if there is no resolution will consider initiation of oral antibiotics. If the issue becomes tender at any point I would recommend dispensing a surgical shoe, but at this time she does not have any tenderness and I do not think this will be required (2) Tinea unguium:
[2022-03-22 14:00] VITALS: BP 120/71; PULSE 74; RESP 16; TEMP 36.6; O2SAT 97
--- NOTE | 2022-03-22 14:10 | NURSING ---
DR.DANIEL METCALF INTO SEE PT FOR TOENAIL ON RIGHT SMALL TOE THAT WAS THERE. SEE PROGRESS NOTES.
--- NOTE | 2022-03-22 14:23 | CASEMGMT ---
Social Work This worker was notified by [facility] that pt was referred to their program. SW to update [facility] on DC for services. TYRESE RolandW
[2022-03-22 14:25] VITALS: PULSE 57; RESP 18; O2SAT 96
[2022-03-22 17:17] VITALS: BP 120/71; PULSE 60
[2022-03-22 17:23] VITALS: PULSE 60
[2022-03-22] MEDS: Mirtazapine 15 MG Tablet 7.5 MG PO (20:01)
[2022-03-23] MEDS: Senna/Docusate Sodium 1 Tablet 2 TABLET PO ×2 (05:10→17:12)
[2022-03-23 05:11] VITALS: BP 147/81; PULSE 105
[2022-03-23] MEDS: Nystatin Powder 15gm Bottle 1 APPLIC TOPICAL ×2 (05:11→17:16)
[2022-03-23] MEDS: APIXABAN 2.5 MG TABLET (WCH) PO ×2 (05:11→17:11)
[2022-03-23] MEDS: dilTIAZem CD 120 MG Capsule PO (05:11)
[2022-03-23] MEDS: Metoprolol Tartrate 100 MG Tablet PO ×2 (05:11→17:12)
[2022-03-23] MEDS: Furosemide 40 MG Tablet PO (05:11)
[2022-03-23] MEDS: Levothyroxine 50 MCG Tablet PO (05:11)
[2022-03-23] MEDS: Menthol/Lanolin/Calamine/Znox 113 GM Tube 1 APPLIC TOPICAL ×2 (05:12→17:16)
[2022-03-23] MEDS: Petrolatum 33% Tube 1 APPLIC TOPICAL ×2 (05:12→17:17)
[2022-03-23] MEDS: Polyethylene Glycol 3350 17 GM PACKET PO (05:13)
[2022-03-23 05:31] LABS: Absolute Lymphocyte Count 1.74 X10^3/uL (0.83-4.51); Absolute Neutrophil Count 2.3 X10^3/uL (2.0-7.7); Basophil# 0.06 X10^3/uL; Basophil% 1.3 % (0-1); Eosinophil# 0.09 X10^3/uL; Hematocrit 37.4 % (37-47); Hemoglobin 11.4 g/dL (12.0-15.0); Lymphocyte # 1.74 X10^3/ul (0.83-4.51); Mean Corp Hgb Conc 30.5 g/dL (32-36); Mean Corpuscular Hgb 30.6 pg (27.0-32.0); Mean Corpuscular Volume 100.5 fL (81-99); Mean Platelet Vol. 10.7 fl (6.2-12.0); Monocyte# 0.38 X10^3/uL; Monocyte% 8.3 % (0-10); NRBC Flagged by Analyzer 0 % (0-5); Neutrophil % 50.2 % (47-70); Platelet Count 188 K/mm3 (150-450); RBC Distribution Width CV 15.6 % (11.6-14.6); RBC Distribution Width SD 57.1 fl (35.1-43.9); Red Blood Count 3.72 M/mm3 (4.2-5.4); White Blood Count 4.6 K/mm3 (4.4-11.0)
[2022-03-23 05:49] LABS: Anion Gap 7 (5-15); BUN 21 mg/dL (7-18); BUN/Creat Ratio 25.5 RATIO (10-20); Calcium,Total 8.3 mg/dL (8.5-10.1); Chloride 105 mmol/L (98-107); Creatinine, Serum 0.82 mg/dL (0.55-1.02); EST Glomerular Filtration Rate 70 mL/min (>60); Est Glom Filt Rate - Afr Amer 85 mL/min (>60); Estimated Creatinine Clearance 48.76 ml/min; Glucose 85 mg/dL (74-106); Potassium 3.3 mmol/L (3.5-5.1); Sodium Level 143 mmol/L (136-145)
[2022-03-23] MEDS: Amiodarone 200 MG Tablet PO (09:41)
[2022-03-23] MEDS: Potassium Chloride Oral Tablet 20 MEQ PO ×2 (09:43→17:11)
[2022-03-23 14:00] VITALS: BP 124/73; PULSE 102; RESP 16; TEMP 36.4; O2SAT 98
--- NOTE | 2022-03-23 15:36 | HP.PCM_ITS ---
History and Physical [id number]
--- NOTE | 2022-03-23 15:36 | PCM.HP.BLA ---
History and Physical [id number]
[2022-03-23 17:12] VITALS: BP 103/52; PULSE 97
[2022-03-23] MEDS: Mirtazapine 15 MG Tablet 7.5 MG PO (21:11)
[2022-03-24 04:59] VITALS: BP 122/73; PULSE 100
[2022-03-24] MEDS: Senna/Docusate Sodium 1 Tablet 2 TABLET PO ×2 (04:59→17:45)
[2022-03-24] MEDS: Levothyroxine 50 MCG Tablet PO (04:59)
[2022-03-24] MEDS: Furosemide 40 MG Tablet PO (04:59)
[2022-03-24] MEDS: Metoprolol Tartrate 100 MG Tablet PO ×2 (04:59→17:41)
[2022-03-24] MEDS: Polyethylene Glycol 3350 17 GM PACKET PO (05:00)
[2022-03-24] MEDS: dilTIAZem CD 120 MG Capsule PO (05:00)
[2022-03-24] MEDS: APIXABAN 2.5 MG TABLET (WCH) PO ×2 (05:00→17:41)
[2022-03-24] MEDS: Petrolatum 33% Tube 1 APPLIC TOPICAL ×2 (05:00→17:46)
[2022-03-24] MEDS: Menthol/Lanolin/Calamine/Znox 113 GM Tube 1 APPLIC TOPICAL ×2 (05:00→17:46)
[2022-03-24] MEDS: Nystatin Powder 15gm Bottle 1 APPLIC TOPICAL ×2 (05:01→17:46)
[2022-03-24] MEDS: Potassium Chloride Oral Tablet 20 MEQ PO ×2 (07:40→17:40)
[2022-03-24] MEDS: Amiodarone 200 MG Tablet PO (07:40)
[2022-03-24 14:00] VITALS: BP 92/57; PULSE 103; RESP 16; TEMP 36.2; O2SAT 95
[2022-03-24 17:41] VITALS: BP 101/60; PULSE 103
[2022-03-24] MEDS: Mirtazapine 15 MG Tablet 7.5 MG PO (19:43)
[2022-03-24 20:14] VITALS: PULSE 67; RESP 18; O2SAT 92
[2022-03-25] MEDS: Polyethylene Glycol 3350 17 GM PACKET PO (04:44)
[2022-03-25 04:46] VITALS: BP 101/66; PULSE 93
[2022-03-25] MEDS: APIXABAN 2.5 MG TABLET (WCH) PO ×2 (04:46→17:27)
[2022-03-25] MEDS: Furosemide 40 MG Tablet PO (04:46)
[2022-03-25] MEDS: dilTIAZem CD 120 MG Capsule PO (04:46)
[2022-03-25] MEDS: Senna/Docusate Sodium 1 Tablet 2 TABLET PO (04:46)
[2022-03-25] MEDS: Levothyroxine 50 MCG Tablet PO (04:47)
[2022-03-25] MEDS: Petrolatum 33% Tube 1 APPLIC TOPICAL ×2 (04:51→17:30)
[2022-03-25] MEDS: Menthol/Lanolin/Calamine/Znox 113 GM Tube 1 APPLIC TOPICAL ×2 (04:56→17:32)
[2022-03-25] MEDS: Nystatin Powder 15gm Bottle 1 APPLIC TOPICAL ×2 (04:57→17:32)
[2022-03-25] MEDS: Potassium Chloride Oral Tablet 20 MEQ PO ×2 (08:05→17:26)
[2022-03-25] MEDS: Amiodarone 200 MG Tablet PO (08:06)
[2022-03-25 08:42] LABS: Anion Gap 5 (5-15); BUN 28 mg/dL (7-18); BUN/Creat Ratio 33.3 RATIO (10-20); Calcium,Total 8.7 mg/dL (8.5-10.1); Chloride 104 mmol/L (98-107); Creatinine, Serum 0.84 mg/dL (0.55-1.02); EST Glomerular Filtration Rate 68 mL/min (>60); Est Glom Filt Rate - Afr Amer 82 mL/min (>60); Glucose 90 mg/dL (74-106); Potassium 3.5 mmol/L (3.5-5.1); Sodium Level 143 mmol/L (136-145)
[2022-03-25 14:00] VITALS: BP 105/60; PULSE 79; RESP 16; TEMP 36.3; O2SAT 96
[2022-03-25 17:28] VITALS: PULSE 101
[2022-03-25] MEDS: Metoprolol Tartrate 100 MG Tablet PO (17:28)
[2022-03-25] MEDS: Mirtazapine 15 MG Tablet 7.5 MG PO (20:04)
[2022-03-26] MEDS: Furosemide 40 MG Tablet PO (05:25)
[2022-03-26] MEDS: APIXABAN 2.5 MG TABLET (WCH) PO ×2 (05:25→17:14)
[2022-03-26] MEDS: dilTIAZem CD 120 MG Capsule PO (05:25)
[2022-03-26 05:26] VITALS: BP 106/70; PULSE 94
[2022-03-26] MEDS: Nystatin Powder 15gm Bottle 1 APPLIC TOPICAL ×2 (05:26→17:18)
[2022-03-26] MEDS: Metoprolol Tartrate 100 MG Tablet PO ×2 (05:26→17:14)
[2022-03-26] MEDS: Levothyroxine 50 MCG Tablet PO (05:26)
[2022-03-26] MEDS: Menthol/Lanolin/Calamine/Znox 113 GM Tube 1 APPLIC TOPICAL ×2 (05:26→17:13)
[2022-03-26] MEDS: Petrolatum 33% Tube 1 APPLIC TOPICAL ×2 (05:27→17:15)
[2022-03-26] MEDS: Amiodarone 200 MG Tablet PO (07:56)
[2022-03-26] MEDS: Potassium Chloride Oral Tablet 20 MEQ PO ×2 (07:56→17:15)
--- NOTE | 2022-03-26 13:15 | CASEMGMT ---
Social Work Spoke with ABELARDO to follow up on DC planning. No date set at this time. DIL requesting further clarification on needs at DC. SW offered to speak with IDT to get that information. ABELARDO stated she is having difficulty finding 24/7 nonskilled GLUE MAKER BONE. ABELARDO is touring [facility] on 03/29.ABELARDO does not want referral sent yet in case she does not like environment. SW to continue to follow and further assistance with DC plans. Genny Lopez, FOOD AND BEVERAGE CASHIER PRESS WORKER HELPER
[2022-03-26 14:00] VITALS: BP 110/63; PULSE 96; RESP 18; TEMP 36.3; O2SAT 95
[2022-03-26 17:14] VITALS: PULSE 96
[2022-03-26] MEDS: Senna/Docusate Sodium 1 Tablet 2 TABLET PO (17:14)
[2022-03-26] MEDS: Mirtazapine 15 MG Tablet 7.5 MG PO (19:47)
[2022-03-26 19:51] VITALS: O2SAT 94
[2022-03-27] MEDS: Senna/Docusate Sodium 1 Tablet 2 TABLET PO (05:20)
[2022-03-27] MEDS: Polyethylene Glycol 3350 17 GM PACKET PO (05:20)
[2022-03-27] MEDS: dilTIAZem CD 120 MG Capsule PO (05:20)
[2022-03-27 05:21] VITALS: BP 102/65; PULSE 106
[2022-03-27] MEDS: APIXABAN 2.5 MG TABLET (WCH) PO ×2 (05:21→17:45)
[2022-03-27] MEDS: Metoprolol Tartrate 100 MG Tablet PO ×2 (05:21→17:51)
[2022-03-27] MEDS: Levothyroxine 50 MCG Tablet PO (05:21)
[2022-03-27] MEDS: Furosemide 40 MG Tablet PO (05:21)
[2022-03-27] MEDS: Menthol/Lanolin/Calamine/Znox 113 GM Tube 1 APPLIC TOPICAL ×2 (05:22→17:44)
[2022-03-27] MEDS: Petrolatum 33% Tube 1 APPLIC TOPICAL (05:22)
[2022-03-27] MEDS: Nystatin Powder 15gm Bottle 1 APPLIC TOPICAL ×2 (05:22→17:44)
[2022-03-27] MEDS: Amiodarone 200 MG Tablet PO (08:00)
[2022-03-27] MEDS: Potassium Chloride Oral Tablet 20 MEQ PO ×2 (08:01→17:43)
[2022-03-27 08:05] VITALS: BP 109/72; PULSE 76
[2022-03-27 10:00] VITALS: PULSE 81; RESP 18; O2SAT 97
--- NOTE | 2022-03-27 13:15 | CASEMGMT ---
Social Work Spoke with ABELARDO to follow up on IDT recommendations, which remain true 24/7 care. IDT does not feel pt is safe at home alone for any period of time, even at night. Explained safety concerns with cognition and physical assistance. IDT would recommend AL. ABELARDO to [facility] 03/28 and will talk to pt's son about hiring 24/7 care. DIL to contact this worker 03/29 for outcome of DC decision, then a DC date can be set. SW educated to DC by 04/08, is the goal. ABELARDO expressed understanding. SW to continue to follow. Genny Lopez, WINDOWS SERVER ARCHITECT CONCRETE FINISHING MACHINE OPERATOR
[2022-03-27 13:48] VITALS: BP 103/57; PULSE 108; RESP 16; TEMP 36.4; O2SAT 97
[2022-03-27 17:51] VITALS: BP 112/53; PULSE 94
[2022-03-27 17:56] VITALS: BP 112/53; PULSE 94
[2022-03-27] MEDS: Mirtazapine 15 MG Tablet 7.5 MG PO (19:51)
[2022-03-28] MEDS: dilTIAZem CD 120 MG Capsule PO (05:06)
[2022-03-28] MEDS: Nystatin Powder 15gm Bottle 1 APPLIC TOPICAL ×2 (05:07→17:54)
[2022-03-28] MEDS: APIXABAN 2.5 MG TABLET (WCH) PO ×2 (05:07→17:14)
[2022-03-28] MEDS: Levothyroxine 50 MCG Tablet PO (05:07)
[2022-03-28] MEDS: Furosemide 40 MG Tablet PO (05:07)
[2022-03-28] MEDS: Menthol/Lanolin/Calamine/Znox 113 GM Tube 1 APPLIC TOPICAL ×2 (05:07→17:18)
[2022-03-28] MEDS: Petrolatum 33% Tube 1 APPLIC TOPICAL ×2 (05:09→17:53)
[2022-03-28 05:11] VITALS: BP 106/69; PULSE 87
[2022-03-28] MEDS: Metoprolol Tartrate 100 MG Tablet PO ×2 (05:11→17:15)
[2022-03-28 07:01] LABS: Bedside Glucose 83 mg/dL (74-106)
[2022-03-28] MEDS: Potassium Chloride Oral Tablet 20 MEQ PO ×2 (08:29→17:14)
[2022-03-28] MEDS: Amiodarone 200 MG Tablet PO (08:32)
[2022-03-28 08:34] VITALS: PULSE 94
[2022-03-28 14:00] VITALS: BP 110/56; PULSE 76; RESP 16; TEMP 36.4; O2SAT 98
[2022-03-28 17:15] VITALS: BP 110/56; PULSE 76
[2022-03-28] MEDS: Mirtazapine 15 MG Tablet 7.5 MG PO (19:52)
[2022-03-28 19:57] VITALS: PULSE 91; RESP 16; O2SAT 92
[2022-03-29 05:09] VITALS: BP 105/74; PULSE 99
[2022-03-29] MEDS: Metoprolol Tartrate 100 MG Tablet PO ×2 (05:09→17:17)
[2022-03-29] MEDS: Furosemide 40 MG Tablet PO (05:09)
[2022-03-29] MEDS: dilTIAZem CD 120 MG Capsule PO (05:09)
[2022-03-29] MEDS: Levothyroxine 50 MCG Tablet PO (05:09)
[2022-03-29] MEDS: APIXABAN 2.5 MG TABLET (WCH) PO ×2 (05:11→17:17)
[2022-03-29] MEDS: Nystatin Powder 15gm Bottle 1 APPLIC TOPICAL ×2 (05:13→17:23)
[2022-03-29] MEDS: Petrolatum 33% Tube 1 APPLIC TOPICAL ×2 (05:13→17:22)
[2022-03-29] MEDS: Menthol/Lanolin/Calamine/Znox 113 GM Tube 1 APPLIC TOPICAL ×2 (05:15→17:21)
[2022-03-29 06:36] LABS: Bedside Glucose 96 mg/dL (74-106)
[2022-03-29] MEDS: Potassium Chloride Oral Tablet 20 MEQ PO ×2 (07:48→17:16)
[2022-03-29] MEDS: Amiodarone 200 MG Tablet PO (07:49)
[2022-03-29 14:00] VITALS: BP 94/58; PULSE 70; RESP 18; TEMP 36.7; O2SAT 93
--- NOTE | 2022-03-29 16:06 | CASEMGMT ---
Addendum entered by Genny Lopez 03/30/22 11:34: [facility] does not have any beds but will place pt on waitlist. [facility] can accept pending clinical assessment scheduled for 04/02, per DIL request. SW to continue to follow. Original Note: Social Work Received contact from [facility] and [facility] that DIL toured facilities and requesting referral. Referral sent via [facility]. Genny Lopez, TYRESE NATARAJANW
[2022-03-29 17:17] VITALS: PULSE 72
[2022-03-29] MEDS: Senna/Docusate Sodium 1 Tablet 2 TABLET PO (17:18)
[2022-03-29] MEDS: Mirtazapine 15 MG Tablet 7.5 MG PO (19:48)
[2022-03-30] MEDS: Menthol/Lanolin/Calamine/Znox 113 GM Tube 1 APPLIC TOPICAL ×2 (04:45→18:00)
[2022-03-30] MEDS: Nystatin Powder 15gm Bottle 1 APPLIC TOPICAL ×2 (04:49→18:29)
[2022-03-30] MEDS: Petrolatum 33% Tube 1 APPLIC TOPICAL ×2 (04:49→18:29)
[2022-03-30] MEDS: Polyethylene Glycol 3350 17 GM PACKET PO (04:50)
[2022-03-30] MEDS: Senna/Docusate Sodium 1 Tablet 2 TABLET PO ×2 (04:50→17:58)
[2022-03-30 04:51] VITALS: BP 125/75; PULSE 85
[2022-03-30] MEDS: Levothyroxine 50 MCG Tablet PO (04:51)
[2022-03-30] MEDS: dilTIAZem CD 120 MG Capsule PO (04:51)
[2022-03-30] MEDS: Metoprolol Tartrate 100 MG Tablet PO ×2 (04:51→17:59)
[2022-03-30] MEDS: APIXABAN 2.5 MG TABLET (WCH) PO ×2 (04:51→17:59)
[2022-03-30] MEDS: Furosemide 40 MG Tablet PO (04:53)
[2022-03-30 05:43] LABS: Absolute Neutrophil Count 4.7 X10^3/uL (2.0-7.7); Basophil# 0.06 X10^3/uL; Basophil% 0.9 % (0-1); Eosinophil# 0.06 X10^3/uL; Eosinophils% 0.9 % (0-5); Hematocrit 38.2 % (37-47); Hemoglobin 11.7 g/dL (12.0-15.0); Lymphocyte % 23.1 % (19-41); Mean Corp Hgb Conc 30.6 g/dL (32-36); Mean Corpuscular Hgb 30.5 pg (27.0-32.0); Mean Corpuscular Volume 99.5 fL (81-99); Mean Platelet Vol. 11.7 fl (6.2-12.0); Monocyte# 0.49 X10^3/uL; Monocyte% 7.1 % (0-10); NRBC Flagged by Analyzer 0 % (0-5); Neutrophil % 67.7 % (47-70); Platelet Count 224 K/mm3 (150-450); RBC Distribution Width CV 15.2 % (11.6-14.6); RBC Distribution Width SD 55.3 fl (35.1-43.9); Red Blood Count 3.84 M/mm3 (4.2-5.4); White Blood Count 6.9 K/mm3 (4.4-11.0)
[2022-03-30 06:06] LABS: Anion Gap 8 (5-15); BUN 33 mg/dL (7-18); Calcium,Total 8.7 mg/dL (8.5-10.1); Chloride 101 mmol/L (98-107); EST Glomerular Filtration Rate 72 mL/min (>60); Est Glom Filt Rate - Afr Amer 87 mL/min (>60); Estimated Creatinine Clearance 49.98 ml/min; Glucose 99 mg/dL (74-106); Potassium 3.7 mmol/L (3.5-5.1); Sodium Level 140 mmol/L (136-145)
[2022-03-30] MEDS: Potassium Chloride Oral Tablet 20 MEQ PO ×2 (07:42→18:00)
[2022-03-30] MEDS: Amiodarone 200 MG Tablet PO (07:43)
[2022-03-30 07:52] VITALS: BP 108/70; PULSE 104
--- NOTE | 2022-03-30 13:52 | PN_ITS ---
Subjective Subjective Patient is seen bedside resting in chair with feet elevated. She denies any pain to her right fifth digit. She does state that he feels a little swollen. She has no further complaints today. Objective Data Objective Data Vital Signs: Vital Signs Temp Pulse Resp BP Pulse Ox O2 Del Method 98.0 F 104 H 18 108/70 93 Room Air 03/29/22 14:00 03/30/22 07:52 03/29/22 14:00 03/30/22 07:52 03/29/22 14:00 03/29/22 14:00 Oxygen Delivery Method Room Air Weight: 68.124 kg Body Mass Index (BMI) 22.5 Intake & Output: Intake and Output for Last 24 Hours 03/28/22 03/29/22 03/30/22 23:59 23:59 23:59 Intake Total 360 / 360 600 / 600 360 / 360 Balance 360 / 360 600 / 600 360 / 360 Lab / Micro Data Result Diagrams: 03/30/22 05:09 03/30/22 05:09 Labs: Laboratory Results - last 24 hr 03/30/22 05:09: WBC 6.9, RBC 3.84 L, Hgb 11.7 L, Hct 38.2, MCV 99.5 H, MCH 30.5, MCHC 30.6 L, RDW Std Deviation 55.3 H, RDW Coeff of Kin 15.2 H, Plt Count 224, MPV 11.7, Immature Gran % (Auto) 0.300, Neut % (Auto) 67.7, Lymph % (Auto) 23.1, [place] % (Auto) 7.1, Eos % (Auto) 0.9, Baso % (Auto) 0.9, Absolute Neuts (auto) 4.7, Absolute Lymphs (auto) 1.60, Nucleated RBC % 0 03/30/22 05:09: Sodium 140, Potassium 3.7, Chloride 101, Carbon Dioxide 31.0, Anion Gap 8, BUN 33 H, Creatinine 0.80, Estim Creat Clear Calc 49.98, Est GFR (MDRD) Af Amer 87, Est GFR (MDRD) Non-Af 72, BUN/Creatinine Ratio 41.0 H, Glucose 99, Calcium 8.7 Micro: Microbiology 03/23/22 09:52 Nasal Secretion SARS-CoV-2 Antigen (Rapid) - Final 03/21/22 06:38 Nasal Secretion SARS-CoV-2 Antigen (Rapid) - Final 03/19/22 13:55 Nasal Secretion SARS-CoV-2 Antigen (Rapid) - Final 03/12/22 11:55 Nasal Secretion SARS-CoV-2 Antigen (Rapid) - Final 03/08/22 21:50 Urine, Catheterized Urine Culture - Final Culture exhibits no growth. 03/10/22 06:00 Nasal Secretion SARS-CoV-2 Antigen (Rapid) - Final 03/08/22 13:45 Nasal Secretion SARS-CoV-2 Antigen (Rapid) - Final Physical Exam Narrative Patient is AAOx3. Neurovascular status intact bilateral feet. Toenails 1 through 5 on the left and 1 through 4 on the right are thickened with subungual debris. These cause some tenderness to palpation. There is absent toenail to the right fifth digit with a clean nail bed. No residual nail noted. Some erythema, but no tenderness to the site. No other signs of infection. Assessment & Plan Assessment/Plan (1) Pain in right toe(s): PLAN: Exam performed. No pain to palpation about the right fifth digit. The site appears to be clean there is some rubor to the site. No increased temperature and no purulent drainage noted to the nailbed. She reports she is doing better and no longer has pain to the fifth toe. No dressings required for fifth digit as site is clinically stable. No antibiotic recommended. She may continue to ambulate in regular shoe gear Podiatry signing off. Please do not hesitate to call with any questions or concerns Jr. Courtney Ellison.P.M. [facility] [phone] Note: ImageProtect speech recognition manager drive software was used to create por tions of this document. Sound-alike and misspelled words, as well as other manager drive errors may be contained in the documentation. (2) Tinea unguium:
[2022-03-30 14:00] VITALS: BP 97/57; PULSE 105; RESP 16; TEMP 36.7; O2SAT 97
--- NOTE | 2022-03-30 16:17 | NURSING ---
FOUND PT WALKING IN [place] TOWARDS NURSES STATION. ASKED PT WERE SHE WAS GOING,PT STATED TO THE BATHROOM. REMINDED PT THAT SHE MUST USE THE CALL LIGHT IF NEEDING ANY HELP. PT STATED I JUST WOKE UP AND TRYING TO FIND THE BATHROOM. WALKED PT BACK TO ROOM AND INTO BATHROOM. ASKED PT IF SHE KNEW WERE SHE WAS,PT ALERT AND ORIENTED X3. REMINDED PT TO USE CALL LIGHT AND SHOWED PT THE CORD TO PULL WHEN SHE GOT DONE AND NOT TO GET UP. PT STATED SHE WOULD. WAITED OUT SIDE PT ROOM AND PT STARTED TO WALK OUT OF BATHROOM. REMINDED PT AGAIN SHE MUST CALL FOR HELP. PT STATED OH I THOUGHT I WAS A LOUD TO GO ON MY OWN. WILL CONTINUE TO MONITOR PT. RN AWARE.
[2022-03-30 17:59] VITALS: BP 122/59; PULSE 98
[2022-03-30 18:02] VITALS: BP 122/59; PULSE 98
--- NOTE | 2022-03-30 18:52 | NURSING ---
PT AGAIN FOUND WALKING IN [place].ASKED PT WHERE SHE WAS GOING,PT STATED SHE IS IN HER SISTERS HOUSE AND GOING TO THE KITCHEN. REORIENTED PT AND APPLIED ALARMS. PT THEN ON PHONE WITH SON AND PT ASKED SON WHEN HE WAS COMING IN. PT SON WAS HERE EARLIER TONIGHT. ASSESSMENT DONE, CALLED MADE TO WITH NEW ORDERS FOR A UA WITH CULTURE. RN AWARE
[2022-03-30 19:03] VITALS: PULSE 98; RESP 18; O2SAT 97
[2022-03-30 19:06] LABS: Bacteria 0 SEEN /hpf (None Seen); Red Blood Cells-Urine 0 SEEN /hpf (0-5); Squamous Epithelial Cells - UA 0 SEEN /hpf (5-10); White Blood Cells 0 SEEN /hpf (0-5)
[2022-03-30 19:32] LABS: Color, Urine Yellow (Yellow); Glucose, Dipstick Normal (Normal); Ketone-Dipstick Negative (Negative); Leukocyte Esterase-Dipstick Negative /ul (Negative); Nitrite-Dipstick Negative (Negative); Occult Blood-Urine Negative /ul (Negative); Protein-Dipstick Negative (Negative); Urine Bilirubin Dipstick Negative (Negative); Urine Clarity Clear (Clear); Urine Urobilinogen 1 mg/dl (Normal); Urine pH 6.5 (5.0 - 8.0)
[2022-03-30 19:44] LABS: Mucous, Urine 1+ /hpf (<or=2+)
[2022-03-30] MEDS: Mirtazapine 15 MG Tablet 7.5 MG PO (19:46)
--- NOTE | 2022-03-30 23:25 | NURSING ---
Patient attempted to get out of bed on her own. POOL COORDINATOR entered room, patient re-educated on use of call light for assistance. Patient assisted to bathroom and back to bed. Will continue to monitor.
[2022-03-31] MEDS: APIXABAN 2.5 MG TABLET (WCH) PO ×2 (04:42→17:07)
[2022-03-31] MEDS: Polyethylene Glycol 3350 17 GM PACKET PO (04:42)
[2022-03-31] MEDS: Senna/Docusate Sodium 1 Tablet 2 TABLET PO ×2 (04:42→17:09)
[2022-03-31 04:43] VITALS: BP 106/56; PULSE 108
[2022-03-31] MEDS: Metoprolol Tartrate 100 MG Tablet PO ×2 (04:43→17:07)
[2022-03-31] MEDS: Furosemide 40 MG Tablet PO (04:45)
[2022-03-31] MEDS: Levothyroxine 50 MCG Tablet PO (04:45)
[2022-03-31] MEDS: Petrolatum 33% Tube 1 APPLIC TOPICAL ×2 (04:46→17:08)
[2022-03-31] MEDS: dilTIAZem CD 120 MG Capsule PO (04:46)
[2022-03-31] MEDS: Nystatin Powder 15gm Bottle 1 APPLIC TOPICAL ×2 (04:46→17:09)
[2022-03-31] MEDS: Menthol/Lanolin/Calamine/Znox 113 GM Tube 1 APPLIC TOPICAL ×2 (04:47→17:07)
[2022-03-31] MEDS: Amiodarone 200 MG Tablet PO (08:06)
[2022-03-31] MEDS: Potassium Chloride Oral Tablet 20 MEQ PO ×2 (08:06→17:06)
[2022-03-31 14:00] VITALS: BP 116/57; PULSE 100; RESP 16; TEMP 36.6; O2SAT 97
[2022-03-31 17:07] VITALS: PULSE 100
[2022-03-31] MEDS: Mirtazapine 15 MG Tablet 7.5 MG PO (20:18)
[2022-04-01] MEDS: Furosemide 40 MG Tablet PO (05:32)
[2022-04-01] MEDS: APIXABAN 2.5 MG TABLET (WCH) PO ×2 (05:32→18:31)
[2022-04-01 05:33] VITALS: BP 109/76; PULSE 89
[2022-04-01] MEDS: Metoprolol Tartrate 100 MG Tablet PO ×2 (05:33→18:31)
[2022-04-01] MEDS: Senna/Docusate Sodium 1 Tablet 2 TABLET PO ×2 (05:36→18:32)
[2022-04-01] MEDS: dilTIAZem CD 120 MG Capsule PO (05:37)
[2022-04-01] MEDS: Petrolatum 33% Tube 1 APPLIC TOPICAL ×2 (05:37→16:44)
[2022-04-01] MEDS: Polyethylene Glycol 3350 17 GM PACKET PO (05:37)
[2022-04-01] MEDS: Levothyroxine 50 MCG Tablet PO (05:37)
[2022-04-01] MEDS: Nystatin Powder 15gm Bottle 1 APPLIC TOPICAL ×2 (05:38→16:46)
[2022-04-01] MEDS: Menthol/Lanolin/Calamine/Znox 113 GM Tube 1 APPLIC TOPICAL ×2 (05:38→16:44)
[2022-04-01] MEDS: Potassium Chloride Oral Tablet 20 MEQ PO ×2 (08:44→16:44)
[2022-04-01] MEDS: Amiodarone 200 MG Tablet PO (08:44)
--- NOTE | 2022-04-01 10:47 | NURSING ---
Updated Dr Cason on bright red blood in stools, verbal order for anusol suppositories BID.
[2022-04-01 14:00] VITALS: BP 109/71; PULSE 106; RESP 16; TEMP 36.4; O2SAT 98
[2022-04-01 18:31] VITALS: PULSE 85
[2022-04-01] MEDS: Mirtazapine 15 MG Tablet 7.5 MG PO (22:04)
[2022-04-02 06:41] VITALS: BP 111/64; PULSE 98
[2022-04-02] MEDS: Senna/Docusate Sodium 1 Tablet 2 TABLET PO ×2 (06:43→17:40)
[2022-04-02] MEDS: Polyethylene Glycol 3350 17 GM PACKET PO (06:43)
[2022-04-02] MEDS: Furosemide 40 MG Tablet PO (06:44)
[2022-04-02] MEDS: Levothyroxine 50 MCG Tablet PO (06:44)
[2022-04-02 06:45] VITALS: PULSE 98
[2022-04-02] MEDS: Metoprolol Tartrate 100 MG Tablet PO ×2 (06:45→17:43)
[2022-04-02] MEDS: APIXABAN 2.5 MG TABLET (WCH) PO ×2 (06:45→17:39)
[2022-04-02] MEDS: Petrolatum 33% Tube 1 APPLIC TOPICAL ×2 (06:45→19:49)
[2022-04-02] MEDS: dilTIAZem CD 120 MG Capsule PO (06:45)
[2022-04-02] MEDS: Nystatin Powder 15gm Bottle 1 APPLIC TOPICAL ×2 (06:46→17:39)
[2022-04-02] MEDS: Menthol/Lanolin/Calamine/Znox 113 GM Tube 1 APPLIC TOPICAL ×2 (06:49→17:38)
[2022-04-02] MEDS: Potassium Chloride Oral Tablet 20 MEQ PO ×2 (08:07→17:38)
[2022-04-02] MEDS: Amiodarone 200 MG Tablet PO (08:07)
[2022-04-02 08:11] VITALS: BP 105/56; PULSE 101
[2022-04-02 09:45] VITALS: PULSE 104; RESP 18; O2SAT 94
--- NOTE | 2022-04-02 10:15 | NURSING ---
PT HAS DRY COUGH STARTING NON PRODUCTIVE. FINE CRACKLES TO RIGHT POST. I.S GIVEN PT DEMONSTRATED OF USE. RN AWARE.
[2022-04-02 14:00] VITALS: BP 103/60; PULSE 99; RESP 17; TEMP 36.8; O2SAT 94
--- NOTE | 2022-04-02 15:08 | PN.TCU_ITS ---
Subjective Subjective Patient seen, examined for regulatory visit. She has no new problems, concerns, issues, complaints. She is progressing in therapy. Objective Data Objective Data Vital Signs: Vital Signs Temp Pulse Resp BP Pulse Ox O2 Del Method 98.3 F 99 17 103/60 94 Room Air 04/02/22 14:00 04/02/22 14:00 04/02/22 14:00 04/02/22 14:00 04/02/22 14:00 04/02/22 14:00 Oxygen Delivery Method Room Air Weight: 66.678 kg Body Mass Index (BMI) 22.5 Intake & Output: Intake and Output for Last 24 Hours 03/31/22 04/01/22 04/02/22 23:59 23:59 23:59 Intake Total 420 / 420 360 / 360 360 / 360 Balance 420 / 420 360 / 360 360 / 360 Lab / Micro Data Result Diagrams: 03/30/22 05:09 03/30/22 05:09 Micro: Microbiology 03/30/22 18:45 Urine Catheter - Catheter Urine Culture - Final Culture exhibits no growth. 03/23/22 09:52 Nasal Secretion SARS-CoV-2 Antigen (Rapid) - Final 03/21/22 06:38 Nasal Secretion SARS-CoV-2 Antigen (Rapid) - Final 03/19/22 13:55 Nasal Secretion SARS-CoV-2 Antigen (Rapid) - Final 03/12/22 11:55 Nasal Secretion SARS-CoV-2 Antigen (Rapid) - Final 03/08/22 21:50 Urine, Catheterized Urine Culture - Final Culture exhibits no growth. 03/10/22 06:00 Nasal Secretion SARS-CoV-2 Antigen (Rapid) - Final 03/08/22 13:45 Nasal Secretion SARS-CoV-2 Antigen (Rapid) - Final Physical Exam Const alert General Appearance: cooperative HEENT normocephalic Eyes PERRL and EOMs intact bilaterally Neck supple, no JVD and no carotid bruits Resp normal respiratory effort, normal air movement and clear to auscultation bilaterally Cardio regular rate and regular rhythm GI normal to inspection, nondistended, normoactive bowel sounds, non-tender and non-distended Extremity normal capillary refill General Extremity: Negative for edema Skin no rashes or lesions noted General Skin Exam: no breakdown Psych affect normal Appearance: appropriate Assessment & Plan Assessment/Plan (1) Debility: (2) Fall: (3) Acute kidney injury: (4) Acute on chronic systolic congestive heart failure: (5) Bilateral pleural effusion: (6) Fracture of left pelvis: (7) Closed right hip fracture: (8) Urinary tract infection: (9) Atrial fibrillation with rapid ventricular response: (10) Hypertension: (11) Hypothyroidism: (12) BPPV (benign paroxysmal positional vertigo): (13) Hypokalemia: PLAN: Plan 86 year old female with below past medical history significant for fall, encephalopathy, admitted to TCU with debility, here for rehabilitation, strengthening, prior to discharge home alone. * Debility - PT/OT. * Pain - Tylenol 1000mg q6h prn pain (1-3), Tramadol 50mg q6h prn pain (4-5), Oxycodone 2.5mg q4h prn pain (6-10). * Bowel - Miralax 17gm daily, senna/colace 2 tablets bid. * Adult immunization - Administer pneumonia vaccine, covid19 vaccine, flu vaccine as appropriate. * DVT prophylaxis - Not necessary, on Eliquis. * Atrial fibrillation with rapid ventricular response - Metoprolol 100mg bid, Amiodarone 200mg daily, Diltiazem 120mg daily, Eliquis 2.5mg bid. * Acute on chronic systolic congestive heart failure - Furosemide 40mg daily. * Hypothyroidism - Levothyroxine 50mcg daily. * Hypokalemia - KCL 20meq daily. * Tinea Corporis - Nystatin powder topical bid. * Skin irritation - Petrolatum topical bid, Calmoseptine topical bid. * Nutrition - Ensure Compact 118ml tidcm. * Hemorrhoids - Anusol 25mg pr bid prn. * Appetite loss - Mirtazapine 7.5mg qhs. Capacity Capacity Assessment Tool Can the patient make a choice & communicate that choice?: Yes Can the patient understand benefits, risks and alternatives?: Yes Can the patient make a logical, rational choice?: Yes Is the choice the patient makes consistent w/ their values?: Yes Is there an impending, emergent risk to the patient?: No Does the patient have an Advance Directive?: No Is there a Surrogate Available?: Yes i.e. HCPOA: Yes i.e. close relative (spouse, child, parent, sibling)?: Yes
--- NOTE | 2022-04-02 16:05 | NURSING ---
TERESA IN TO TALK TO FAMILY AND PT.
[2022-04-02 17:43] VITALS: BP 111/53; PULSE 105
[2022-04-02] MEDS: Mirtazapine 15 MG Tablet 7.5 MG PO (19:47)
[2022-04-03 05:33] VITALS: BP 102/62; PULSE 115
[2022-04-03] MEDS: Polyethylene Glycol 3350 17 GM PACKET PO (05:33)
[2022-04-03] MEDS: APIXABAN 2.5 MG TABLET (WCH) PO ×2 (05:33→17:37)
[2022-04-03] MEDS: Senna/Docusate Sodium 1 Tablet 2 TABLET PO ×2 (05:33→17:37)
[2022-04-03] MEDS: Levothyroxine 50 MCG Tablet PO (05:33)
[2022-04-03] MEDS: Metoprolol Tartrate 100 MG Tablet PO ×2 (05:33→17:36)
[2022-04-03] MEDS: dilTIAZem CD 120 MG Capsule PO (05:33)
[2022-04-03] MEDS: Furosemide 40 MG Tablet PO (05:33)
[2022-04-03] MEDS: Petrolatum 33% Tube 1 APPLIC TOPICAL ×2 (05:43→19:28)
[2022-04-03] MEDS: Menthol/Lanolin/Calamine/Znox 113 GM Tube 1 APPLIC TOPICAL ×2 (05:43→17:36)
[2022-04-03] MEDS: Nystatin Powder 15gm Bottle 1 APPLIC TOPICAL ×2 (05:44→19:27)
[2022-04-03 07:52] VITALS: BP 108/59; PULSE 97
[2022-04-03] MEDS: Amiodarone 200 MG Tablet PO (07:52)
[2022-04-03] MEDS: Potassium Chloride Oral Tablet 20 MEQ PO ×2 (07:52→17:36)
--- NOTE | 2022-04-03 10:06 | CASEMGMT ---
Addendum entered by Genny Lopez 04/03/22 10:33: Pt does need a FWW - sent referral to [employer] via [facility] Addendum entered by Genny Lopez 04/03/22 10:27: Spoke with DIL and she is electing DC to [facility] on 04/06. [place] and IDT is agreeable. DIL is requesting [facility] and family can transport. Phoned referral to [facility] for PT/OT/ST. No DME needs. Plan: DC 04/06 to [facility], [facility] PT/OT/ST Original Note: Social Work Followed up with [facility] on assessment. [facility] to contact DIL to review assessment and pricing. SW to follow up DIL on outcome and DC plans. Genny Lopez [employer]
[2022-04-03 13:55] VITALS: BP 109/72; PULSE 107; RESP 18; TEMP 36.8; O2SAT 96
[2022-04-03 17:36] VITALS: BP 109/72; PULSE 107
--- NOTE | 2022-04-03 18:40 | DS.PCM_ITS ---
Providers Date of Admission: 03/08/22 Primary Care Physician: Dr. Kranthi Long MD Consultations 03/13/22 12:42 Consult: Gastroenterology Routine Consulting Provider: [facility] Reason for Consult: Rectal bleeding EMERGENT Consult: No Notified: Yes Date Notified: 03/13/22 Time Notified: 12:42 Method of Notification: Verbal Comments:: Spoke with Franca 03/21/22 07:51 Consult: Podiatry Routine Consulting Provider: Harrison Bonilla Reason for Consult: Left 5th toenail falling off. EMERGENT Consult: No Notified: Yes Date Notified: 03/22/22 Time Notified: 10:25 Method of Notification: Verbal Reason For Visit: FALL/HEAD INJURY/ ADMIT FROM HOME PER TCU Diagnosis Discharge Diagnosis (1) Debility: Status: Acute Code(s): R53.81 - Other malaise (2) Fall: Status: Acute Code(s): W19.XXXA - Unspecified fall, initial encounter (3) Acute kidney injury: Status: Acute Code(s): N17.9 - Acute kidney failure, unspecified (4) Acute on chronic systolic congestive heart failure: Status: Chronic Code(s): I50.23 - Acute on chronic systolic (congestive) heart failure (5) Bilateral pleural effusion: Status: Acute Code(s): J90 - Pleural effusion, not elsewhere classified (6) Fracture of left pelvis: Status: Acute Code(s): S32.9XXA - Fracture of unspecified parts of lumbosacral spine and pelvis, initial encounter for closed fracture (7) Closed right hip fracture: Status: Acute Code(s): S72.001A - Fracture of unspecified part of neck of right femur, initial encounter for closed fracture (8) Urinary tract infection: Status: Acute Code(s): N39.0 - Urinary tract infection, site not specified (9) Atrial fibrillation with rapid ventricular response: Status: Acute Code(s): I48.91 - Unspecified atrial fibrillation (10) Hypertension: Status: Chronic Code(s): I10 - Essential (primary) hypertension (11) Hypothyroidism: Status: Acute Code(s): E03.9 - Hypothyroidism, unspecified (12) BPPV (benign paroxysmal positional vertigo): Status: Acute Code(s): H81.10 - Benign paroxysmal vertigo, unspecified ear (13) Hypokalemia: Status: Acute Code(s): E87.6 - Hypokalemia Plan 86 year old female with below past medical history significant for fall, encephalopathy, admitted to TCU with debility, here for rehabilitation, strengthening, prior to discharge home alone. * Debility - PT/OT. * Pain - Tylenol 1000mg q6h prn pain (1-3), Tramadol 50mg q6h prn pain (4-5), Oxycodone 2.5mg q4h prn pain (6-10). * Bowel - Miralax 17gm daily, senna/colace 2 tablets bid. * Adult immunization - Administer pneumonia vaccine, covid19 vaccine, flu vaccine as appropriate. * DVT prophylaxis - Not necessary, on Eliquis. * Atrial fibrillation with rapid ventricular response - Metoprolol 100mg bid, Amiodarone 200mg daily, Diltiazem 120mg daily, Eliquis 2.5mg bid. * Acute on chronic systolic congestive heart failure - Furosemide 40mg daily. * Hypothyroidism - Levothyroxine 50mcg daily. * Hypokalemia - KCL 20meq daily. * Tinea Corporis - Nystatin powder topical bid. * Skin irritation - Petrolatum topical bid, Calmoseptine topical bid. * Nutrition - Ensure Compact 118ml tidcm. * Hemorrhoids - Anusol 25mg pr bid prn. * Appetite loss - Mirtazapine 7.5mg qhs. Medications at Discharge Home Medications levothyroxine 50 mcg tablet 50 mcg PO DAILY thyroid 02/06/22 Petrolatum 33% [Eucerin Eqivalent] 1 applic topical BID ##0 04/03/22 acetaminophen 500 mg tablet 1,000 mg PO Q6H PRN PRN Pain Score 1-3 #0 tabs 04/03/22 amiodarone 200 mg tablet 200 mg PO DAILYCM 30 days #30 tabs 04/03/22 apixaban 5 mg tablet (Eliquis) 2.5 mg PO BID 30 days #30 tabs 04/03/22 diltiazem HCl 120 mg capsule,extended release 24 hr 120 mg PO DAILY 30 days #30 caps 04/03/22 furosemide 40 mg tablet 40 mg PO DAILY #0 tabs 04/03/22 metoprolol tartrate 100 mg tablet 100 mg PO BID 30 days #60 tabs 04/03/22 mirtazapine 15 mg tablet 7.5 mg PO QHS 30 days #15 tabs 04/03/22 polyethylene glycol 3350 17 gram oral powder packet 17 g PO DAILY 30 days #30 ea 04/03/22 potassium chloride 20 mEq tablet,extended release(part/cryst) (Klor-Con M) 20 meq PO BIDCM 30 days #60 tabs 04/03/22 sennosides 8.6 mg-docusate sodium 50 mg tablet (Stool Softener-Stimulant Laxative) 2 tab PO BID 30 days #120 tabs 04/03/22 Hospital Course Operations None Procedures Colonoscopy Summary of Care Provided Minutes Spent on Discharge: 35 Hospital Course: 86 year old female with below past medical history significant for fall, encephalopathy, admitted to TCU with debility, here for rehabilitation, strengthening, prior to discharge home alone. 03/14/2022 Dr. Mallory colonoscopy non-bleeding hemorrhoids, 3 polyps removed, diverticulosis descending, sigmoid, recto-sigmoid colon. Discharge to [facility] 04/06/2022, [facility] PT/OT/ST. Physical Exam Const alert General Appearance: cooperative HEENT normocephalic Eyes PERRL and EOMs intact bilaterally Neck supple, no JVD and no carotid bruits Resp normal respiratory effort, normal air movement and clear to auscultation bilaterally Cardio regular rate and regular rhythm GI normal to inspection, nondistended, normoactive bowel sounds, non-tender and non-distended Extremity normal capillary refill General Extremity: Negative for edema Skin no rashes or lesions noted General Skin Exam: no breakdown Psych affect normal Appearance: appropriate Weight / BMI Weight Weight: 68.084 kg Body Mass Index (BMI) 22.5 ABG / Lab / Microbiology Data Result Diagrams: 03/30/22 05:09 03/30/22 05:09 Microbiology: Microbiology 03/30/22 18:45 Urine Catheter - Catheter Urine Culture - Final Culture exhibits no growth. 03/23/22 09:52 Nasal Secretion SARS-CoV-2 Antigen (Rapid) - Final 03/21/22 06:38 Nasal Secretion SARS-CoV-2 Antigen (Rapid) - Final 03/19/22 13:55 Nasal Secretion SARS-CoV-2 Antigen (Rapid) - Final 03/12/22 11:55 Nasal Secretion SARS-CoV-2 Antigen (Rapid) - Final 03/08/22 21:50 Urine, Catheterized Urine Culture - Final Culture exhibits no growth. 03/10/22 06:00 Nasal Secretion SARS-CoV-2 Antigen (Rapid) - Final 03/08/22 13:45 Nasal Secretion SARS-CoV-2 Antigen (Rapid) - Final D/C Instructions Discharge Diet: No restrictions Discharge Activity: Return to Normal Activity, May Shower and Use Walker Weight Bearing Status: Weight bearing as tolerated Call your doctor if you observe: Fever of 101 or Higher, Inability to urinate, Inability to have a bowel movement, Shortness of breath, Dizziness, Fainting spells, Swelling in the ankles, Chest pain and Uncontrolled pain Additional Instructions: Discharge to [facility] 04/06/2022, [facility] PT/OT/ST. Meaningful Use Info Meaningful Use Diagnoses (Choose all that apply): None applicable Discharge Plan Admission Admit Date/Time: 03/08/22 13:12 Primary Reason for Your Visit: Debility. Attending Provider: Howard Cason Chi Primary Care Provider: Kranthi Long Consulting Providers: Harrison Bonilla Instructions Additional Instructions / Restrictions: Discharge to [facility] 04/06/2022, [facility] PT/OT/ST. Discharge Orders/Prescriptions Prescriptions: New furosemide 40 mg Tablet 40 mg PO DAILY Qty: 0 0RF polyethylene glycol 3350 17 gram Powder In Packet 17 g PO DAILY 30 Days Qty: 30 0RF metoprolol tartrate 100 mg Tablet 100 mg PO BID 30 Days Qty: 60 0RF amiodarone 200 mg Tablet 200 mg PO DAILYCM 30 Days Qty: 30 0RF sennosides-docusate sodium [Stool Softener-Stimulant Laxat] 8.6-50 mg Tablet 2 tab PO BID 30 Days Qty: 120 0RF acetaminophen 500 mg Tablet 1,000 mg PO Q6H PRN PRN (Reason: Pain Score 1-3) Qty: 0 0RF potassium chloride [Klor-Con M20] 20 mEq Tablet,Er Particles/Crystals 20 meq PO BIDCM 30 Days Qty: 60 0RF diltiazem HCl 120 mg Capsule,Extended Release 24hr 120 mg PO DAILY 30 Days Qty: 30 0RF mirtazapine 15 mg Tablet 7.5 mg PO QHS 30 Days Qty: 15 0RF Eliquis 5 mg Tablet 2.5 mg PO BID 30 Days Qty: 30 0RF Petrolatum 33% [Eucerin Eqivalent] 1 applic topical BID Qty: 0 0RF Continued levothyroxine 50 mcg tablet 50 mcg PO DAILY Discontinued apixaban 5 MG tablet 5 mg PO BID sennosides-docusate sodium [Stool Softener-Stimulant Laxat] 8.6-50 mg Tablet 2 tab PO BID PRN PRN (Reason: Constipation) Qty: 0 0RF metoprolol tartrate 100 mg tablet 100 mg PO BID amiodarone 200 mg tablet 200 mg PO DAILY potassium chloride 20 mEq tablet extended release 20 meq PO DAILY Referrals / Follow Up: Kranthi Long MD [Primary Care Provider] - Disposition Disposition (needs filled in before D/C Order can be placed): Assisted Living
--- NOTE | 2022-04-03 18:48 | TREXTCAR_ITS ---
Diet Diet Order/Speech Therapy: 03/14/22 14:22 Diet: Sodium Restricted (MOD) Food consistency:: Regular Liquid Consistency:: Regular/Thin Is pt able to select menu?: No Diet Comments: 2000 mg Sodium diet Routine Orders/Code Status Code Status: Full Code Wound(s) ARNALDO LEGS: Wound Type: Abrasion ARNALDO ARMS: Wound Type: Abrasion LEFT LOWER LEG: Wound Type: Skin Tear Dressing Change: Mepilex 03/08/22 LEFT LOWER ARM: Wound Type: raised area/cancer? UPPER SOLO: Wound Type: Abrasion Dressing Change: MEPILEX 03/26/22 BACK HEAD/OCCIPICAL: Wound Type: Hematoma RIGHT PINKY TOE: Wound Type: nail off Dressing Change: BANDAIDE Therapies Weight Bearing: Weight bearing as tolerated Extremity Affected:: Bilateral Lower Physical Therapy: Eval and Treat Occupational Therapy: Eval and Treat Problem/Diagnosis (1) Debility: Status: Acute Code(s): R53.81 - Other malaise (2) Fall: Status: Acute Code(s): W19.XXXA - Unspecified fall, initial encounter (3) Acute kidney injury: Status: Acute Code(s): N17.9 - Acute kidney failure, unspecified (4) Acute on chronic systolic congestive heart failure: Status: Chronic Code(s): I50.23 - Acute on chronic systolic (congestive) heart failure (5) Bilateral pleural effusion: Status: Acute Code(s): J90 - Pleural effusion, not elsewhere classified (6) Fracture of left pelvis: Status: Acute Code(s): S32.9XXA - Fracture of unspecified parts of lumbosacral spine and pelvis, initial encounter for closed fracture (7) Closed right hip fracture: Status: Acute Code(s): S72.001A - Fracture of unspecified part of neck of right femur, initial encounter for closed fracture (8) Urinary tract infection: Status: Acute Code(s): N39.0 - Urinary tract infection, site not specified (9) Atrial fibrillation with rapid ventricular response: Status: Acute Code(s): I48.91 - Unspecified atrial fibrillation (10) Hypertension: Status: Chronic Code(s): I10 - Essential (primary) hypertension (11) Hypothyroidism: Status: Acute Code(s): E03.9 - Hypothyroidism, unspecified (12) BPPV (benign paroxysmal positional vertigo): Status: Acute Code(s): H81.10 - Benign paroxysmal vertigo, unspecified ear (13) Hypokalemia: Status: Acute Code(s): E87.6 - Hypokalemia Allergies/Procedures Done in Hospital Allergies lisinopril Allergy (Verified 02/21/22 13:27) Shortness of breath metoclopramide [From Reglan] Allergy (Verified 02/21/22 13:27) Shortness of breath etodolac Adverse Reaction (Verified 02/21/22 13:27) Diarrhea Procedures: Colonoscopy Type of Care/Length of Stay Estimated LOS: More Than 30 Days Type of Care Needed: Long-Term/Assisted Living Rehab Potential: Fair Prognosis: Fair Additional Orders/Day of Discharge Day of Discharge: 04/06/22 Dietary and Speech Recommendations Dietitian Recommendations/Changes: Continue Regular Sodium restricted diet to help manage medical conditions. Continue 118mL Ensure Compact TID with medpass to provide supplemental energy/nutrition. Discharge Plan Admission Admit Date/Time: 03/08/22 13:12 Primary Reason for Your Visit: Debility. Attending Provider: Howard Cason Chi Primary Care Provider: Kranthi Long Consulting Providers: Harrison Bonilla Instructions Additional Instructions / Restrictions: Discharge to [facility] 04/06/2022, [facility] PT/OT/ST. Discharge Orders/Prescriptions Prescriptions: New furosemide 40 mg Tablet 40 mg PO DAILY Qty: 0 0RF polyethylene glycol 3350 17 gram Powder In Packet 17 g PO DAILY 30 Days Qty: 30 0RF metoprolol tartrate 100 mg Tablet 100 mg PO BID 30 Days Qty: 60 0RF amiodarone 200 mg Tablet 200 mg PO DAILYCM 30 Days Qty: 30 0RF sennosides-docusate sodium [Stool Softener-Stimulant Laxat] 8.6-50 mg Tablet 2 tab PO BID 30 Days Qty: 120 0RF acetaminophen 500 mg Tablet 1,000 mg PO Q6H PRN PRN (Reason: Pain Score 1-3) Qty: 0 0RF potassium chloride [Klor-Con M20] 20 mEq Tablet,Er Particles/Crystals 20 meq PO BIDCM 30 Days Qty: 60 0RF diltiazem HCl 120 mg Capsule,Extended Release 24hr 120 mg PO DAILY 30 Days Qty: 30 0RF mirtazapine 15 mg Tablet 7.5 mg PO QHS 30 Days Qty: 15 0RF Eliquis 5 mg Tablet 2.5 mg PO BID 30 Days Qty: 30 0RF Petrolatum 33% [Eucerin Eqivalent] 1 applic topical BID Qty: 0 0RF Continued levothyroxine 50 mcg tablet 50 mcg PO DAILY Discontinued apixaban 5 MG tablet 5 mg PO BID sennosides-docusate sodium [Stool Softener-Stimulant Laxat] 8.6-50 mg Tablet 2 tab PO BID PRN PRN (Reason: Constipation) Qty: 0 0RF metoprolol tartrate 100 mg tablet 100 mg PO BID amiodarone 200 mg tablet 200 mg PO DAILY potassium chloride 20 mEq tablet extended release 20 meq PO DAILY Referrals / Follow Up: Kranthi Long MD [Primary Care Provider] - Disposition Disposition (needs filled in before D/C Order can be placed): Assisted Living
[2022-04-03] MEDS: Mirtazapine 15 MG Tablet 7.5 MG PO (19:43)
[2022-04-03 20:12] VITALS: PULSE 112; RESP 18; O2SAT 95
[2022-04-04] MEDS: APIXABAN 2.5 MG TABLET (WCH) PO ×2 (04:36→16:52)
[2022-04-04 04:37] VITALS: BP 106/63; PULSE 68
[2022-04-04] MEDS: Furosemide 40 MG Tablet PO (04:37)
[2022-04-04] MEDS: Levothyroxine 50 MCG Tablet PO (04:37)
[2022-04-04] MEDS: Metoprolol Tartrate 100 MG Tablet PO ×2 (04:37→16:52)
[2022-04-04] MEDS: dilTIAZem CD 120 MG Capsule PO (04:37)
[2022-04-04] MEDS: Nystatin Powder 15gm Bottle 1 APPLIC TOPICAL ×2 (04:41→16:56)
[2022-04-04] MEDS: Menthol/Lanolin/Calamine/Znox 113 GM Tube 1 APPLIC TOPICAL ×2 (04:42→16:59)
[2022-04-04] MEDS: Petrolatum 33% Tube 1 APPLIC TOPICAL ×2 (04:43→16:55)
[2022-04-04] MEDS: Potassium Chloride Oral Tablet 20 MEQ PO ×2 (07:54→16:52)
[2022-04-04] MEDS: Amiodarone 200 MG Tablet PO (07:54)
--- NOTE | 2022-04-04 10:25 | CASEMGMT ---
Social Work BIMS (02/22) and PHQ-9 (06/04) completed for MDS assessment. Genny Lopez MSW [employer]
[2022-04-04 14:00] VITALS: BP 126/63; PULSE 106; RESP 18; TEMP 36.1; O2SAT 96
[2022-04-04 16:52] VITALS: PULSE 96
[2022-04-04] MEDS: Mirtazapine 15 MG Tablet 7.5 MG PO (20:46)
[2022-04-05 05:00] VITALS: BP 107/66; PULSE 94
[2022-04-05] MEDS: APIXABAN 2.5 MG TABLET (WCH) PO ×2 (05:00→17:04)
[2022-04-05] MEDS: Furosemide 40 MG Tablet PO (05:00)
[2022-04-05] MEDS: Metoprolol Tartrate 100 MG Tablet PO ×2 (05:00→17:04)
[2022-04-05] MEDS: Levothyroxine 50 MCG Tablet PO (05:00)
[2022-04-05] MEDS: dilTIAZem CD 120 MG Capsule PO (05:00)
[2022-04-05] MEDS: Senna/Docusate Sodium 1 Tablet 2 TABLET PO (05:00)
[2022-04-05] MEDS: Menthol/Lanolin/Calamine/Znox 113 GM Tube 1 APPLIC TOPICAL ×2 (05:09→17:03)
[2022-04-05] MEDS: Nystatin Powder 15gm Bottle 1 APPLIC TOPICAL ×2 (05:10→17:05)
[2022-04-05] MEDS: Petrolatum 33% Tube 1 APPLIC TOPICAL ×2 (07:44→17:05)
[2022-04-05] MEDS: Amiodarone 200 MG Tablet PO (07:45)
[2022-04-05] MEDS: Potassium Chloride Oral Tablet 20 MEQ PO ×2 (07:57→17:04)
[2022-04-05 10:00] VITALS: PULSE 112; O2SAT 96
--- NOTE | 2022-04-05 13:02 | MDS.RN ---
Pain assessment for TIMA 04/06/22
[2022-04-05 13:12] VITALS: BP 109/54; PULSE 84; RESP 16; TEMP 36; O2SAT 97
[2022-04-05 17:04] VITALS: PULSE 84
[2022-04-05] MEDS: Mirtazapine 15 MG Tablet 7.5 MG PO (20:28)
[2022-04-06] MEDS: Menthol/Lanolin/Calamine/Znox 113 GM Tube 1 APPLIC TOPICAL (05:35)
[2022-04-06 05:37] VITALS: BP 114/64; PULSE 102
[2022-04-06] MEDS: Senna/Docusate Sodium 1 Tablet 2 TABLET PO (05:37)
[2022-04-06] MEDS: APIXABAN 2.5 MG TABLET (WCH) PO (05:37)
[2022-04-06] MEDS: dilTIAZem CD 120 MG Capsule PO (05:37)
[2022-04-06] MEDS: Levothyroxine 50 MCG Tablet PO (05:37)
[2022-04-06] MEDS: Metoprolol Tartrate 100 MG Tablet PO (05:37)
[2022-04-06] MEDS: Furosemide 40 MG Tablet PO (05:38)
[2022-04-06] MEDS: Petrolatum 33% Tube 1 APPLIC TOPICAL (05:38)
[2022-04-06] MEDS: Nystatin Powder 15gm Bottle 1 APPLIC TOPICAL (05:39)
[2022-04-06 06:01] LABS: Absolute Lymphocyte Count 2.19 X10^3/uL (0.83-4.51); Absolute Neutrophil Count 4.8 X10^3/uL (2.0-7.7); Basophil# 0.04 X10^3/uL; Basophil% 0.5 % (0-1); Eosinophil# 0.08 X10^3/uL; Hemoglobin 11.6 g/dL (12.0-15.0); Lymphocyte # 2.19 X10^3/ul (0.83-4.51); Lymphocyte % 28.5 % (19-41); Mean Corp Hgb Conc 30.5 g/dL (32-36); Mean Corpuscular Hgb 30.1 pg (27.0-32.0); Mean Corpuscular Volume 98.4 fL (81-99); Mean Platelet Vol. 10.7 fl (6.2-12.0); Monocyte# 0.52 X10^3/uL; Monocyte% 6.8 % (0-10); NRBC Flagged by Analyzer 0 % (0-5); Neutrophil # 4.83 X10^3/uL (2.7-7.7); Neutrophil % 62.8 % (47-70); Platelet Count 352 K/mm3 (150-450); RBC Distribution Width CV 14.2 % (11.6-14.6); RBC Distribution Width SD 51.3 fl (35.1-43.9); Red Blood Count 3.86 M/mm3 (4.2-5.4); White Blood Count 7.7 K/mm3 (4.4-11.0)
[2022-04-06 06:24] LABS: Anion Gap 5 (5-15); BUN 30 mg/dL (7-18); BUN/Creat Ratio 36.7 RATIO (10-20); Calcium,Total 8.9 mg/dL (8.5-10.1); Chloride 104 mmol/L (98-107); Creatinine, Serum 0.82 mg/dL (0.55-1.02); EST Glomerular Filtration Rate 70 mL/min (>60); Est Glom Filt Rate - Afr Amer 85 mL/min (>60); Estimated Creatinine Clearance 48.76 ml/min; Glucose 93 mg/dL (74-106); Potassium 3.7 mmol/L (3.5-5.1); Sodium Level 141 mmol/L (136-145)
[2022-04-06] MEDS: Potassium Chloride Oral Tablet 20 MEQ PO (07:59)
[2022-04-06] MEDS: Amiodarone 200 MG Tablet PO (07:59)
[2022-04-06 08:03] VITALS: BP 134/81; PULSE 97
[2022-04-06 08:06] VITALS: PULSE 97; RESP 16; O2SAT 98
[2022-04-06 14:00] VITALS: BP 118/68; PULSE 108; RESP 18; TEMP 36.4; O2SAT 96
== END 2022-04-06 14:00 | disposition home health service (06) | DRG 559 ==
PROVIDERS: Admitting Provider Family Medicine Geriatric Medicine; PCP Family Medicine; Visit Provider Family Medicine Geriatric Medicine
DX: S72.001D Fracture of unspecified part of neck of right femur, subsequent encounter for closed fracture with routine healing (principal); I50.23 Acute on chronic systolic (congestive) heart failure; N17.9 Acute kidney failure, unspecified; I42.9 Cardiomyopathy, unspecified; N39.0 Urinary tract infection, site not specified; B35.1 Tinea unguium; I48.0 Paroxysmal atrial fibrillation; B35.4 Tinea corporis; I11.0 Hypertensive heart disease with heart failure; E03.9 Hypothyroidism, unspecified; E87.6 Hypokalemia; W19.XXXD Unspecified fall, subsequent encounter; M79.674 Pain in right toe(s); K64.9 Unspecified hemorrhoids; K63.5 Polyp of colon; K57.30 Diverticulosis of large intestine without perforation or abscess without bleeding; B96.1 Klebsiella pneumoniae [K. pneumoniae] as the cause of diseases classified elsewhere; S32.512D Fracture of superior rim of left pubis, subsequent encounter for fracture with routine healing; Z79.01 Long term (current) use of anticoagulants; Z87.891 Personal history of nicotine dependence; Z79.899 Other long term (current) drug therapy; Z79.890 Hormone replacement therapy; Z23 Encounter for immunization; Z86.718 Personal history of other venous thrombosis and embolism; Z86.711 Personal history of pulmonary embolism
CPT/HCPCS: 0134A; 36415; 71046; 72170; 73030; 73552; 73590; 80048; 80053; 81001; 82962; 83880; 84443; 84484; 85014; 85018; 85025; 87086; 87426; 87811; 91313; 92507; 92523; 97110; 97116; 97162; 97166; 97530; 97535; J7030; A4216; J1940; J2405

== ENCOUNTER → 2022-03-08 | Outpatient (CLI) | payer MEDICARE, OTHER, SELFPAY ==
--- NOTE | 2022-03-08 19:50 | CT_ITS ---
INDICATION: Pelvic fractures, possible right hip fracture EXAMINATION: CT PELVIS BONE - CT Pelvis W/O Contrast Injection TECHNIQUE: Routine noncontrast bone CT protocol was performed of the pelvis. 2-D reformats were performed by the technologist. A radiation dose optimization technique was used for this scan. IV Contrast dosage and agent: None. COMPARISON: None. FINDINGS: SOFT TISSUES: No soft tissue swelling or gas. No radiopaque foreign body. BONES/JOINTS: There are acute fractures of the left superior pubic ramus and inferior pubic ramus with mild separation of fracture fragments possibly pathologic as there appears to be relatively lucent appearance to the bones. There is also an acute comminuted depressed fracture of the left sacral wing with minor separation of fracture fragments.. Left hip prosthesis is noted in anatomic alignment and position . Lumbar spine demonstrates degenerative change. Grade 1 spondylolisthesis at L5-S1. CT/Pelvis without IV Contrast IMPRESSION: Acute fractures of the left inferior and superior pubic rami as well as the left sacral wing. There is a relatively lucent appearance to the bones raising question of pathologic fractures possibly neoplastic. Clinical correlation is recommended Electronically Signed: Jaime Ibanez MD at 20:46 EST Reading Location ID and State: [address] [place] [address] , Service support ,
== END | disposition home or self-care (01) ==
PROVIDERS: PCP Family Medicine; Visit Provider Family Medicine Geriatric Medicine
DX: M43.17 Spondylolisthesis, lumbosacral region (principal); Z96.642 Presence of left artificial hip joint; M84.350A Stress fracture, pelvis, initial encounter for fracture
CPT/HCPCS: 72192

== ENCOUNTER 2022-03-14 13:28 | Day surgery (SDC) | payer MEDICARE, OTHER, SELFPAY ==
--- NOTE | 2022-03-14 12:15 | COLBX_PTH ---
PATIENT: CLOVIS ALVAREZ LOC: EN U#:[id number] AGE/SX: 86/F ROOM: RE03/14/[address]: Dr. Skip Mallory DO : 1935 BED: DIS: 03/14/2022 SPEC #: [id number] RECD: 03/14/22 15:01 STATUS: CORA REJett #: [id number] KRISTY: 03/14/22 12:[address]: Skip Mallory DEPT: SURGICAL PATHOLOGY RECD BY: Xiomara Mcgill ENTERED: 03/15/22 12:18 SP TYPE: COLON BX OTHR DR: Dr. Kranthi Long MD Tissues: COLON BIOPSY Procedures: Surgery Specimen Level IV HEADER OPERATION: Colonoscopy (MAC) PRE-OP DIAGNOSIS: Lower GI bleeding TISSUE SUBMITTED: Cecum polyps MICROSCOPIC DIAGNOSIS Cecum polyps, biopsy: Fragments of tubular adenoma. Fragments of fecal material. SJ:layton 03/16/2022 MICROSCOPIC DESCRIPTION Slides are reviewed. GROSS DESCRIPTION Received in fixative is one container labeled with the patient's name and designated cecum polyp. The specimen consists of multiple irregular fragments of light saleh soft tissue that in aggregate measure 1.5 x 0.6 x 0.1 cm. The specimen is totally submitted in one cassette. / AM:layton 03/15/2022 TC:1 CPT: 13753
[2022-03-14 12:23] VITALS: BP 128/91; PULSE 104; RESP 16; TEMP 36.9; O2SAT 96
[2022-03-14 13:54] VITALS: BP 107/57; BP 128/91; PULSE 94; RESP 18; TEMP 36.5; O2SAT 100
[2022-03-14 13:55] VITALS: BP 100/61; BP 128/91; PULSE 113; RESP 18; O2SAT 98
--- NOTE | 2022-03-14 13:58 | OP.COLON_ITS ---
Patient Name: Geneva Finley Procedure Date: 03/14/2022 1:09 PM Date of : 1935 Age: 86 Procedure: Colonoscopy Indications: Hematochezia Providers: Skip Mallory DO Medicines: Monitored Anesthesia Care Patient Profile: This is an 86 year old female. Refer to note in patient chart for documentation of history and physical. Last Colonoscopy: 10 years ago. Complications: No immediate complications. Procedure: Pre-Anesthesia Assessment: - Prior to the procedure, a History and Physical was performed, and patient medications and allergies were reviewed. The patient is competent. The risks and benefits of the procedure and the sedation options and risks were discussed with the patient. All questions were answered and informed consent was obtained. Patient identification and proposed procedure were verified by the physician in the pre-procedure area. Mental Status Examination: alert and oriented. Airway Examination: normal oropharyngeal airway and neck mobility. Respiratory Examination: clear to auscultation. CV Examination: normal. Prophylactic Antibiotics: The patient does not require prophylactic antibiotics. Prior Anticoagulants: The patient has taken no previous anticoagulant or antiplatelet agents. ASA Grade Assessment: II - A patient with mild systemic disease. After reviewing the risks and benefits, the patient was deemed in satisfactory condition to undergo the procedure. The anesthesia plan was to use monitored anesthesia care (MAC). Immediately prior to administration of medications, the patient was re-assessed for adequacy to receive sedatives. The heart rate, respiratory rate, oxygen saturations, blood pressure, adequacy of pulmonary ventilation, and response to care were monitored throughout the procedure. The physical status of the patient was re-assessed after the procedure. After I obtained informed consent, the scope was passed under direct vision. Throughout the procedure, the patient's blood pressure, pulse, and oxygen saturations were monitored continuously. The Colonoscope was introduced through the anus and advanced to the cecum, identified by appendiceal orifice and ileocecal valve. The colonoscopy was performed without difficulty. The patient tolerated the procedure well. The quality of the bowel preparation was adequate. Scope In: 1:25:16 PM Scope Withdrawal Time 0 hours 8 minutes 9 seconds Scope Out: 1:41:24 PM Total Procedure Duration Time 0 hours 16 minutes 8 seconds Findings: Hemorrhoids were found on perianal exam. Non-bleeding hemorrhoids were found during retroflexion, during perianal exam and during digital exam. The hemorrhoids were Grade IV (internal hemorrhoids that prolapse and cannot be reduced manually). Three sessile polyps were found in the cecum. The polyps were 1 to 2 mm in size. These polyps were removed with a hot snare. Resection and retrieval were complete. Verification of patient identification for the specimen was done. Estimated blood loss was minimal. Multiple small and large-mouthed diverticula were found in the recto-sigmoid colon, sigmoid colon and descending colon. Impression: - Hemorrhoids found on perianal exam. - Non-bleeding hemorrhoids. - Three 1 to 2 mm polyps in the cecum, removed with a hot snare. Resected and retrieved. - Diverticulosis in the recto-sigmoid colon, in the sigmoid colon and in the descending colon. Recommendation: - Discharge patient to home. - Resume previous diet. - Repeat colonoscopy PRN. - Continue present medications. Procedure Code(s): --- Professional --- 25527, Colonoscopy, flexible; with removal of tumor(s), polyp(s), or other lesion(s) by snare technique CPT copyright 2017 [employer]. All rights reserved. The codes documented in this report are preliminary and upon hot metal mixer operator review may be revised to meet current compliance requirements. Skip Mallory DO 03/14/2022 1:58:04 PM This report has been signed electronically. Number of Addenda: 0 Note Initiated On: 03/14/2022 1:09 PM
--- NOTE | 2022-03-14 14:00 | OP.CCLET_ITS ---
03/14/2022 Kranthi Long [address] [place] [address] Re : Colonoscopy procedure for Geneva Finley Dear Dr. Long This procedure was performed on Monday, March 14, 2022. My impressions and recommendations are as follows: Impressions : - Hemorrhoids found on perianal exam. - Non-bleeding hemorrhoids. - Three 1 to 2 mm polyps in the cecum, removed with a hot snare. Resected and retrieved. - Diverticulosis in the recto-sigmoid colon, in the sigmoid colon and in the descending colon. Recommendations : - Discharge patient to home. - Resume previous diet. - Repeat colonoscopy PRN. - Continue present medications. My findings are described in the full procedure note, which is enclosed. If I can be of further assistance, please feel free to contact me at . Sincerely, Skip Mallory, DO 03/14/2022 1:58:04 PM This report has been signed electronically.
[2022-03-14 14:01] VITALS: BP 103/74; BP 128/91; PULSE 101; RESP 18; O2SAT 95
[2022-03-14 14:10] VITALS: BP 123/84; BP 128/91; PULSE 94; RESP 16; TEMP 36.7; O2SAT 98
[2022-03-14 14:24] VITALS: BP 128/91
--- NOTE | 2022-03-14 15:41 | HP.PCM_ITS ---
History and Physical Date of Admission: 03/14/22 HPI Consult Data Date of Consult: 03/13/22 HPI Narrative Reason for Consultation: GI bleed HPI Narrative: CLOVIS ALVAREZ, is a 86 F? with a history of atrial fibrillation with RVR thought secondary to pulmonary emboli/DVT superimposed upon history of hypertension.? She was originally brought in by EMS mechanical fall at home prior to arrival.? In the kitchen with her walker when her legs gave out.? She had a back her head on the stove.??Patient admitted to TCU from home for debility, frequent falls, unable to care for self at home.? She lives alone. Labs, Chest X-ray consistent with acute on chronic systolic congestive heart failure.? Bilateral pleural effusions right worse than right. 02/21/2022 Urine culture grew > 100,000 Klebsiella Pneumoniae, unclear whether she was treated with ATB's, repeat UA, urine culture. Old healed right humeral neck fracture, resident denies history of right upper arm fracture. Acute left pelvis fracture, order CT pelvis to confirm. CT/Pelvis without IV Contrast IMPRESSION: ? Acute fractures of the left inferior and superior pubic rami as well as the left sacral wing. There is a relatively lucent appearance to the bones raising question of pathologic fractures possibly neoplastic. Clinical correlation is recommended I was called to see her due to the fact that she has been having ongoing rectal bleeding for the past several days.? Her Eliquis has been held. [facility] Medical History? Acute kidney injury Benign essential hypertension Bilateral pulmonary embolism Cardiomyopathy Congestive heart failure Dizziness Former tobacco use History of cardioversion (~02/07/22) History of venous thromboembolism HTN (hypertension) Hypothyroidism PAF (paroxysmal atrial fibrillation) Pleural effusion Home Medications apixaban 5 mg tablet 5 mg PO BID blood thinner 02/06/22 [History Last Taken 02/05/22] levothyroxine 50 mcg tablet 50 mcg PO DAILY thyroid 02/06/22 [History Last Taken 02/06/22] sennosides 8.6 mg-docusate sodium 50 mg tablet (Stool Softener-Stimulant Laxative) 2 tab PO BID PRN PRN Constipation #0 tabs 02/08/22 [Rx Last Taken Unknown] amiodarone 200 mg tablet 200 mg PO DAILY BP 03/08/22 [History Last Taken Unknown] metoprolol tartrate 100 mg tablet 100 mg PO BID BP 03/08/22 [History Last Taken Unknown] potassium chloride 20 mEq tablet,extended release 20 meq PO DAILY Supplement 03/08/22 [History Last Taken Unknown] Allergy/AdvReac Type Severity Reaction Status Date / Time lisinopril Allergy ? Shortness Verified 02/21/22 13:27 ? ? ? of breath ? ? metoclopramide [From Reglan] Allergy ? Shortness Verified 02/21/22 13:27 ? ? ? of breath ? ? etodolac AdvReac ? Diarrhea Verified 02/21/22 13:27 Family History? Mother CancerFather TuberculosisBrother History of pancreatitisSon Diabetes Aneurysm ?? ? Legs and stomach Hyperlipidemia Surgical History? History of hip replacement History of hysterectomy History of knee replacement Social History?(Updated 03/08/22 @ 19:[address] Howard Cason MD) household members:? none Smoking Status:? Former smoker how long ago did patient quit smoking:? 40 years ago, smoked <1/2 ppd x 3 years. alcohol intake:? never substance use type:? does not use caffeine:? Yes Type: coffee Number of servings: 2 ROS Constitutional Constitutional: Denies chills, fever(s) or weight gain ENT HEENT: Denies headache(s), nasal congestion or nasal discharge Cardiovascular Cardiovascular: Denies chest pain or palpitations Respiratory/Chest Respiratory/Chest: Denies cough, excessive phlegm production or shortness of breath with exertion Gastrointestinal Gastrointestinal: Denies abdominal pain, nausea or vomiting Genitourinary Genitourinary: Denies dysuria Musculoskeletal Musculoskeletal: Denies joint pain or joint swelling Integumentary Integumentary: Denies rash or wounds Neurologic Neurologic: Denies focal weakness, numbness or tingling Psychiatric Psychiatric: Denies anxiety, auditory hallucinations, depression, homicidal ideation or suicidal ideation Physical Exam Const alert General Appearance: cooperative HEENT normocephalic Eyes PERRL and EOMs intact bilaterally Neck supple, no JVD and no carotid bruits Resp normal respiratory effort, normal air movement and clear to auscultation bilaterally Cardio regular rate and regular rhythm GI normal to inspection, nondistended, normoactive bowel sounds, non-tender and non-distended Extremity normal capillary refill General Extremity: Negative for edema Skin no rashes or lesions noted General Skin Exam: no breakdown Psych affect normal Appearance: appropriate Lab / Micro Data Result Diagrams: 03/13/22 13:23? 03/10/22 07:16? Labs: Laboratory Results - last 24 hr 03/13/22 13:23:?Hgb 12.8, Hct 42.4 Micro: Microbiology 03/12/22 11:55 ? Nasal Secretion ? SARS-CoV-2 Antigen (Rapid) - Final Assessment & Plan Assessment/Plan (1) Lower GI bleeding: PLAN: I do see a lot of stool in her rectum on her CT of the pelvis and some small diverticuli.? The differential diagnosis for lower GI bleeding would be internal hemorrhoids secondary to chronic idiopathic constipation due to immobility, stercoral ulcer, diverticular bleed, angiodysplasia, neoplasia.? Also wanted of diagnosis could be upper GI bleed with rapid transit in the setting of anticoagulation.? She should undergo an upper lower endoscopy in order to evaluate upper lower GI tract to make sure it is safe to go back on anticoagulation. I have examined the patient and the H&P has been reviewed. There are no clinical changes since date of exam.
== END 2022-03-14 14:55 | disposition home or self-care (01) ==
LOC: EN 13:29 → AC 13:29
PROVIDERS: PCP Family Medicine; Referring Provider Family Medicine; Visit Provider Internal Medicine Gastroenterology
PROC: 0DJD8ZZ Inspection of Lower Intestinal Tract, Via Natural or Artificial Opening Endoscopic (ICD-10-PCS; CPT 45378; principal; 2022-03-14 12:10)
DX: D12.0 Benign neoplasm of cecum (principal); I42.9 Cardiomyopathy, unspecified; I11.0 Hypertensive heart disease with heart failure; I50.23 Acute on chronic systolic (congestive) heart failure; I48.0 Paroxysmal atrial fibrillation; K57.30 Diverticulosis of large intestine without perforation or abscess without bleeding; K64.3 Fourth degree hemorrhoids; E03.9 Hypothyroidism, unspecified; Z86.711 Personal history of pulmonary embolism; Z79.899 Other long term (current) drug therapy; Z79.01 Long term (current) use of anticoagulants; Z86.718 Personal history of other venous thrombosis and embolism; Z87.891 Personal history of nicotine dependence
CPT/HCPCS: 45385; 88305

== ENCOUNTER → 2022-03-15 | Outpatient (CLI) | payer MEDICARE, OTHER, SELFPAY ==
--- NOTE | 2022-03-15 07:39 | NM_ITS ---
CLINICAL: 86-year-old female with history of pelvic pain status post traumatic fall. WHOLE BODY 99m Tc MDP RADIONUCLIDE BONE SCINTIGRAPHY COMPARISON: CT of the pelvis report 03/08/2022 FINDINGS: Following the intravenous administration of 25.0 mCi of 99m Tc MDP, whole body bone images reveal: 1. Increased radiopharmaceutical concentration is defined in the posterior sacrum, bilateral sacral ala, the left inferior pubic ramus, the left acetabulum, the right anterior seventh rib. 2. Facilitated uptake is noted in the sternoclavicular compartments of both shoulders, the right elbow, the right wrist, the 12th thoracic vertebra posteriorly on the right. 3. The remaining skeletal structures are scintigraphically unremarkable with normal-appearing renal images and urinary bladder activity identified. Bilateral presumably asymptomatic knee arthroplasties and a left hip prosthesis are defined without overt scintigraphic abnormalities. NM/Bone Scan Whole Body IMPRESSION: 1. The increase in tracer concentration defined in the posterior sacrum, the bilateral sacral ala, the left inferior pubic ramus, the left acetabulum and right anterior seventh rib consistent with trauma-fracture. 2. 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 Electronically Signed: Genaro Willoughby, at 20:45 EST ,
== END | disposition home or self-care (01) ==
LOC: NM 07:38
PROVIDERS: PCP Family Medicine; Visit Provider Family Medicine Geriatric Medicine
DX: M19.031 Primary osteoarthritis, right wrist (principal); M19.021 Primary osteoarthritis, right elbow; M19.011 Primary osteoarthritis, right shoulder; M19.012 Primary osteoarthritis, left shoulder; R10.2 Pelvic and perineal pain
CPT/HCPCS: 78306; A9503

== ENCOUNTER → 2022-04-16 | Outpatient (REF) | payer MEDICARE, OTHER, SELFPAY ==
[2022-04-16 09:52] LABS: ALB/GLOB Ratio 0.8 RATIO (0.9-2.4); AST(SGOT) 12 U/L (15-37); Alanine Aminotransfer ALT/SGPT 10 U/L (13-56); Albumin, Serum 2.6 g/dL (3.2-5.0); Alkaline Phosphatase 116 U/L (45-117); Anion Gap 9 (5-15); BUN 28 mg/dL (7-18); BUN/Creat Ratio 32.8 RATIO (10-20); Calcium,Total 8.8 mg/dL (8.5-10.1); Chloride 106 mmol/L (98-107); Creatinine, Serum 0.85 mg/dL (0.55-1.02); EST Glomerular Filtration Rate 67 mL/min (>60); Est Glom Filt Rate - Afr Amer 81 mL/min (>60); Globulin 3.1 g/dL (2.2-4.2); Glucose 95 mg/dL (74-106); Protein, Total 5.7 g/dL (6.4-8.2); Sodium Level 144 mmol/L (136-145)
== END ==
PROVIDERS: PCP Family Medicine; Visit Provider Family Medicine
DX: I11.0 Hypertensive heart disease with heart failure (principal); I50.9 Heart failure, unspecified; R53.83 Other fatigue
CPT/HCPCS: 36415; 80053

== ENCOUNTER 2022-04-29 23:25 | Emergency (ER) | payer MEDICARE, OTHER, SELFPAY ==
[2022-04-29 23:26] VITALS: BP 122/80; PULSE 101; RESP 19; TEMP 36.3; O2SAT 94; BMI 23.8
--- NOTE | 2022-04-29 23:39 | CT_ITS ---
INDICATION: dizziness EXAMINATION: CT BRAIN - CT Head or Brain W/O Contrast Injection TECHNIQUE: Multiple axial images were obtained of the head without intravenous contrast. A radiation dose optimization technique was used for this scan. IV Contrast dosage and agent: None. COMPARISON: March 04, 2022 FINDINGS: BRAIN PARENCHYMA: No intra- or extra-axial hemorrhage. No evidence of acute infarct. 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 No intracranial mass or mass effect. Mild periventricular and subcortical white matter hypodense chronic small vessel white matter ischemic change. There is preservation of the lujan/white matter interface. Posterior fossa structures are unremarkable. Bilateral carotid atherosclerosis. CSF SPACES: Mild global cerebral volume loss. No hydrocephalus. Basal cisterns are patent. CALVARIUM, SKULL BASE, PARANASAL SINUSES AND MASTOID AIR CELLS: No acute osseous finding. Mild scattered paransal sinus mucoperisteal thickening. Mastoid air cells are clear. ORBITS: Both globes, extraocular muscles, optic nerves and retrobulbar fat appear unremarkable. ASPECTS Score for Acute Strokes: 10 CT/Brain/Head without Contrast IMPRESSION: No CT evidence of acute intracranial hemorrhage or injury. Mild senescent changes with sequela of prior left basal ganglia lacunar infarct. Scattered mild sinus disease. Carotid atherosclerosis. Electronically Signed: Jose Antonio Overton MD at 1:10 EST ,
--- NOTE | 2022-04-29 23:39 | RAD_ITS ---
INDICATION: dizziness EXAMINATION/TECHNIQUE: X-RAY - XR Chest 1 View COMPARISON: March 08, 2022. FINDINGS: LINES/DEVICES: None. LUNGS: Increased moderate layering right pleural effusion. Trace left effusion. Right perihilar and left costophrenic angle atelectasis. No pneumothorax. MEDIASTINUM AND CARDIOVASCULAR STRUCTURES: Mild cardiomegaly BONES AND SOFT TISSUES: Unremarkable. RAD/Chest 1 View (Portable) IMPRESSION: Increased moderate layering right pleural effusion. Underlying atelectasis in the bilateral lower lungs. Cannot exclude right lower lung pneumonia. Electronically Signed: Jose Antonio Overton MD at 0:40 EST ,
--- NOTE | 2022-04-29 23:40 | EKG12_ITS ---
Test Reason : DIZZYNESS Blood Pressure : / mmHG Vent. Rate : 103 BPM Atrial Rate : 000 BPM P-R Int : 000 ms QRS Dur : 086 ms QT Int : 284 ms P-R-T Axes : 000 -07 -59 degrees QTc Int : 372 ms Atrial fibrillation with rapid ventricular response Nonspecific T wave abnormality Abnormal ECG Confirmed by WARD MORRIS, DARRON ([id number]), content editor LORI NAVARRO ([id number]) on 04/30/2022 1:41:43 PM Referred By: ANGELINE Confirmed By:DARRON HOPPER MD
--- NOTE | 2022-04-29 23:48 | EX.ED.DYSGE1 ---
HPI History of Present Illness Chief Complaint: Dizziness Narrative Narrative: 87-year-old female with history of debility, CHF, pleural effusion, pelvic fracture, UTI, A-fib, hypothyroidism, benign positional vertigo presenting with dizziness. She states is worse when she lays down for an extended period of time. Its not worsened by ambulation and she is able to ambulate with her walker at baseline. She denies any falls. Denies headache. Denies visual complaints. She denies paresthesias. He states it started yesterday. She called her son. Her son called 911 and had her transported to the emergency room and better here. She states she has a history of atrial fibrillation but is not anticoagulated. Patient does report that her dizziness gets worse when she lays down for period of time [facility] Medical History Acute kidney injury Benign essential hypertension Bilateral pulmonary embolism Cardiomyopathy Congestive heart failure Dizziness Former tobacco use History of cardioversion (~02/07/22) History of venous thromboembolism HTN (hypertension) Hypothyroidism PAF (paroxysmal atrial fibrillation) Pleural effusion Home Medications levothyroxine 50 mcg tablet 50 mcg PO DAILY thyroid 02/06/22 [History Last Taken 02/06/22] Petrolatum 33% [Eucerin Eqivalent] 1 applic topical BID ##0 04/03/22 [Rx Last Taken Unknown] acetaminophen 500 mg tablet 1,000 mg PO Q6H PRN PRN Pain Score 1-3 #0 tabs 04/03/22 [Rx Last Taken Unknown] amiodarone 200 mg tablet 200 mg PO DAILYCM 30 days #30 tabs 04/03/22 [Rx Last Taken Unknown] diltiazem HCl 120 mg capsule,extended release 24 hr 120 mg PO DAILY 30 days #30 caps 04/03/22 [Rx Last Taken Unknown] furosemide 40 mg tablet 40 mg PO DAILY #0 tabs 04/03/22 [Rx Last Taken Unknown] metoprolol tartrate 100 mg tablet 100 mg PO BID 30 days #60 tabs 04/03/22 [Rx Last Taken Unknown] mirtazapine 15 mg tablet 7.5 mg PO QHS 30 days #15 tabs 04/03/22 [Rx Last Taken Unknown] polyethylene glycol 3350 17 gram oral powder packet 17 g PO DAILY 30 days #30 ea 04/03/22 [Rx Last Taken Unknown] potassium chloride 20 mEq tablet,extended release(part/cryst) (Klor-Con M) 20 meq PO BIDCM 30 days #60 tabs 04/03/22 [Rx Last Taken Unknown] sennosides 8.6 mg-docusate sodium 50 mg tablet (Stool Softener-Stimulant Laxative) 2 tab PO BID 30 days #120 tabs 04/03/22 [Rx Last Taken Unknown] apixaban 5 mg tablet (Eliquis) 5 mg PO BID #60 tabs 04/10/22 [Rx Last Taken Unknown] Allergy/AdvReac Type Severity Reaction Status Date / Time lisinopril Allergy Shortness Verified 04/29/22 23:30 of breath metoclopramide [From Reglan] Allergy Shortness Verified 04/29/22 23:30 of breath etodolac AdvReac Diarrhea Verified 04/29/22 23:30 Family History Mother Cancer Father Tuberculosis Brother History of pancreatitis Son Diabetes Aneurysm Legs and stomach Hyperlipidemia Surgical History History of hip replacement History of hysterectomy History of knee replacement Social History household members: none Smoking Status: Former smoker how long ago did patient quit smokin years ago, smoked <1/2 ppd x 3 years. alcohol intake: never substance use type: does not use caffeine: Yes Type: coffee Number of servings: 2 ROS ROS ED Review of Systems ROS Unobtainable: Denies due to encephalopathy Constitutional Constitutional ED: Denies chills or fever(s) Eyes Eyes: Denies change in vision or diplopia ENT ENT ED: Denies rhinorrhea or sore throat Cardiovascular Cardiovascular: Denies chest pain or palpitations Respiratory/Chest Respiratory/Chest: Denies cough or dyspnea Gastrointestinal Gastrointestinal: Denies abdominal pain, constipation, nausea or vomiting Genitourinary Genitourinary ED: Denies dysuria Musculoskeletal Musculoskeletal: Denies arthralgias Integumentary Denies abscess Neurologic Neurologic: Denies headache(s) or paresthesias Psychiatric Psychiatric: Denies anxiety or depression EXAM Physical Exam Const Vital Signs: 04/29/22 23:26 04/29/22 23:29 04/30/22 01:42 Temperature 97.4 F L Temperature Source Temporal Pulse Rate 101 H Respiratory Rate 19 H Respiratory Pattern Normal Blood Pressure 122/80 H Blood Pressure Mean 94 Pulse Ox 94 97 Oxygen Delivery Method Room Air Room Air 04/30/22 03:02 Temperature Temperature Source Pulse Rate 74 Respiratory Rate 15 Respiratory Pattern Blood Pressure 112/83 H Blood Pressure Mean 92 Pulse Ox 98 Oxygen Delivery Method Room Air Positive well nourished General Appearance ED: NAD; Negative for pallor HEENT Reports moist mucous membranes HEENT Narrative: Negative [place] Negative for trauma or tenderness Eyes PERRL and EOMs intact bilaterally Chest Wall inspection of chest normal and palpation of chest normal Resp normal respiratory effort and clear to auscultation bilaterally Auscultation: Negative for rales, rhonchi or wheezes Cardio regular rate and regular rhythm GI normal to inspection, nondistended, normoactive bowel sounds Neuro oriented x3 and CN's II-XII intact bilaterally Sensorium / Orientation: alert Skin no rashes or lesions noted General Skin Exam: Negative for jaundice or pallor MDM MDM MDM Narrative Medical decision making narrative: 87-year-old female presenting with dizziness. She is not having it acutely at this moment. I cannot reproduce it on exam with a [place]. She states that she has a lay back for extended period time before she starts to get dizzy. No headache, visual complaints. Patient has no other symptoms currently. She does have significant medical history so I will obtain screening lab work. Differential at this point includes but not limited to A-fib with RVR, UTI, TIA, ACS, pneumonia, dehydration, electrolyte abnormalities, anemia.CBC to assess white blood cell count, hemoglobin, platelets, differential. CMP to assess liver function, renal function, electrolytes, glucose and anion gap. Troponin to assess for cardiac etiology as well as EKG. Chest x-ray also included. Urinalysis to assess for UTI. CT brain included as well. CBC shows a normal white blood cell count of 6.1. Hemoglobin monitor stable. Platelets within normal limits. Creatinine slightly elevated at 1.33. Electrolytes normal. BNP is elevated at 511 however in February it was 1600 so this is actually improved. High-sensitivity troponin is 8. EKG shows atrial fibrillation with a ventricular rate of 103. This appears to be chronic. She is no longer anticoagulated due to fall risk as was reported to me. Chest x-ray on my interpretation shows right pleural effusion. The radiologist interprets this as pleural effusion versus pneumonia. Patient not having fever, respiratory complaints. CT brain was obtained and is negative for acute findings. Patient initially treated with meclizine due to her history of benign positional vertigo and her symptoms have improved on reevaluation. Patient ambulated with walker. She did well. Patient be discharged back to facility. Counseled to follow-up with her primary care physician. Impression: 1. Elevated creatinine 2. Dizziness 3. Pleural effusion Lab Data Labs: Laboratory Results - last 24 hr 04/30/22 04/30/22 04/30/22 00:00 00:00 00:01 WBC 6.1 RBC 4.05 L Hgb 12.1 Hct 40.5 MCV 100.0 H MCH 29.9 MCHC 29.9 L RDW Std Deviation 54.9 H RDW Coeff of Kin 14.7 H Plt Count 195 MPV 11.6 Immature Gran % (Auto) 0.300 Neut % (Auto) 64.5 Lymph % (Auto) 26.4 [place] % (Auto) 6.6 Eos % (Auto) 1.7 Baso % (Auto) 0.5 Absolute Neuts (auto) 3.9 Absolute Lymphs (auto) 1.60 Nucleated RBC % 0 Sodium 146 H Potassium 3.6 Chloride 106 Carbon Dioxide 32.0 Anion Gap 8 BUN 28 H Creatinine 1.33 H Estim Creat Clear Calc 30.06 Est GFR (MDRD) Af Amer 49 L Est GFR (MDRD) Non-Af 40 L BUN/Creatinine Ratio 21.1 H Glucose 123 H Calcium 9.3 Troponin I High Sens 8 B-Natriuretic Peptide 511.8 H Urine Color Urine Clarity Urine pH Ur Specific [place] Urine Protein Urine Glucose (UA) Urine Ketones Urine Occult Blood Urine Nitrite Urine Bilirubin Urine Urobilinogen Ur Leukocyte Esterase Urine RBC Urine WBC Ur Squamous Epith Cells Urine Bacteria Urine Mucus 04/30/22 01:04 WBC RBC Hgb Hct MCV MCH MCHC RDW Std Deviation RDW Coeff of Kin Plt Count MPV Immature Gran % (Auto) Neut % (Auto) Lymph % (Auto) [place] % (Auto) Eos % (Auto) Baso % (Auto) Absolute Neuts (auto) Absolute Lymphs (auto) Nucleated RBC % Sodium Potassium Chloride Carbon Dioxide Anion Gap BUN Creatinine Estim Creat Clear Calc Est GFR (MDRD) Af Amer Est GFR (MDRD) Non-Af BUN/Creatinine Ratio Glucose Calcium Troponin I High Sens B-Natriuretic Peptide Urine Color Yellow Urine Clarity Clear Urine pH 5.0 Ur Specific [place] 1.020 Urine Protein 15 H Urine Glucose (UA) Normal Urine Ketones Negative Urine Occult Blood 10 H Urine Nitrite Negative Urine Bilirubin Negative Urine Urobilinogen 1 H Ur Leukocyte Esterase 100 H Urine RBC 0-5 SEEN Urine WBC 0-5 SEEN Ur Squamous Epith Cells 5-10 SEEN Urine Bacteria 1+ Urine Mucus 0 SEEN Radiography Diagnostic Testing: Clinical Impression(s) from Imaging Studies Brain CT 04/29/22 23:39 IMPRESSION: No CT evidence of acute intracranial hemorrhage or injury. Mild senescent changes with sequela of prior left basal ganglia lacunar infarct. Scattered mild sinus disease. Carotid atherosclerosis. Electronically Signed: Jose Antonio Overton MD at 1:10 EST Reading Location ID and State: [facility] / [place] Tel , Service support , Chest X-Ray 04/29/22 23:39 IMPRESSION: Increased moderate layering right pleural effusion. Underlying atelectasis in the bilateral lower lungs. Cannot exclude right lower lung pneumonia. Electronically Signed: Jose Antonio Overton MD at 0:40 EST Reading Location ID and State: [facility] / [place] Tel , Service support , Discharge Plan Triage Chief Complaint: Dizziness ED Provider: Dav Buckley Dx/Rx/DC Orders Instructions: ED Pleural Effusion, ED Vertigo, Unspecified Prescriptions: No Action levothyroxine 50 mcg tablet 50 mcg PO DAILY furosemide 40 mg Tablet 40 mg PO DAILY Qty: 0 0RF polyethylene glycol 3350 17 gram Powder In Packet 17 g PO DAILY 30 Days Qty: 30 0RF metoprolol tartrate 100 mg Tablet 100 mg PO BID 30 Days Qty: 60 0RF amiodarone 200 mg Tablet 200 mg PO DAILYCM 30 Days Qty: 30 0RF sennosides-docusate sodium [Stool Softener-Stimulant Laxat] 8.6-50 mg Tablet 2 tab PO BID 30 Days Qty: 120 0RF acetaminophen 500 mg Tablet 1,000 mg PO Q6H PRN PRN (Reason: Pain Score 1-3) Qty: 0 0RF potassium chloride [Klor-Con M20] 20 mEq Tablet,Er Particles/Crystals 20 meq PO BIDCM 30 Days Qty: 60 0RF diltiazem HCl 120 mg Capsule,Extended Release 24hr 120 mg PO DAILY 30 Days Qty: 30 0RF mirtazapine 15 mg Tablet 7.5 mg PO QHS 30 Days Qty: 15 0RF Petrolatum 33% [Eucerin Eqivalent] 1 applic topical BID Qty: 0 0RF Eliquis 5 mg tablet 5 mg PO BID Qty: 60 0RF Primary Care Provider: Kranthi Long Referrals: Kranthi Long MD [Primary Care Provider] - Disposition Disposition: Home, Self Care
[2022-04-30 00:21] LABS: Absolute Neutrophil Count 3.9 X10^3/uL (2.0-7.7); Basophil# 0.03 X10^3/uL; Basophil% 0.5 % (0-1); Eosinophils% 1.7 % (0-5); Hematocrit 40.5 % (37-47); Hemoglobin 12.1 g/dL (12.0-15.0); Lymphocyte % 26.4 % (19-41); Mean Corp Hgb Conc 29.9 g/dL (32-36); Mean Corpuscular Hgb 29.9 pg (27.0-32.0); Mean Platelet Vol. 11.6 fl (6.2-12.0); Monocyte% 6.6 % (0-10); NRBC Flagged by Analyzer 0 % (0-5); Neutrophil # 3.91 X10^3/uL (2.7-7.7); Neutrophil % 64.5 % (47-70); Platelet Count 195 K/mm3 (150-450); RBC Distribution Width CV 14.7 % (11.6-14.6); RBC Distribution Width SD 54.9 fl (35.1-43.9); Red Blood Count 4.05 M/mm3 (4.2-5.4); White Blood Count 6.1 K/mm3 (4.4-11.0)
[2022-04-30 00:40] LABS: Anion Gap 8 (5-15); BUN 28 mg/dL (7-18); BUN/Creat Ratio 21.1 RATIO (10-20); Calcium,Total 9.3 mg/dL (8.5-10.1); Chloride 106 mmol/L (98-107); Creatinine, Serum 1.33 mg/dL (0.55-1.02); EST Glomerular Filtration Rate 40 mL/min (>60); Est Glom Filt Rate - Afr Amer 49 mL/min (>60); Estimated Creatinine Clearance 30.06 ml/min; Glucose 123 mg/dL (74-106); Potassium 3.6 mmol/L (3.5-5.1); Sodium Level 146 mmol/L (136-145); Troponin-I HS 8 pg/mL (3.0-54.0)
[2022-04-30] MEDS: Meclizine HCl 25 MG Tablet PO (00:50)
[2022-04-30 01:42] VITALS: O2SAT 97
[2022-04-30 01:43] LABS: Mucous, Urine 0 SEEN /hpf (<or=2+)
[2022-04-30 01:44] LABS: BNP,B-Type NATRIURETIC PEPTIDE 511.8 pg/mL (0-100)
[2022-04-30 01:45] LABS: Color, Urine Yellow (Yellow); Glucose, Dipstick Normal (Normal); Ketone-Dipstick Negative (Negative); Leukocyte Esterase-Dipstick 100 /ul (Negative); Nitrite-Dipstick Negative (Negative); Occult Blood-Urine 10 /ul (Negative); Protein-Dipstick 15 mg/dl (Negative); Urine Bilirubin Dipstick Negative (Negative); Urine Clarity Clear (Clear); Urine Urobilinogen 1 mg/dl (Normal)
[2022-04-30 02:05] LABS: Bacteria 1+ /hpf (None Seen); Squamous Epithelial Cells - UA 5-10 SEEN /hpf (5-10)
[2022-04-30 02:06] LABS: Red Blood Cells-Urine 0-5 SEEN /hpf (0-5); White Blood Cells 0-5 SEEN /hpf (0-5)
[2022-04-30 03:02] VITALS: BP 112/83; PULSE 74; RESP 15; O2SAT 98
--- NOTE | 2022-04-30 03:10 | ED.RN ---
tray zapata 90 minutes and bre staff - [facility] - [facility]
[2022-04-30 03:32] VITALS: BP 144/85; PULSE 85; RESP 16; O2SAT 98
== END 2022-04-30 03:55 | disposition home or self-care (01) ==
PROVIDERS: Emergency Provider Student in an Organized Health Care Education/Training Program; PCP Family Medicine; Visit Provider Student in an Organized Health Care Education/Training Program
DX: R42 Dizziness and giddiness (principal); I42.9 Cardiomyopathy, unspecified; I50.9 Heart failure, unspecified; I11.0 Hypertensive heart disease with heart failure; I48.0 Paroxysmal atrial fibrillation; E03.9 Hypothyroidism, unspecified; Z79.01 Long term (current) use of anticoagulants; Z79.890 Hormone replacement therapy; Z79.899 Other long term (current) drug therapy; Z87.891 Personal history of nicotine dependence
CPT/HCPCS: 70450; 71045; 80048; 81001; 83880; 84484; 85025; 93005; 99285; P9612; A4216

== ENCOUNTER → 2022-05-14 | Outpatient (REF) | payer MEDICARE, OTHER, SELFPAY ==
[2022-05-14 09:13] LABS: Anion Gap 5 (5-15); BUN 29 mg/dL (7-18); BUN/Creat Ratio 26.1 RATIO (10-20); Calcium,Total 8.9 mg/dL (8.5-10.1); Chloride 102 mmol/L (98-107); Creatinine, Serum 1.11 mg/dL (0.55-1.02); EST Glomerular Filtration Rate 49 mL/min (>60); Est Glom Filt Rate - Afr Amer 60 mL/min (>60); Glucose 103 mg/dL (74-106); Potassium 3.9 mmol/L (3.5-5.1); Sodium Level 140 mmol/L (136-145)
== END ==
PROVIDERS: PCP Family Medicine; Visit Provider Family Medicine
DX: I48.91 Unspecified atrial fibrillation (principal); I50.9 Heart failure, unspecified; Z79.899 Other long term (current) drug therapy
CPT/HCPCS: 36415; 80048

== ENCOUNTER → 2022-06-28 | Outpatient (REF) | payer MEDICARE, OTHER, SELFPAY ==
[2022-06-28 07:54] LABS: Anion Gap 3 (5-15); BUN 29 mg/dL (7-18); BUN/Creat Ratio 17.7 RATIO (10-20); Calcium,Total 9.8 mg/dL (8.5-10.1); Chloride 103 mmol/L (98-107); Creatinine, Serum 1.64 mg/dL (0.55-1.02); EST Glomerular Filtration Rate 32 mL/min (>60); Est Glom Filt Rate - Afr Amer 38 mL/min (>60); Glucose 100 mg/dL (74-106); Potassium 4.3 mmol/L (3.5-5.1); Sodium Level 136 mmol/L (136-145)
== END ==
PROVIDERS: PCP Family Medicine; Visit Provider Internal Medicine Cardiovascular Disease
DX: I10 Essential (primary) hypertension (principal)
CPT/HCPCS: 36415; 80048

== ENCOUNTER 2022-12-11 22:05 | Emergency (ER) | payer MEDICARE, OTHER, SELFPAY ==
[2022-12-11 22:06] VITALS: BP 111/70; PULSE 80; RESP 15; TEMP 36.6; O2SAT 98
--- NOTE | 2022-12-11 22:37 | EDS_ITS ---
HPI History of Present Illness Chief Complaint: Shortness of Breath Informant: patient and family Narrative Narrative: Patient is 87-year-old female with past medical history of hypertension chronic atrial fibrillation on Eliquis with history of congestive heart failure as well. Patient's family monitors her vital signs at the [facility] and states that her blood pressure heart rate and oxygen level have been doing well but despite this patient has been complaining of intermittent shortness of breath. Patient states she has had slight congestion but denies any excessive cough fevers or chills. Daughter states that last time she felt like this she did have a heart failure exacerbation. She is concerned that she may be developing this again since she admits to recurrent bouts of shortness of breath despite having stable vitals and therefore he was brought in the hospital for evaluation [facility] Medical History Acute kidney injury Benign essential hypertension Bilateral pulmonary embolism Cardiomyopathy Congestive heart failure Dizziness Essential hypertension Former tobacco use History of cardioversion (~02/07/22) History of venous thromboembolism HTN (hypertension) Hypertension Hypothyroidism PAF (paroxysmal atrial fibrillation) Pleural effusion Squamous cell carcinoma Home Medications Petrolatum 33% [Eucerin Eqivalent] 1 applic topical BID ##0 04/03/22 [Rx Last Taken Unknown] acetaminophen 500 mg tablet 1,000 mg (2 x 500 mg) PO Q6H PRN PRN Pain Score 1-3 #0 tabs 04/03/22 [Rx Last Taken Unknown] mirtazapine 15 mg tablet 7.5 mg (1/2 x 15 mg) PO QHS 30 days #15 tabs 04/03/22 [Rx Last Taken Unknown] polyethylene glycol 3350 17 gram oral powder packet 17 g PO DAILY 30 days #30 ea 04/03/22 [Rx Last Taken Unknown] sennosides 8.6 mg-docusate sodium 50 mg tablet (Stool Softener-Stimulant Laxative) 2 tab PO BID 30 days #120 tabs 04/03/22 [Rx Last Taken Unknown] spironolactone 25 mg tablet 25 mg PO DAILY #90 tabs 07/13/22 [Rx Last Taken Unknown] potassium chloride 20 mEq tablet,extended release(part/cryst) (Klor-Con M) 20 meq PO TID this is a dose increase #270 tabs 07/23/22 [Rx Last Taken Unknown] apixaban 2.5 mg tablet 2.5 mg PO BID #1 TAB 08/02/22 [Rx Last Taken Unknown] diltiazem HCl 120 mg capsule,extended release 24 hr 120 mg PO DAILY 30 days #90 caps 08/02/22 [Rx Last Taken Unknown] metoprolol tartrate 100 mg tablet 100 mg PO BID 30 days #180 tabs 08/02/22 [Rx Last Taken Unknown] furosemide 40 mg tablet 40 mg PO BID PLEASE INCREASE TO TWICE DAILY #180 tabs 08/09/22 [Rx Last Taken Unknown] fluticasone propionate 50 mcg/actuation nasal spray,suspension 2 spray intranasal Q12H PRN allergy symptoms 12/11/22 [History Last Taken Unknown] levothyroxine 50 mcg tablet 75 mcg PO DAILY thyroid 12/11/22 [History Last Taken Unknown] nystatin 100,000 unit/gram topical cream 1 applic topical BID PRN rash 12/11/22 [History Last Taken Unknown] Allergy/AdvReac Type Severity Reaction Status Date / Time lisinopril Allergy Shortness Verified 12/11/22 22:12 of breath metoclopramide [From Reglan] Allergy Shortness Verified 12/11/22 22:12 of breath etodolac AdvReac Diarrhea Verified 12/11/22 22:12 Family History Mother Cancer Father Tuberculosis Brother History of pancreatitis Son Diabetes Aneurysm Legs and stomach Hyperlipidemia Surgical History History of hip replacement History of hysterectomy History of knee replacement Social History household members: none Smoking Status: Former smoker how long ago did patient quit smokin years ago, smoked <1/2 ppd x 3 years. alcohol intake: never substance use type: does not use caffeine: Yes Type: coffee Number of servings: 2 ROS ROS ED Constitutional Constitutional ED: Denies chills or fever(s) ENT ENT ED: Reports rhinorrhea; Denies sore throat Cardiovascular Cardiovascular: Denies chest pain or racing heartbeat Respiratory/Chest Respiratory/Chest: Reports dyspnea; Denies cough Gastrointestinal Gastrointestinal: Denies abdominal pain, diarrhea, nausea or vomiting Genitourinary Genitourinary ED: Denies dysuria Musculoskeletal Musculoskeletal: Denies myalgias Integumentary Denies rash Neurologic Neurologic: Denies headache(s) Hematologic/Lymphatic Hematologic/Lymphatic: Reports easy bleeding and easy bruising EXAM Physical Exam Const Vital Signs: 12/11/22 22:06 Temperature 97.9 F Temperature Source Temporal Pulse Rate 80 Respiratory Rate 15 Blood Pressure 111/70 Blood Pressure Mean 83 Pulse Ox 98 Oxygen Delivery Method Room Air Positive well nourished and well developed General Appearance ED: well developed; Negative for pallor HEENT HEENT Narrative: Nasal mucosa is hyperemic and boggy There is cobblestoning the posterior pharynx without signs of secondary infection No tongue or lip swelling no oral lesions no airway edema or compromise Eyes PERRL and EOMs intact bilaterally General Eye ED: Negative for pale conjunctiva Neck supple and no JVD Resp normal respiratory effort and clear to auscultation bilaterally Resp Narrative: Breath sounds are diminished throughout but overall clear to auscultation without nasal flaring retractions tachypnea or accessory muscle use Cardio regular rate Rate: other Other Details: Irregularly irregular rhythm with regular rate consistent with history of chronic atrial fibrillation GI normal to inspection, nondistended, normoactive bowel sounds, non-tender, non- distended and no masses Auscultation: normoactive bowel sounds Palpation: soft Extremity Extremity Narrative: Trace pitting edema to the bilateral lower extremities that is equal and symmetric Negative Homans' sign bilaterally Neuro oriented x3, CN's II-XII intact bilaterally and no sensory deficits noted Sensorium / Orientation: alert Motor Exam: strength 5/5 throughout Psych mental status grossly normal Skin no rashes or lesions noted General Skin Exam: Negative for pallor MDM MDM MDM Narrative Medical decision making narrative: Patient presented to the ER with stable vitals and in no acute respiratory distress. She reported intermittent shortness of breath and differential diagnosis is for pleural effusion versus pneumonia versus upper respiratory tract infection versus A-fib with RVR versus acute blood loss anemia. Secondary to his basic blood work was obtained which shows a mild elevation in her proBNP from 511-840. She is not anemic however and there is no severe or clinically significant electrolyte derangement. Chest x-ray displayed a persistent right- sided pleural effusion but this is similar to the previous x-ray from April. The patient's heart rate has been approximately 80-90 and she has not been in A- fib with RVR. Moreover she has had no increased work of breathing her pulse ox has been 98 to 100% on room air. Therefore this time we will give her 1 dose of IV Lasix as her proBNP has elevated from the last check but at this time as she does not have respiratory distress or need for supplemental oxygen or worsening of her pleural effusion she can be discharged back to the [facility]. History & Record Review Discussion w/independent historian: Patient and Family Lab Data Attestation: I reviewed the patient's lab results. Labs: Laboratory Results - last 24 hr 12/11/22 22:50 WBC 8.1 RBC 4.95 Hgb 14.7 Hct 47.4 H MCV 95.8 MCH 29.7 MCHC 31.0 L RDW Std Deviation 48.0 H RDW Coeff of Kin 13.6 Plt Count 222 MPV 12.0 Immature Gran % (Auto) 0.400 Neut % (Auto) 66.8 Lymph % (Auto) 23.7 [place] % (Auto) 7.7 Eos % (Auto) 0.5 Baso % (Auto) 0.9 Absolute Neuts (auto) 5.4 Absolute Lymphs (auto) 1.92 Nucleated RBC % 0 Sodium 135 L Potassium 5.3 H Chloride 101 Carbon Dioxide 30.0 Anion Gap 4 L BUN 27 H Creatinine 1.70 H Estim Creat Clear Calc 23.52 Est GFR (MDRD) Af Amer 37 L Est GFR (MDRD) Non-Af 30 L BUN/Creatinine Ratio 15.9 Glucose 114 H Calcium 9.6 Magnesium 2.1 B-Natriuretic Peptide 841.9 H TSH 1.85 Radiography Diagnostic Testing: Clinical Impression(s) from Imaging Studies Chest X-Ray 12/11/22 22:55 IMPRESSION: Right basilar atelectasis versus infiltrate and right pleural effusion, unchanged as compared to 04/29/2022. Electronically Signed: Jaime Chaudhari DO at 23:26 EDT , 2 view chest x-ray is interpreted by the emergency medicine physician reveals a small right-sided pleural effusion similar to April 2022 without acute infiltrate or pneumothorax. 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 Instructions: ED Dyspnea, ED Pleural Effusion Prescriptions: No Action diltiazem HCl 120 mg capsule,extended release 24hr 120 mg PO DAILY 30 Days Qty: 90 3RF metoprolol tartrate 100 mg tablet 100 mg PO BID 30 Days Qty: 180 3RF Eliquis 2.5 mg tablet 2.5 mg PO BID Qty: 1 3RF polyethylene glycol 3350 17 gram Powder In Packet 17 g PO DAILY 30 Days Qty: 30 0RF sennosides-docusate sodium [Stool Softener-Stimulant Laxat] 8.6-50 mg Tablet 2 tab PO BID 30 Days Qty: 120 0RF acetaminophen 500 mg Tablet 1,000 mg PO Q6H PRN PRN (Reason: Pain Score 1-3) Qty: 0 0RF mirtazapine 15 mg Tablet 7.5 mg PO QHS 30 Days Qty: 15 0RF Petrolatum 33% [Eucerin Eqivalent] 1 applic topical BID Qty: 0 0RF nystatin 100,000 unit/gram cream 1 applic TOPICAL BID PRN (Reason: rash) fluticasone propionate 50 mcg/actuation spray,suspension 2 spray INTRANASAL Q12H PRN (Reason: allergy symptoms) Patient Comments: instill 2 sprays into each nostril once daily Rinse mouth after use levothyroxine 50 mcg tablet 75 mcg PO DAILY spironolactone 25 mg tablet 25 mg PO DAILY Qty: 90 3RF potassium chloride [Klor-Con M20] 20 mEq tablet,ER particles/crystals 20 meq PO TID Qty: 270 3RF furosemide 40 mg tablet 40 mg PO BID Qty: 180 3RF Primary Care Provider: Kranthi Long Referrals: Kranthi Long MD [Primary Care Provider] - Activity Restrictions/Additional Instructions: Please continue all of your medications as previously directed as pulling more fluid off your body may help with your shortness of breath sensation. If you have worsening of symptoms or any further concerns please return to the hospital for repeat evaluation. Disposition Disposition: Home, Self Care
--- NOTE | 2022-12-11 22:55 | RAD_ITS ---
INDICATION: dyspnea EXAMINATION/TECHNIQUE: X-RAY - XR Chest 2 Views COMPARISON: 04/29/2022. FINDINGS: LINES/DEVICES: None. LUNGS: Right basilar atelectasis versus infiltrate. Small right pleural effusion. No evidence of a pneumothorax. MEDIASTINUM AND CARDIOVASCULAR STRUCTURES: Cardiac silhouette not completely visualized. Mediastinum is unremarkable. BONES AND SOFT TISSUES: No acute abnormality. RAD/Chest PA and Lateral IMPRESSION: Right basilar atelectasis versus infiltrate and right pleural effusion, unchanged as compared to 04/29/2022. Electronically Signed: Jaime Chaudhari DO at 23:26 EDT ,
[2022-12-11 22:57] LABS: Absolute Lymphocyte Count 1.92 X10^3/uL (0.83-4.51); Absolute Neutrophil Count 5.4 X10^3/uL (2.0-7.7); Basophil# 0.07 X10^3/uL; Basophil% 0.9 % (0-1); Eosinophil# 0.04 X10^3/uL; Eosinophils% 0.5 % (0-5); Hematocrit 47.4 % (37-47); Hemoglobin 14.7 g/dL (12.0-15.0); Lymphocyte # 1.92 X10^3/ul (0.83-4.51); Lymphocyte % 23.7 % (19-41); Mean Corpuscular Hgb 29.7 pg (27.0-32.0); Mean Corpuscular Volume 95.8 fL (81-99); Monocyte# 0.62 X10^3/uL; Monocyte% 7.7 % (0-10); NRBC Flagged by Analyzer 0 % (0-5); Neutrophil # 5.41 X10^3/uL (2.7-7.7); Neutrophil % 66.8 % (47-70); Platelet Count 222 K/mm3 (150-450); RBC Distribution Width CV 13.6 % (11.6-14.6); Red Blood Count 4.95 M/mm3 (4.2-5.4); White Blood Count 8.1 K/mm3 (4.4-11.0)
[2022-12-11 23:01] VITALS: BMI 23.6
[2022-12-11 23:15] LABS: BNP,B-Type NATRIURETIC PEPTIDE 841.9 pg/mL (0-100)
[2022-12-11 23:23] LABS: Anion Gap 4 (5-15); BUN 27 mg/dL (7-18); BUN/Creat Ratio 15.9 RATIO (10-20); Calcium,Total 9.6 mg/dL (8.5-10.1); Chloride 101 mmol/L (98-107); EST Glomerular Filtration Rate 30 mL/min (>60); Est Glom Filt Rate - Afr Amer 37 mL/min (>60); Estimated Creatinine Clearance 23.52 ml/min; Glucose 114 mg/dL (74-106); Magnesium 2.1 mg/dL (1.6-2.6); Potassium 5.3 mmol/L (3.5-5.1); Sodium Level 135 mmol/L (136-145); Thyroid Stim Hormone (TSH) 1.85 uIU/mL (0.358-3.74)
[2022-12-12] MEDS: Furosemide 20 MG/2 ML VIAL IV (00:12)
[2022-12-12 00:21] VITALS: BP 106/65; PULSE 78; RESP 16; RESP 18; O2SAT 99
== END 2022-12-12 00:22 | disposition home or self-care (01) ==
PROVIDERS: Emergency Provider Emergency Medicine; PCP Family Medicine; Visit Provider Emergency Medicine
DX: R06.02 Shortness of breath (principal); I11.0 Hypertensive heart disease with heart failure; I50.9 Heart failure, unspecified; I42.9 Cardiomyopathy, unspecified; I48.20 Chronic atrial fibrillation, unspecified; J90 Pleural effusion, not elsewhere classified; Z87.891 Personal history of nicotine dependence; Z79.899 Other long term (current) drug therapy; Z79.01 Long term (current) use of anticoagulants; Z86.711 Personal history of pulmonary embolism
CPT/HCPCS: 71046; 80048; 83735; 83880; 84443; 85025; 96374; 99283; A4216; J1940

== ENCOUNTER → 2023-02-11 | Outpatient (CLI) | payer MEDICARE, OTHER, SELFPAY ==
--- NOTE | 2023-02-11 16:00 | RAD_ITS ---
INDICATION: SOB, Pleural effusion history EXAMINATION/TECHNIQUE: X-RAY - XR Chest 2 Views COMPARISON: FINDINGS: LINES/DEVICES: None. LUNGS: Mild right effusion with basilar atelectasis. No pneumothorax. MEDIASTINUM AND CARDIOVASCULAR STRUCTURES: Cardiac silhouette not enlarged. Central airways and mediastinal contour are unremarkable. BONES AND SOFT TISSUES: Degenerative vertebral changes. RAD/Chest PA and Lateral IMPRESSION: Mild right effusion with basilar atelectasis. Electronically Signed: Ronnell Paez DO at 20:36 EST ,
[2023-02-11 16:50] LABS: Absolute Lymphocyte Count 2.38 X10^3/uL (0.83-4.51); Absolute Neutrophil Count 5.4 X10^3/uL (2.0-7.7); Basophil# 0.08 X10^3/uL; Basophil% 0.9 % (0-1); Eosinophil# 0.02 X10^3/uL; Eosinophils% 0.2 % (0-5); Hematocrit 52.3 % (37-47); Hemoglobin 16.4 g/dL (12.0-15.0); Lymphocyte # 2.38 X10^3/ul (0.83-4.51); Lymphocyte % 27.6 % (19-41); Mean Corp Hgb Conc 31.4 g/dL (32-36); Mean Corpuscular Hgb 29.2 pg (27.0-32.0); Mean Corpuscular Volume 93.2 fL (81-99); Mean Platelet Vol. 11.3 fl (6.2-12.0); Monocyte# 0.71 X10^3/uL; Monocyte% 8.2 % (0-10); NRBC Flagged by Analyzer 0 % (0-5); Neutrophil # 5.39 X10^3/uL (2.7-7.7); Neutrophil % 62.5 % (47-70); Platelet Count 149 K/mm3 (150-450); RBC Distribution Width CV 16.3 % (11.6-14.6); RBC Distribution Width SD 55.6 fl (35.1-43.9); Red Blood Count 5.61 M/mm3 (4.2-5.4); White Blood Count 8.6 K/mm3 (4.4-11.0)
[2023-02-11 17:02] LABS: BNP,B-Type NATRIURETIC PEPTIDE 1813.5 pg/mL (0-100)
[2023-02-11 17:12] LABS: AST(SGOT) 35 U/L (15-37); Alanine Aminotransfer ALT/SGPT 29 U/L (13-56); Albumin, Serum 3.5 g/dL (3.2-5.0); Alkaline Phosphatase 56 U/L (45-117); Anion Gap 11 (5-15); BUN 25 mg/dL (7-18); Calcium,Total 9.7 mg/dL (8.5-10.1); Chloride 96 mmol/L (98-107); Creatinine, Serum 2.09 mg/dL (0.55-1.02); EST Glomerular Filtration Rate 24 mL/min (>60); Est Glom Filt Rate - Afr Amer 29 mL/min (>60); Globulin 3.4 g/dL (2.2-4.2); Glucose 115 mg/dL (74-106); Potassium 5.5 mmol/L (3.5-5.1); Protein, Total 6.9 g/dL (6.4-8.2); Sodium Level 136 mmol/L (136-145); Thyroid Stim Hormone (TSH) 2.19 uIU/mL (0.358-3.74)
== END | disposition home or self-care (01) ==
LOC: RAD 15:52
PROVIDERS: PCP Family Medicine; Referring Provider Nurse Practitioner Family; Visit Provider Nurse Practitioner Family
DX: I50.9 Heart failure, unspecified (principal); I48.0 Paroxysmal atrial fibrillation; J90 Pleural effusion, not elsewhere classified; E03.9 Hypothyroidism, unspecified; R06.02 Shortness of breath; R16.0 Hepatomegaly, not elsewhere classified
CPT/HCPCS: 36415; 71046; 80053; 83880; 84443; 85025

== ENCOUNTER 2023-03-06 11:33 | Inpatient (IN) | payer MEDICARE, OTHER, SELFPAY ==
[2023-03-06] VITALS (10 sets, daily range): BP systolic 78–102; BP diastolic 58–79; PULSE 95–131; RESP 13–22; TEMP 36.4–36.7; O2SAT 91–98; BMI 19.0; BMI 18.9; BMI 18.8
--- NOTE | 2023-03-06 11:52 | EDS_ITS ---
HPI <YONNY Rodas - Last Filed: 03/06/23 16:08> History of Present Illness Chief Complaint: Weakness Narrative Narrative: 87-year-old female with PMH of HTN, CHF, A-fib, PE on Eliquis presents with her home caregiver who states she has not been eating or drinking anything since [place]. She usually can ambulate with a walker independently but the caregiver has to hold on tightly because she is weak. Her caregiver Radha is only there for 4 hours in the morning and 4 hours in the evening and she is alone overnight. She denies fever or chills. Caregiver states when she puts food in her mouth she spits it out saying she might be sick but she is not complaining of nausea or vomiting. No abdominal pain or diarrhea. No cough or shortness of breath. PFSH <YONNY Rodas - Last Filed: 03/06/23 16:08> [facility] Medical History (Updated 03/07/23 @ 17:[address] Barbra Looney MD) Anxiety Benign essential hypertension Bilateral pulmonary embolism Cardiomyopathy CKD (chronic kidney disease), stage III Congestive heart failure Depression Former smoker Former tobacco use History of cardioversion (~02/07/22) History of venous thromboembolism Hypertension Hypothyroidism Kidney disease PAF (paroxysmal atrial fibrillation) Pleural effusion Squamous cell carcinoma Home Medications acetaminophen 500 mg tablet 1,000 mg (2 x 500 mg) PO Q6H PRN PRN Pain Score 1-3 #0 tabs 04/03/22 [Rx Last Taken Unknown] spironolactone 25 mg tablet 25 mg PO DAILY water pill #90 tabs 07/13/22 [Rx Last Taken 03/06/23] apixaban 2.5 mg tablet 2.5 mg PO BID blood thinner #1 TAB 08/02/22 [Rx Last Taken 03/06/23] diltiazem HCl 120 mg capsule,extended release 24 hr 120 mg PO DAILY blood pressure 30 days #90 caps 08/02/22 [Rx Last Taken 03/06/23] metoprolol tartrate 100 mg tablet 100 mg PO BID heart rate 30 days #180 tabs 08/02/22 [Rx Last Taken 03/06/23] fluticasone propionate 50 mcg/actuation nasal spray,suspension 2 spray intranasal DAILY PRN allergy symptoms 12/11/22 [History Last Taken 03/05/23] nystatin 100,000 unit/gram topical cream 1 applic topical BID PRN rash 12/11/22 [History Last Taken Unknown] Petrolatum 33% [Eucerin Eqivalent] 1 applic topical BID PRN skin 02/11/23 [History Last Taken Unknown] levothyroxine 75 mcg tablet 75 mcg PO DAILY thyroid 02/11/23 [History Last Taken 03/06/23] mirtazapine 15 mg tablet 15 mg PO QHS sleep 02/11/23 [History Last Taken 03/05/23] niacinamide 500 mg tablet,extended release 500 mg PO BID skin 02/11/23 [History Last Taken 03/06/23] furosemide 40 mg tablet 60 mg (1.5 x 40 mg) PO BID INCREASED MG: Please give MORE TABLETS 90 days #270 tabs 02/22/23 [Rx Last Taken 03/06/23] Allergy/AdvReac Type Severity Reaction Status Date / Time lisinopril Allergy Shortness Verified 03/06/23 11:47 of breath metoclopramide [From Reglan] Allergy Shortness Verified 03/06/23 11:47 of breath etodolac AdvReac Diarrhea Verified 03/06/23 11:47 Family History Mother Cancer Lung Cancer with tobacco use history. Father Tuberculosis Brother History of pancreatitis Son Diabetes Aneurysm Legs and stomach Hyperlipidemia Surgical History History of hip replacement History of hysterectomy History of knee replacement Hx of cholecystectomy Social History household members: none Smoking Status: Former smoker how long ago did patient quit smokin years ago, smoked <1/2 ppd x 3 years. alcohol intake: never substance use type: does not use caffeine: Yes Type: coffee Number of servings: 2 ROS <YONNY Rodas - Last Filed: 03/06/23 16:08> ROS ED ROS Narrative Constitutional: Negative for fever, chills. CVS: Negative for chest pain, syncope. Respiratory: Negative for shortness of breath, cough. GI: Negative for abdominal pain, nausea, vomiting, diarrhea. : Negative for dysuria. EXAM <YONNY Rodas - Last Filed: 03/06/23 16:08> Physical Exam Narrative Exam Narrative: CONST: Patient sitting in no acute distress. EYES: Normal inspection. ENT: Normal inspection, dry mucous membranes. NECK: Normal inspection. RESP: No respiratory distress, CTAB. CVS: Rapid irregularly irregular rhythm, no murmur, no gallop. ABD: Soft and nontender, no guarding or rebound, nondistended. SKIN: Color normal, no rash, warm, dry, intact. EXTREMITIES: Normal appearance, no pedal edema. NEURO: Alert to self, place, situation. Does not know the year. Follows commands, moves all extremities. PSYCH: Normal affect. Const Vital Signs: 03/06/23 11:36 03/06/23 11:45 03/06/23 11:46 Temperature 97.5 F L Temperature Source Axillary Pulse Rate 129 H 115 H Respiratory Rate 20 H 17 Respiratory Effort Normal Non-Labored Respiratory Pattern Normal Blood Pressure 98/65 90/77 Blood Pressure Mean 76 81 Pulse Ox 93 93 Oxygen Delivery Method Room Air Room Air 03/06/23 13:38 03/06/23 14:17 03/06/23 15:53 Temperature 97.8 F 97.8 F 97.9 F Temperature Source Axillary Axillary Axillary Pulse Rate 118 H 107 H 115 H Respiratory Rate 22 H 17 13 Respiratory Effort Respiratory Pattern Blood Pressure 95/79 102/63 99/71 Blood Pressure Mean 84 76 80 Pulse Ox 92 92 92 Oxygen Delivery Method Room Air Room Air Room Air 03/06/23 16:02 Temperature Temperature Source Pulse Rate 107 H Respiratory Rate 17 Respiratory Effort Respiratory Pattern Blood Pressure 99/71 Blood Pressure Mean 80 Pulse Ox 91 Oxygen Delivery Method Room Air <Dr. Jaime Lomax DO - Last Filed: 03/08/23 12:04> Physical Exam Const Vital Signs: 03/06/23 11:36 03/06/23 11:45 03/06/23 11:46 Temperature 97.5 F L Temperature Source Axillary Pulse Rate 129 H 115 H Respiratory Rate 20 H 17 Respiratory Effort Normal Non-Labored Respiratory Pattern Normal Blood Pressure 98/65 90/77 Blood Pressure Mean 76 81 Pulse Ox 93 93 Oxygen Delivery Method Room Air Room Air 03/06/23 13:38 03/06/23 14:17 03/06/23 15:53 Temperature 97.8 F 97.8 F 97.9 F Temperature Source Axillary Axillary Axillary Pulse Rate 118 H 107 H 115 H Respiratory Rate 22 H 17 13 Respiratory Effort Respiratory Pattern Blood Pressure 95/79 102/63 99/71 Blood Pressure Mean 84 76 80 Pulse Ox 92 92 92 Oxygen Delivery Method Room Air Room Air Room Air 03/06/23 16:02 Temperature Temperature Source Pulse Rate 107 H Respiratory Rate 17 Respiratory Effort Respiratory Pattern Blood Pressure 99/71 Blood Pressure Mean 80 Pulse Ox 91 Oxygen Delivery Method Room Air [facility] <YONNY Rodas - Last Filed: 03/06/23 16:08> [facility] Narrative Medical decision making narrative: Patient presents with generalized weakness and decreased p.o. intake. Family states that doubled her Lasix over a month ago. She appears weak but nontoxic. She is in A-fib RVR in the 120s, BP 98/65, 93% on room air. She is in no distress. On examination lungs are clear and abdomen soft and nontender. She is at her mental baseline and has no focal neurological deficits. Labs show white count of 5.9 and hemoconcentration at 16.6. Potassium is 3.2. BUN 34, creatinine 1.96 is at baseline. Lactate 2.5. Patient was given 1 L IV fluids and still remains hypotensive and in A-fib in the 110s. Nurse states she is straight cathed her twice and there was no urine so I suspect she is very dehydrated and ordered a second liter of fluids. Her EKG is A-fib RVR but shows new ST depressions in inferior and anterolateral leads. She denies chest pain or shortness of breath and troponin is 22, delta 19. CXR shows no acute process. I spoke with church communications administrator, Dr. Looney who agreed with hydration and recommended repeating EKG when blood pressure improves. There is no other acute intervention needed at this time. Case was discussed with the hospitalist for admission. Lab Data Attestation: I reviewed the patient's lab results. Labs: Laboratory Results - last 24 hr 03/06/23 03/06/23 03/06/23 07:16 12:52 14:40 WBC 5.9 RBC 5.44 H Hgb 16.6 H Hct 51.1 H MCV 93.9 MCH 30.5 MCHC 32.5 RDW Std Deviation 59.5 H RDW Coeff of Kin 18.1 H Plt Count 134 L MPV 11.0 Immature Gran % (Auto) 0.500 Neut % (Auto) 64.3 Lymph % (Auto) 31.1 [place] % (Auto) 3.4 Eos % (Auto) 0.2 Baso % (Auto) 0.5 Absolute Neuts (auto) 3.8 Absolute Lymphs (auto) 1.83 Nucleated RBC % 0 Sodium 138 Potassium 3.2 L Chloride 95 L Carbon Dioxide 37.0 H Anion Gap 6 BUN 34 H Creatinine 1.96 H Estim Creat Clear Calc 18.13 Est GFR (MDRD) Af Amer 31 L Est GFR (MDRD) Non-Af 26 L BUN/Creatinine Ratio 17.3 Glucose 166 H Lactic Acid 2.5 H* Calcium 9.4 Total Bilirubin 2.00 H AST 25 ALT 18 Alkaline Phosphatase 45 Troponin I High Sens 22 Total Protein 6.2 L Albumin 3.2 Globulin 3.0 Albumin/Globulin Ratio 1.1 Urine Color Yellow Urine Clarity Sl. Cloudy Urine pH 7.0 Ur Specific [place] 1.005 Urine Protein 15 H Urine Glucose (UA) 50 H Urine Ketones Negative Urine Occult Blood 150 H Urine Nitrite Negative Urine Bilirubin Negative Urine Urobilinogen 1 H Ur Leukocyte Esterase 100 H Urine RBC 5-10 SEEN Urine WBC 0-5 SEEN Ur Squamous Epith Cells 0-5 SEEN Urine Bacteria 2+ Urine Mucus RARE 03/06/23 15:02 WBC RBC Hgb Hct MCV MCH MCHC RDW Std Deviation RDW Coeff of Kin Plt Count MPV Immature Gran % (Auto) Neut % (Auto) Lymph % (Auto) [place] % (Auto) Eos % (Auto) Baso % (Auto) Absolute Neuts (auto) Absolute Lymphs (auto) Nucleated RBC % Sodium Potassium Chloride Carbon Dioxide Anion Gap BUN Creatinine Estim Creat Clear Calc Est GFR (MDRD) Af Amer Est GFR (MDRD) Non-Af BUN/Creatinine Ratio Glucose Lactic Acid Calcium Total Bilirubin AST ALT Alkaline Phosphatase Troponin I High Sens 19 Total Protein Albumin Globulin Albumin/Globulin Ratio Urine Color Urine Clarity Urine pH Ur Specific [place] Urine Protein Urine Glucose (UA) Urine Ketones Urine Occult Blood Urine Nitrite Urine Bilirubin Urine Urobilinogen Ur Leukocyte Esterase Urine RBC Urine WBC Ur Squamous Epith Cells Urine Bacteria Urine Mucus Radiography Diagnostic Testing: Clinical Impression(s) from Imaging Studies Chest X-Ray 03/06/23 12:10 IMPRESSION: 1. Decreased right pleural effusion. 2. Otherwise no significant change. Electronically Signed: Asael Boothe MD at 12:43 EST , EKG Initial EKG: Attestation: I personally reviewed and interpreted this EKG as follows: Comments: A-fib RVR at [address] depression V3 through V6, inferior leads This does appear changed from EKG on 04/29/2022 Prior EKG tracings: available for review Prior: Changed <Dr. Jaime Lomax, DO - Last Filed: 03/08/23 12:04> [facility] MDM Narrative Medical decision making narrative: Patient presents with generalized weakness and decreased p.o. intake. Family states that doubled her Lasix over a month ago. She appears weak but nontoxic. She is in A-fib RVR in the 120s, BP 98/65, 93% on room air. She is in no distre ss. On examination lungs are clear and abdomen soft and nontender. She is at her mental baseline and has no focal neurological deficits. Labs show white count of 5.9 and hemoconcentration at 16.6. Potassium is 3.2. BUN 34, creatinine 1.96 is at baseline. Lactate 2.5. Patient was given 1 L IV fluids and still remains hypotensive and in A-fib in the 110s. Nurse states she is straight cathed her twice and there was no urine so I suspect she is very dehydrated and ordered a second liter of fluids. Her EKG is A-fib RVR but shows new ST depressions in inferior and anterolateral leads. She denies chest pain or shortness of breath and troponin is 22, delta 19. CXR shows no acute process. I spoke with church communications administrator, Dr. Looney who agreed with hydration and recommended repeating EKG when blood pressure improves. There is no other acute intervention needed at this time. Case was discussed with the hospitalist for admission. I, Dr Lomax, have reviewed the above progress note and course of action in the ER; and I agree with the above. I have personally seen and evaluated this patient. I have gone over history and physical, and also discussed disposition and treatment plan with the patient. Critical care time 31 minutes exclusive from separate billable procedures that were performed. The following was considered in the determination of critical care but not limited to the level of medical decision making, intensive cardiac and/or respiratory monitoring, frequent vital sign monitoring, evaluation of laboratory studies, evaluation of radiographic studies, oxygen monitoring, and constant monitoring and speaking to family at bedside. Multiple bedside visits, aggressive fluid resuscitation, multiple phone calls to multiple physicians. Lab Data Labs: Laboratory Results - last 24 hr 03/06/23 03/06/23 03/06/23 07:16 12:52 14:40 WBC 5.9 RBC 5.44 H Hgb 16.6 H Hct 51.1 H MCV 93.9 MCH 30.5 MCHC 32.5 RDW Std Deviation 59.5 H RDW Coeff of Kin 18.1 H Plt Count 134 L MPV 11.0 Immature Gran % (Auto) 0.500 Neut % (Auto) 64.3 Lymph % (Auto) 31.1 [place] % (Auto) 3.4 Eos % (Auto) 0.2 Baso % (Auto) 0.5 Absolute Neuts (auto) 3.8 Absolute Lymphs (auto) 1.83 Nucleated RBC % 0 Sodium 138 Potassium 3.2 L Chloride 95 L Carbon Dioxide 37.0 H Anion Gap 6 BUN 34 H Creatinine 1.96 H Estim Creat Clear Calc 18.13 Est GFR (MDRD) Af Amer 31 L Est GFR (MDRD) Non-Af 26 L BUN/Creatinine Ratio 17.3 Glucose 166 H Lactic Acid 2.5 H* Calcium 9.4 Total Bilirubin 2.00 H AST 25 ALT 18 Alkaline Phosphatase 45 Troponin I High Sens 22 Total Protein 6.2 L Albumin 3.2 Globulin 3.0 Albumin/Globulin Ratio 1.1 Urine Color Yellow Urine Clarity Sl. Cloudy Urine pH 7.0 Ur Specific [place] 1.005 Urine Protein 15 H Urine Glucose (UA) 50 H Urine Ketones Negative Urine Occult Blood 150 H Urine Nitrite Negative Urine Bilirubin Negative Urine Urobilinogen 1 H Ur Leukocyte Esterase 100 H Urine RBC 5-10 SEEN Urine WBC 0-5 SEEN Ur Squamous Epith Cells 0-5 SEEN Urine Bacteria 2+ Urine Mucus RARE 03/06/23 15:02 WBC RBC Hgb Hct MCV MCH MCHC RDW Std Deviation RDW Coeff of Kin Plt Count MPV Immature Gran % (Auto) Neut % (Auto) Lymph % (Auto) [place] % (Auto) Eos % (Auto) Baso % (Auto) Absolute Neuts (auto) Absolute Lymphs (auto) Nucleated RBC % Sodium Potassium Chloride Carbon Dioxide Anion Gap BUN Creatinine Estim Creat Clear Calc Est GFR (MDRD) Af Amer Est GFR (MDRD) Non-Af BUN/Creatinine Ratio Glucose Lactic Acid Calcium Total Bilirubin AST ALT Alkaline Phosphatase Troponin I High Sens 19 Total Protein Albumin Globulin Albumin/Globulin Ratio Urine Color Urine Clarity Urine pH Ur Specific [place] Urine Protein Urine Glucose (UA) Urine Ketones Urine Occult Blood Urine Nitrite Urine Bilirubin Urine Urobilinogen Ur Leukocyte Esterase Urine RBC Urine WBC Ur Squamous Epith Cells Urine Bacteria Urine Mucus Radiography Diagnostic Testing: Clinical Impression(s) from Imaging Studies Chest X-Ray 03/06/23 12:10 IMPRESSION: 1. Decreased right pleural effusion. 2. Otherwise no significant change. Electronically Signed: Asael Boothe MD at 12:43 EST , Discharge Plan Dx/Rx/DC Orders Clinical Impression: Acute dehydration, Weakness, Acute hypokalemia, Acidosis, lactic, Hypotension, Atrial fibrillation with RVR Disposition Disposition: Acute Care Hospital [facility] Discharge Date/Time: 03/06/23 16:56
[2023-03-06] MEDS: 0.9% Normal Saline (1000mL) 1,000 ML 999 ML IV ×2 (12:09→14:22)
--- NOTE | 2023-03-06 12:10 | RAD_ITS ---
INDICATION: weakness EXAMINATION/TECHNIQUE: X-RAY - XR Chest 1 View COMPARISON: Prior study dated: 02/11/2023. FINDINGS: LINES/DEVICES: None. LUNGS: No new infiltrate is seen. Decreased right pleural effusion. MEDIASTINUM AND CARDIOVASCULAR STRUCTURES: Cardiac silhouette not enlarged. Central airways and mediastinal contour are unremarkable. BONES AND SOFT TISSUES: Stable soft tissues and osseous structures. RAD/Chest 1 View (Portable) IMPRESSION: 1. Decreased right pleural effusion. 2. Otherwise no significant change. Electronically Signed: Asael Boothe MD at 12:43 EST ,
[2023-03-06 13:00] LABS: Absolute Lymphocyte Count 1.83 X10^3/uL (0.83-4.51); Absolute Neutrophil Count 3.8 X10^3/uL (2.0-7.7); Basophil# 0.03 X10^3/uL; Basophil% 0.5 % (0-1); Eosinophil# 0.01 X10^3/uL; Eosinophils% 0.2 % (0-5); Hematocrit 51.1 % (37-47); Hemoglobin 16.6 g/dL (12.0-15.0); Lymphocyte # 1.83 X10^3/ul (0.83-4.51); Lymphocyte % 31.1 % (19-41); Mean Corp Hgb Conc 32.5 g/dL (32-36); Mean Corpuscular Hgb 30.5 pg (27.0-32.0); Mean Corpuscular Volume 93.9 fL (81-99); Monocyte% 3.4 % (0-10); NRBC Flagged by Analyzer 0 % (0-5); Neutrophil # 3.79 X10^3/uL (2.7-7.7); Neutrophil % 64.3 % (47-70); Platelet Count 134 K/mm3 (150-450); RBC Distribution Width CV 18.1 % (11.6-14.6); RBC Distribution Width SD 59.5 fl (35.1-43.9); Red Blood Count 5.44 M/mm3 (4.2-5.4); White Blood Count 5.9 K/mm3 (4.4-11.0)
[2023-03-06 13:15] LABS: ALB/GLOB Ratio 1.1 RATIO (0.9-2.4); AST(SGOT) 25 U/L (15-37); Alanine Aminotransfer ALT/SGPT 18 U/L (13-56); Albumin, Serum 3.2 g/dL (3.2-5.0); Alkaline Phosphatase 45 U/L (45-117); Anion Gap 6 (5-15); BUN 34 mg/dL (7-18); BUN/Creat Ratio 17.3 RATIO (10-20); Calcium,Total 9.4 mg/dL (8.5-10.1); Chloride 95 mmol/L (98-107); Creatinine, Serum 1.96 mg/dL (0.55-1.02); EST Glomerular Filtration Rate 26 mL/min (>60); Est Glom Filt Rate - Afr Amer 31 mL/min (>60); Estimated Creatinine Clearance 18.13 ml/min; Glucose 166 mg/dL (74-106); Potassium 3.2 mmol/L (3.5-5.1); Protein, Total 6.2 g/dL (6.4-8.2); Sodium Level 138 mmol/L (136-145); Troponin-I HS 22 pg/mL (3.0-54.0)
[2023-03-06 13:35] LABS: Lactic Acid 2.5 mmol/L (0.4-1.9)
--- NOTE | 2023-03-06 13:41 | ED.RN ---
ATTEMPTED TPO STRAIGHT CATH PT X 2 AND UNABLE TO GET A URINE SAMPLE
[2023-03-06 15:01] LABS: Color, Urine Yellow (Yellow); Glucose, Dipstick 50 mg/dl (Normal); Ketone-Dipstick Negative (Negative); Leukocyte Esterase-Dipstick 100 /ul (Negative); Nitrite-Dipstick Negative (Negative); Occult Blood-Urine 150 /ul (Negative); Protein-Dipstick 15 mg/dl (Negative); Specific Gravity, Urine 1.005 (1.002-1.030); Urine Bilirubin Dipstick Negative (Negative); Urine Clarity Sl. Cloudy (Clear); Urine Urobilinogen 1 mg/dl (Normal)
[2023-03-06 15:07] LABS: Red Blood Cells-Urine 5-10 SEEN /hpf (0-5); Squamous Epithelial Cells - UA 0-5 SEEN /hpf (5-10); White Blood Cells 0-5 SEEN /hpf (0-5)
[2023-03-06 15:08] LABS: Bacteria 2+ /hpf (None Seen); Mucous, Urine RARE /hpf (<or=2+)
[2023-03-06 15:36] LABS: Troponin-I HS 19 pg/mL (3.0-54.0)
--- NOTE | 2023-03-06 15:47 | PCM.HP.STD ---
HPI - General General Date of Admission: 03/06/23 Date of Service: 03/06/23 Chief Complaint: Fatigue, malaise, poor intake. HPI Narrative The patient is a 86 y/o F w/ PMHx: Hx VTE on Eliquis, HTN, Hypothyroidism, CKD stage III unclear subtype, PAF with previous attempted cardioversion 02/07/2022 noted to be unsuccessful, Former tobacco use, Known Right sided pleural effusion who presents to the [facility] ED on 03/06/23 with history of poor oral intake since Carmita normally able to ambulate with a walker independently although not necessarily the most stable and significantly weak however she has been more fatigued and weak unable to provide any self-care and her caregiver is only there for 4 hours in the morning and the evening otherwise she is alone overnight no recent fevers or chills nor any nausea or emesis or abdominal pain or diarrhea or any upper respiratory type symptoms but given this presentation and history with risk of being alone prompted referral to ED for evaluation. She additionally denies any recent suprapubic discomfort, dysuria, increased frequency or foul-smelling urine. Workup included T97.1 With most recent repeat 107, BP initially , respiratory rate 20, 93% on room air, CBC w/ WBC 5.9, Hgb 16.6, MCV 93.9, Plts 134 without marked shift, CMP with potassium 3.2, chloride 95, carbon oxide 37, BUN/creatinine 34/1.96, glucose 166, lactic acid 2.5, T. bili 2.0 otherwise hepatic profile unremarkable, initial troponin 22 with repeat delta troponin 19, urinalysis cloudy, specific roughly 1.005, protein 15, glucose 50, occult blood 150, nitrite negative, leukocyte Estrace 100 with urine RBCs 5-10 and urine WBC 0-5 however notes 2+ urine bacteria, urine culture pending per ED, SARS COVID and influenza rapid antigens negative, chest x-ray with decreased right-sided pleural effusion with otherwise no significant change, EKG with atrial fibrillation with RVR with diffuse ST depressions. In the ED patient administered potassium 40 mill colons p.o. x 1 as well as 2 L normal saline. ED did review case with Cardiology Dr. Looney given EKG changes/depressions. [facility] Medical History Benign essential hypertension Bilateral pulmonary embolism Cardiomyopathy CKD (chronic kidney disease), stage III Congestive heart failure Former tobacco use History of cardioversion (~02/07/22) History of venous thromboembolism Hypertension Hypothyroidism PAF (paroxysmal atrial fibrillation) Pleural effusion Squamous cell carcinoma Home Medications acetaminophen 500 mg tablet 1,000 mg (2 x 500 mg) PO Q6H PRN PRN Pain Score 1-3 #0 tabs 04/03/22 [Rx Last Taken Unknown] spironolactone 25 mg tablet 25 mg PO DAILY #90 tabs 07/13/22 [Rx Last Taken Unknown] apixaban 2.5 mg tablet 2.5 mg PO BID #1 TAB 08/02/22 [Rx Last Taken Unknown] diltiazem HCl 120 mg capsule,extended release 24 hr 120 mg PO DAILY 30 days #90 caps 08/02/22 [Rx Last Taken Unknown] metoprolol tartrate 100 mg tablet 100 mg PO BID 30 days #180 tabs 08/02/22 [Rx Last Taken Unknown] fluticasone propionate 50 mcg/actuation nasal spray,suspension 2 spray intranasal Q12H PRN allergy symptoms 12/11/22 [History Last Taken Unknown] nystatin 100,000 unit/gram topical cream 1 applic topical BID PRN rash 12/11/22 [History Last Taken Unknown] Petrolatum 33% [Eucerin Eqivalent] 1 applic topical BID PRN 02/11/23 [History Last Taken Unknown] levothyroxine 75 mcg tablet 75 mcg PO DAILY 02/11/23 [History Last Taken Unknown] mirtazapine 15 mg tablet 15 mg PO QHS 02/11/23 [History Last Taken Unknown] niacinamide 500 mg tablet,extended release 500 mg PO BID 02/11/23 [History Last Taken Unknown] polyethylene glycol 3350 17 gram oral powder packet 17 g PO DAILY PRN 02/11/23 [History Last Taken Unknown] sennosides 8.6 mg-docusate sodium 50 mg tablet (Stool Softener-Stimulant Laxative) 2 tab PO BID PRN 02/11/23 [History Last Taken Unknown] furosemide 40 mg tablet 60 mg (1.5 x 40 mg) PO BID INCREASED MG: Please give MORE TABLETS 90 days #270 tabs 02/22/23 [Rx Last Taken Unknown] Allergy/AdvReac Type Severity Reaction Status Date / Time lisinopril Allergy Shortness Verified 12/27/23 11:47 of breath metoclopramide [From Reglan] Allergy Shortness Verified 03/06/23 11:47 of breath etodolac AdvReac Diarrhea Verified 03/06/23 11:47 Family History Mother Cancer Lung Cancer with tobacco use history. Father Tuberculosis Brother History of pancreatitis Son Diabetes Aneurysm Legs and stomach Hyperlipidemia Surgical History History of hip replacement History of hysterectomy History of knee replacement Hx of cholecystectomy Social History household members: none Smoking Status: Former smoker how long ago did patient quit smokin years ago, smoked <1/2 ppd x 3 years. alcohol intake: never substance use type: does not use caffeine: Yes Type: coffee Number of servings: 2 ROS ROS Narrative Admission Review of Systems: CONSTITUTIONAL: No weight loss, fever, chills, + weakness or fatigue. HEENT: Eyes: No visual loss, blurred vision, double vision or yellow sclerae. Ears, Nose, Throat: No hearing loss, sneezing, congestion, runny nose or sore throat. SKIN: No rash or itching, lesions, wounds, + Various staged abrasions/ecchymoses. CARDIOVASCULAR: No chest pain, chest pressure or chest discomfort, palpitations, edema, orthopnea, syncopal events. RESPIRATORY: No shortness of breath, cough or sputum, wheezing, hemoptysis. GASTROINTESTINAL: + anorexia. No nausea, vomiting or diarrhea, abdominal pain, melena, BRBPR. GENITOURINARY: No dysuria, frequency, urgency or retention. NEUROLOGICAL: No headache, dizziness, syncope, paralysis, ataxia, numbness or tingling in the extremities, focal weakness, change in bowel or bladder control, seizure. MUSCULOSKELETAL: + muscle, back pain, joint pain or stiffness. HEMATOLOGIC: + anemia, easy bleeding/bruising. LYMPHATICS: No enlarged nodes. No history of splenectomy. PSYCHIATRIC: + history of depression/anxiety. ENDOCRINOLOGIC: No reports of sweating, cold or heat intolerance. No polyuria or polydipsia. ALLERGIES: + Rhinitis. Vital Signs Vital Signs Vital Signs: 03/06/23 11:36 03/06/23 11:45 03/06/23 11:46 Temperature 97.5 F L Temperature Source Axillary Pulse Rate 129 H 115 H Respiratory Rate 20 H 17 Respiratory Effort Normal Non-Labored Respiratory Pattern Normal Blood Pressure 98/65 90/77 Blood Pressure Mean 76 81 Pulse Ox 93 93 Oxygen Delivery Method Room Air Room Air 03/06/23 13:38 03/06/23 14:17 Temperature 97.8 F 97.8 F Temperature Source Axillary Axillary Pulse Rate 118 H 107 H Respiratory Rate 22 H 17 Respiratory Effort Respiratory Pattern Blood Pressure 95/79 102/63 Blood Pressure Mean 84 76 Pulse Ox 92 92 Oxygen Delivery Method Room Air Room Air Weight Weight: 125 lb 3.561 oz Body Mass Index (BMI) 19.0 Physical Exam Narrative Physical Examination: General: Awake, alert, oriented x 3 and cooperative, laying in the ED bed in no apparent distress, fatigued appearing. Skin: Normal color, normal turgor, no icterus, no cyanosis except for various abrasions and staged ecchymoses. HEENT: AT/NC, EOMI, PERRLA, dry MM, no carotid bruits or JVD noted. Lungs: Diminished, greater bases, appropriate effort, no rales, ronchi or wheezing. Heart: Irregular irregular but improving; no gallop, rub audible. Abdomen: Soft, NTTP, no suprapubic discomfort, ND, hyperactive BS, no HSM. Extremities: No cyanosis, no clubbing, or marked peripheral edema. Neurological: Patient awake, alert, oriented as noted, cognitive function intact; pupils equally reactive to light and accommodation, cranial nerves grossly normal, moving all 4 extremities, no focal deficits, strength severely globally decreased secondary to acute presentation and underlying comorbidities. Psychiatric: Affect appears flat, fatigued, no acute evidence of depressive or anxiety feeling but does have underlying history. Results Lab / Micro Data 03/06/23 12:52 03/06/23 07:16 Labs: Laboratory Results - last 24 hr 03/06/23 07:16: Sodium 138, Potassium 3.2 L, Chloride 95 L, Carbon Dioxide 37.0 H, Anion Gap 6, BUN 34 H, Creatinine 1.96 H, Estim Creat Clear Calc 18.13, Est GFR (MDRD) Af Amer 31 L, Est GFR (MDRD) Non-Af 26 L, BUN/Creatinine Ratio 17.3, Glucose 166 H, Lactic Acid 2.5 H*, Calcium 9.4, Total Bilirubin 2.00 H, AST 25, ALT 18, Alkaline Phosphatase 45, Troponin I High Sens 22, Total Protein 6.2 L, Albumin 3.2, Globulin 3.0, Albumin/Globulin Ratio 1.1 03/06/23 12:52: WBC 5.9, RBC 5.44 H, Hgb 16.6 H, Hct 51.1 H, MCV 93.9, MCH 30.5, MCHC 32.5, RDW Std Deviation 59.5 H, RDW Coeff of Kin 18.1 H, Plt Count 134 L, MPV 11.0, Immature Gran % (Auto) 0.500, Neut % (Auto) 64.3, Lymph % (Auto) 31.1, Hendry % (Auto) 3.4, Eos % (Auto) 0.2, Baso % (Auto) 0.5, Absolute Neuts (auto) 3.8, Absolute Lymphs (auto) 1.83, Nucleated RBC % 0 03/06/23 14:40: Urine Color Yellow, Urine Clarity Sl. Cloudy, Urine pH 7.0, Ur Specific Hamilton 1.005, Urine Protein 15 H, Urine Glucose (UA) 50 H, Urine Ketones Negative, Urine Occult Blood 150 H, Urine Nitrite Negative, Urine Bilirubin Negative, Urine Urobilinogen 1 H, Ur Leukocyte Esterase 100 H, Urine RBC 5-10 SEEN, Urine WBC 0-5 SEEN, Ur Squamous Epith Cells 0-5 SEEN, Urine Bacteria 2+, Urine Mucus RARE 03/06/23 15:02: Troponin I High Sens 19 Micro: Microbiology 03/06/23 12:18 Nasal Secretion SARS-CoV-2 & FLU Antigen (Rapid) - Final Imagaing Radiology Impression Chest X-Ray 03/06/23 12:10 IMPRESSION: 1. Decreased right pleural effusion. 2. Otherwise no significant change. Electronically Signed: Asael Boothe MD at 12:43 EST , Assessment & Plan Assessment/Plan (1) Atrial fibrillation with RVR: PLAN: Plan The patient is a 86 y/o F w/ PMHx: Hx VTE on Eliquis, HTN, Hypothyroidism, CKD stage III unclear subtype, PAF with previous attempted cardioversion 02/07/2022 noted to be unsuccessful, Former tobacco use, Known Right sided pleural effusion who presents to the [facility] ED on 03/06/23 with history of poor oral intake since Carmita normally able to ambulate with a walker independently although not necessarily the most stable and significantly weak however she has been more fatigued and weak unable to provide any self-care and her caregiver is only there for 4 hours in the morning and the evening otherwise she is alone overnight no recent fevers or chills nor any nausea or emesis or abdominal pain or diarrhea or any upper respiratory type symptoms but given this presentation and history with risk of being alone prompted referral to ED for evaluation. #1. Paroxsymal atrial fibrillation w/ RVR with concern for diffuse ST depressions: EKG in ED w/ atrial fibrillation w/ RVR. Patient administered IV fluids in the ED with rate improvement of note as patient had poor recent oral intake patterns and dehydration was likely contributing. Will admit to PCU to be cautious, maintain on telemetry, obtain cardiac enzyme serial set, obtain magnesium level especially given low potassium which was supplemented in the ED, obtain ECHO as last noted 02/07/2022 with mildly reduced EF 45% no significant valvular disease, obtain TSH level, continue patient home renally dosed apixaban regimen and once BP is improved may restart metoprolol and diltiazem however given low normal will hold and pulse dose was able at this time until IV fluids assist in resuscitation, cardiology consulted per ED and will continue given EKG changes as noted. #2. Possibly Acute Renal Insufficiency on Chronic Kidney Disease Stage III unclear subtype based on prior GFR trending however recently 02/11/2023 GFR has decreased this certainly could be progressive renal disease but unclear to differentiate at this time without further trending with evidence of dehydration and lactic acidosis likely associated: Admission BUN/Cr 34/1.96, baseline renal function since earlier in the year primarily 1.6-1.7 however she did have testing 02/11/2023 with creatinine elevated at that time 2.09, repeat BMP in AM. #3. Questionable UTI, complicated, lower suspicion: Question with no marked symptoms, urinalysis is not severe appearing however urine culture is pending, if becomes febrile or any concerns arise low threshold to add antibiotic therapy otherwise at this time will await urine culture. Procalcitonin requested. #4. Hypokalemia: Admission K+ 3.2, magnesium level requested, supplementation given, repeat level in AM. #5. Adult failure to thrive, multifactorial: Possibly a progressive decline on top of acute presentation with #1, #2, #4, possibly #3, continue treatments as noted, will maintain on fall precautions, PT/OT/case management consulted for discharge planning. #6. HFmrEF: 02/07/2022 echocardiogram with mild global LV systolic dysfunction, EF 45%, severely enlarged LA, moderately enlarged RA, moderately severe MV insufficiency, moderate TV insufficiency, trivial NIGEL, trivial PVI, RVSP 33 mmHg with inability to assess diastolic dysfunction. Will continue renally dosed eliquis, holding HTN regimen as noted, not on statin. Given presentation however we will continue to judiciously hydrate but monitor for fluid overload. BNP baseline requested. #7. Hypertension presenting with hypotension: Patient with low BP upon presentation with significant concern of dehydration with poor recent oral intake thus we will hold all hypertensive regimen however once able will add back beta-yan and diltiazem given A-fib RVR presentation concurrently although again suspected likely from dehydration. #8. Known right-sided pleural effusion: Chest x-ray upon current presentation with reduced size, continue to follow, cardiology aware. #9. Hyperlipidemia: We will temporally hold patient home niacin regimen. #10. Hypothyroidism: Continue patient on levothyroxine regimen, TSH and free T4 requested. #11. Anxiety and depression: We will continue patient home mirtazapine regimen. #12. Allergic rhinitis: Per current list patient only uses as needed fluticasone thus we will temporarily hold. #13. History VTE: Will continue patient home renally dosed apixaban regimen. #14. Former tobacco usage: Encourage continued tobacco cessation. #15. DVT prophylaxis: Continue patient home renally dosed apixaban regimen. #16. CODE status: Patient VERA is her son who is present and living will is currently in place. Discussed CODE status at length including difference between FULL code, DNR-CCA and DNR-CC status. Following discussions about the differences in these status, requested DNR-CCA, no intubation. Advanced Care Planning Face to Face Time: 16 minutes. Charges/Coding Visit Charges Inpatient E&M: 05011 Init Hosp L3 Procedures Hospitalists Procedures: 22245 Advncd Care Plan 30 Min
[2023-03-06 16:55] LABS: Reflex Lactate? Y
--- NOTE | 2023-03-06 16:59 | ECHOD_ITS ---
Reason For Study: Afib/Flutter Procedure This was a 2D Doppler, Color Flow transthoracic echocardiogram. Technically difficult study due to arrhythmia. Exam performed portable in patient room. Left Ventricle Mildly dilated left ventricle. Severe global left ventricular systolic dysfunction. The estimated ejection fraction is 10-15 %. Unable to assess diastolic dysfunction due to arrhythmia. There is severe global hypokinesis of the left ventricle. Right Ventricle Normal RV size. Severe global right ventricular systolic dysfunction. Atria The left atrium is severely enlarged. The right atrium is moderately enlarged. Mitral Valve The mitral valve is structurally normal. No prolapse or stenosis seen. Moderately severe (3+) mitral valve insufficiency. Tricuspid Valve Normal tricuspid valve. Mild to moderate (1-2+) tricuspid valve insufficiency. Right ventricular systolic pressure estimated to be 28 mmHg. Aortic Valve Trisinus/trileaflet aortic valve. There is no aortic stenosis. Mild (1+) aortic valve insufficiency. Pulmonic Valve The pulmonic valve is not well visualized. Mild (1+) pulmonic valve insufficiency. Great Vessels Normal aortic root. Normal inferior vena cava. Pericardium/Pleural No pericardial effusion. Large pleural effusion. MMode/2D Measurements & Calculations LVIDd: 5.5 cm IVSd: 0.78 cm Ao root diam: 3.6 cm LVIDs: 4.5 cm LVPWd: 0.76 cm LA dimension: 4.9 cm RVDd: 3.3 cm FS: 18.7 % LAV(MOD-bp): 113.5 ml LA A4 area: 35.6 cm2 RA A4 area: 19.9 cm2 LAV(MOD-bp) Indexed: 68.0 ml/m2 LAV(MOD-sp2): 80.5 ml LAV(MOD-sp4): 125.1 ml Doppler Measurements & Calculations MV E max marcail: 49.3 cm/sec MV V2 max: 77.9 cm/sec MV P1/2t max marcial: 89.6 cm/sec MV max P.5 mmHg MV P1/2t: 39.7 msec MV V2 mean: 36.5 cm/sec MV mean P.69 mmHg MV dec slope: 661.6 cm/sec2 MV V2 VTI: 14.5 cm MVA(P1/2t): 5.5 cm2 Ao V2 max: 53.7 cm/sec LV V1 max: 39.6 cm/sec MR max marcial: 420.4 cm/sec Ao max P.2 mmHg LV V1 max P.65 mmHg MR max P.7 mmHg MR mean marcial: 282.1 cm/sec MR mean P.0 mmHg MR VTI: 131.3 cm PA V2 max: 29.1 cm/sec TR max marcial: 222.5 cm/sec TR max P.8 mmHg ECHO/Echo Complete Interpretation Summary The estimated ejection fraction is 10-15 %. Severe global left ventricular systolic dysfunction. There is severe global hypokinesis of the left ventricle. Severe global right ventricular systolic dysfunction. The left atrium is severely enlarged. The right atrium is moderately enlarged. Moderately severe (3+) mitral valve insufficiency. Mild to moderate (1-2+) tricuspid valve insufficiency. Mild (1+) aortic valve insufficiency. No pericardial effusion. Large pleural effusion. Compared to previous echo, the LV function has worsended drastically. Ordering Physician: Cherrie العلي Referring Physician: Kranthi Long Performed By: Javier Gallagher RCS
[2023-03-06 17:06] LABS: Magnesium 1.6 mg/dL (1.6-2.6)
[2023-03-06 17:53] LABS: Troponin-I HS 22 pg/mL (3.0-54.0)
[2023-03-06 17:57] LABS: Procalcitonin 0.09 ng/mL (0.00-0.09)
[2023-03-06] MEDS: 0.9% Normal Saline (1000mL) 1,000 ML 100 ML IV (18:10)
[2023-03-06 18:18] LABS: Lactic Acid 1.7 mmol/L (0.4-1.9)
[2023-03-06 21:45] LABS: Troponin-I HS 17 pg/mL (3.0-54.0)
[2023-03-06] MEDS: Ensure Plus High Protein 120 ML LIQUID PO (21:56)
[2023-03-06] MEDS: Menthol/Lanolin/Calamine/Znox 113 GM Tube 1 APPLIC TOPICAL (21:57)
[2023-03-07] VITALS (11 sets, daily range): BP systolic 79–102; BP diastolic 58–77; PULSE 62–146; RESP 16–18; TEMP 35.9–36.7; O2SAT 94–99; BMI 18.9
[2023-03-07] MEDS: Potassium Chloride Oral Tablet 20 MEQ 40 MEQ PO ×2 (01:37→10:09)
[2023-03-07 06:26] LABS: Absolute Lymphocyte Count 2.44 X10^3/uL (0.83-4.51); Absolute Neutrophil Count 4.9 X10^3/uL (2.0-7.7); Basophil# 0.03 X10^3/uL; Basophil% 0.4 % (0-1); Eosinophil# 0.03 X10^3/uL; Eosinophils% 0.4 % (0-5); Hemoglobin 15.4 g/dL (12.0-15.0); Lymphocyte # 2.44 X10^3/ul (0.83-4.51); Lymphocyte % 31.8 % (19-41); Mean Corp Hgb Conc 31.4 g/dL (32-36); Mean Corpuscular Hgb 29.5 pg (27.0-32.0); Mean Corpuscular Volume 93.9 fL (81-99); Mean Platelet Vol. 11.3 fl (6.2-12.0); Monocyte# 0.29 X10^3/uL; Monocyte% 3.8 % (0-10); NRBC Flagged by Analyzer 0 % (0-5); Neutrophil # 4.85 X10^3/uL (2.7-7.7); Neutrophil % 63.2 % (47-70); Platelet Count 121 K/mm3 (150-450); RBC Distribution Width CV 18.1 % (11.6-14.6); RBC Distribution Width SD 60.1 fl (35.1-43.9); Red Blood Count 5.22 M/mm3 (4.2-5.4); White Blood Count 7.7 K/mm3 (4.4-11.0)
[2023-03-07 07:05] LABS: AST(SGOT) 19 U/L (15-37); Alanine Aminotransfer ALT/SGPT 16 U/L (13-56); Albumin, Serum 2.7 g/dL (3.2-5.0); Alkaline Phosphatase 44 U/L (45-117); Anion Gap 8 (5-15); BUN 29 mg/dL (7-18); BUN/Creat Ratio 19.3 RATIO (10-20); Calcium,Total 8.9 mg/dL (8.5-10.1); Chloride 102 mmol/L (98-107); EST Glomerular Filtration Rate 35 mL/min (>60); Est Glom Filt Rate - Afr Amer 42 mL/min (>60); Estimated Creatinine Clearance 23.61 ml/min; Globulin 2.7 g/dL (2.2-4.2); Glucose 141 mg/dL (74-106); Potassium 3.2 mmol/L (3.5-5.1); Protein, Total 5.4 g/dL (6.4-8.2); Sodium Level 140 mmol/L (136-145); Thyroid Stim Hormone (TSH) 2.32 uIU/mL (0.358-3.74)
--- NOTE | 2023-03-07 08:18 | PCM.PN.HOSP ---
Reason for Visit Reason for Visit: Diagnoses Unspecified atrial fibrillation (03/06/23) Objective Data Objective Data Vital Signs: Vital Signs Temp Pulse Resp BP Pulse Ox O2 Del Method 97.5 F L 111 H 16 102/71 96 Room Air 03/07/23 05:00 03/07/23 05:00 03/07/23 05:00 03/07/23 05:00 03/07/23 05:00 03/07/23 08:10 Oxygen Delivery Method Room Air Weight: 124 lb 12.506 oz Body Mass Index (BMI) 18.9 Intake & Output: Intake and Output for Last 24 Hours 03/05/23 03/06/23 03/07/23 23:59 23:59 23:59 Intake Total 2370 / 2370 1120 / 1120 Output Total 200 / 200 450 / 450 Balance 2170 / 2170 670 / 670 Lab / Micro Data 03/07/23 05:53 03/07/23 05:53 Labs: Laboratory Results - last 24 hr 03/06/23 07:16: Sodium 138, Potassium 3.2 L, Chloride 95 L, Carbon Dioxide 37.0 H, Anion Gap 6, BUN 34 H, Creatinine 1.96 H, Estim Creat Clear Calc 18.13, Est GFR (MDRD) Af Amer 31 L, Est GFR (MDRD) Non-Af 26 L, BUN/Creatinine Ratio 17.3, Glucose 166 H, Lactic Acid 2.5 H*, Calcium 9.4, Total Bilirubin 2.00 H, AST 25, ALT 18, Alkaline Phosphatase 45, Troponin I High Sens 22, Total Protein 6.2 L, Albumin 3.2, Globulin 3.0, Albumin/Globulin Ratio 1.1 03/06/23 12:52: WBC 5.9, RBC 5.44 H, Hgb 16.6 H, Hct 51.1 H, MCV 93.9, MCH 30.5, MCHC 32.5, RDW Std Deviation 59.5 H, RDW Coeff of Kin 18.1 H, Plt Count 134 L, MPV 11.0, Immature Gran % (Auto) 0.500, Neut % (Auto) 64.3, Lymph % (Auto) 31.1, [place] % (Auto) 3.4, Eos % (Auto) 0.2, Baso % (Auto) 0.5, Absolute Neuts (auto) 3.8, Absolute Lymphs (auto) 1.83, Nucleated RBC % 0 03/06/23 14:40: Urine Color Yellow, Urine Clarity Sl. Cloudy, Urine pH 7.0, Ur Specific [place] 1.005, Urine Protein 15 H, Urine Glucose (UA) 50 H, Urine Ketones Negative, Urine Occult Blood 150 H, Urine Nitrite Negative, Urine Bilirubin Negative, Urine Urobilinogen 1 H, Ur Leukocyte Esterase 100 H, Urine RBC 5-10 SEEN, Urine WBC 0-5 SEEN, Ur Squamous Epith Cells 0-5 SEEN, Urine Bacteria 2+, Urine Mucus RARE 03/06/23 15:02: Magnesium 1.6, Troponin I High Sens 19, B-Natriuretic Peptide 1711.0 H 03/06/23 17:16: Lactic Acid 1.7, Troponin I High Sens 22, Procalcitonin 0.09 03/06/23 20:37: Troponin I High Sens 17 03/07/23 05:53: WBC 7.7, RBC 5.22, Hgb 15.4 H, Hct 49.0 H, MCV 93.9, MCH 29.5, MCHC 31.4 L, RDW Std Deviation 60.1 H, RDW Coeff of Kin 18.1 H, Plt Count 121 L, MPV 11.3, Immature Gran % (Auto) 0.400, Neut % (Auto) 63.2, Lymph % (Auto) 31.8, [place] % (Auto) 3.8, Eos % (Auto) 0.4, Baso % (Auto) 0.4, Absolute Neuts (auto) 4.9, Absolute Lymphs (auto) 2.44, Nucleated RBC % 0, Sodium 140, Potassium 3.2 L, Chloride 102, Carbon Dioxide 30.0, Anion Gap 8, BUN 29 H, Creatinine 1.50 H, Estim Creat Clear Calc 23.61, Est GFR (MDRD) Af Amer 42 L, Est GFR (MDRD) Non-Af 35 L, BUN/Creatinine Ratio 19.3, Glucose 141 H, Calcium 8.9, Total Bilirubin 1.30 H, AST 19, ALT 16, Alkaline Phosphatase 44 L, Total Protein 5.4 L, Albumin 2.7 L, Globulin 2.7, Albumin/Globulin Ratio 1.0, TSH 2.32 Micro: Microbiology 03/06/23 12:18 Nasal Secretion SARS-CoV-2 & FLU Antigen (Rapid) - Final Radiography Diagnostic Testing: Radiology Impression Chest X-Ray 03/06/23 12:10 IMPRESSION: 1. Decreased right pleural effusion. 2. Otherwise no significant change. Electronically Signed: Asael Boothe MD at 12:43 EST Reading Location ID and State: [facility] / [place] Tel , Service support , Physical Exam Narrative Seen and examined. Patient is very weak. compliance monitor shows sinus tachycardia 120/min. Blood pressure on lower side, BP 79/58. Antihypertensive medications for hold. 1 L fluid bolus given. Physical exam General: Awake, oriented x 3. Mild short of breath HEENT: Atraumatic, PERRLA, EOMI, Normocephalic Oral: No Gingival or Mucosal Lesions/ Ulcerations Neck: Supple, No JVD, Negative Carotid Bruits Lungs: Air entry diminished in bilateral lung bases. No crepitation/rhonchi. On room air Cardiovascular: Sinus tachycardia, low-intensity heart sound. Soft systolic murmur. Abdomen: Bowel Sounds Present, Soft, Non Tender, Non-Distended : No renal angle tenderness. No suprapubic tenderness. Extremities: No edema, Capillary Refill Less than 3 Seconds Skin: No rashes, No breakdown Musculoskeletal: No Tenderness to Palpation of Joints or Extremities Neurological: Cranial nerves II-XII grossly intact, DTR 2+/4. No acute focal neurological deficit. Psych/Mental Status: Flat affect. Assessment & Plan Assessment/Plan (1) Atrial fibrillation with RVR: PLAN: Plan The patient is a 86 y/o F who was admitted on 03/06/23 with history of poor oral intake since Carmita normally able to ambulate with a walker independently but was not able to do so because of weakness. No recent fevers or chills nor any nausea or emesis or abdominal pain or diarrhea or any upper respiratory type symptoms but given this presentation and history with risk of being alone prompted referral to ED for evaluation. #1. Paroxsymal atrial fibrillation w/ RVR with concern for diffuse ST depressions: EKG in ED w/ atrial fibrillation w/ RVR. Currently sinus tachycardia. Patient was evaluated by filtration plant operator. 2D echo shows EF 10 to 15% severe global RV systolic dysfunction LA severely enlarged RA moderately enlarged. Moderately severe 3+ MR 1-2+ TR. RVSP 28 mmHg. No aortic stenosis but mild AI. Mild PVI. Overall filtration plant operator suggested palliative/hospice care. Patient has not had adequate oral intake therefore patient will be stated. Patient had low blood pressure therefore IV fluid resuscitation done. Hold antihypertensive medications. Amiodarone 200 mg daily ordered and will gradually resume AV naman rate control medications once blood pressure improves. Hypokalemia and magnesium on lower side therefore potassium magnesium replaced but ordered #2. Gradually worsening CKD stage IV: Patient creatinine clearance was 30 mill per minute in April 2022 and since then's has been gradually deteriorating. Admission BUN/Cr 34/1.96, baseline renal function since earlier in the year primarily 1.6-1.7 #3. 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 Antibiotic not indicated. #4. Hypokalemia: Admission K+ 3.2, as mentioned above #5. Adult failure to thrive, multifactorial: Possibly a progressive decline on top of acute presentation with #1, #2, #4, possibly #3, continue treatments as noted, will maintain on fall precautions, PT/OT/case management consulted for discharge planning. #6. HFmrEF: 02/07/2022 echocardiogram with mild global LV systolic dysfunction, EF 45%, severely enlarged LA, moderately enlarged RA, moderately severe MV insufficiency, moderate TV insufficiency, trivial NIGEL, trivial PVI, RVSP 33 mmHg with inability to assess diastolic dysfunction. Will continue renally dosed eliquis, holding HTN regimen as noted, not on statin. Given presentation however we will continue to judiciously hydrate but monitor for fluid overload. BNP baseline is increased #7. Hypertension presenting with hypotension: Patient with low BP upon presentation with significant concern of dehydration with poor recent oral intake thus we will hold all hypertensive regimen however once able will add back beta-yan and diltiazem given A-fib RVR presentation concurrently although again suspected likely from dehydration. #8. Known right-sided pleural effusion: Chest x-ray upon current presentation with reduced size, continue to follow, cardiology aware. #9. Hyperlipidemia: We will temporally hold patient home niacin regimen. #10. Hypothyroidism: Continue patient on levothyroxine regimen, TSH and free T4 requested. #11. Anxiety and depression: We will continue patient home mirtazapine regimen. #12. Allergic rhinitis: Per current list patient only uses as needed fluticasone thus we will temporarily hold. #13. History VTE: Will continue patient home renally dosed apixaban regimen. #14. Former tobacco usage: Encourage continued tobacco cessation. #15. DVT prophylaxis: Continue patient home renally dosed apixaban regimen. #16. CODE status: Patient VERA is her son who is present and living will is currently in place. Discussed CODE status at length including difference between FULL code, DNR-CCA and DNR-CC status. Following discussions about the differences in these status, requested DNR-CCA, no intubation. Will talk to the family regarding palliative/hospice care. Charges/Coding Visit Charges Inpatient E&M: 48759 Subs Hosp L2
[2023-03-07 08:39] LABS: Phosphorus 2.3 mg/dL (2.5-4.9)
[2023-03-07] MEDS: Magnesium Chloride 64 MG Delay Rel.Tablet 128 MG PO ×2 (10:09→21:22)
[2023-03-07] MEDS: Ensure Plus High Protein 120 ML LIQUID PO ×4 (10:09→21:20)
[2023-03-07] MEDS: APIXABAN 2.5 MG TABLET (WCH) PO ×2 (10:09→21:22)
[2023-03-07] MEDS: Menthol/Lanolin/Calamine/Znox 113 GM Tube 1 APPLIC TOPICAL ×4 (10:10→21:20)
[2023-03-07] MEDS: Lactated Ringers 1,000 ML 999 ML IV (11:17)
[2023-03-07] MEDS: Amiodarone 200 MG Tablet PO (12:26)
--- NOTE | 2023-03-07 16:21 | CHAPLAIN ---
Type of Pastoral Visit _x__ Initial Visit ___ Follow-up Visit ___ On-call Visit ___ General Patient Visit ___ Spiritual Assessment ___ Family Conference ___ Bereavement ___ Rapid Response ___ Code Blue ___ Other (describe below) Pastoral Care Referral From _x__ Patient ___ Family ___ Nurse ___ Physician ___ Candy Puller ___ Thiokol Operator ___ Other (describe below) Sacrament/Intervention _x__ Active listening ___ Anointing ___ Mosque ___ Bereavement ___ Communion ___ Va exploration ___ ___ Life review _x__ Prayer ___ Reconciliation ___ Sacrament of Sick _x__ Supportive presence ___ Wedding ___ Other (describe below) Pastoral Comments patient is napping but easily awakens to her name; pt is welcoming; pt states that she is better; pt however does not appear to have clear thinking and referred to someone that was sitting in that chair earlier ; pt is able to answer questions but there may be some confusion in her thinking and responses; pt did welcome a prayer
--- NOTE | 2023-03-07 17:00 | CASEMGMT ---
SIMON KRAMER Assessment: SIMON KRAMER to room. Pt resting in bed. Pt has been confused and drowsy. SIMON KRAMER placed call to pt's son, David, who provided most of the following information, but then he asked SIMON KRAMER to call his , Meera, to discuss discharge planning, as Meera is the one who manages the caregivers for pt in the home. PCP: Dr Long Specialists: [facility]/cardiology, dermatology Preferred Pharmacy: [facility] Insurance: Shree SINCLAIR Prescription Benefit: yes Living Will/HPOA: pt has LW and HCPOA, who is her son, David. Both LW and HCPOA are on file @ [facility]. LNOK: son, David (POA) and daugther in law, Meera Living Arrangements: Patient lives alone in a 2 story home w/ramp entrance. FFSU. Family pays for caregivers to come for total of 8 hrs/day: 4 hrs in AM from 9A to 1 PM and 4 hrs in PM from 5-9 PM. They assist pt w/bathing/dressing, med mgnt, and all ADL's. Pt was managing okay home alone from 1-5 during the day and during the night. Transportation: family or caregiver DME: Patient has shower chair, BSC, raised toilet seat, hospital bed, lift chair, walker, medical alert, and BP machine. SNF/HHC: Pt has been to [facility] and [facility]. Pt just discharged back home from [place] Jul, 2022. Discussed discharge planning with Meera and discussed how pt did w/therapy today. She states they are not able to provide 24/hr for pt, as it has been difficult to even find the caregiver coverage they have currently. She states if pt remains needing assistance w/ambulation when she is ready for discharge that she will need to go to a SNF. She states, This is what she did at the same time last year during the winter. I told her she needs to eat and drink and do what she's supposed to or she wasn't going to be able to stay at home . Meera states she prefers pt to go to [facility] TCU and denies wanting list of other SNF options, unless TCU unable to accept her. SIMON KRAMER did inform Meera of [facility]'s 3 [place] In-pt criteria for SNF benefits. She voices understanding. ELIAS Hernandez, made aware TCU requested by family. Plan: SNF Roberto KEITHN RN CM
--- NOTE | 2023-03-07 17:10 | PCM.CONS.C ---
Assessment & Plan Assessment/Plan (1) Atrial fibrillation with RVR: (2) Hypotension: QUALIFIERS: Hypotension type: idiopathic hypotension Qualified Code(s): I95.0 - Idiopathic hypotension PLAN: Plan 1. A-fib with RVR. 2. Poor oral intake leading to dehydration and hypotension. 3. Congestive heart failure with severely depressed ejection fraction EF 10 to 15%. 4. Biventricular failure. 5. History of PE/DVT. 6. BRENT on CKD. 7. Hypotension which is likely multifactorial due to above. Plan Continue to hold AV naman blockers and antihypertensives. Will try amiodarone 200 mg daily in an attempt to control the heart rate. Patient has been on Eliquis for few months nonstop. Recommend to hold Eliquis and start patient on heparin drip for stroke prophylaxis. Continue to replace electrolytes as appropriate. Patient is currently DNR. Patient has very poor prognosis, will discuss with family hospice/palliative care. HPI Consult Data Date of Consult: 03/07/23 HPI Narrative Reason for Consultation: Atrial fibrillation with RVR. HPI Narrative: CLOVIS ALVAREZ, is a 87 F who presents with generalized weakness. An 87-year-old female patient with past medical history of persistent atrial fibrillation on Eliquis, history of mildly reduced ejection fraction, PE/DVT who has been having worsening kidney function. History was taken from the patient daughter who takes care of her. Patient daughter said that her mother gets depressed around this time of the year specially fall and winter, for the last 2 months she has not been eating or drinking, she has been ill looking, fatigued and tired and weak. Patient denied any chest pain or shortness of breath but she does feel fatigued and lethargic. Patient does have a home nurse who tried to take care of her and try to encourage her to eat and drink however patient has not been eating or drinking for the last couple weeks. She is on Lasix 60 mg twice daily, Cardizem and metoprolol. She is on Eliquis 2.5 mg twice daily. Upon physical exam today at her home, the nurse checked her blood pressure and it was hypotensive so she requested the patient to be transferred to the emergency room for hypotension. Upon arrival to the ER EKG showed atrial fibrillation with rapid ventricular response with subtle nonspecific ST changes. Troponins are negative Patient was hypotensive. This morning prior to me evaluating the patient, she was hypotensive with a blood pressure of 74/54, her heart rate is in the 120s beat per minute A-fib with rapid ventricular response. Patient is lying in bed, she is ill looking, she is not in distress, she is tired and unable to speak. She denied any chest pain. She complains of weakness and fatigue and tiredness. She was given IV fluid and her blood pressure increased to 100/60 mmHg. Her AV naman blockers has been held. Echocardiogram today showed severely depressed ejection fraction with an EF of 10 to 15% with severe global hypokinesis, also there was severe RV dysfunction noted. Severe biatrial dilatation. There is moderate to severe MR and mild to moderate tricuspid regurgitation. There was also significant right pleural effusion noted. [facility] Medical History (Updated 03/07/23 @ 17:[address] Barbra Looney MD) Anxiety Benign essential hypertension Bilateral pulmonary embolism Cardiomyopathy CKD (chronic kidney disease), stage III Congestive heart failure Depression Former smoker Former tobacco use History of cardioversion (~02/07/22) History of venous thromboembolism Hypertension Hypothyroidism Kidney disease PAF (paroxysmal atrial fibrillation) Pleural effusion Squamous cell carcinoma Home Medications acetaminophen 500 mg tablet 1,000 mg (2 x 500 mg) PO Q6H PRN PRN Pain Score 1-3 #0 tabs 04/03/22 [Rx Last Taken Unknown] spironolactone 25 mg tablet 25 mg PO DAILY water pill #90 tabs 07/13/22 [Rx Last Taken 03/06/23] apixaban 2.5 mg tablet 2.5 mg PO BID blood thinner #1 TAB 08/02/22 [Rx Last Taken 03/06/23] diltiazem HCl 120 mg capsule,extended release 24 hr 120 mg PO DAILY blood pressure 30 days #90 caps 08/02/22 [Rx Last Taken 03/06/23] metoprolol tartrate 100 mg tablet 100 mg PO BID heart rate 30 days #180 tabs 08/02/22 [Rx Last Taken 03/06/23] fluticasone propionate 50 mcg/actuation nasal spray,suspension 2 spray intranasal DAILY PRN allergy symptoms 12/11/22 [History Last Taken 03/05/23] nystatin 100,000 unit/gram topical cream 1 applic topical BID PRN rash 12/11/22 [History Last Taken Unknown] Petrolatum 33% [Eucerin Eqivalent] 1 applic topical BID PRN skin 02/11/23 [History Last Taken Unknown] levothyroxine 75 mcg tablet 75 mcg PO DAILY thyroid 02/11/23 [History Last Taken 03/06/23] mirtazapine 15 mg tablet 15 mg PO QHS sleep 02/11/23 [History Last Taken 03/05/23] niacinamide 500 mg tablet,extended release 500 mg PO BID skin 02/11/23 [History Last Taken 03/06/23] furosemide 40 mg tablet 60 mg (1.5 x 40 mg) PO BID INCREASED MG: Please give MORE TABLETS 90 days #270 tabs 02/22/23 [Rx Last Taken 03/06/23] Allergy/AdvReac Type Severity Reaction Status Date / Time lisinopril Allergy Shortness Verified 03/06/23 11:47 of breath metoclopramide [From Reglan] Allergy Shortness Verified 03/06/23 11:47 of breath etodolac AdvReac Diarrhea Verified 03/06/23 11:47 Family History Mother Cancer Lung Cancer with tobacco use history. Father Tuberculosis Brother History of pancreatitis Son Diabetes Aneurysm Legs and stomach Hyperlipidemia Surgical History History of hip replacement History of hysterectomy History of knee replacement Hx of cholecystectomy Social History household members: none Smoking Status: Former smoker how long ago did patient quit smokin years ago, smoked <1/2 ppd x 3 years. alcohol intake: never substance use type: does not use caffeine: Yes Type: coffee Number of servings: 2 ROS ROS Narrative 12 point review of systems were obtained, negative other than what mentioned HPI. Physical Exam Const no apparent distress Constitutional Narrative: Patient appears ill, HEENT normocephalic and head/scalp atraumatic Eyes PERRL and EOMs intact bilaterally Neck no JVD Chest inspection of chest normal and palpation of chest normal Resp normal respiratory effort and clear to auscultation bilaterally Effort and Inspection: Negative for uses accessory muscles Auscultation: Negative for crackles or rales Cardio S1 normal heart sound and S2 normal heart sound; Negative for regular rate or regular rhythm Rate: tachycardic Skin no rashes or lesions noted and no wounds Psych mental status grossly normal and thought process normal Risk Stratification Risk Stratification Applicable: No Objective Data Vital Signs: Vital Signs Temp Pulse Resp BP Pulse Ox O2 Del Method 98.0 F 129 H 18 92/61 97 Room Air 03/07/23 16:00 03/07/23 16:00 03/07/23 16:00 03/07/23 16:00 03/07/23 16:00 03/07/23 16:00 Oxygen Delivery Method Room Air Weight: 124 lb 12.506 oz Body Mass Index (BMI) 18.9 Intake & Output: Intake and Output for Last 24 Hours 03/05/23 03/06/23 03/07/23 23:59 23:59 23:59 Intake Total 2370 / 2370 2240 / 2240 Output Total 200 / 200 500 / 500 Balance 2170 / 2170 1740 / 1740 Lab / Micro Data 03/07/23 05:53 03/07/23 05:53 Labs: Laboratory Results - last 24 hr 03/06/23 15:02: B-Natriuretic Peptide 1711.0 H 03/06/23 17:16: Lactic Acid 1.7, Troponin I High Sens 22, Procalcitonin 0.09 03/06/23 20:37: Troponin I High Sens 17 03/07/23 05:53: WBC 7.7, RBC 5.22, Hgb 15.4 H, Hct 49.0 H, MCV 93.9, MCH 29.5, MCHC 31.4 L, RDW Std Deviation 60.1 H, RDW Coeff of Kin 18.1 H, Plt Count 121 L, MPV 11.3, Immature Gran % (Auto) 0.400, Neut % (Auto) 63.2, Lymph % (Auto) 31.8, [place] % (Auto) 3.8, Eos % (Auto) 0.4, Baso % (Auto) 0.4, Absolute Neuts (auto) 4.9, Absolute Lymphs (auto) 2.44, Nucleated RBC % 0, Sodium 140, Potassium 3.2 L, Chloride 102, Carbon Dioxide 30.0, Anion Gap 8, BUN 29 H, Creatinine 1.50 H, Estim Creat Clear Calc 23.61, Est GFR (MDRD) Af Amer 42 L, Est GFR (MDRD) Non-Af 35 L, BUN/Creatinine Ratio 19.3, Glucose 141 H, Calcium 8.9, Phosphorus 2.3 L, Total Bilirubin 1.30 H, AST 19, ALT 16, Alkaline Phosphatase 44 L, Total Protein 5.4 L, Albumin 2.7 L, Globulin 2.7, Albumin/Globulin Ratio 1.0, TSH 2.32 Micro: Microbiology 03/06/23 14:40 Urine, Catheterized Urine Culture - Preliminary GNR 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 Gram negative lima Alpha hemolytic organism 03/06/23 12:18 Nasal Secretion SARS-CoV-2 & FLU Antigen (Rapid) - Final Cardiology Labs/Tests 03/06/23 15:02: B-Natriuretic Peptide 1711.0 H 03/06/23 17:16: Lactic Acid 1.7 03/07/23 05:53: WBC 7.7, RBC 5.22, Hgb 15.4 H, Hct 49.0 H, MCV 93.9, MCH 29.5, MCHC 31.4 L, Plt Count 121 L, MPV 11.3, Immature Gran % (Auto) 0.400, Neut % (Auto) 63.2, Lymph % (Auto) 31.8, [place] % (Auto) 3.8, Eos % (Auto) 0.4, Baso % (Auto) 0.4, Absolute Neuts (auto) 4.9, Nucleated RBC % 0, Sodium 140, Potassium 3.2 L, Chloride 102, Carbon Dioxide 30.0, Anion Gap 8, BUN 29 H, Creatinine 1.50 H, Est GFR (MDRD) Af Amer 42 L, Est GFR (MDRD) Non-Af 35 L, BUN/Creatinine Ratio 19.3, Glucose 141 H, Calcium 8.9, Phosphorus 2.3 L, Total Bilirubin 1.30 H Rhythm: EKG: ECHO: Stress Test: Cardiac Cath: PCI: CT Surgery: Holter monitor: EPS: PPM: CXR: Chest CT Scan: Radiography Diagnostic Testing: Radiology Impression Echocardiogram 03/06/23 16:59 Interpretation Summary The estimated ejection fraction is 10-15 %. Severe global left ventricular systolic dysfunction. There is severe global hypokinesis of the left ventricle. Severe global right ventricular systolic dysfunction. The left atrium is severely enlarged. The right atrium is moderately enlarged. Moderately severe (3+) mitral valve insufficiency. Mild to moderate (1-2+) tricuspid valve insufficiency. Mild (1+) aortic valve insufficiency. No pericardial effusion. Large pleural effusion. Compared to previous echo, the LV function has worsended drastically. Ordering Physician: Cherrie العلي Referring Physician: Kranthi Long Performed By: Javier Gallagher RCS
--- NOTE | 2023-03-07 18:00 | CASEMGMT ---
Social Work Received update from construction safety manager Shannon, that patient would like to go to [facility] transitional care unit. Patient declined a list of choices at this time, reporting only wanted a list if declined by TCU. Message left for Addie in admissions at the [facility] transitional care unit. Plan: anticipate short-term correction facility; referral has been sent to [facility] TCU. Social work to follow. -MARIS Agrawal, TRAVELING ACCOUNTANT *This note was generated with Eniram dictation software. It may contain incorrect words, spelling, and punctuation that were not noted in review of the chart prior to signing*
[2023-03-07] MEDS: Mirtazapine 15 MG Tablet PO (21:22)
[2023-03-08] VITALS (10 sets, daily range): BP systolic 89–123; BP diastolic 64–98; PULSE 76–145; RESP 16–18; TEMP 35.6–36.4; O2SAT 94–98; BMI 19.6
[2023-03-08 07:28] LABS: Absolute Lymphocyte Count 1.96 X10^3/uL (0.83-4.51); Absolute Neutrophil Count 7.1 X10^3/uL (2.0-7.7); Basophil# 0.02 X10^3/uL; Basophil% 0.2 % (0-1); Hematocrit 54.3 % (37-47); Lymphocyte # 1.96 X10^3/ul (0.83-4.51); Lymphocyte % 20.6 % (19-41); Mean Corp Hgb Conc 31.3 g/dL (32-36); Mean Corpuscular Volume 95.8 fL (81-99); Mean Platelet Vol. 11.7 fl (6.2-12.0); Monocyte# 0.29 X10^3/uL; Monocyte% 3.1 % (0-10); NRBC Flagged by Analyzer 0.3 % (0-5); Neutrophil % 74.7 % (47-70); POSITIVE MORPHOLOGY YES; Platelet Count 118 K/mm3 (150-450); RBC Distribution Width CV 19.8 % (11.6-14.6); RBC Distribution Width SD 65.7 fl (35.1-43.9); Red Blood Count 5.67 M/mm3 (4.2-5.4); White Blood Count 9.5 K/mm3 (4.4-11.0)
[2023-03-08 07:31] LABS: Differential Indicated SCAN CRITERIA MET
[2023-03-08 08:20] LABS: Anion Gap 11 (5-15); BUN 38 mg/dL (7-18); BUN/Creat Ratio 17.3 RATIO (10-20); Calcium,Total 10.7 mg/dL (8.5-10.1); Chloride 103 mmol/L (98-107); EST Glomerular Filtration Rate 22 mL/min (>60); Est Glom Filt Rate - Afr Amer 27 mL/min (>60); Estimated Creatinine Clearance 16.69 ml/min; Glucose 149 mg/dL (74-106); Magnesium 1.8 mg/dL (1.6-2.6); Potassium 5.1 mmol/L (3.5-5.1); Sodium Level 140 mmol/L (136-145)
[2023-03-08 08:21] LABS: Anisocytosis 1+
--- NOTE | 2023-03-08 08:27 | PCM.PN.HOSP ---
Reason for Visit Reason for Visit: Diagnoses Unspecified atrial fibrillation (03/06/23) Idiopathic hypotension (03/06/23) Objective Data Objective Data Vital Signs: Vital Signs Temp Pulse Resp BP Pulse Ox O2 Del Method 97.6 F L 84 18 100/65 97 Room Air 03/08/23 06:00 03/08/23 06:00 03/08/23 06:00 03/08/23 06:00 03/08/23 06:00 03/08/23 06:00 Oxygen Delivery Method Room Air Weight: 129 lb 6.581 oz Body Mass Index (BMI) 19.6 Intake & Output: Intake and Output for Last 24 Hours 03/06/23 03/07/23 03/08/23 23:59 23:59 23:59 Intake Total 2370 / 2370 2420 / 2420 120 / 120 Output Total 200 / 200 705 / 705 0 / 0 Balance 2170 / 2170 1715 / 1715 120 / 120 Medical Nutrition Assessment Dietitian: Malnutrition Criteria Met Start: 03/07/23 16:57 Freq: Status: Active Protocol: Document 03/07/23 16:57 RMA (Rec: 03/07/23 16:57 RMA [id number]) Nutrition Malnutrition Evidence of Malnutrition Exists Yes Malnutrition (severe): Chronic Evidenced By Suboptimal Energy Intake ( Severe),Weight Loss (Severe), Physical Changes (Severe) Clinical Problem Chronic Disease or Condition Related Malnutrition Etiology Severe protein-calorie malnutrition in the context of chronic disease related to inadequate oral/energy intake Signs/Symptoms as evidenced by ~12% unintentional weight loss x 6- 7 months, BMI 19.0, PO meeting less than 50% estimated nutrition needs x 6 months and + NFPE with severe muscle wasting/fat depletion in the clavicle, face and orbitals Status Active Problem Recommendation Dietitian Recommendations/Changes Will liberalize diet to regular/no added salt given signs/symptoms of malnutrition . Will continue 120mL ensure plus HP 4 times per day w/ medpass. Will add 120mL ensure clear w/ breakfast and dinner. Will add magic cup w/ lunch. Consider enteral nutrition support if PO remains poor and inadequate at meals. Lab / Micro Data 03/08/23 07:05 03/08/23 07:05 Labs: Laboratory Results - last 24 hr 03/07/23 05:53: Phosphorus 2.3 L 03/08/23 07:05: WBC 9.5, RBC 5.67 H, Hgb 17.0 H, Hct 54.3 H, MCV 95.8, MCH 30.0, MCHC 31.3 L, RDW Std Deviation 65.7 H, RDW Coeff of Kin 19.8 H, Plt Count 118 L, MPV 11.7, Immature Gran % (Auto) 1.400 H, Neut % (Auto) 74.7 H, Lymph % (Auto) 20.6, [place] % (Auto) 3.1, Eos % (Auto) 0.0, Baso % (Auto) 0.2, Absolute Neuts (auto) 7.1, Absolute Lymphs (auto) 1.96, Nucleated RBC % 0.3, Anisocytosis 1+, Sodium 140, Potassium 5.1, Chloride 103, Carbon Dioxide 26.0, Anion Gap 11, BUN 38 H, Creatinine 2.20 H, Estim Creat Clear Calc 16.69, Est GFR (MDRD) Af Amer 27 L, Est GFR (MDRD) Non-Af 22 L, BUN/Creatinine Ratio 17.3, Glucose 149 H, Calcium 10.7 H, Magnesium 1.8 Micro: Microbiology 03/06/23 14:40 Urine, Catheterized Urine Culture - 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 Severe global left ventricular systolic dysfunction. There is severe global hypokinesis of the left ventricle. Severe global right ventricular systolic dysfunction. The left atrium is severely enlarged. The right atrium is moderately enlarged. Moderately severe (3+) mitral valve insufficiency. Mild to moderate (1-2+) tricuspid valve insufficiency. Mild (1+) aortic valve insufficiency. No pericardial effusion. Large pleural effusion. Compared to previous echo, the LV function has worsended drastically. Physical Exam Narrative Seen and examined. Patient is very weak. awake overnight monitor shows sinus tachycardia variable between 90s to 130s. BP is better 110/83. Antihypertensive medications for hold. 1 L fluid bolus given. Physical exam General: Mild lethargy but wakes up. Oriented x 3. Mild short of breath HEENT: Atraumatic, PERRLA, EOMI, Normocephalic Oral: No Gingival or Mucosal Lesions/ Ulcerations Neck: Supple, No JVD, Negative Carotid Bruits Lungs: Air entry diminished in bilateral lung bases. No crepitation/rhonchi. On room air Cardiovascular: Sinus tachycardia, low-intensity heart sound. Soft systolic murmur on right second ICS LLSB and cardiac apex Abdomen: Bowel Sounds Present, Soft, Non Tender, Non-Distended : No renal angle tenderness. No suprapubic tenderness. Extremities: No edema, Capillary Refill Less than 3 Seconds Skin: No rashes, No breakdown Musculoskeletal: No Tenderness to Palpation of Joints or Extremities Neurological: Cranial nerves II-XII grossly intact, DTR 2+/4. No acute focal neurological deficit. Psych/Mental Status: Flat affect. Assessment & Plan Assessment/Plan (1) Atrial fibrillation with RVR: PLAN: Plan The patient is a 86 y/o F who was admitted on 03/06/23 with history of poor oral intake since [place] normally able to ambulate with a walker independently but was not able to do so because of weakness. No recent fevers or chills nor any nausea or emesis or abdominal pain or diarrhea or any upper respiratory type symptoms but given this presentation and history with risk of being alone prompted referral to ED for evaluation. #1. Paroxsymal atrial fibrillation w/ RVR with concern for diffuse ST depressions: EKG in ED w/ atrial fibrillation w/ RVR. Currently sinus tachycardia. Patient was evaluated by lozenge maker. 2D echo shows EF 10 to 15% severe global RV systolic dysfunction LA severely enlarged RA moderately enlarged. Moderately severe 3+ MR 1-2+ TR. RVSP 28 mmHg. No aortic stenosis but mild AI. Mild PVI. Overall lozenge maker suggested palliative/hospice care. Patient has not had adequate oral intake therefore patient will be stated. Patient had low blood pressure therefore IV fluid resuscitation done. Hold antihypertensive medications. Amiodarone 200 mg daily ordered and will gradually resume AV naman rate control medications once blood pressure improves. Hypokalemia and magnesium on lower side therefore potassium magnesium replaced but ordered 03/08: Patient is still heart rate is high in the 140s. 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 Patient is not in good functional status and currently she is short of breath and not very alert. Little drowsy but wakes up and answers questions. Hard time in getting up from supine position. Palliative/hospice care option given as patient is not candidate for any procedure or intervention like AICD/ventricular assist device or heart transplant. For now we will try to manage with medications as per her vitals permits. #2. Gradually worsening CKD stage IV: Patient creatinine clearance was 30 mill per minute in April 2022 and since then's has been gradually deteriorating. Admission BUN/Cr 34/1.96, baseline renal function since earlier in the year primarily 1.6-1.7. 03/08: BUNs/creatinine 38/2.2 still above the baseline. Patient still has tachycardia on monitoring analyst 140s an and BP profile is better. I will give normal saline 100 mill per hour for total of 500 mL then afterwards no IV fluid. #3. 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 Antibiotic not indicated. #4. Hypokalemia: Admission K+ 3.2, as mentioned above #5. Adult failure to thrive, multifactorial: Possibly a progressive decline on top of acute presentation with #1, #2, #4, possibly #3, continue treatments as noted, will maintain on fall precautions, PT/OT/case management consulted for discharge planning. #6. HFmrEF: 02/07/2022 echocardiogram with mild global LV systolic dysfunction, EF 45%, severely enlarged LA, moderately enlarged RA, moderately severe MV insufficiency, moderate TV insufficiency, trivial NIGEL, trivial PVI, RVSP 33 mmHg with inability to assess diastolic dysfunction. Will continue renally dosed eliquis, holding HTN regimen as noted, not on statin. Given presentation however we will continue to judiciously hydrate but monitor for fluid overload. BNP baseline is increased #7. Hypertension presenting with hypotension: Patient with low BP upon presentation with significant concern of dehydration with poor recent oral intake thus we will hold all hypertensive regimen however once able will add back beta-yan and diltiazem given A-fib RVR presentation concurrently although again suspected likely from dehydration. #8. Known right-sided pleural effusion: Chest x-ray upon current presentation with reduced size, continue to follow, cardiology aware. #9. Hyperlipidemia: We will temporally hold patient home niacin regimen. #10. Hypothyroidism: Continue patient on levothyroxine regimen, TSH and free T4 requested. #11. Anxiety and depression: We will continue patient home mirtazapine regimen. #12. Allergic rhinitis: Per current list patient only uses as needed fluticasone thus we will temporarily hold. #13. History VTE: Will continue patient home renally dosed apixaban regimen. #14. Former tobacco usage: Encourage continued tobacco cessation. #15. DVT prophylaxis: Continue patient home renally dosed apixaban regimen. #16. CODE status: Patient VERA is her son who is present and living will is currently in place. Discussed CODE status at length including difference between FULL code, DNR-CCA and DNR-CC status. Following discussions about the differences in these status, requested DNR-CCA, no intubation. Microbiology Past 72 Hours 03/06/23 14:40 Urine, Catheterized Urine Culture - Preliminary Klebsiella pneumoniae sp pneum Gram negative lima Alpha hemolytic organism 03/06/23 12:18 Nasal Secretion SARS-CoV-2 & FLU Antigen (Rapid) - Final Laboratory Results 03/08/23 07:05: WBC 9.5, RBC 5.67 H, Hgb 17.0 H, Hct 54.3 H, MCV 95.8, MCH 30.0, MCHC 31.3 L, RDW Std Deviation 65.7 H, RDW Coeff of Kin 19.8 H, Plt Count 118 L, MPV 11.7, Immature Gran % (Auto) 1.400 H, Neut % (Auto) 74.7 H, Lymph % (Auto) 20.6, [place] % (Auto) 3.1, Eos % (Auto) 0.0, Baso % (Auto) 0.2, Absolute Neuts (auto) 7.1, Absolute Lymphs (auto) 1.96, Nucleated RBC % 0.3, Anisocytosis 1+, Sodium 140, Potassium 5.1, Chloride 103, Carbon Dioxide 26.0, Anion Gap 11, BUN 38 H, Creatinine 2.20 H, Estim Creat Clear Calc 16.69, Est GFR (MDRD) Af Amer 27 L, Est GFR (MDRD) Non-Af 22 L, BUN/Creatinine Ratio 17.3, Glucose 149 H, Calcium 10.7 H, Magnesium 1.8 Charges/Coding Addendum Addendum: Total time of the visit including total time spent in counseling or coordination of care, (more than 50% of the total time, spent in obtaining medical information from nurses and other ancillary care providers,explaining to the patient about labs, imaging, diagnosis and management of active complex medical conditions), discussion with the lozenge maker family member explanation of natural history, course and prognosis of heart failure, review of labs and imaging is 40 minutes. Visit Charges Inpatient E&M: 76130 Subs Hosp L3
--- NOTE | 2023-03-08 10:28 | CASEMGMT ---
A referral was made to TCU yesterday. TCU is unable to accept patient. Physician also talked about patient needing palliative/Hospice. Physician was going to talk with patient's son. Divine MCGARRY
[2023-03-08] MEDS: Amiodarone 200 MG Tablet PO (10:35)
[2023-03-08] MEDS: Metoprolol Tartrate 100 MG Tablet PO (10:36)
[2023-03-08] MEDS: Ensure Plus High Protein 120 ML LIQUID PO ×2 (10:36→17:55)
[2023-03-08] MEDS: APIXABAN 2.5 MG TABLET (WCH) PO (10:36)
[2023-03-08] MEDS: Menthol/Lanolin/Calamine/Znox 113 GM Tube 1 APPLIC TOPICAL ×3 (10:45→17:54)
--- NOTE | 2023-03-08 12:14 | NURSING ---
Dr. Looney and nurse spoke with pt daughter in law, she would like referral placed to Hospice for information regarding services
[2023-03-08] MEDS: 0.9% Saline Lock 10 ML Syringe IV (12:26)
[2023-03-08] MEDS: 0.9% Normal Saline (500mL Bag) 500 ML 100 ML IV (12:26)
--- NOTE | 2023-03-08 14:56 | CASEMGMT ---
SIMON KRAMER NOTE: Call placed to Iona @ [facility]. She is aware pt has been admitted to [facility] and that discharge plan is for TCU. She states she can f/u next week to verify discharge plan. Roberto NEW RN, CM
--- NOTE | 2023-03-08 15:21 | PN.CARD_ITS ---
Subjective Subjective She is awake however she is lethargic. She is sitting in the chair Denied any chest pain or shortness of breath. She is still in atrial fibrillation with RVR in the 120s beat per minute. She is not hypotensive anymore however her blood pressure is soft 110/70 mmHg Objective Data Vital Signs: Vital Signs Temp Pulse Resp BP Pulse Ox O2 Del Method 96.0 F L 82 16 97/76 94 Room Air 03/08/23 10:25 03/08/23 12:07 03/08/23 10:25 03/08/23 12:07 03/08/23 10:25 03/08/23 10:25 Oxygen Delivery Method Room Air Weight: 129 lb 6.581 oz Body Mass Index (BMI) 19.6 Intake & Output: Intake and Output for Last 24 Hours 03/06/23 03/07/23 03/08/23 23:59 23:59 23:59 Intake Total 2370 / 2370 2420 / 2420 120 / 120 Output Total 200 / 200 705 / 705 0 / 0 Balance 2170 / 2170 1715 / 1715 120 / 120 Lab / Micro Data 03/08/23 07:05 03/08/23 07:05 Labs: Laboratory Results - last 24 hr 03/08/23 07:05: WBC 9.5, RBC 5.67 H, Hgb 17.0 H, Hct 54.3 H, MCV 95.8, MCH 30.0, MCHC 31.3 L, RDW Std Deviation 65.7 H, RDW Coeff of Kin 19.8 H, Plt Count 118 L, MPV 11.7, Immature Gran % (Auto) 1.400 H, Neut % (Auto) 74.7 H, Lymph % (Auto) 20.6, [place] % (Auto) 3.1, Eos % (Auto) 0.0, Baso % (Auto) 0.2, Absolute Neuts (auto) 7.1, Absolute Lymphs (auto) 1.96, Nucleated RBC % 0.3, Anisocytosis 1+, S odium 140, Potassium 5.1, Chloride 103, Carbon Dioxide 26.0, Anion Gap 11, BUN 38 H, Creatinine 2.20 H, Estim Creat Clear Calc 16.69, Est GFR (MDRD) Af Amer 27 L, Est GFR (MDRD) Non-Af 22 L, BUN/Creatinine Ratio 17.3, Glucose 149 H, Calcium 10.7 H, Magnesium 1.8 Micro: Microbiology 03/06/23 14:40 Urine, Catheterized Urine Culture - Preliminary Klebsiella pneumoniae sp pneum Gram negative lima Alpha hemolytic organism Cardiology Labs/Tests 03/08/23 07:05: WBC 9.5, RBC 5.67 H, Hgb 17.0 H, Hct 54.3 H, MCV 95.8, MCH 30.0, MCHC 31.3 L, Plt Count 118 L, MPV 11.7, Immature Gran % (Auto) 1.400 H, Neut % (Auto) 74.7 H, Lymph % (Auto) 20.6, [place] % (Auto) 3.1, Eos % (Auto) 0.0, Baso % (Auto) 0.2, Absolute Neuts (auto) 7.1, Nucleated RBC % 0.3, Sodium 140, Potassium 5.1, Chloride 103, Carbon Dioxide 26.0, Anion Gap 11, BUN 38 H, Creatinine 2.20 H, Est GFR (MDRD) Af Amer 27 L, Est GFR (MDRD) Non-Af 22 L, BUN/Creatinine Ratio 17.3, Glucose 149 H, Calcium 10.7 H, Magnesium 1.8 Rhythm: EKG: ECHO: Stress Test: Cardiac Cath: PCI: CT Surgery: Holter monitor: EPS: PPM: CXR: Chest CT Scan: Physical Exam Const oriented x3 Constitutional Narrative: She appears ill and lethargic. HEENT normocephalic and head/scalp atraumatic Eyes PERRL and EOMs intact bilaterally Chest inspection of chest normal and palpation of chest normal Resp normal respiratory effort Effort and Inspection: Negative for uses accessory muscles Auscultation: Negative for crackles or rales Cardio Jugular Venous Distention: Negative for JVD Rate: tachycardic Rhythm: Negative for regular rhythm Assessment & Plan Assessment/Plan (1) Atrial fibrillation with RVR: PLAN: Plan Assessment 1. A-fib with RVR. 2. Poor oral intake leading to dehydration 3. Congestive heart failure with severely depressed ejection fraction EF 10 to 15%. 4. Biventricular failure. 5. History of PE/DVT. 6. BRENT on CKD. 7. Hypotension which is likely multifactorial due to above. Resolved Plan Patient is not hypotensive anymore however blood pressure is soft. Will continue with amiodarone 200 mg daily for now in an attempt to control heart rate. Patient has been on Eliquis for few months nonstop. Will continue with Eliquis 2.5 mg twice daily. Will start patient on Lopressor 25 mg 3 times daily if blood pressure allows.. Discontinue Cardizem. Which she has not gotten any since admission Continue to replace electrolytes as appropriate. Patient is currently DNR. Patient and family would like to proceed with hospice. Discussed with the patient [id number] the prognosis, discussed the severely depressed ejection fraction and ischemia workup. They would like not to proceed with any invasive measures for now. Patient has very poor prognosis
--- NOTE | 2023-03-08 15:49 | CASEMGMT ---
SW spoke with patient's daughter in law Meera. She and her David both agree with Hospice. SW let her know that SW will make a referral to Hospice and they will contact her regarding setting up a meeting. SW sent a referral to [facility]. Divine Curry DATA WAREHOUSING MANAGERBrie MCGARRY
--- NOTE | 2023-03-08 16:41 | CASEMGMT ---
ELIAS has not heard back from Tana with [facility]. ELIAS called [facility] admissions and made referral. ELIAS also faxed information to . Divine Curry FLAP LINING BINDER MALGORZATA
--- NOTE | 2023-03-08 17:08 | CASEMGMT ---
SW called [facility] and spoke to Rebeca. Rebeca said the received the referral and she is processing it right now. Hospice [phone] option 2 and Hospice fax Divine MCGARRY
[2023-03-09] VITALS (13 sets, daily range): BP systolic 94–126; BP diastolic 52–113; PULSE 130–153; RESP 18; TEMP 35.9–36.8; O2SAT 93–100; BMI 20.7
[2023-03-09] MEDS: Metoprolol Tartrate 5 MG/5 ML Vial IV ×2 (01:28→09:45)
[2023-03-09] MEDS: 0.9% Saline Lock 10 ML Syringe IV ×2 (01:30→09:45)
[2023-03-09] MEDS: Metoprolol Tartrate 25 MG Tablet PO (05:26)
[2023-03-09] MEDS: Levothyroxine 75 MCG Tablet PO (05:27)
[2023-03-09] MEDS: Amiodarone 200 MG Tablet PO (05:49)
[2023-03-09 06:16] LABS: Absolute Lymphocyte Count 2.62 X10^3/uL (0.83-4.51); Absolute Neutrophil Count 10.8 X10^3/uL (2.0-7.7); Basophil# 0.03 X10^3/uL; Basophil% 0.2 % (0-1); Hematocrit 53.7 % (37-47); Hemoglobin 16.8 g/dL (12.0-15.0); Lymphocyte # 2.62 X10^3/ul (0.83-4.51); Lymphocyte % 18.8 % (19-41); Mean Corp Hgb Conc 31.3 g/dL (32-36); Mean Corpuscular Hgb 30.5 pg (27.0-32.0); Mean Corpuscular Volume 97.6 fL (81-99); Mean Platelet Vol. 12.5 fl (6.2-12.0); Monocyte# 0.43 X10^3/uL; Monocyte% 3.1 % (0-10); NRBC Flagged by Analyzer 0.5 % (0-5); Neutrophil # 10.76 X10^3/uL (2.7-7.7); POSITIVE MORPHOLOGY YES; Platelet Count 124 K/mm3 (150-450); RBC Distribution Width SD 67.2 fl (35.1-43.9)
[2023-03-09 06:25] LABS: Differential Indicated SCAN CRITERIA MET
[2023-03-09 06:38] LABS: Anion Gap 11 (5-15); BUN 50 mg/dL (7-18); Calcium,Total 10.1 mg/dL (8.5-10.1); Chloride 106 mmol/L (98-107); EST Glomerular Filtration Rate 19 mL/min (>60); Est Glom Filt Rate - Afr Amer 23 mL/min (>60); Estimated Creatinine Clearance 15.49 ml/min; Glucose 98 mg/dL (74-106); Potassium 4.7 mmol/L (3.5-5.1); Sodium Level 144 mmol/L (136-145)
--- NOTE | 2023-03-09 08:07 | CASEMGMT ---
Social Work SW called [facility], meeting scheduled today with Yanet at 12pm. Charge nurse notified. MARIS Nugent
[2023-03-09 08:58] LABS: Anisocytosis 2+; Differential Comment SCANNED; Hypochromasia 1+; Macrocytosis 1+; Microcytosis 1+
[2023-03-09] MEDS: Menthol/Lanolin/Calamine/Znox 113 GM Tube 1 APPLIC TOPICAL (09:36)
--- NOTE | 2023-03-09 13:54 | PCM.PN.HOSP ---
Reason for Visit Reason for Visit: Diagnoses Unspecified atrial fibrillation (03/06/23) Idiopathic hypotension (03/06/23) Objective Data Objective Data Vital Signs: Vital Signs Temp Pulse Resp BP Pulse Ox O2 Del Method O2 Flow Rate 97.0 F L 148 H 18 124/113 H 99 Room Air 2 03/09/23 11:55 03/09/23 11:55 03/09/23 11:55 03/09/23 11:55 03/09/23 11:55 03/09/23 11:55 03/09/23 01:41 Oxygen Flow Rate (L/min) 2 Oxygen Delivery Method Room Air Weight: 136 lb 7.458 oz Body Mass Index (BMI) 20.7 Intake & Output: Intake and Output for Last 24 Hours 03/07/23 03/08/23 03/09/23 23:59 23:59 23:59 Intake Total 2420 / 2420 620 / 620 Output Total 705 / 705 0 / 0 Balance 1715 / 1715 620 / 620 Medical Nutrition Assessment Dietitian: Malnutrition Criteria Met Start: 03/07/23 16:57 Freq: Status: Active Protocol: Document 03/07/23 16:57 RMA (Rec: 03/07/23 16:57 RMA [id number]) Nutrition Malnutrition Evidence of Malnutrition Exists Yes Malnutrition (severe): Chronic Evidenced By Suboptimal Energy Intake ( Severe),Weight Loss (Severe), Physical Changes (Severe) Clinical Problem Chronic Disease or Condition Related Malnutrition Etiology Severe protein-calorie malnutrition in the context of chronic disease related to inadequate oral/energy intake Signs/Symptoms as evidenced by ~12% unintentional weight loss x 6- 7 months, BMI 19.0, PO meeting less than 50% estimated nutrition needs x 6 months and + NFPE with severe muscle wasting/fat depletion in the clavicle, face and orbitals Status Active Problem Recommendation Dietitian Recommendations/Changes Will liberalize diet to regular/no added salt given signs/symptoms of malnutrition . Will continue 120mL ensure plus HP 4 times per day w/ medpass. Will add 120mL ensure clear w/ breakfast and dinner. Will add magic cup w/ lunch. Consider enteral nutrition support if PO remains poor and inadequate at meals. Lab / Micro Data 03/09/23 05:46 03/09/23 05:46 Labs: Laboratory Results - last 24 hr 03/09/23 05:46: WBC 14.0 H, RBC 5.50 H, Hgb 16.8 H, Hct 53.7 H, MCV 97.6, MCH 30.5, MCHC 31.3 L, RDW Std Deviation 67.2 H, RDW Coeff of Kin 20.0 H, Plt Count 124 L, MPV 12.5 H, Immature Gran % (Auto) 0.900, Neut % (Auto) 77.0 H, Lymph % (Auto) 18.8 L, [place] % (Auto) 3.1, Eos % (Auto) 0.0, Baso % (Auto) 0.2, Absolute Neuts (auto) 10.8 H, Absolute Lymphs (auto) 2.62, Nucleated RBC % 0.5, Differential Comment SCANNED, Hypochromasia 1+, Anisocytosis 2+, Microcytosis 1+, Macrocytosis 1+, Sodium 144, Potassium 4.7, Chloride 106, Carbon Dioxide 27.0, Anion Gap 11, BUN 50 H, Creatinine 2.50 H, Estim Creat Clear Calc 15.49, Est GFR (MDRD) Af Amer 23 L, Est GFR (MDRD) Non-Af 19 L, BUN/Creatinine Ratio 20.0, Glucose 98, Calcium 10.1 Micro: Microbiology 03/06/23 14:40 Urine, Catheterized Urine Culture - Preliminary Klebsiella pneumoniae sp pneum Proteus mirabilis Alpha hemolytic organism 03/06/23 12:18 Nasal Secretion SARS-CoV-2 & FLU Antigen (Rapid) - Final Physical Exam Narrative Seen and examined. Patient is very weak. Patient is lethargic. Not doing well. Mild short of breath although she denies it. brick offbearer shows sinus tachycardia. Patient accepted for inpatient hospice after discussion with the family. Hospice order entered as recommended by hospice, Ativan and Roxanol scheduled and as needed. Physical exam General: Mild lethargy but wakes up. Oriented x 3. Mild short of breath HEENT: Atraumatic, PERRLA, EOMI, Normocephalic Oral: No Gingival or Mucosal Lesions/ Ulcerations Neck: Supple, No JVD, Negative Carotid Bruits Lungs: Air entry diminished in bilateral lung bases. No crepitation/rhonchi. On room air Cardiovascular: Sinus tachycardia, muffled heart sound. Soft systolic murmur on right second ICS LLSB and cardiac apex, not clear Abdomen: Bowel Sounds Present, Soft, Non Tender, Non-Distended : No renal angle tenderness. No suprapubic tenderness. Extremities: No edema, Capillary Refill Less than 3 Seconds Skin: No rashes, No breakdown Musculoskeletal: No Tenderness to Palpation of Joints or Extremities Neurological: Low pitched voice. Lethargic. Cranial nerves II-XII grossly intact, No acute focal neurological deficit. Psych/Mental Status: Flat affect. Assessment & Plan Assessment/Plan (1) Atrial fibrillation with RVR: PLAN: Plan The patient is a 86 y/o F who was admitted on 03/06/23 with history of poor oral intake since [place] normally able to ambulate with a walker independently but was not able to do so because of weakness. No recent fevers or chills nor any nausea or emesis or abdominal pain or diarrhea or any upper respiratory type symptoms but given this presentation and history with risk of being alone prompted referral to ED for evaluation. #1. Paroxsymal atrial fibrillation w/ RVR with concern for diffuse ST depressions: EKG in ED w/ atrial fibrillation w/ RVR. Currently sinus tachycardia. Patient was evaluated by mobile product manager. 2D echo shows EF 10 to 15% severe global RV systolic dysfunction LA severely enlarged RA moderately enlarged. Moderately severe 3+ MR 1-2+ TR. RVSP 28 mmHg. No aortic stenosis but mild AI. Mild PVI. Overall mobile product manager suggested palliative/hospice care. Patient has not had adequate oral intake therefore patient will be stated. Patient had low blood pressure therefore IV fluid resuscitation done. Hold antihypertensive medications. Amiodarone 200 mg daily ordered and will gradually resume AV naman rate control medications once blood pressure improves. Hypokalemia and magnesium on lower side therefore potassium magnesium replaced but ordered 03/08: Patient is still heart rate is high in the 140s. With biventricular heart failure with low EF and poor prognosis I talked to patient's son who is power of patent prosecution attorney for health and explained the pathogenesis and natural history and expected course of heart failure, basically end-stage heart failure. Patient is not in good functional status and currently she is short of breath and not very alert. Little drowsy but wakes up and answers questions. Hard time in getting up from supine position. Palliative/hospice care option given as patient is not candidate for any procedure or intervention like AICD/ventricular assist device or heart transplant. For now we will try to manage with medications as per her vitals permits. 03/09: After discussion with the family of the patient and the hospice nurse, the family members elected for inpatient hospice. Hospice recommended as patient is not awake enough therefore not safe for diet. IV fluid also discontinued as per hospice nurse recommendation. Hospice comfort care measures Ativan and Roxanol scheduled and as needed ordered as per hospice recommendation. Family visiting the patient. Sinus tachycardia. #2. Gradually worsening CKD stage IV: Patient creatinine clearance was 30 mill per minute in April 2022 and since then's has been gradually deteriorating. Admission BUN/Cr 34/1.96, baseline renal function since earlier in the year primarily 1.6-1.7. 03/08: BUNs/creatinine 38/2.2 still above the baseline. Patient still has tachycardia on box spring frame builder 140s an and BP profile is better. I will give normal saline 100 mill per hour for total of 500 mL then afterwards no IV fluid. 03/09: Further worsening of creatinine 2.5. BUN 50. Hospice recommended against IV fluid as they do not see any benefit. #3. Contaminated urine culture: Urine culture shows multiple bacteria GNR lactose decision support manager and [id number], GNR 1000-10,000 and alphahemolytic organism suggestive of contamination. Antibiotic not indicated. #4. Hypokalemia: Admission K+ 3.2, as mentioned above #5. Adult failure to thrive, multifactorial: Possibly a progressive decline on top of acute presentation with #1, #2, #4, possibly #3, continue treatments as noted, will maintain on fall precautions, PT/OT/case management consulted for discharge planning. #6. HFmrEF: 02/07/2022 echocardiogram with mild global LV systolic dysfunction, EF 45%, severely enlarged LA, moderately enlarged RA, moderately severe MV insufficiency, moderate TV insufficiency, trivial NIGEL, trivial PVI, RVSP 33 mmHg with inability to assess diastolic dysfunction. Will continue renally dosed eliquis, holding HTN regimen as noted, not on statin. Given presentation however we will continue to judiciously hydrate but monitor for fluid overload. BNP baseline is increased #7. Hypertension presenting with hypotension: Patient with low BP upon presentation with significant concern of dehydration with poor recent oral intake thus we will hold all hypertensive regimen however once able will add back beta-yan and diltiazem given A-fib RVR presentation concurrently although again suspected likely from dehydration. #8. Known right-sided pleural effusion: Chest x-ray upon current presentation with reduced size, continue to follow, cardiology aware. #9. Hyperlipidemia: We will temporally hold patient home niacin regimen. #10. Hypothyroidism: Continue patient on levothyroxine regimen, TSH and free T4 requested. #11. Anxiety and depression: We will continue patient home mirtazapine regimen. #12. Allergic rhinitis: Per current list patient only uses as needed fluticasone thus we will temporarily hold. #13. History VTE: Will continue patient home renally dosed apixaban regimen. #14. Former tobacco usage: Encourage continued tobacco cessation. #15. DVT prophylaxis: Continue patient home renally dosed apixaban regimen. #16. CODE status: Patient VERA is her son who is present and living will is currently in place. Discussed CODE status at length including difference between FULL code, DNR-CCA and DNR-CC status. Following discussions about the differences in these status, requested DNR-CCA, no intubation. Microbiology Past 72 Hours 03/06/23 14:40 Urine, Catheterized Urine Culture - Preliminary Klebsiella pneumoniae sp pneum Gram negative lima Alpha hemolytic organism 03/06/23 12:18 Nasal Secretion SARS-CoV-2 & FLU Antigen (Rapid) - Final Laboratory Results 03/08/23 07:05: WBC 9.5, RBC 5.67 H, Hgb 17.0 H, Hct 54.3 H, MCV 95.8, MCH 30.0, MCHC 31.3 L, RDW Std Deviation 65.7 H, RDW Coeff of Kin 19.8 H, Plt Count 118 L, MPV 11.7, Immature Gran % (Auto) 1.400 H, Neut % (Auto) 74.7 H, Lymph % (Auto) 20.6, [place] % (Auto) 3.1, Eos % (Auto) 0.0, Baso % (Auto) 0.2, Absolute Neuts (auto) 7.1, Absolute Lymphs (auto) 1.96, Nucleated RBC % 0.3, Anisocytosis 1+, Sodium 140, Potassium 5.1, Chloride 103, Carbon Dioxide 26.0, Anion Gap 11, BUN 38 H, Creatinine 2.20 H, Estim Creat Clear Calc 16.69, Est GFR (MDRD) Af Amer 27 L, Est GFR (MDRD) Non-Af 22 L, BUN/Creatinine Ratio 17.3, Glucose 149 H, Calcium 10.7 H, Magnesium 1.8 Charges/Coding Visit Charges Inpatient E&M: 03666 Subs Hosp L2
--- NOTE | 2023-03-09 14:15 | CASEMGMT ---
Social Work SW spoke w/RN for hospice, there are no beds in the [facility]. She states pt is terminally restless. Pt on wait list for [facility]. MARIS Nugent
--- NOTE | 2023-03-09 15:22 | EXP.PCM_ITS ---
Preliminary Cause of Preliminary Cause of Preliminary Cause of : Acute on chronic systolic severe heart failure/end-stage heart failure Paroxysmal A-fib with RVR BRENT on CKD stage IV hypokalemia, corrected Adult failure to thrive. Hypotension in the ED Other comorbidities include hypertension, dyslipidemia, hypothyroidism, anxiety and depression and history of VTE Date of Admission: 03/06/23 Date of : 03/09/23 Principle Diagnosis Problem List: Active and Suspected Problems (Updated 03/07/23 @ 17:[address] Barbra Looney MD) Atrial fibrillation with RVR (Acute) Hypotension (Acute) Atrial fibrillation with RVR (Acute) Acidosis, lactic (Acute) Acute hypokalemia (Acute) Weakness (Acute) Acute dehydration (Acute) Assessment & Plan Assessment/Plan (1) Atrial fibrillation with RVR: PLAN: Plan The patient is a 86 y/o F who was admitted on 03/06/23 with history of poor oral intake since [place] normally able to ambulate with a walker independently but was not able to do so because of weakness. No recent fevers or chills nor any nausea or emesis or abdominal pain or diarrhea or any upper respiratory type symptoms but given this presentation and history with risk of being alone prompted referral to ED for evaluation. #1. Acute on chronic systolic severe biventricular heart failure/end-stage heart failure, paroxsymal atrial fibrillation w/ RVR with concern for diffuse ST depressions: EKG in ED w/ atrial fibrillation w/ RVR. Currently sinus tachycardia. Patient was evaluated by data management associate. 2D echo shows EF 10 to 15% severe global RV systolic dysfunction LA severely enlarged RA moderately enlarged. Moderately severe 3+ MR 1-2+ TR. RVSP 28 mmHg. No aortic stenosis but mild AI. Mild PVI. Overall data management associate suggested palliative/hospice care. Patient has not had adequate oral intake therefore patient will be stated. Patient had low blood pressure therefore IV fluid resuscitation done. Hold antihypertensive medications. Amiodarone 200 mg daily ordered and will gradually resume AV naman rate control medications once blood pressure improves. Hypokalemia and magnesium on lower side therefore potassium magnesium replaced but ordered 03/08: Patient is still heart rate is high in the 140s. With biventricular heart failure with low EF and poor prognosis I talked to patient's son who is power of traffic law attorney for health and explained the pathogenesis and natural history and expected course of heart failure, basically end-stage heart failure. Patient is not in good functional status and currently she is short of breath and not very alert. Little drowsy but wakes up and answers questions. Hard time in getting up from supine position. Palliative/hospice care option given as patient is not candidate for any procedure or intervention like AICD/ventricular assist device or heart transplant. For now we will try to manage with medications as per her vitals permits. 03/09: Patient was in A-fib with RVR in the morning. After discussion with the family of the patient and the hospice nurse, the family members elected for inpatient hospice. Hospice recommended as patient is not awake enough therefore not safe for diet. IV fluid also discontinued as per hospice nurse recommendation. Hospice comfort care measures Ativan and Roxanol scheduled and as needed ordered as per hospice recommendation. Family visiting the patient. Later on patient became more lethargic and heart rhythm changed to PEA and then asystole. Time of 1504 p.m. on 03/09/2023. Patient's son and [id number] near the bedside. I went to meet the patient's sons and [id number] and empathy was given. #2 BRENT on CKD stage IV, hypokalemia with the rapid worsening of kidney function: Patient creatinine clearance was 30 mill per minute in April 2022 and since then's has been gradually deteriorating. Admission BUN/Cr 34/1.96, baseline renal function since earlier in the year primarily 1.6-1.7. 03/08: BUNs/creatinine 38/2.2 still above the baseline. Patient still has tachycardia on air sampling and monitoring 140s an and BP profile is better. I will give normal saline 100 mill per hour for total of 500 mL then afterwards no IV fluid. 03/09: Further worsening of creatinine 2.5. BUN 50. Hospice recommended against IV fluid as they do not see any benefit. #3. Contaminated urine culture: Urine culture shows multiple bacteria GNR lactose dairy clerk and [id number] 8000, GNR 1000-10,000 and alphahemolytic organism suggestive of contamination. Antibiotic not indicated. #4. Hypokalemia: Admission K+ 3.2, as mentioned above #5. Adult failure to thrive, multifactorial: Possibly a progressive decline on top of acute presentation with #1, #2, #4, possibly #3, continue treatments as noted, will maintain on fall precautions, PT/OT/case management consulted for discharge planning. #6. HFmrEF: 02/07/2022 echocardiogram with mild global LV systolic dysfunction, EF 45%, severely enlarged LA, moderately enlarged RA, moderately severe MV insufficiency, moderate TV insufficiency, trivial NIGEL, trivial PVI, RVSP 33 mmHg with inability to assess diastolic dysfunction. Will continue renally dosed eliquis, holding HTN regimen as noted, not on statin. Given presentation however we will continue to judiciously hydrate but monitor for fluid overload. BNP baseline is increased #7. Hypertension presenting with hypotension: Patient with low BP upon presentation with significant concern of dehydration with poor recent oral intake thus we will hold all hypertensive regimen however once able will add back beta-yan and diltiazem given A-fib RVR presentation concurrently although again suspected likely from dehydration. #8. Known right-sided pleural effusion: Chest x-ray upon current presentation with reduced size, continue to follow, cardiology aware. #9. Hyperlipidemia: We will temporally hold patient home niacin regimen. #10. Hypothyroidism: Continue patient on levothyroxine regimen, TSH and free T4 requested. #11. Anxiety and depression: We will continue patient home mirtazapine regimen. #12. Allergic rhinitis: Per current list patient only uses as needed fluticasone thus we will temporarily hold. #13. History VTE: Will continue patient home renally dosed apixaban regimen. #14. Former tobacco usage: Encourage continued tobacco cessation. #15. DVT prophylaxis: Continue patient home renally dosed apixaban regimen. #16. CODE status: Patient VERA is her son who is present and living will is currently in place. Discussed CODE status at length including difference between FULL code, DNR-CCA and DNR-CC status. Following discussions about the differences in these status, requested DNR-CCA, no intubation. Microbiology Past 72 Hours 03/06/23 14:40 Urine, Catheterized Urine Culture - Preliminary Klebsiella pneumoniae sp pneum Gram negative lima Alpha hemolytic organism 03/06/23 12:18 Nasal Secretion SARS-CoV-2 & FLU Antigen (Rapid) - Final Laboratory Results 03/08/23 07:05: WBC 9.5, RBC 5.67 H, Hgb 17.0 H, Hct 54.3 H, MCV 95.8, MCH 30.0, MCHC 31.3 L, RDW Std Deviation 65.7 H, RDW Coeff of Kin 19.8 H, Plt Count 118 L, MPV 11.7, Immature Gran % (Auto) 1.400 H, Neut % (Auto) 74.7 H, Lymph % (Auto) 20.6, [place] % (Auto) 3.1, Eos % (Auto) 0.0, Baso % (Auto) 0.2, Absolute Neuts (auto) 7.1, Absolute Lymphs (auto) 1.96, Nucleated RBC % 0.3, Anisocytosis 1+, Sodium 140, Potassium 5.1, Chloride 103, Carbon Dioxide 26.0, Anion Gap 11, BUN 38 H, Creatinine 2.20 H, Estim Creat Clear Calc 16.69, Est GFR (MDRD) Af Amer 27 L, Est GFR (MDRD) Non-Af 22 L, BUN/Creatinine Ratio 17.3, Glucose 149 H, Calcium 10.7 H, Magnesium 1.8 Visit Charges Inpatient E&M: 44262 Disch Hosp >30min
== END 2023-03-09 15:04 | DRG 308 ==
LOC: ED 16:04 → PCU 16:13
PROVIDERS: Physician Assistant; Admitting Provider Family Medicine; Emergency Provider Emergency Medicine; PCP Family Medicine; Visit Provider Internal Medicine
DX: I48.0 Paroxysmal atrial fibrillation (principal); I50.23 Acute on chronic systolic (congestive) heart failure; E43 Unspecified severe protein-calorie malnutrition; N17.9 Acute kidney failure, unspecified; E87.20 Acidosis, unspecified; I13.0 Hypertensive heart and chronic kidney disease with heart failure and stage 1 through stage 4 chronic kidney disease, or unspecified chronic kidney disease; N18.4 Chronic kidney disease, stage 4 (severe); Z68.1 Body mass index [BMI] 19.9 or less, adult; I42.9 Cardiomyopathy, unspecified; E86.0 Dehydration; I50.84 End stage heart failure; I50.82 Biventricular heart failure; F32.A Depression, unspecified; E03.9 Hypothyroidism, unspecified; I08.1 Rheumatic disorders of both mitral and tricuspid valves; I95.0 Idiopathic hypotension; E87.6 Hypokalemia; J30.9 Allergic rhinitis, unspecified; E78.5 Hyperlipidemia, unspecified; F41.9 Anxiety disorder, unspecified; R62.7 Adult failure to thrive; Z66 Do not resuscitate; Z79.01 Long term (current) use of anticoagulants; Z79.890 Hormone replacement therapy; Z79.899 Other long term (current) drug therapy; Z87.891 Personal history of nicotine dependence
CPT/HCPCS: 36415; 71045; 80048; 80053; 81001; 83605; 83735; 83880; 84100; 84145; 84443; 84484; 85025; 87077; 87086; 87088; 87186; 87428; 93005; 93306; 94668; 97150; 97162; 97166; 97530; 97802; 99285; J7030; J7040; J7120; A4216